=== PATIENT | female | born 1985 | race Caucasian/White ===

== ENCOUNTER 2019-08-23 12:52 | Emergency (ER) | payer SELFPAY ==
[2019-08-23 12:55] VITALS: BP 129/87; PULSE 109; RESP 16; TEMP 37.1; O2SAT 98; BMI 28.3
--- NOTE | 2019-08-23 13:48 | W.ED.WOUNDLC ---
HPI - Wound/Laceration General: Chief Complaint: Wound/Laceration Stated Complaint: SWOLLEN LIP Time Seen by Provider: 08/23/19 13:48 Source: patient Mode of arrival: ambulatory Limitations: no limitations History of Present Illness: HPI narrative: Patient comes in today with complaints of swelling to the lower lip. Patient had a pimple just beneath her lower lip on her face and had popped it yesterday. Patient awakened this morning with increased swelling and pain to the lip area. Patient appears well. Patient appears in mild to moderate pain. Review of Systems General: Reports: 10 or more systems reviewed and unremarkable except in HPI and below Skin/Breast: Reports: skin tenderness and changes in skin color PFSH ED PFSH: Social History Smoking and tobacco status: current every day smoker Physical Exam Const: COMMON NORMALS: no apparent distress and oriented x3 GENERAL APPEARANCE: cooperative HENMT: COMMON NORMALS: normocephalic, external ears normal, EAC's normal, TM's normal bilaterally and external nose normal HEAD & SCALP: normal to inspection and normocephalic FACE & SINUS: other (Swelling to the lower lip with a pustule beneath the lip and the lower frenulum.) NOSE: external nose normal GENERAL EAR: hearing not grossly impaired EXTERNAL EAR: Yes external ears normal EXTERNAL AUDITORY CANAL: EAC's normal TYMPANIC MEMBRANE: TM's normal bilaterally MOUTH: oral and palatal mucosa normal THROAT: posterior oropharynx normal Eye: COMMON NORMALS: PERRL and EOMs intact bilaterally PUPIL: Yes PERRL Neck/C-Spine: COMMON NORMALS: full ROM and no lymphadenopathy Lymph: LYMPHATIC: no lymphedema noted Chest: COMMONS NORMALS: inspection of chest normal and palpation of chest normal Resp: COMMON NORMALS: normal respiratory effort and clear to auscultation bilaterally AUSCULTATION: clear to auscultation bilaterally Cardio: COMMON NORMALS: regular rate and regular rhythm RATE: regular rate RHYTHM: regular rhythm GI: COMMON NORMALS: normal to inspection, nondistended, normoactive bowel sounds and non-tender : COMMON NORMALS: Yes no CVA tenderness BLADDER/KIDNEY EXAM: Yes no CVA tenderness Back/Pelvis: COMMON NORMALS: no CVA tenderness and thoracic and lumbar spine normal to inspection Extremity: COMMON NORMALS: normal to inspection GENERAL: No edema Neuro: COMMON NORMALS: oriented x3, moves all extremities and no focal motor deficits Psych: COMMON NORMALS: mental status grossly normal and cooperative Skin: LESIONS: lesion noted (pustule lower face) Procedures Abscess I/D Site: lip Local Anesthetic: lidocaine 2% and with epi Amount of anesthesia used (mL): 3 Technique: incised with #11 blade Amount of fluid expressed (mL): 1 Irrigation: Yes Packing used?: plain (1 06/29 wick) Course Vital Signs: Vital signs: Vital Signs Temperature 98.7 F 08/23/19 12:55 Pulse Rate 109 H 08/23/19 12:55 Respiratory Rate 16 08/23/19 12:55 Blood Pressure 129/87 08/23/19 12:55 Pulse Oximetry 98 08/23/19 12:55 MDM - Wound/Laceration MDM Narrative: Medical decision making narrative: Patient presents with abscess to the lower central lip area. On exam we know a pustule with surrounding area of tissue tenderness and lip swelling. Differential diagnosis cellulitis, abscess, sebaceous cyst. Patient was anesthetized with 2% lidocaine and epinephrine. Half a centimeter incision was made, patient tolerated well, large amount of sebum and purulent drainage was expressed from the wound. Patient tolerated well. Reviewed postprocedure care and need for follow-up. Patient reports understanding of care plan and need for follow-up. Discharge Plan Discharge Patient Disposition: Home, Self-Care Clinical Impression: Abscess Condition: Stable Prescriptions: New Bactrim DS 800-160 mg tablet 1 tab PO BID 10 Days Qty: 20 RF: 0 ibuprofen 800 mg tablet 800 mg PO Q8H PRN (Reason: pain) Qty: 30 RF: 0 Discharge Orders: Discharge Order (Routine); Ordered 08/23/19 Ordered By: Elbert Mcneal Referrals: Iris Cassidy NP [Primary Care Provider] - Discharge Diet: Usual diet Discharge Activity: Increase activity as tolerated Patient Instructions: Abscess Incision and Drainage (ED) Activity Restrictions/Additional Instructions: Drink plenty of fluids Medications as directed Warm compresses Return to ER for worsening pain and swelling Remove wick in 48 hours, leave out if comes out before time Follow-up with primary care in 3 days as needed Coding Level of Care Code ED [employer] [facility] Life Consultant for Tamela Fwd Exam Comprehensive
[2019-08-23] MEDS: sulfamethoxazole-trimeth DS 160-800 mg Tablet 1 TAB PO (14:18)
[2019-08-23 15:39] VITALS: BP 121/74; PULSE 72; RESP 18; O2SAT 96
== END 2019-08-23 15:41 | disposition home or self-care (01) ==
PROVIDERS: Emergency Provider Nurse Practitioner Family; Family Provider Nurse Practitioner Family; PCP Nurse Practitioner Family
DX: K13.0 Diseases of lips (principal); F17.200 Nicotine dependence, unspecified, uncomplicated
CPT/HCPCS: 10060; 99281; 99283; J2001

== ENCOUNTER 2019-09-11 03:50 | Emergency (ER) | payer SELFPAY ==
[2019-09-11 03:54] VITALS: BP 137/80; PULSE 100; RESP 18; TEMP 36.6; O2SAT 98; BMI 28.3
--- NOTE | 2019-09-11 03:55 | ED_ITS ---
Entered by Ellen Martin, acting as scribe for Sep 11, 2019 03:50 HPI - Abdominal Pain General: Chief Complaint: Abdominal Pain Stated Complaint: lower abd pain Time Seen by Provider: 09/11/19 03:55 Source: patient Mode of arrival: ambulatory Limitations: no limitations History of Present Illness: HPI narrative: 34 yo f came to the er pov for lower abd pain. Onset was last night. Pt states that she is having some lower abd pain and it feels like gas, pt said that she has had some nausea and vomiting. Pt did not have any blood in the vomit. Pt said that she has not been able to urinate for awhile, pt also said that she was having trouble with bowel movements. MD elicited complaint: abdominal pain Onset (ago): day(s) (last night) Pain Consistency: constant Location: RLQ and LLQ Severity: moderate Quality: stabbing and sharp Radiation: none Migration to: no migration Exacerbating factors: nothing Relieving factors: nothing Associated Symptoms: Reports constipation, nausea and vomiting; Denies fever(s) and hematemesis Review of Systems General: Reports: other (negative unless marked) Const: Denies: fever ENMT: Denies: throat pain Card: Denies: chest pain Resp: Denies: shortness of breath or productive cough GI: Reports: abdominal pain, nausea, vomiting and constipation; Denies: vomiting blood : Reports: difficulty urinating and decreased urine ouput Musc: Denies: neck pain or back pain Skin/Breast: Denies: rash Neuro: Denies: headache PFSH ED PFSH: Social History Smoking and tobacco status: current every day smoker Physical Exam Const: COMMON NORMALS: no apparent distress GENERAL APPEARANCE: cooperative and comfortable ORIENTATION/CONSCIOUSNESS: Yes awake, Yes oriented to person, Yes oriented to place and Yes oriented to time HENMT: COMMON NORMALS: normocephalic, head/scalp atraumatic, hearing grossly normal bilaterally, external ears normal, EAC's normal, TM's normal bilaterally, nasal mucous membranes and turbinates normal, moist oral mucous membranes and oropharynx normal HEAD & SCALP: normocephalic and atraumatic NOSE: nasal mucous membranes and turbinates normal EXTERNAL EAR: Yes external ears normal EXTERNAL AUDITORY CANAL: EAC's normal TYMPANIC MEMBRANE: TM's normal bilaterally Eye: COMMON NORMALS: PERRL, EOMs intact bilaterally, conjunctivae normal and no scleral icterus CONJUNCTIVA: Yes conjunctivae normal PUPIL: Yes PERRL Neck/C-Spine: COMMON NORMALS: full ROM, no lymphadenopathy, supple and no JVD Lymph: LYMPHATIC: no lymphadenopathy noted and no lymphedema noted Resp: COMMON NORMALS: normal respiratory effort, no retractions, no use of accessory muscles and clear to auscultation bilaterally AUSCULTATION: clear to auscultation bilaterally Cardio: COMMON NORMALS: no JVD, regular rate, regular rhythm and no murmurs RATE: regular rate RHYTHM: regular rhythm GI: COMMON NORMALS: soft to palpation and no hepatosplenomegaly AUSCULTATION: Yes normoactive bowel sounds PALPATION: Yes soft, No tender, No guarding and Yes no hepatosplenomegaly Extremity: COMMON NORMALS: normal to inspection, normal capillary refill, no clubbing, cyanosis or edema, no calf tenderness and no pedal edema Neuro: SENSORIUM/ORIENTATION: Yes oriented to person, Yes oriented to place and Yes oriented to time Skin: COMMON NORMALS: no rashes or lesions noted GENERAL SKIN EXAM: no rashes or lesions noted Course ED course: Patient has had some passage of stool. There is a comment in the distal sigmoid colon about possible obstruction. She does seem to be severely constipated offered enema recommended mag citrate will discharge her home. I do recommend that she start taking MiraLAX regularly along with Colace twice daily to prevent future constipation. If not improving recheck. Recommend follow-up with primary care if this persists she may need colonoscopy. At this time at the time of discharge her abdomen is soft and nontender she has no guarding or rebound and has adequate bowel sounds. Patient prefers home treatment for relief of constipation. Vital Signs: Vital signs: Vital Signs Temperature 97.9 F 09/11/19 03:54 Pulse Rate 97 09/11/19 06:36 Respiratory Rate 18 09/11/19 06:36 Blood Pressure 135/91 09/11/19 06:36 Pulse Oximetry 94 09/11/19 06:36 MDM - Abdominal Pain Lab Data: Attestation: I reviewed the patient's lab results. Labs: Lab Results 09/11/19 09/11/19 09/11/19 Range/Units 04:08 04:08 05:18 WBC 12.9 H (4.0-10.0) 10^3/ uL RBC 4.65 (4.1-5.3) 10^6/u L Hgb 12.5 (11.5-15.3) g/dL Hct 39.7 (37.0-47.0) % MCV 85.4 (81-99) fL MCH 26.9 L (28.0-34.0) pg MCHC 31.5 (30.0-36.0) g/dL RDW 15.3 H (12.1-15.1) % Plt Count 446 H (130-400) 10^3/c mm MPV 9.7 (7.4-10.4) fL Neut % (Auto) 71.1 % Lymph % (Auto) 21.5 % Dickens % (Auto) 6.1 % Eos % (Auto) 0.6 % Baso % (Auto) 0.3 % Neut # (Auto) 9.1 H (1.8-7.7) 10^3/u L Lymph # (Auto) 2.8 (0.8-4.8) 10^3/u L Dickens # (Auto) 0.8 (0.2-0.9) 10^3/u L Eos # (Auto) 0.1 (0.0-0.8) 10^3/u L Baso # (Auto) 0.0 (0.0-0.1) 10^3/u L Nucleated RBC % (a uto) 0 % Nucleated RBCs # 0.0 /100WBC Sodium 136 (136-145) mmol/L Potassium 4.4 (3.5-5.1) mmol/L Chloride 98 (98-107) mmol/L Carbon Dioxide 27 (22-29) mmol/L Anion Gap 15.4 (5-19) BUN 8 (6-20) mg/dL Creatinine 0.6 (0.5-0.9) mg/dL GFR Calculation 115.1 (90-130) mL/min Glucose 111 (65-115) mg/dL Calculated Osmolal ity 279 L (285-295) mOsm/k g Calcium 9.8 (8.5-10.5) mg/dL Total Bilirubin 0.4 (0.15-1.2) mg/dL AST 78 H (0-32) U/L ALT 71 H (0-33) U/L Alkaline Phosphata se 94 (35-105) IU/L Total Protein 8.5 (6.6-8.7) g/dL Albumin 3.7 (3.5-5.2) g/dL Globulin 4.8 H (1.3-4.6) g/dL Lipase 19 (13-60) U/L HCG, Qual Negative (Negative) Urine Color (Yellow) Urine Appearance (CLEAR) Urine pH (5-7) Ur Specific Gravit y (1.005-1.030) Urine Protein (Negative) Urine Glucose (UA) (Normal) Urine Ketones (Negative) Urine Blood (Negative) Urine Nitrate (Negative) Urine Bilirubin (NEGATIVE) Urine Urobilinogen (Negative) mg/dL Ur Leukocyte Enedina ase (Negative) Urine RBC (0-2) /hpf Urine WBC (0-5) /hpf Ur Squamous Epith Cells (0-5) Urine Bacteria (NONE) Urine Yeast 09/10/ Range/Units 05:18 WBC (4.0-10.0) 10^3/ uL RBC (4.1-5.3) 10^6/u L Hgb (11.5-15.3) g/dL Hct (37.0-47.0) % MCV (81-99) fL MCH (28.0-34.0) pg MCHC (30.0-36.0) g/dL RDW (12.1-15.1) % Plt Count (130-400) 10^3/c mm MPV (7.4-10.4) fL Neut % (Auto) % Lymph % (Auto) % Dickens % (Auto) % Eos % (Auto) % Baso % (Auto) % Neut # (Auto) (1.8-7.7) 10^3/u L Lymph # (Auto) (0.8-4.8) 10^3/u L Dickens # (Auto) (0.2-0.9) 10^3/u L Eos # (Auto) (0.0-0.8) 10^3/u L Baso # (Auto) (0.0-0.1) 10^3/u L Nucleated RBC % (a uto) % Nucleated RBCs # /100WBC Sodium (136-145) mmol/L Potassium (3.5-5.1) mmol/L Chloride (98-107) mmol/L Carbon Dioxide (22-29) mmol/L Anion Gap (5-19) BUN (6-20) mg/dL Creatinine (0.5-0.9) mg/dL GFR Calculation (90-130) mL/min Glucose (65-115) mg/dL Calculated Osmolal ity (285-295) mOsm/k g Calcium (8.5-10.5) mg/dL Total Bilirubin (0.15-1.2) mg/dL AST (0-32) U/L ALT (0-33) U/L Alkaline Phosphata se (35-105) IU/L Total Protein (6.6-8.7) g/dL Albumin (3.5-5.2) g/dL Globulin (1.3-4.6) g/dL Lipase (13-60) U/L HCG, Qual (Negative) Urine Color Brown (Yellow) Urine Appearance Cloudy (CLEAR) Urine pH 5 (5-7) Ur Specific Gravit y 1.015 (1.005-1.030) Urine Protein Trace (Negative) Urine Glucose (UA) Norm (Normal) Urine Ketones Negative (Negative) Urine Blood Neg (Negative) Urine Nitrate Negative (Negative) Urine Bilirubin 1+ H (NEGATIVE) Urine Urobilinogen 1 H (Negative) mg/dL Ur Leukocyte Enedina ase Negative (Negative) Urine RBC 0-4 H (0-2) /hpf Urine WBC None (0-5) /hpf Ur Squamous Epith Cells 0-4 H (0-5) Urine Bacteria Trace (NONE) Urine Yeast Trace Imaging Data ^: CT Abd/Pel: Radiologist's impression: ROCEDURE INFORMATION: Exam: CT Abdomen And Pelvis With Contrast Exam date and time: 09/11/2019 4:29 AM Age: 34 years old Clinical indication: Abdominal pain; Generalized; Additional info: Abd pain TECHNIQUE: Imaging protocol: Computed tomography of the abdomen and pelvis with intravenous contrast. Total DLP: 714.56 mGy-cm Radiation optimization: All CT scans at this facility use at least one of these dose optimization techniques: automated exposure control; mA and/or kV adjustment per patient size (includes targeted exams where dose is matched to clinical indication); or iterative reconstruction. Contrast material: OMNI 300; Contrast volume: 95 ml; Contrast route: 20G; COMPARISON: US No relevant prior studies available. FINDINGS: Lungs: The lung bases are clear. Mediastinum: There may be some mucosal/wall thickening involving the lower esophagus. This is nonspecific, but could represent evidence for esophagitis. Please correlate clinically. Liver: Unremarkable. Gallbladder and bile ducts: No definite gallbladder abnormality by CT. No biliary tree dilation. Pancreas: Unremarkable. Spleen: Unremarkable. Adrenals: Bilateral apparent adrenal nodules, measuring 21 mm on the right, 15 mm on the left. These may represent benign adenomas in this relatively young age group. However, they measure greater than water attenuation on this postcontrast scan. Therefore, a follow-up noncontrast CT, or MRI of the adrenal glands will be useful in the future for further followup, or evaluation/characterization. Eventual comparison with any available prior exams may also be helpful. Kidneys and ureters: Unremarkable. Stomach and bowel: Almost the entire colon is abnormally dilated, and contains a large amount of stool. The sigmoid colon is dilated up to 5 cm. The transverse and ascending colon measure up to 6.5 cm. There appears to be a transition point in the distal sigmoid colon 3-5 cm proximal to the rectum. The appearance is suspicious for a partial mechanical obstruction of the distal sigmoid colon. No definitive etiology, although there may be some mucosal/wall thickening in this region. Neoplasm would be a relatively uncommon for an etiology in this young age group, but is still a possibility. No obvious adjacent inflammatory changes to suggest active diverticulitis. No evidence for volvulus. Appropriate workup/follow-up recommended. The distal ileum is fluid filled and mildly dilated, probably related to the colonic obstruction. Most of the small bowel is not dilated. Appendix: The appendix is visualized and appears normal. Intraperitoneal space: No free intraperitoneal air, or ascites. Vasculature: No evidence for abdominal aortic aneurysm. Lymph nodes: No retroperitoneal adenopathy. Bladder: Suspect mild to moderate diffuse urinary bladder wall thickening. While nonspecific, this could indicate evidence for cystitis. Please correlate clinically. Reproductive: The left ovary contains a 10-11 mm dominant follicle versus very small cyst. Significance unlikely due to small size. No significant cul-de-sac fluid. Bones/joints: No significant acute finding. Soft tissues: No significant acute finding. CT/CT abdomen pelvis w con* [id number] IMPRESSION: 1. Appearance suspicious for partial obstruction of the distal sigmoid colon. Please see above details/discussion. 2. No free intraperitoneal air. 3. Normal appendix. 4. Bilateral adrenal nodules, see above. 5. Suspected urinary bladder wall thickening, see above. 6. Possibly some thickening of the lower esophagus, see above discussion. 7. Other findings discussed above. Radiation Dose CTDIVOL = (mGy): DLP = 714.56 (mGy-cm) Dictated By:Huey Brock MD Discharge Plan Discharge Patient Disposition: Home, Self-Care Clinical Impression: Constipation Condition: Stable Prescriptions: New Citrate of Magnesia Solution 150 ml PO BID PRN (Reason: constipation) Qty: 296 RF: 0 No Action ibuprofen 800 mg tablet 800 mg PO Q8H PRN (Reason: pain) Qty: 30 RF: 0 Discharge Orders: Discharge Order (Routine); Ordered 09/11/19 Ordered By: Riki Escobar Referrals: Iris Cassidy, TOOL TECHNICIAN [Primary Care Provider] - Discharge Diet: Full LIquid Patient Instructions: Constipation (ED) Discharge Date/Time: 09/11/19 06:42 Coding Level of Care Code ED Edge Blacker for Chg Fwd Exam Comprehensive The documentation recorded by the Mario zavaleta Stephanie Lyn, accurately reflects the service I personally performed and the decisions made by Luz hoffman Curtis L, Sep 11, 2019 03:50
[2019-09-11 04:14] VITALS: RESP 18; O2SAT 99
[2019-09-11] MEDS: morphine 4 mg/mL SDV 1 mL IVP (04:14)
[2019-09-11] MEDS: ondansetron 2 mg/ML SDV 2 mL 4 MG IVP (04:14)
[2019-09-11] MEDS: sodium chloride 0.9% 1,000 ML 999 ML IV (04:16)
--- NOTE | 2019-09-11 04:24 | CTR_ITS ---
PROCEDURE INFORMATION: Exam: CT Abdomen And Pelvis With Contrast Exam date and time: 09/11/2019 4:29 AM Age: 34 years old Clinical indication: Abdominal pain; Generalized; Additional info: Abd pain TECHNIQUE: Imaging protocol: Computed tomography of the abdomen and pelvis with intravenous contrast. Total DLP: 714.56 mGy-cm Radiation optimization: All CT scans at this facility use at least one of these dose optimization techniques: automated exposure control; mA and/or kV adjustment per patient size (includes targeted exams where dose is matched to clinical indication); or iterative reconstruction. Contrast material: OMNI 300; Contrast volume: 95 ml; Contrast route: 20G; COMPARISON: US No relevant prior studies available. FINDINGS: Lungs: The lung bases are clear. Mediastinum: There may be some mucosal/wall thickening involving the lower esophagus. This is nonspecific, but could represent evidence for esophagitis. Please correlate clinically. Liver: Unremarkable. Gallbladder and bile ducts: No definite gallbladder abnormality by CT. No biliary tree dilation. Pancreas: Unremarkable. Spleen: Unremarkable. Adrenals: Bilateral apparent adrenal nodules, measuring 21 mm on the right, 15 mm on the left. These may represent benign adenomas in this relatively young age group. However, they measure greater than water attenuation on this postcontrast scan. Therefore, a follow-up noncontrast CT, or MRI of the adrenal glands will be useful in the future for further followup, or evaluation/characterization. Eventual comparison with any available prior exams may also be helpful. Kidneys and ureters: Unremarkable. Stomach and bowel: Almost the entire colon is abnormally dilated, and contains a large amount of stool. The sigmoid colon is dilated up to 5 cm. The transverse and ascending colon measure up to 6.5 cm. There appears to be a transition point in the distal sigmoid colon 3-5 cm proximal to the rectum. The appearance is suspicious for a partial mechanical obstruction of the distal sigmoid colon. No definitive etiology, although there may be some mucosal/wall thickening in this region. Neoplasm would be a relatively uncommon for an etiology in this young age group, but is still a possibility. No obvious adjacent inflammatory changes to suggest active diverticulitis. No evidence for volvulus. Appropriate workup/follow-up recommended. The distal ileum is fluid filled and mildly dilated, probably related to the colonic obstruction. Most of the small bowel is not dilated. Appendix: The appendix is visualized and appears normal. Intraperitoneal space: No free intraperitoneal air, or ascites. Vasculature: No evidence for abdominal aortic aneurysm. Lymph nodes: No retroperitoneal adenopathy. Bladder: Suspect mild to moderate diffuse urinary bladder wall thickening. While nonspecific, this could indicate evidence for cystitis. Please correlate clinically. Reproductive: The left ovary contains a 10-11 mm dominant follicle versus very small cyst. Significance unlikely due to small size. No significant cul-de-sac fluid. Bones/joints: No significant acute finding. Soft tissues: No significant acute finding. CT/CT abdomen pelvis w con* [id number] IMPRESSION: 1. Appearance suspicious for partial obstruction of the distal sigmoid colon. Please see above details/discussion. 2. No free intraperitoneal air. 3. Normal appendix. 4. Bilateral adrenal nodules, see above. 5. Suspected urinary bladder wall thickening, see above. 6. Possibly some thickening of the lower esophagus, see above discussion. 7. Other findings discussed above. Radiation Dose CTDIVOL = (mGy): DLP = 714.56 (mGy-cm)
[2019-09-11 04:46] LABS: Basophils % 0.3 %; Eosinophils # 0.1 10^3/uL (0.0-0.8); Eosinophils % 0.6 %; Hematocrit 39.7 % (37.0-47.0); Hemoglobin 12.5 g/dL (11.5-15.3); Lymphocytes # 2.8 10^3/uL (0.8-4.8); Lymphocytes % 21.5 %; Mean Corpuscular HGB Conc 31.5 g/dL (30.0-36.0); Mean Corpuscular Hemoglobin 26.9 pg (28.0-34.0); Mean Corpuscular Volume 85.4 fL (81-99); Mean Platelet Volume 9.7 fL (7.4-10.4); Monocytes # 0.8 10^3/uL (0.2-0.9); Monocytes % 6.1 %; Neutrophils # 9.1 10^3/uL (1.8-7.7); Neutrophils % 71.1 %; Nucleated Red Blood Cells % 0 %; Platelet Count 446 10^3/cmm (130-400); Red Blood Count 4.65 10^6/uL (4.1-5.3); Red Cell Distribution Width 15.3 % (12.1-15.1); White Blood Count 12.9 10^3/uL (4.0-10.0)
[2019-09-11 05:00] LABS: Alanine Aminotransferase 71 U/L (0-33); Albumin Level 3.7 g/dL (3.5-5.2); Alkaline Phosphatase 94 IU/L (35-105); Anion Gap 15.4 (5-19); Aspartate Amino Transferase 78 U/L (0-32); Blood Urea Nitrogen 8 mg/dL (6-20); Calcium 9.8 mg/dL (8.5-10.5); Carbon Dioxide 27 mmol/L (22-29); Chloride 98 mmol/L (98-107); Globulin 4.8 g/dL (1.3-4.6); Glomerular Filtration Rate 115.1 mL/min (90-130); Glucose 111 mg/dL (65-115); Lipase 19 U/L (13-60); Osmolality Calculated 279 mOsm/kg (285-295); Potassium 4.4 mmol/L (3.5-5.1); Sodium 136 mmol/L (136-145); Total Bilirubin 0.4 mg/dL (0.15-1.2); Total Protein 8.5 g/dL (6.6-8.7)
[2019-09-11] MEDS: iohexol 300 mg/mL 100 mL Btl IV (05:03)
[2019-09-11 05:28] VITALS: BP 140/78; PULSE 97; RESP 16; O2SAT 98
[2019-09-11 05:29] LABS: HCG Qualitative Urine. Negative (Negative)
[2019-09-11 06:26] LABS: Glucose Urine UA Norm (Normal); Ketones Urine Negative (Negative); Protein Urine Trace (Negative); Specific Gravity, Urine 1.015 (1.005-1.030); Urine Appearance Cloudy (CLEAR); Urine Color Brown (Yellow); pH Urine 5 (5-7)
[2019-09-11 06:27] LABS: Add Urine Microscopic? YES; Bilirubin Urine 1+ (NEGATIVE); Blood Urine Neg (Negative); Leukocyte Esterase Urine Negative (Negative); Nitrate Urine Negative (Negative); Urobilinogen Urine 1 mg/dL (Negative)
[2019-09-11 06:32] LABS: Add Urine Culture? Yes; Bacteria Urine TRACE; RBC Urine 0-4 /hpf (0-2); Squamous Epithelial Cell Urine 0-4 (0-5)
[2019-09-11 06:36] VITALS: BP 135/91; PULSE 97; RESP 18; O2SAT 94
== END 2019-09-11 06:42 | disposition home or self-care (01) ==
PROVIDERS: Emergency Provider Family Medicine; Family Provider Nurse Practitioner Family; PCP Nurse Practitioner Family
DX: K59.00 Constipation, unspecified (principal); F17.200 Nicotine dependence, unspecified, uncomplicated
CPT/HCPCS: 12345; 74177; 80053; 81001; 81025; 83690; 85025; 87086; 96365; 96366; 96375; 99282; 99284; A9270; J2270; J2405; J7030; Q9967

== ENCOUNTER 2020-09-19 01:22 | Inpatient (IN) | payer SELFPAY ==
[2020-09-19] VITALS (14 sets, daily range): BP systolic 93–159; BP diastolic 58–95; PULSE 86–106; RESP 16–26; TEMP 36.7–39.2; O2SAT 90–99; BMI 35.6
--- NOTE | 2020-09-19 01:49 | ED_ITS ---
Documented by User: MICHAEL Pickett 09/20/20 07:03 HPI - Abdominal Pain General: Chief Complaint: Abdominal Pain Stated Complaint: abd pain Time Seen by Provider: 09/19/20 01:38 Source: patient Mode of arrival: ambulatory Limitations: no limitations History of Present Illness: HPI narrative: Patient is a 35-year-old female who presents to ED today with a complaint of severe abdominal pain. Patient tells me she has a longstanding history of constipation. She states she has not had a normal bowel movement in several days. She is having excruciating pain with very small defecations. She tells me over the past week or so she has had intermittent severe pains to the left side of her abdomen and lower abdomen. She states pain today has been constant and unrelenting and unbearable. She is having severe nausea with dry heaves. She has not noticed any blood in her stools. She has not been running fevers. She states abdominal pain seems to radiate into her back. She does not complain of flank pain. She has no dysuria but states she has severe abdominal pain even when pushing to urinate. She is not having any vaginal discharge or vaginal odor. Reports no chance of . MD elicited complaint: abdominal pain Onset (ago): hour(s) Pain Consistency: constant Location: LUQ and LLQ Severity: severe Pain scale (0-10): 10 Quality: stabbing and sharp Radiation: back Exacerbating factors: nothing Relieving factors: nothing Associated Symptoms: Reports change in stool character, constipation, nausea and vomiting; Denies chills, coffee ground emesis, dysuria, fever(s), heartburn, hematemesis and melena Related Data: Date of Last Menstrual Period: 09/09/19 Patient : No Review of Systems Const: Denies: fever(s), chills, body aches, fatigue or malaise Card: Denies: chest pain Resp: Denies: dyspnea GI: Reports: abdominal pain, nausea, vomiting, constipation, pain on defecation, rectal pain and change in stool character; Denies: hematemesis, coffee ground emesis, heartburn or melena : Reports: other (reports abdominal pain when pushing to urinate); Denies: flank pain, difficulty voiding, dysuria, urinary frequency, urinary urgency or urinary hesitancy Musc: Reports: back pain (reports abdominal pain radiates into back); Denies: neck pain, extremity pain, extremity swelling, joint pain or joint swelling Skin/Breast: Denies: rash Neuro: Denies: headache(s), numbness in extremities, weakness in extremities, sensory changes or dizziness PFSH ED PFSH: Medical History (Updated 09/19/20 @ 08:23 by Alexei Hernandez MD) Opiate abuse, episodic Surgical History (Updated 09/19/20 @ 06:16 by Kathryn Prater MD) No significant past surgical history Social History (Updated 09/19/20 @ 06:16 by Kathryn Prater MD) Smoking and tobacco status: current every day smoker Alcohol intake: never Substance/Drug Use: former Female Reproductive History: Date of last menstrual period: 09/09/19 Physical Exam Const: COMMON NORMALS: patient oriented x3, no limitations, alert and well nourished GENERAL APPEARANCE: in distress (in pain) ORIEN TATION/CONSCIOUSNESS: Yes awake, Yes oriented to person, Yes oriented to place and Yes oriented to time HENMT: COMMON NORMALS: normocephalic and atraumatic HEAD & SCALP: normocephalic and atraumatic Resp: COMMON NORMALS: clear to auscultation bilaterally EFFORT & INSPECTION: Yes tachypneic (secondary to pain/distress) AUSCULTATION: clear to auscultation bilaterally Cardio: COMMON NORMALS: regular rate and regular rhythm RATE: regular rate RHYTHM: regular rhythm GI: COMMON NORMALS: Normal to inspection, nondistended, normoactive bowel sounds present INSPECTION: Yes normal to inspection AUSCULTATION: Yes normoactive bowel sounds PALPATION: Yes Tenderness to palpation present (GI) (throughout L and lower abdomen; guarding; pt not cooperative with exam) and Yes Guarding due to palpation present (GI) : COMMON NORMALS: Yes no CVA tenderness BLADDER/KIDNEY EXAM: Yes no CVA tenderness Back/Pelvis: COMMON NORMALS: no CVA tenderness Neuro: COMMON NORMALS: patient oriented x3 SENSORIUM/ORIENTATION: Yes alert, Yes oriented to person, Yes oriented to place and Yes oriented to time Skin: COMMON NORMALS: no rashes or lesions noted GENERAL SKIN EXAM: no rashes or lesions noted Course Vital Signs: Vital signs: Vital Signs Temperature 100.0 F H 03/28/21 05:30 Pulse Rate 110 H 09/20/20 05:30 Respiratory Rate 22 H 09/20/20 05:30 Blood Pressure 112/71 09/20/20 05:30 Pulse Oximetry 94 09/20/20 05:30 MDM - Abdominal Pain Lab Data: Labs: Lab Results 09/19/20 09/19/20 09/19/20 Range/Units 02:16 02:25 02:25 WBC 14.7 H (4.0-10.0) 10^3/ uL RBC 4.48 (4.1-5.3) 10^6/u L Hgb 11.0 L (11.5-15.3) g/dL Hct 34.3 L (37.0-47.0) % MCV 76.6 L (81-99) fL MCH 24.6 L (28.0-34.0) pg MCHC 32.1 (30.0-36.0) g/dL RDW 17.0 H (12.1-15.1) % Plt Count 316 (130-400) 10^3/c mm MPV 9.1 (7.4-10.4) fL Neut % (Auto) 76.9 % Lymph % (Auto) 15.1 % [place] % (Auto) 6.9 % Eos % (Auto) 0.6 % Baso % (Auto) 0.2 % Neut # (Auto) 11.30 H (1.8-7.7) 10^3/u L Lymph # (Auto) 2.2 (0.8-4.8) 10^3/u L [place] # (Auto) 1.0 H (0.2-0.9) 10^3/u L Eos # (Auto) 0.1 (0.0-0.8) 10^3/u L Baso # (Auto) 0.0 (0.0-0.1) 10^3/u L Nucleated RBC % (a uto) 0 % Nucleated RBCs # 0.0 /100WBC Sodium 132 L (136-145) mmol/L Potassium 3.6 (3.5-5.1) mmol/L Chloride 98 (98-107) mmol/L Carbon Dioxide 23 (22-29) mmol/L Anion Gap 14.6 (5-19) BUN 9 (6-20) mg/dL Creatinine 0.5 (0.5-0.9) mg/dL GFR Calculation 141.2 H (90-130) mL/min Glucose 105 (65-115) mg/dL Calculated Osmolal ity 273 L (285-295) mOsm/k g Calcium 8.1 L (8.5-10.5) mg/dL Total Bilirubin 0.5 (0.15-1.2) mg/dL AST 23 (0-32) U/L ALT 26 (0-33) U/L Alkaline Phosphata se 94 (35-105) IU/L Total Protein 7.6 (6.6-8.7) g/dL Albumin 3.3 L (3.5-5.2) g/dL Globulin 4.3 (1.3-4.6) g/dL Lipase 15 (13-60) U/L HCG, Qual (Negative) Urine Color Yellow (Yellow) Urine Appearance Clear (CLEAR) Urine pH 7 (5-7) Ur Specific Gravit y 1.005 (1.005-1.030) Urine Protein Neg (Negative) Urine Glucose (UA) Norm (Normal) Urine Ketones Negative (Negative) Urine Blood Neg (Negative) Urine Nitrate Negative (Negative) Urine Bilirubin Neg (Negative) Urine Urobilinogen Norm (Negative) mg/dL Ur Leukocyte Enedina ase Negative (Negative) 09/19/20 Range/Units 02:25 WBC (4.0-10.0) 10^3/ uL RBC (4.1-5.3) 10^6/u L Hgb (11.5-15.3) g/dL Hct (37.0-47.0) % MCV (81-99) fL MCH (28.0-34.0) pg MCHC (30.0-36.0) g/dL RDW (12.1-15.1) % Plt Count (130-400) 10^3/c mm MPV (7.4-10.4) fL Neut % (Auto) % Lymph % (Auto) % [place] % (Auto) % Eos % (Auto) % Baso % (Auto) % Neut # (Auto) (1.8-7.7) 10^3/u L Lymph # (Auto) (0.8-4.8) 10^3/u L [place] # (Auto) (0.2-0.9) 10^3/u L Eos # (Auto) (0.0-0.8) 10^3/u L Baso # (Auto) (0.0-0.1) 10^3/u L Nucleated RBC % (a uto) % Nucleated RBCs # /100WBC Sodium (136-145) mmol/L Potassium (3.5-5.1) mmol/L Chloride (98-107) mmol/L Carbon Dioxide (22-29) mmol/L Anion Gap (5-19) BUN (6-20) mg/dL Creatinine (0.5-0.9) mg/dL GFR Calculation (90-130) mL/min Glucose (65-115) mg/dL Calculated Osmolal ity (285-295) mOsm/k g Calcium (8.5-10.5) mg/dL Total Bilirubin (0.15-1.2) mg/dL AST (0-32) U/L ALT (0-33) U/L Alkaline Phosphata se (35-105) IU/L Total Protein (6.6-8.7) g/dL Albumin (3.5-5.2) g/dL Globulin (1.3-4.6) g/dL Lipase (13-60) U/L HCG, Qual Negative (Negative) Urine Color (Yellow) Urine Appearance (CLEAR) Urine pH (5-7) Ur Specific Gravit y (1.005-1.030) Urine Protein (Negative) Urine Glucose (UA) (Normal) Urine Ketones (Negative) Urine Blood (Negative) Urine Nitrate (Negative) Urine Bilirubin (Negative) Urine Urobilinogen (Negative) mg/dL Ur Leukocyte Enedina ase (Negative) Imaging Data ^: CT Abd/Pel: Radiologist's impression: [address] [address] [address] Scan Report Signed with Addenda Patient: Victoria Ramirez Unit #: [id number] : [id number] Age/Sex: 35 / F ADM Date: 09/19/20 Loc: ER Room/Bed: Attending Dr: Ordering Provider/Ordering MD: Arti De Anda Date of Service: 09/19/20 Procedure(s): CT abdomen pelvis w con* [id number] Accession Number(s): [id number] Report Number: [id number]/CT abdomen pelvis w con* [id number] THIS REPORT CONTAINS FINDINGS THAT MAY BE CRITICAL TO PATIENT CARE. The findings were verbally communicated by me to Dr. Duff via telephone conference at 4:42 AM CDT on 09/19/2020. The findings were acknowledged and understood. Radiation Dose CTDIVOL = (mGy): DLP = 1361 (mGy-cm) Addendum Dictated By: David Pink Addendum Signed By: David Pink Signed Date/Time: 09/19/20 044 4 Addendum Cosigned By: PROCEDURE INFORMATION: Exam: CT Abdomen And Pelvis With Contrast Exam date and time: 09/19/2020 1:51 AM Age: 35 years old Clinical indication: Abdominal pain; Patient HX: Severe llq pain with constipation; Additional info: Severe L and lower abdominal pain TECHNIQUE: Imaging protocol: Computed tomography of the abdomen and pelvis with contrast. Radiation optimization: All CT scans at this facility use at least one of these dose optimization techniques: automated exposure control; mA and/or kV adjustment per patient size (includes targeted exams where dose is matched to clinical indication); or iterative reconstruction. Contrast material: 1361.00; Contrast volume: 95 ml; Contrast route: INTRAVENOUS (IV); COMPARISON: CT abdomen pelvis w con* [id number] 09/11/2019 4:44 AM RADIATION DOSE METRICS: Total DLP (mGy-cm): 1361 FINDINGS: Lungs: The lung bases are clear. No effusion Liver: Normal. No mass. Gallbladder and bile ducts: No wall thickening, pericholecystic fluid or stones. Pancreas: Normal. No ductal dilation. Spleen: Normal. No splenomegaly. Adrenal glands: Stable 2.2 cm indeterminate right adrenal nodule. 2.2 cm indeterminate left adrenal nodule previously measured 1.7 cm. Kidneys and ureters: Normal. No hydronephrosis. Stomach and bowel: There is acute sigmoid diverticulitis. There is a bilobed fluid collection adjacent to the sigmoid colon, the largest lobe is 3.6 x 5.5 cm. Appendix: No evidence of appendicitis. Intraperitoneal space: Small amount of free fluid present in the pelvis. Vasculature: Unremarkable. No abdominal aortic aneurysm. Lymph nodes: Unremarkable. No enlarged lymph nodes. Urinary bladder: Unremarkable as visualized. Reproductive: 2.8 cm right adnexal cyst. Bones/joints: Unremarkable. No acute fracture. Soft tissues: Unremarkable. CT/CT abdomen pelvis w con* [id number] IMPRESSION: 1. Acute sigmoid diverticulitis with 3.6 by 5.5 cm perisigmoid abscess. No free air. 2. Bilateral adrenal nodules which are indeterminate in density. Left-sided adrenal nodule has increased slightly in size. If patient has no cancer history, consider follow-up adrenal CT or resection. If patient has a history of cancer, consider biopsy or PET/CT for patients with cancer history. ([employer] W, ACR White Paper, 2017) 3. 2.8 cm right adnexal cyst. Radiation Dose CTDIVOL = (mGy): DLP = 1361 (mGy-cm) Dictated By: David Pink Signed By: David Pink Signed Date/Time: 09/19/20438 DD/ 6 Discharge Plan Discharge Patient Disposition: Admitted As Inpatient Admit Provider: Kathryn Prater Clinical Impression: Diverticulitis, Abscess of sigmoid colon Condition: Fair Coding Level of Care Code ED Optical Mechanic Apprentice for Chg Fwd Exam Detailed Documented by User: Kosta Duff DO 09/19/20 05:00 HPI - Abdominal Pain General: Chief Complaint: Abdominal Pain Stated Complaint: abd pain Time Seen by Provider: 09/19/20 01:38 [facility] ED PFSH: Medical History (Updated 09/19/20 @ 08:23 by Alexei Hernandez MD) Opiate abuse, episodic Surgical History (Updated 09/19/20 @ 06:16 by Kathryn Prater MD) No significant past surgical history Social History (Updated 09/19/20 @ 06:16 by Kathryn Prater MD) Smoking and tobacco status: current every day smoker Alcohol intake: never Substance/Drug Use: former Course Vital Signs: Vital signs: Vital Signs Temperature 100.0 F H 09/20/20 05:30 Pulse Rate 110 H 09/20/20 05:30 Respiratory Rate 22 H 09/20/20 05:30 Blood Pressure 112/71 09/20/20 05:30 Pulse Oximetry 94 09/20/20 05:30 MDM - Abdominal Pain 2 MDM Narrative: Medical decision making narrative: 35-year-old female originally seen by Mrs. De Anda?ADEEL Leyva. I agree with her history, evaluation, and treatment. This lady has diffuse belly pain. Her white blood cell count is 14.7. Hemoglobin is 11. Sodium is 132. Other labs are essentially normal. By CT, she has acute sigmoid diverticulitis with a 3.6 x 5.5 cm perisigmoid abscess present with no free air present. She is getting Zosyn and some fluid. Hospitalist is aware and will see her in the ER. We will await surgical consultation until needed. Lab Data: Labs: Lab Results 09/19/20 09/19/20 09/19/20 Range/Units 02:16 02:25 02:25 WBC 14.7 H (4.0-10.0) 10^3/ uL RBC 4.48 (4.1-5.3) 10^6/u L Hgb 11.0 L (11.5-15.3) g/dL Hct 34.3 L (37.0-47.0) % MCV 76.6 L (81-99) fL MCH 24.6 L (28.0-34.0) pg MCHC 32.1 (30.0-36.0) g/dL RDW 17.0 H (12.1-15.1) % Plt Count 316 (130-400) 10^3/c mm MPV 9.1 (7.4-10.4) fL Neut % (Auto) 76.9 % Lymph % (Auto) 15.1 % [place] % (Auto) 6.9 % Eos % (Auto) 0.6 % Baso % (Auto) 0.2 % Neut # (Auto) 11.30 H (1.8-7.7) 10^3/u L Lymph # (Auto) 2.2 (0.8-4.8) 10^3/u L [place] # (Auto) 1.0 H (0.2-0.9) 10^3/u L Eos # (Auto) 0.1 (0.0-0.8) 10^3/u L Baso # (Auto) 0.0 (0.0-0.1) 10^3/u L Nucleated RBC % (a uto) 0 % Nucleated RBCs # 0.0 /100WBC Sodium 132 L (136-145) mmol/L Potassium 3.6 (3.5-5.1) mmol/L Chloride 98 (98-107) mmol/L Carbon Dioxide 23 (22-29) mmol/L Anion Gap 14.6 (5-19) BUN 9 (6-20) mg/dL Creatinine 0.5 (0.5-0.9) mg/dL GFR Calculation 141.2 H (90-130) mL/min Glucose 105 (65-115) mg/dL Calculated Osmolal ity 273 L (285-295) mOsm/k g Calcium 8.1 L (8.5-10.5) mg/dL Total Bilirubin 0.5 (0.15-1.2) mg/dL AST 23 (0-32) U/L ALT 26 (0-33) U/L Alkaline Phosphata se 94 (35-105) IU/L Total Protein 7.6 (6.6-8.7) g/dL Albumin 3.3 L (3.5-5.2) g/dL Globulin 4.3 (1.3-4.6) g/dL Lipase 15 (13-60) U/L HCG, Qual (Negative) Urine Color Yellow (Yellow) Urine Appearance Clear (CLEAR) Urine pH 7 (5-7) Ur Specific Gravit y 1.005 (1.005-1.030) Urine Protein Neg (Negative) Urine Glucose (UA) Norm (Normal) Urine Ketones Negative (Negative) Urine Blood Neg (Negative) Urine Nitrate Negative (Negative) Urine Bilirubin Neg (Negative) Urine Urobilinogen Norm (Negative) mg/dL Ur Leukocyte Enedina ase Negative (Negative) 09/19/20 Range/Units 02:25 WBC (4.0-10.0) 10^3/ uL RBC (4.1-5.3) 10^6/u L Hgb (11.5-15.3) g/dL Hct (37.0-47.0) % MCV (81-99) fL MCH (28.0-34.0) pg MCHC (30.0-36.0) g/dL RDW (12.1-15.1) % Plt Count (130-400) 10^3/c mm MPV (7.4-10.4) fL Neut % (Auto) % Lymph % (Auto) % [place] % (Auto) % Eos % (Auto) % Baso % (Auto) % Neut # (Auto) (1.8-7.7) 10^3/u L Lymph # (Auto) (0.8-4.8) 10^3/u L [place] # (Auto) (0.2-0.9) 10^3/u L Eos # (Auto) (0.0-0.8) 10^3/u L Baso # (Auto) (0.0-0.1) 10^3/u L Nucleated RBC % (a uto) % Nucleated RBCs # /100WBC Sodium (136-145) mmol/L Potassium (3.5-5.1) mmol/L Chloride (98-107) mmol/L Carbon Dioxide (22-29) mmol/L Anion Gap (5-19) BUN (6-20) mg/dL Creatinine (0.5-0.9) mg/dL GFR Calculation (90-130) mL/min Glucose (65-115) mg/dL Calculated Osmolal ity (285-295) mOsm/k g Calcium (8.5-10.5) mg/dL Total Bilirubin (0.15-1.2) mg/dL AST (0-32) U/L ALT (0-33) U/L Alkaline Phosphata se (35-105) IU/L Total Protein (6.6-8.7) g/dL Albumin (3.5-5.2) g/dL Globulin (1.3-4.6) g/dL Lipase (13-60) U/L HCG, Qual Negative (Negative) Urine Color (Yellow) Urine Appearance (CLEAR) Urine pH (5-7) Ur Specific Gravit y (1.005-1.030) Urine Protein (Negative) Urine Glucose (UA) (Normal) Urine Ketones (Negative) Urine Blood (Negative) Urine Nitrate (Negative) Urine Bilirubin (Negative) Urine Urobilinogen (Negative) mg/dL Ur Leukocyte Enedina ase (Negative) Discharge Plan Discharge Patient Disposition: Admitted As Inpatient Admit Provider: Kathryn Prater Clinical Impression: Diverticulitis, Abscess of sigmoid colon Condition: Fair Coding Level of Care Code ED Optical Mechanic Apprentice for Chg Fwd Exam Detailed
[2020-09-19] MEDS: ondansetron 2 mg/ML SDV 2 mL 4 MG IVP ×3 (02:03→19:36)
[2020-09-19] MEDS: morphine 4 mg/mL SDV 1 mL IVP ×4 (02:18→19:25)
[2020-09-19 02:25] LABS: Add Urine Microscopic? NO
[2020-09-19 02:27] LABS: Bilirubin Urine Neg (Negative); Blood Urine Neg (Negative); Glucose Urine UA Norm (Normal); Ketones Urine Negative (Negative); Leukocyte Esterase Urine Negative (Negative); Nitrate Urine Negative (Negative); Protein Urine Neg (Negative); Specific Gravity, Urine 1.005 (1.005-1.030); Urine Appearance Clear (CLEAR); Urine Color Yellow (Yellow); Urobilinogen Urine Norm (Negative); pH Urine 7 (5-7)
[2020-09-19 02:37] LABS: Basophils % 0.2 %; Eosinophils # 0.1 10^3/uL (0.0-0.8); Eosinophils % 0.6 %; Hematocrit 34.3 % (37.0-47.0); Lymphocytes # 2.2 10^3/uL (0.8-4.8); Lymphocytes % 15.1 %; Mean Corpuscular HGB Conc 32.1 g/dL (30.0-36.0); Mean Corpuscular Hemoglobin 24.6 pg (28.0-34.0); Mean Corpuscular Volume 76.6 fL (81-99); Mean Platelet Volume 9.1 fL (7.4-10.4); Monocytes % 6.9 %; Neutrophils % 76.9 %; Nucleated Red Blood Cells % 0 %; Platelet Count 316 10^3/cmm (130-400); Red Blood Count 4.48 10^6/uL (4.1-5.3); White Blood Count 14.7 10^3/uL (4.0-10.0)
[2020-09-19 02:51] LABS: HCG, Serum Qual Negative (Negative)
[2020-09-19 03:00] LABS: Alanine Aminotransferase 26 U/L (0-33); Albumin Level 3.3 g/dL (3.5-5.2); Alkaline Phosphatase 94 IU/L (35-105); Anion Gap 14.6 (5-19); Aspartate Amino Transferase 23 U/L (0-32); Blood Urea Nitrogen 9 mg/dL (6-20); Calcium 8.1 mg/dL (8.5-10.5); Carbon Dioxide 23 mmol/L (22-29); Chloride 98 mmol/L (98-107); Globulin 4.3 g/dL (1.3-4.6); Glomerular Filtration Rate 141.2 mL/min (90-130); Glucose 105 mg/dL (65-115); Lipase 15 U/L (13-60); Osmolality Calculated 273 mOsm/kg (285-295); Potassium 3.6 mmol/L (3.5-5.1); Sodium 132 mmol/L (136-145); Total Bilirubin 0.5 mg/dL (0.15-1.2); Total Protein 7.6 g/dL (6.6-8.7)
[2020-09-19] MEDS: iohexol 300 mg/mL 100 mL Btl IV (03:44)
[2020-09-19] MEDS: piperacillin-tazobactam 3.375 GM in sodium chloride 0.9% (plus) 50 ML IV ×3 (04:51→21:53)
[2020-09-19] MEDS: HYDROmorphone 1 mg/mL INJ 1 mL IVP (04:52)
--- NOTE | 2020-09-19 06:13 | P.HP_ITS ---
Providers/Chief Complaint Admitting Physician: Kathryn Prater Chief Complaint: abd pain History of Present Illness 35-year-old female a past medical history significant for opiate abuse on Suboxone with presented to the hospital with left lower quadrant abdominal pain. Patient was previously seen for this on 09/11/2019. During this time she was found to have constipation and sent home with bowel regimen. She stated despite having multiple bowel movements she continued to have pain. Denies any fever chills. Denied nausea or vomiting. No chest pain or shortness of breath. Upon arrival to emergency room laboratory workup showed a WBC of 14.7, hemoglobin 11.0, hematocrit of 34.3 and platelet count of 316. Sodium 132, potassium 3.6, chloride 98, bicarb 23, BUN 9 and creatinine of 0.5. Lipase of 15. Urinalysis negative. CT abdomen pelvis was performed which showed acute sigmoid diverticulitis with a 3.6 x 5.5 cm. Sigmoid abscess. No evidence of free air. Incidentally was also noted to have bilateral adrenal nodules of which the left nodule had increased slightly in size. While in emergency room patient was complaining of significant amount of pain. She was initially given morphine and subsequently Dilaudid. Did not appear to be any distress at the time my evaluation. Of note patient did mention that she has not had a bowel movement of the past week. She was initially started on IV Zosyn 3.375 Q 8 hours. Review of Systems General: Reports: 10 or more systems reviewed and unremarkable except in HPI and below Medications/Allergies Home Medications Medication Instructions Recorded Confirmed Last Taken Type ibuprofen 800 mg PO Q8H PRN #30 tab 08/23/19 Unknown Rx magnesium citrate [Citrate of 150 ml PO BID PRN #296 ml 09/11/19 Unknown Rx Magnesia] Allergies Allergy/AdvReac Type Severity Reaction Status Date / Time No Known Allergies Allergy Verified 09/19/20 01:32 PFSH Acute PFSH: Medical History (Updated 09/19/20 @ 06:15 by Kathryn Prater MD) Opiate abuse, episodic Tobacco abuse Surgical History (Updated 09/19/20 @ 06:16 by Kathryn Prater MD) No significant past surgical history Social History (Updated 09/19/20 @ 06:16 by Kathryn Prater MD) Smoking and tobacco status: current every day smoker Alcohol intake: never Substance/Drug Use: former Female Reproductive History: Date of last menstrual period: 09/09/19 Vitals/I&O/Wt Last Vital Signs Temp 98.0 F 09/19/20 05:52 Pulse 99 09/19/20 05:52 Resp 24 H 09/19/20 05:52 BP 118/71 09/19/20 05:52 Pulse Ox 97 09/19/20 05:52 Weight last 48 hrs Weight 88.451 kg Physical Exam Narrative: EXAM NARRATIVE: General-Alert awake and oriented x3 HEENT -extraocular movements intact CVS -regular rate rhythm Chest -clear to auscultation bilaterally Abdomen- tenderness to palpation on left lower quadrant Extremities-no [id number] Data : 09/19/20 02:25 09/19/20 02:25 A&P Assessment and plan (1) Diverticulitis: Status: Acute (2) Abscess of sigmoid colon: Status: Acute Acute sigmoid diverticulitis with perisigmoid abscess - Noted on CT abd/pelvis - 3.6 x 5.6 cm in size - Started on Zosyn 3.375g IV q8hr - Blood culture x 1 drawn - Pain control - will try to limit use given hx of abuse - Will keep NPO - Can consider IR consult in am vs surgery Hx of Opiod abuse - Currently on Suboxone - Limit IV narcotic use - Currently in Rehab DVT prophylaxis - SCDs only Attestations Medical Necessity Statement*: Will require over 2 midnight stay in hospital for evaluation and treatment of acute sigmoid diverticulitis with abscess requiring IV antibiotics and possible surgical intervention Time Spent in Patient Care: Greater than 35 minutes (>than 50% of time spent in counselling and/or direct pt care on unit) . Coding Level of Care Code Acute Player Services Representative for Tamela Marsh Diagnoses Diverticulitis K57.92 Abscess of sigmoid colon K63.0
[2020-09-19] MEDS: sodium chloride 0.9% 1,000 ML 100 ML IV ×2 (06:19→15:11)
--- NOTE | 2020-09-19 08:21 | PM.CONSULT ---
Providers/Reason For Consult Consulting Physican/Specialty*: Dharmesh Muro Reason for Consult*: Perforated sigmoid diverticulitis Attending Physician: Dharmesh Muro History of Present Illness History of Present Illness Victoria Ramirez is a 35 year old female who was previously seen in the ER on 09/10/2020 and was diagnosed with constipation after she presented with abdominal pain. Patient received enemas and was discharged home. She presented again this morning with complaints of abdominal pain. She denies any nausea or vomiting. She states that she has a longstanding history of constipation where she has couple bowel movements a week. Denies any bleeding per rectum. No similar episodes in the past. Denies any fevers or chills. CT scan in the ER showed perforated sigmoid diverticulitis and she was admitted for IV antibiotics Review of Systems General: Reports: 10 or more systems reviewed and unremarkable except in HPI and below Meds/Allergies Home Medications and Allergies Home Medications Medication Instructions Recorded Confirmed Last Taken Type ibuprofen 800 mg PO Q8H PRN #30 tab 08/23/19 Unknown Rx magnesium citrate [Citrate of 150 ml PO BID PRN #296 ml 09/11/19 Unknown Rx Magnesia] Allergies Allergy/AdvReac Type Severity Reaction Status Date / Time No Known Allergies Allergy Verified 09/19/20 01:32 Current Medications Current Medications Generic Name Dose Route Start Last Admin Trade Name Freq PRN Reason Stop Dose Admin Sodium Chloride 1,000 mls @ 100 mls/hr 09/19/20 05:52 09/19/20 06:19 Sodium Chloride 0.9% IV 100 mls/hr .Q10H ROMELIA Administration PFSH Acute PFSH: Medical History (Updated 09/19/20 @ 08:23 by Alexei Hernandez MD) Opiate abuse, episodic Surgical History (Updated 09/19/20 @ 06:16 by Kathryn Prater MD) No significant past surgical history Social History (Updated 09/19/20 @ 06:16 by Kathryn Prater MD) Smoking and tobacco status: current every day smoker Alcohol intake: never Substance/Drug Use: former Female Reproductive History: Date of last menstrual period: 09/09/19 Vitals/I&O/Wt Last Vital Signs Temp 98.0 F 09/19/20 05:52 Pulse 99 09/19/20 05:52 Resp 24 H 09/19/20 05:52 BP 118/71 09/19/20 05:52 Pulse Ox 97 09/19/20 05:52 Weight last 48 hrs Weight 195 lb Physical Exam Narrative: EXAM NARRATIVE: HEENT: Normocephalic Eye: Sclera /conjunctiva normal Abdomen: Soft to palpation, tender left lower quadrant, no guarding or rigidity Neurological: Oriented to place person and time Skin: Intact, no lesions appreciated on gross exam A&P Assessment and plan (1) Abscess of sigmoid colon: 35-year-old female with history of opioid abuse currently on Suboxone therapy who has longstanding history of constipation who presents with perforated sigmoid diverticulitis. Her white count is 14.[address] scan shows large amount of stools within the colon with a 5 x 3.6 cm abscess. The abscess is medial to the colon therefore would not be amenable to percutaneous drainage. Since patient is hemodynamically stable we will continue to treat her with IV antibiotics. Over the next day or 2 she will need multiple enemas and bowel preps to completely evacuate her colon given the extent of constipation noted on imaging studies. Bowel rest/ice chips Daily labs Patient will need greater than 2 nights of inpatient stay to ensure resolution of infection Status: Acute Coding Level of Care Code Acute Plate And Weld Inspector for Tamela Marsh Diagnoses Abscess of sigmoid colon K63.0
[2020-09-19] MEDS: acetaminophen 325 mg Tablet 650 MG PO ×2 (09:14→19:56)
--- NOTE | 2020-09-19 16:47 | P.PN_ITS ---
Subjective Subjective: Interval history: Reports left lower quadrant abdominal pain. No nausea or vomiting. No chills. No chest pain, shortness of breath, cough, palpitations Medications: Reviewed: Yes Medication Review Details: Generic Name Dose Route Start Last Admin Trade Name Tahirq PRN Reason Stop Dose Admin Acetaminophen 650 mg 09/19/20 06:02 09/19/20 09:14 Acetaminophen 32 5 Mg Tablet PO 650 mg Q6H PRN Administration Mild/Mod Pain Or Temp >/= 101 Sodium Chloride 1,000 mls @ 100 m ls/hr 09/19/20 05:52 09/19/20 15:11 Sodium Chloride 0.9% IV 100 mls/hr .Q10H ROMELIA Administration Piperacillin Sod/T azobactam 50 mls @ 12.5 mls /hr 09/19/20 13:00 09/19/20 13:10 Sod 3.375 gm/ So dium Chloride IV 12.5 mls/hr Q8H ROMELIA Administration Protocol Morphine Sulfate 4 mg 09/19/20 05:52 09/19/20 15:04 Morphine 4 Mg/Ml Sdv 1 Ml IVP 4 mg Q4H PRN Administration SEVERE PAIN Vitals/I&O/Wt Last Vital Signs Temp 99.7 F H 09/19/20 15:26 Pulse 90 09/19/20 15:26 Resp 18 09/19/20 15:26 BP 103/67 09/19/20 15:26 Pulse Ox 94 09/19/20 15:26 09/19/20 09/19/20 09/19/20 06:59 14:59 22:59 Intake Total 50 / 50 886.667 / 916.667 Balance 50 / 50 886.667 / 916.667 Weight last 48 hrs Weight 88.451 kg Physical Exam Narrative: EXAM NARRATIVE: Awake alert oriented. No acute distress. Mood and affect are appropriate. Skin warm and dry. Moist mucous nares. Neck supple. No JVD Lungs clear. Heart S1, S2, regular Abdomen soft, tender, bowel sounds are present Extremities no edema cyanosis or calf tenderness bilaterally Eyes PERRL, extraocular muscles are intact. Data : 09/19/20 02:25 09/19/20 02:25 A&P Assessment and plan (1) Diverticulitis: Status: Acute (2) Abscess of sigmoid colon: Status: Acute Acute sigmoid diverticulitis with perisigmoid abscess - Noted on CT abd/pelvis - 3.6 x 5.6 cm in size - Started on Zosyn 3.375g IV q8hr - Blood culture x 1 drawn - Pain control - will try to limit use given hx of abuse - Will keep NPO - Can consider IR consult in am vs surgery Hx of Opiod abuse - Currently on Suboxone - Limit IV narcotic use - Currently in Rehab DVT prophylaxis - SCDs only [place] Acute sigmoid diverticulitis with associated abscess. Continue Zosyn, IV fluids and pain medications. Surgical consult. Appreciate Dr. Hernandez's help. DVT prophylaxis. Teds and SCDs Attestations Medical Necessity Statement*: Requires IV pain medications, antibiotics and surgical evaluation Coding Level of Care Code Acute Central Office Technician for Tamela Marsh Diagnoses Diverticulitis K57.92 Abscess of sigmoid colon K63.0
--- NOTE | 2020-09-19 18:56 | PC.NURSE ---
Report to Rosemarie HAND at this time.
[2020-09-20] VITALS (13 sets, daily range): BP systolic 99–114; BP diastolic 66–76; PULSE 80–122; RESP 16–24; TEMP 36.4–38; O2SAT 92–95
[2020-09-20] MEDS: morphine 4 mg/mL SDV 1 mL IVP ×5 (02:16→21:27)
[2020-09-20] MEDS: piperacillin-tazobactam 3.375 GM in sodium chloride 0.9% (plus) 50 ML IV ×3 (06:04→21:28)
[2020-09-20 06:48] LABS: Basophils % 0.2 %; Eosinophils % 0.1 %; Hematocrit 34.4 % (37.0-47.0); Hemoglobin 10.6 g/dL (11.5-15.3); Lymphocytes # 1.4 10^3/uL (0.8-4.8); Mean Corpuscular HGB Conc 30.8 g/dL (30.0-36.0); Mean Corpuscular Hemoglobin 24.1 pg (28.0-34.0); Mean Corpuscular Volume 78.4 fL (81-99); Mean Platelet Volume 10.3 fL (7.4-10.4); Monocytes # 0.8 10^3/uL (0.2-0.9); Monocytes % 4.4 %; Neutrophils # 15.17 10^3/uL (1.8-7.7); Neutrophils % 86.6 %; Nucleated Red Blood Cells % 0 %; Platelet Count 295 10^3/cmm (130-400); Red Blood Count 4.39 10^6/uL (4.1-5.3); Red Cell Distribution Width 17.8 % (12.1-15.1); White Blood Count 17.5 10^3/uL (4.0-10.0)
[2020-09-20 07:18] LABS: Procalcitonin 1.45 ng/mL (0-0.5)
--- NOTE | 2020-09-20 07:18 | PC.NURSE ---
Shift Summary Pt present with c/o severe pain this AM. [place] pt screaming from room, this nurse presented to bedside. Pt states pain is severe and nothing is helping. Attempted to provide alternatives to pain medication, as it was too soon for patient to have, pt reports no relief to pain with position change. Pt up and down out of bed, screaming in severe pain. pt attempts to get out of bed, pulling IV, states i don't want this IV in anymore this nurse unhooked fluids from patient to avoid dislodging IV. Physician contacted and at bedside. Additional order of morphine ordered for patient.pt refused 0500 dose of zosyn stating i don't want the IV hooked up right now after some time this nurse was able to calm pt and encourage her to accept antibiotic dose. pt agrees and antibiotic was administered.
[2020-09-20 07:22] LABS: Lactate (Lactic Acid level) 2.2 mmol/L (0.5-2.2)
[2020-09-20 07:29] LABS: Alanine Aminotransferase 19 U/L (0-33); Albumin Level 3.1 g/dL (3.5-5.2); Alkaline Phosphatase 107 IU/L (35-105); Anion Gap 16.7 (5-19); Aspartate Amino Transferase 17 U/L (0-32); Blood Urea Nitrogen 11 mg/dL (6-20); Calcium 8.1 mg/dL (8.5-10.5); Carbon Dioxide 21 mmol/L (22-29); Chloride 100 mmol/L (98-107); Globulin 4.5 g/dL (1.3-4.6); Glomerular Filtration Rate 141.2 mL/min (90-130); Glucose 91 mg/dL (65-115); Magnesium 1.7 mg/dL (1.7-2.3); Osmolality Calculated 277 mOsm/kg (285-295); Phosphorus 2.2 mg/dL (2.5-4.5); Potassium 3.7 mmol/L (3.5-5.1); Sodium 134 mmol/L (136-145); Total Bilirubin 0.9 mg/dL (0.15-1.2); Total Protein 7.6 g/dL (6.6-8.7)
--- NOTE | 2020-09-20 07:30 | PC.NURSE ---
Late Entry from 09/19/20 at 1330. Patient did pass gas at this time.
[2020-09-20] MEDS: sodium chloride 0.9% 1,000 ML 100 ML IV ×2 (10:26→22:41)
--- NOTE | 2020-09-20 11:07 | PM.PN ---
Subjective Subjective: Interval history: Patient reports unchanged pain. Denies nausea vomiting. No chills. No chest pain or shortness of breath. No cough. Vitals/I&O/Wt Last Vital Signs Temp 98.9 F 09/20/20 07:42 Pulse 101 H 09/20/20 07:42 Resp 18 09/20/20 10:26 BP 113/69 09/20/20 07:42 Pulse Ox 95 09/20/20 10:26 09/19/20 09/20/20 09/20/20 22:59 06:59 14:59 Intake Total 1606.667 / 1636.667 50 / 50 Output Total 0 / 0 0 / 0 Balance 1606.667 / 1636.667 50 / 50 Weight last 48 hrs Weight 88.451 kg Physical Exam Narrative: EXAM NARRATIVE: Awake alert oriented. No acute distress. Mood and affect are appropriate. Skin warm and dry. Moist mucous nares. Neck supple. No JVD Lungs clear. Heart S1, S2, regular Abdomen soft, tender, bowel sounds are present Extremities no edema cyanosis or calf tenderness bilaterally Eyes PERRL, extraocular muscles are intact. Data : 09/20/20 05:50 09/20/20 05:50 A&P Assessment and plan (1) Diverticulitis: Status: Acute (2) Abscess of sigmoid colon: Status: Acute Acute sigmoid diverticulitis with perisigmoid abscess - Noted on CT abd/pelvis - 3.6 x 5.6 cm in size - Started on Zosyn 3.375g IV q8hr - Blood culture x 1 drawn - Pain control - will try to limit use given hx of abuse - Will keep NPO - Can consider IR consult in am vs surgery Hx of Opiod abuse - Currently on Suboxone - Limit IV narcotic use - Currently in Rehab DVT prophylaxis - SCDs only [place] Acute sigmoid diverticulitis with associated abscess. Leukocytosis has worsened. Will discuss with Dr. Hernandez. Continue Zosyn, increase IV fluids. Appreciate Dr. Hernandez's help. Anemia. Stable. Monitor. DVT prophylaxis. Teds and SCDs. No chemical prophylaxis in case if she requires surgery or procedure. The plan of care was discussed with the patient. She verbalized understanding and agreement. Attestations Medical Necessity Statement*: Requires close monitoring. Might need a procedure. Continuing IV fluids and IV antibiotics. Coding Level of Care Code Acute Rubber Boots And Shoes Repairer for g Fwd Diagnoses Diverticulitis K57.92 Abscess of sigmoid colon K63.0
[2020-09-20] MEDS: magnesium citrate Btl 296 mL PO (12:38)
[2020-09-20] MEDS: acetaminophen 325 mg Tablet 650 MG PO (12:44)
[2020-09-20] MEDS: ondansetron 2 mg/ML SDV 2 mL 4 MG IVP (13:48)
--- NOTE | 2020-09-20 13:56 | P.PN_ITS ---
Subjective Subjective: Interval history: Patient apparently had severe cramping pain last night but denies any nausea or vomiting. She has not had any bowel movements. Vitals/I&O/Wt Last Vital Signs Temp 100.4 F H 09/20/20 11:26 Pulse 122 H 09/20/20 11:26 Resp 18 09/20/20 11:26 BP 109/76 09/20/20 11:26 Pulse Ox 92 09/20/20 11:26 09/19/20 09/20/20 09/20/20 22:59 06:59 14:59 Intake Total 1606. 380 50 / 50 Output Total 0 / 0 0 / 0 Balance 1606. 50 / 50 Weight last 48 hrs Weight 195 lb Physical Exam Narrative: EXAM NARRATIVE: Abdomen: Soft, nondistended, tender left lower quadrant, mild voluntary guarding, no rigidity Data : 09/20/20 05:50 09/20/20 05:50 A&P Assessment and plan (1) Perforation of sigmoid colon due to diverticulitis: Status: Acute 35-year-old female who presents with perforated sigmoid diverticular abscess. Patient is hemodynamically stable, afebrile, no evidence of peritonitis. Her WBC has been trending up and is up to 17.5 today. Continue IV Zosyn Recheck labs tomorrow morning if it continues to trend up we will need to repeat the CT scan to check for progression of abscess Lovenox for DVT prophylaxis Pepcid for GI prophylaxis Daily labs Constipation: 1 bottle mag citrate and soapsuds enema today Start lactulose 15 cc p.o. twice daily Discussed with the patient that she continues to have abdominal pain we would recommend bowel rest and therefore she will continue to be n.p.o. with ice chips. Attestations Medical Necessity Statement*: Perforated sigmoid diverticulitis with leukocytosis requiring continued inpatient stay to ensure resolution Coding Level of Care Code Acute Residential Mortgage Manager for Tamela Marsh Diagnoses Perforation of sigmoid colon due to diverticulitis K57.20
--- NOTE | 2020-09-20 14:03 | PC.CHAP ---
Pastoral Care Encounter/Spiritual Assessment Type of Contact [] Declined non destructive testing scientist visit [] Patient/Family/Request visit [] Outpatient visit [XX] Follow-up visit [] Physician referral [] Code/Alert [] Routine visit [] Staff referral [] Actively dying [XX] Patient sleeping [] Family support [] [] Out of room [] Palliative care [] [] Receiving care in room [] Pre-surgical visit [] Trauma [] Long length of stay [] ICU visit [] Other: Relational/Emotional Strength [] Patient feels connected with others/family/visitors/staff [] Distress [] Loneliness/isolation [] Abandonment Spirituality of Patient [] Person of Masha [] Attends Presybeterian of their Masha [] Believes in Prayer [] Reads Bible or Buddhist materials [] There are Spiritual issues to be addressed Crude Tester Interventions [] Prayer [] Active listening [] Non-anxious presence [] Spiritual/emotional support [] Crisis/trauma care [] Spiritual counseling [] Bereavement support [] Provided bereavement packet [] Provided Bible/devotional materials [] Provided toy/stuffed animal, coloring book to patient or family member [] Provided Communion [] Anointing/[place] [] Salvation [] Completed spiritual assessment [] Other: Impact on Illness or Injury [] Angry [] Fearful [] Anxious [] Often cries [] Exhaustion [] Unable to work [] Unable to attend scientologist [] Unable to walk/stand [] Unable to read [] Unable to drive [] Unable to eat/drink [] Unable to sleep [] Unable to be with family [] Patient intubated [] Other: Summary Time spent with patient
[2020-09-20] MEDS: famotidine 20 mg/2 mL INJ IVP (15:34)
--- NOTE | 2020-09-20 15:40 | PC.NURSE ---
Patient refused soap suds enema at this time. Patient states, I feel like I am about to have a bowel movement. It is gurgling and stuff I just want to wait and maybe this evening closer to bed I will let you.
[2020-09-20] MEDS: enoxaparin 40 mg/0.4 mL Syringe SUBCUT (15:43)
[2020-09-20] MEDS: lactulose oral liq 20 gm/30 mL UDC 10 GM PO (15:43)
--- NOTE | 2020-09-20 18:39 | PC.NURSE ---
End of shift report Patient has requested to drink most of the day. Dr. Hernandez informed the patient that she has to stay on ice chips because she is still having a lot of pain. Patient is constipated and Dr. Hernandez needs patient to get the bowel cleaned out so he can see if he needs to do surgery or not. Dr. Hernandez explained this to the patient again this afternoon. Patient has drank the laxatives today without results at this time but has refused the soap suds enema at this time. Patient stated to this nurse today that she is afraid a bowel movement will hurt so she does not try to push it out. Patient states, It is just going to have to fall out for it to come out. Patient's girlfriend at bedside stated to this nurse that patient is really self-conscious about passing gas so she holds it in. Girlfriend states, You may just have to wait until I am here tomorrow and we can do it when I am here that is what we had to do last time she was admitted for constipation.
[2020-09-21] VITALS (10 sets, daily range): BP systolic 104–147; BP diastolic 65–78; PULSE 78–92; RESP 16–24; TEMP 36.6–38.4; O2SAT 90–98
[2020-09-21] MEDS: famotidine 20 mg/2 mL INJ IVP ×2 (03:30→16:11)
[2020-09-21] MEDS: morphine 4 mg/mL SDV 1 mL IVP ×5 (03:30→22:11)
[2020-09-21] MEDS: piperacillin-tazobactam 3.375 GM in sodium chloride 0.9% (plus) 50 ML IV ×3 (06:03→21:09)
[2020-09-21] MEDS: sodium chloride 0.9% 1,000 ML 100 ML IV (06:04)
[2020-09-21 06:06] LABS: Basophils % 0.2 %; Eosinophils % 0.1 %; Hematocrit 35.6 % (37.0-47.0); Hemoglobin 11.1 g/dL (11.5-15.3); Lymphocytes # 1.3 10^3/uL (0.8-4.8); Lymphocytes % 6.7 %; Mean Corpuscular HGB Conc 31.2 g/dL (30.0-36.0); Mean Corpuscular Hemoglobin 24.4 pg (28.0-34.0); Mean Corpuscular Volume 78.4 fL (81-99); Mean Platelet Volume 10.6 fL (7.4-10.4); Monocytes # 0.9 10^3/uL (0.2-0.9); Monocytes % 4.5 %; Neutrophils # 16.42 10^3/uL (1.8-7.7); Neutrophils % 87.5 %; Nucleated Red Blood Cells % 0 %; Platelet Count 312 10^3/cmm (130-400); Red Blood Count 4.54 10^6/uL (4.1-5.3); Red Cell Distribution Width 18.1 % (12.1-15.1); White Blood Count 18.8 10^3/uL (4.0-10.0)
[2020-09-21 06:32] LABS: Albumin Level 3.2 g/dL (3.5-5.2); Anion Gap 14.9 (5-19); Blood Urea Nitrogen 14 mg/dL (6-20); Calcium 8.3 mg/dL (8.5-10.5); Carbon Dioxide 23 mmol/L (22-29); Chloride 98 mmol/L (98-107); Glomerular Filtration Rate 182.7 mL/min (90-130); Glucose 81 mg/dL (65-115); Magnesium 2.4 mg/dL (1.7-2.3); Phosphorus 1.8 mg/dL (2.5-4.5); Potassium 3.9 mmol/L (3.5-5.1); Sodium 132 mmol/L (136-145)
[2020-09-21 06:51] LABS: Slide Review Slide Review Perform
--- NOTE | 2020-09-21 06:59 | CT_ITS ---
WS: [id number] CT ABDOMEN AND PELVIS WITH CONTRAST HISTORY: diverticular abscess with leukocytosis. TECHNIQUE: Imaging performed of the abdomen and pelvis with IV contrast. Single phase imaging of the abdomen. Coronal and sagittal reformats are submitted. All CT scans at [facility] use at least one of these dose optimization techniques: automated exposure control; mA and/or kV adjustment per patient size (includes targeted exams where dose is matched to clinical indication); or iterativ e reconstruction. IV CONTRAST: Omnipaque 300; 95 mL IV. Oral contrast: Yes. DLP: 1979.09 mGy.cm COMPARISON: 09/19/2020 Lower thorax: Dependent changes and atelectasis at the lung bases. Heart is normal size. No hiatal he rnia. Liver/biliary system: Normal size liver. No bile duct dilatation or mass. Gallbladder: Normal. No gallstones or wall thickening. No pericholecystic fluid. Pancreas: Normal. Spleen: Normal. Adrenal glands: Bilateral adrenal gland nodules. RIGHT nodule measures 2.2 cm in the LEFT nodule will ures 2.3 cm. These nodules were present on the prior CT from 2018 with only slight increase in size. Right kidney: Normal. Left kidney: Normal. Aorta: Mild atherosclerosis aorta. New free air is noted within the abdomen. There are numerous small foci of air bilaterally. Lymphadenopathy: Small reactive mesenteric and retroperitoneal lymph nodes in the LEFT abdomen. Free fluid: There is a small amount of free fluid in the pelvis and surrounding the descending colon with advancing. Colonic inflammation. GI tract: Previously described inflammatory process involving the sigmoid colon has progressed. Incre asing inflammatory changes. The developing abscess in adjacent to the sigmoid has progressed. The wal l is still not well formed at the abscess extends over length of 6.1 cm in length by 5.0 x 3.5 cm. Abdominal wall: Unremarkable abdominal wall. No hernia. Pelvis: Small amount of free fluid and inflammatory changes in the pelvis. Maximum diameter centimete rs. Bones: Unremarkable. CT/CT abdomen pelvis w con* [id number] IMPRESSION: 1. Interval development of pneumoperitoneum since 09/19/2020 consistent with pe rforated viscus. 2. Sigmoid diverticular abscess slightly increased in size now measuring 6.1 x 5.0 x 3.5 cm. The wall is still not well formed. 3. Progression of perisigmoid inflammatory changes and reactive lymph nodes in the LEFT pelvis. 4. Small amount of free fluid in the pelvis. 5. Bilateral adrenal nodules. Similar to the prior study from 2018. Notified Alexei Hernandez MD at 09/21/2020 9:48 AM.
[2020-09-21] MEDS: iohexol 300 mg/mL 50 mL Btl PO (07:19)
--- NOTE | 2020-09-21 08:49 | PC.NURSE ---
Patient to CT at this time.
[2020-09-21] MEDS: iohexol 300 mg/mL 100 mL Btl IV (08:59)
--- NOTE | 2020-09-21 10:01 | PC.CHAP ---
Pastoral Care Encounter/Spiritual Assessment Type of Contact [] Declined child day care provider visit [] Patient/Family/Request visit [] Outpatient visit [] Follow-up visit [] Physician referral [] Code/Alert [x] Routine visit [] Staff referral [] Actively dying [] Patient sleeping [] Family support [] [] Out of room [] Palliative care [] [x] Receiving care in room [] Pre-surgical visit [] Trauma [] Long length of stay [] ICU visit [] Other: Relational/Emotional Strength [] Patient feels connected with others/family/visitors/staff [] Distress [] Loneliness/isolation [] Abandonment Spirituality of Patient [] Person of Masha [] Attends Orthodoxy of their Masha [] Believes in Prayer [] Reads Bible or Anabaptist materials [] There are Spiritual issues to be addressed Room Manager Interventions [] Prayer [] Active listening [] Non-anxious presence [] Spiritual/emotional support [] Crisis/trauma care [] Spiritual counseling [] Bereavement support [] Provided bereavement packet [] Provided Bible/devotional materials [] Provided toy/stuffed animal, coloring book to patient or family member [] Provided Communion [] Anointing/[place] [] Salvation [] Completed spiritual assessment [] Other: Impact on Illness or Injury [] Angry [] Fearful [] Anxious [] Often cries [] Exhaustion [] Unable to work [] Unable to attend roman catholic [] Unable to walk/stand [] Unable to read [] Unable to drive [] Unable to eat/drink [] Unable to sleep [] Unable to be with family [] Patient intubated [] Other: Summary Time spent with patient
--- NOTE | 2020-09-21 12:08 | P.PN_ITS ---
Subjective Subjective: Interval history: The patient reports abdominal pain. No nausea or vomiting. No chest pain, shortness of breath, cough, palpitations. Medications: Reviewed: Yes Medication Review Details: Generic Name Dose Route Start Last Admin Trade Name Tahirq PRN Reason Stop Dose Admin Acetaminophen 650 mg 09/19/20 06:02 09/20/20 12:44 Acetaminophen 32 5 Mg Tablet PO 650 mg Q6H PRN Administration Mild/Mod Pain Or Temp >/= 101 Enoxaparin Sodium 40 mg 09/20/20 14:45 09/20/20 15:43 Enoxaparin 40 Mg /0.4 Ml Syringe SUBCUT 40 mg Q24H ROMELIA Administration Famotidine 20 mg 09/20/20 16:00 09/21/20 03:30 Famotidine 20 Mg /2 Ml Inj IVP 20 mg Q12H ROMELIA Administration Sodium Chloride 1,000 mls @ 125 m ls/hr 09/19/20 05:52 09/21/20 06:40 Sodium Chloride 0.9% IV 125 mls/hr .Q8H ROMELIA Infusion Piperacillin Sod/T azobactam 50 mls @ 12.5 mls /hr 09/19/20 13:00 09/21/20 10:03 Sod 3.375 gm/ So dium Chloride IV Infused Q8H ROMELIA Infusion Protocol Lactulose 10 gm 09/20/20 16:00 09/21/20 03:46 Lactulose Oral L iq 20 Gm/30 Ml Udc PO Not Given Q12H ROMELIA Morphine Sulfate 4 mg 09/19/20 05:52 09/21/20 09:21 Morphine 4 Mg/Ml Sdv 1 Ml IVP 4 mg Q4H PRN Administration SEVERE PAIN Ondansetron HCl 4 mg 09/19/20 05:52 09/20/20 13:48 Ondansetron 2 Mg /Ml Sdv 2 Ml IVP 4 mg Q6H PRN Administration NAUSEA AND VOMITI NG Vitals/I&O/Wt Last Vital Signs Temp 98.7 F 09/21/20 11:34 Pulse 89 09/21/20 11:34 Resp 17 09/21/20 11:34 BP 135/78 09/21/20 11:34 Pulse Ox 98 09/21/20 11:34 09/20/20 09/21/20 09/21/20 22:59 06:59 14:59 Intake Total 1050 / 1100 848.333 / 1948.333 50 / 50 Output Total 250 / 250 Balance 800 / 850 848.333 / 1698.333 50 / 50 Physical Exam Narrative: EXAM NARRATIVE: Awake alert oriented. No acute distress. Mood and affect are appropriate. Skin warm and dry. Moist mucous nares. Neck supple. No JVD Lungs clear. Heart S1, S2, regular Abdomen soft, tender, bowel sounds are weak Extremities no edema cyanosis or calf tenderness bilaterally Eyes PERRL, extraocular muscles are intact. Data : 09/21/20 05:35 09/21/20 05:35 A&P Assessment and plan (1) Diverticulitis: Status: Resolved (2) Abscess of sigmoid colon: Status: Acute Acute sigmoid diverticulitis with perisigmoid abscess - Noted on CT abd/pelvis - 3.6 x 5.6 cm in size - Started on Zosyn 3.375g IV q8hr - Blood culture x 1 drawn - Pain control - will try to limit use given hx of abuse - Will keep NPO - Can consider IR consult in am vs surgery Hx of Opiod abuse - Currently on Suboxone - Limit IV narcotic use - Currently in Rehab DVT prophylaxis - SCDs only [place] Acute sigmoid diverticulitis with associated abscess and viscus perforation. Leukocytosis worsening. Will be evaluated by Dr. Hernandez regarding surgical options. Continue n.p.o., antibiotics, pain management and IV fluids for now. Anemia. Stable. Monitor. DVT prophylaxis. Teds and SCDs. Lovenox. GI prophylaxis. Famotidine. The plan of care was discussed with the patient. She verbalized understanding and agreement. Bilateral adrenal nodules. Will need outpatient follow-up for long-term monitoring with the primary care team. Discussed with multidisciplinary team. Attestations Medical Necessity Statement*: As above, requires n.p.o., IV pain medication, antibiotics and fluids. Coding Level of Care Code Acute Safety And Security Manager for Tamela Marsh Diagnoses Diverticulitis K57.92 Abscess of sigmoid colon K63.0
--- NOTE | 2020-09-21 16:08 | P.PN_ITS ---
Subjective Subjective: Interval history: Patient continues to complain about abdominal pain, nausea vomiting, had a small BM Vitals/I&O/Wt Last Vital Signs Temp 98.8 F 09/21/20 15:55 Pulse 78 09/21/20 15:55 Resp 21 H 09/21/20 15:55 BP 110/78 09/21/20 15:55 Pulse Ox 97 09/21/20 15:55 09/21/20 09/21/20 09/21/20 06:59 14:59 22:59 Intake Total 848.333 / 1948.333 50 / 50 Balance 848.333 / 1698.333 Physical Exam Narrative: EXAM NARRATIVE: Abdomen: Soft, nondistended, minimally tender in the left lower quadrant, voluntary guarding, no rigidity Data : 09/21/20 05:35 09/21/20 05:35 A&P Assessment and plan (1) Perforation of sigmoid colon due to diverticulitis: Status: Acute 35-year-old female who presents with perforated sigmoid diverticular abscess. Patient is hemodynamically stable, afebrile, no evidence of peritonitis. Her WBC has been trending up and is up to 18.8 today. I repeated the CT abdomen pelvis with p.o. and IV contrast which show that the abscess is slightly increased in size and now measures 6 x 5 x 3.5 cm, discussed with Dr. Townsend not amenable to percutaneous drainage Continue IV Zosyn Lovenox for DVT prophylaxis Pepcid for GI prophylaxis Daily labs Constipation: Start lactulose 15 cc p.o. twice daily Discussed the CT scan findings with the patient, recheck labs tomorrow, if there is no improvement then we will plan for laparoscopic possible open drainage of intra-abdominal abscess, partial sigmoidectomy, possible colostomy. Attestations Medical Necessity Statement*: Diverticular abscess with persistent leukocytosis Coding Level of Care Code Acute Ship Self Defense System Mk1 Operator for [facility] Fwd Diagnoses Perforation of sigmoid colon due to diverticulitis K57.20
[2020-09-21] MEDS: enoxaparin 40 mg/0.4 mL Syringe SUBCUT (16:11)
--- NOTE | 2020-09-21 19:12 | PC.NURSE ---
Report to Diandra HAND at this time.
[2020-09-21] MEDS: sodium chloride 0.9% 1,000 ML 125 ML IV (20:27)
[2020-09-21] MEDS: acetaminophen 325 mg Tablet 650 MG PO (20:56)
[2020-09-22] VITALS (8 sets, daily range): BP systolic 112–132; BP diastolic 67–81; PULSE 80–97; RESP 17–20; TEMP 37.4–38.3; O2SAT 90–96
[2020-09-22] MEDS: sodium chloride 0.9% 1,000 ML 125 ML IV (04:29)
[2020-09-22] MEDS: morphine 4 mg/mL SDV 1 mL IVP ×2 (04:30→12:03)
[2020-09-22] MEDS: famotidine 20 mg/2 mL INJ IVP ×2 (04:30→15:48)
[2020-09-22] MEDS: piperacillin-tazobactam 3.375 GM in sodium chloride 0.9% (plus) 50 ML IV ×3 (05:20→21:13)
[2020-09-22 06:22] LABS: Basophils # 0.1 10^3/uL (0.0-0.1); Basophils % 0.4 %; Eosinophils # 0.2 10^3/uL (0.0-0.8); Eosinophils % 1.1 %; Hematocrit 30.6 % (37.0-47.0); Hemoglobin 9.3 g/dL (11.5-15.3); Lymphocytes # 1.3 10^3/uL (0.8-4.8); Lymphocytes % 8.2 %; Mean Corpuscular HGB Conc 30.4 g/dL (30.0-36.0); Mean Corpuscular Hemoglobin 24.4 pg (28.0-34.0); Mean Corpuscular Volume 80.3 fL (81-99); Mean Platelet Volume 10.7 fL (7.4-10.4); Monocytes # 0.9 10^3/uL (0.2-0.9); Monocytes % 5.4 %; Neutrophils # 13.41 10^3/uL (1.8-7.7); Nucleated Red Blood Cells % 0 %; Platelet Count 317 10^3/cmm (130-400); Red Blood Count 3.81 10^6/uL (4.1-5.3); Red Cell Distribution Width 18.6 % (12.1-15.1)
[2020-09-22 06:46] LABS: Albumin Level 2.8 g/dL (3.5-5.2); Blood Urea Nitrogen 13 mg/dL (6-20); Calcium 7.7 mg/dL (8.5-10.5); Carbon Dioxide 20 mmol/L (22-29); Chloride 103 mmol/L (98-107); Glomerular Filtration Rate 182.7 mL/min (90-130); Glucose 57 mg/dL (65-115); Phosphorus 1.7 mg/dL (2.5-4.5); Sodium 136 mmol/L (136-145)
--- NOTE | 2020-09-22 09:53 | PM.PN ---
Subjective Subjective: Interval history: Patient states abdominal pain is better, no nausea or vomiting, passing flatus, small BM Vitals/I&O/Wt Last Vital Signs Temp 101.0 F H 09/22/20 08:00 Pulse 93 09/22/20 08:00 Resp 18 09/22/20 08:00 BP 132/79 09/22/20 08:00 Pulse Ox 90 09/22/20 08:00 09/21/20 09/22/20 09/22/20 22:59 06:59 14:59 Intake Total 155 / 2195 1050 / 2195 0 / 0 Balance 155 / 2195 1050 / 2195 0 / 0 Physical Exam Narrative: EXAM NARRATIVE: Abdomen: Soft, mildly tender left lower quadrant, no guarding or rigidity Data : 09/22/20 05:27 09/22/20 05:27 A&P Assessment and plan (1) Perforation of sigmoid colon due to diverticulitis: Status: Acute 35-year-old female who presents with perforated sigmoid diverticular abscess. Patient is hemodynamically stable, afebrile, no evidence of peritonitis. Her WBC is finally trending down and is [address] abdomen pelvis with p.o. and IV contrast which show that the abscess is slightly increased in size and now measures 6 x 5 x 3.5 cm, discussed with Dr. Townsend not amenable to percutaneous drainage Continue IV Zosyn Lovenox for DVT prophylaxis Pepcid for GI prophylaxis Daily labs Constipation: Start lactulose 15 cc p.o. twice daily Since patient is feeling better and her white count is finally trending down, will start her on a clear liquid diet and hold off on any surgical drainage today. She has been febrile overnight and if this persists she could still need surgery eventually. We will keep her n.p.o. after midnight for possible surgery tomorrow after repeating labs tomorrow morning Attestations Medical Necessity Statement*: Perforated sigmoid diverticulitis with diverticular abscess requiring continued inpatient stay for IV antibiotics Coding Level of Care Code Acute Block Cableman for Tamela Marsh Diagnoses Perforation of sigmoid colon due to diverticulitis K57.20
[2020-09-22] MEDS: dextrose 5%-ns 0.45% + KCl 10 1,000 ML 125 MEQ IV ×2 (10:46→15:49)
--- NOTE | 2020-09-22 13:43 | P.PN_ITS ---
Subjective Subjective: Interval history: No significant changes. Reports abdominal pain, unchanged. Currently well controlled. Denies nausea or vomiting. No chest pain, shortness of breath, cough, palpitations. Febrile. No chills Medications: Reviewed: Yes Medication Review Details: 3Generic Name Dose Route Start Last Admin Trade Name Freq PRN Reason Stop Dose Admin Acetaminophen 650 mg 09/19/20 06:02 09/21/20 20:56 Acetaminophen 32 5 Mg Tablet PO 650 mg Q6H PRN Administration Mild/Mod Pain Or Temp >/= 101 Enoxaparin Sodium 40 mg 09/20/20 14:45 09/21/20 16:11 Enoxaparin 40 Mg /0.4 Ml Syringe SUBCUT 40 mg Q24H ROMELIA Administration Famotidine 20 mg 09/20/20 16:00 09/22/20 04:30 Famotidine 20 Mg /2 Ml Inj IVP 20 mg Q12H ROMELIA Administration Piperacillin Sod/T azobactam 50 mls @ 12.5 mls /hr 09/19/20 13:00 09/22/20 10:00 Sod 3.375 gm/ So dium Chloride IV Infused Q8H ROMELIA Infusion Protocol Potassium Chloride /Dextrose/Sod Cl 1,000 mls @ 125 m ls/hr 09/22/20 09:00 09/22/20 10:46 Dextrose 5%-Ns 0 .45% + Kcl 10 IV 125 mls/hr .Q8H ROMELIA Administration Lactulose 10 gm 09/20/20 16:00 09/22/20 04:43 Lactulose Oral L iq 20 Gm/30 Ml Udc PO Not Given Q12H [facility] Morphine Sulfate 4 mg 09/19/20 05:52 09/22/20 12:03 Morphine 4 Mg/Ml Sdv 1 Ml IVP 4 mg Q4H PRN Administration SEVERE PAIN Ondansetron HCl 4 mg 09/19/20 05:52 09/20/20 13:48 Ondansetron 2 Mg /Ml Sdv 2 Ml IVP 4 mg Q6H PRN Administration NAUSEA AND VOMITI NG Vitals/I&O/Wt Last Vital Signs Temp 100.6 F H 09/22/20 12:00 Pulse 95 09/22/20 12:00 Resp 18 09/22/20 12:03 BP 113/67 09/22/20 12:00 Pulse Ox 96 09/22/20 12:03 09/21/20 09/22/20 09/22/20 22:59 06:59 14:59 Intake Total 155 / 1145 1050 / 2195 741.667 / 741.667 Balance 155 / 1145 1050 / 2195 741.667 / 741.667 Physical Exam Narrative: EXAM NARRATIVE: Awake alert oriented. No acute distress. Mood and affect are appropriate. Skin warm and dry. Moist mucous nares. Neck supple. No JVD Lungs clear. Heart S1, S2, regular Abdomen soft, tender, bowel sounds are weak Extremities no edema cyanosis or calf tenderness bilaterally Eyes PERRL, extraocular muscles are intact. Data : 09/22/20 05:27 09/22/20 05:27 A&P Assessment and plan (1) Diverticulitis: Status: Resolved (2) Abscess of sigmoid colon: Status: Acute Acute sigmoid diverticulitis with perisigmoid abscess - Noted on CT abd/pelvis - 3.6 x 5.6 cm in size - Started on Zosyn 3.375g IV q8hr - Blood culture x 1 drawn - Pain control - will try to limit use given hx of abuse - Will keep NPO - Can consider IR consult in am vs surgery Hx of Opiod abuse - Currently on Suboxone - Limit IV narcotic use - Currently in Rehab DVT prophylaxis - SCDs only [place] Acute sigmoid diverticulitis with associated abscess and viscus perforation. Leukocytosis is improved today. Appreciate Dr. Hernandez's input. Close monitoring for now. Continue n.p.o., antibiotics, pain management and IV fluids for now. Anemia. Stable. Monitor. DVT prophylaxis. Teds and SCDs. Lovenox. GI prophylaxis. Famotidine. Hypophosphatemia. Replace and monitor. Hyponatremia. Resolved. Continue IV fluids. Continue monitoring. Bilateral adrenal nodules. Will need outpatient follow-up for long-term monitoring with the primary care team. Discussed with multidisciplinary team. The plan of care was discussed with the patient. She verbalized understanding and agreement. Attestations Medical Necessity Statement*: Requires close monitoring, IV fluids and antibiotics. Coding Level of Care Code Acute Manager Customer for [facility] Diagnoses Diverticulitis K57.92 Abscess of sigmoid colon K63.0
[2020-09-22] MEDS: enoxaparin 40 mg/0.4 mL Syringe SUBCUT (14:09)
[2020-09-22] MEDS: lactulose oral liq 20 gm/30 mL UDC 10 GM PO (15:48)
[2020-09-22 19:34] LABS: Albumin Level 2.6 g/dL (3.5-5.2); Anion Gap 14.6 (5-19); Blood Urea Nitrogen 8 mg/dL (6-20); Calcium 8.1 mg/dL (8.5-10.5); Carbon Dioxide 23 mmol/L (22-29); Chloride 101 mmol/L (98-107); Glomerular Filtration Rate 182.7 mL/min (90-130); Glucose 107 mg/dL (65-115); Phosphorus 2.7 mg/dL (2.5-4.5); Potassium 3.6 mmol/L (3.5-5.1); Sodium 135 mmol/L (136-145)
[2020-09-22] MEDS: acetaminophen 325 mg Tablet 650 MG PO (21:50)
[2020-09-23] VITALS (7 sets, daily range): BP systolic 107–129; BP diastolic 70–81; PULSE 78–95; RESP 18–20; TEMP 37.1–38.2; O2SAT 91–96
[2020-09-23] MEDS: dextrose 5%-ns 0.45% + KCl 10 1,000 ML 125 MEQ IV ×3 (00:11→18:01)
--- NOTE | 2020-09-23 03:09 | PC.NURSE ---
Patient had a very large bowel movement beginning of shift
[2020-09-23] MEDS: famotidine 20 mg/2 mL INJ IVP ×2 (04:13→15:41)
[2020-09-23] MEDS: piperacillin-tazobactam 3.375 GM in sodium chloride 0.9% (plus) 50 ML IV ×3 (05:00→22:52)
--- NOTE | 2020-09-23 05:01 | PC.NURSE ---
Patient refused to take the lactulose. This nurse woke up the patient to take medicine and patient said, can I take it in an hour? I am in so much pain and that medicine is just going to make it worse. This nurse will go back in an hour and offer medicine again.
--- NOTE | 2020-09-23 05:13 | PC.NURSE ---
After patient had BM at beginning of shift she was wanting something for pain. This nurse told patient she would be back shortly with something. After about 20 mins this nurse went back into room and patient was sleeping. This nurse called out patient's name and she did not wake up. This nurse left the room and did not give patient pain medicine. Another nurse went into patient's room to do an IV push and patient was sleeping. After other nurse, Saba RN woke up patient to do the push, the patient was asking Saba for morphine. This nurse went back into room shortly after and patient was sleeping again.
[2020-09-23 06:00] LABS: Basophils # 0.1 10^3/uL (0.0-0.1); Basophils % 0.4 %; Eosinophils # 0.1 10^3/uL (0.0-0.8); Eosinophils % 0.5 %; Hematocrit 29.6 % (37.0-47.0); Hemoglobin 9.1 g/dL (11.5-15.3); Lymphocytes # 1.7 10^3/uL (0.8-4.8); Lymphocytes % 10.3 %; Mean Corpuscular HGB Conc 30.7 g/dL (30.0-36.0); Mean Corpuscular Hemoglobin 24.3 pg (28.0-34.0); Mean Corpuscular Volume 78.9 fL (81-99); Monocytes # 1.2 10^3/uL (0.2-0.9); Neutrophils # 13.33 10^3/uL (1.8-7.7); Neutrophils % 80.9 %; Nucleated Red Blood Cells % 0 %; Platelet Count 311 10^3/cmm (130-400); Red Blood Count 3.75 10^6/uL (4.1-5.3); Red Cell Distribution Width 18.6 % (12.1-15.1); White Blood Count 16.5 10^3/uL (4.0-10.0)
[2020-09-23] MEDS: lactulose oral liq 20 gm/30 mL UDC 10 GM PO (06:18)
[2020-09-23 06:19] LABS: Albumin Level 2.4 g/dL (3.5-5.2); Blood Urea Nitrogen 5 mg/dL (6-20); Calcium 7.9 mg/dL (8.5-10.5); Carbon Dioxide 24 mmol/L (22-29); Chloride 104 mmol/L (98-107); Glomerular Filtration Rate 182.7 mL/min (90-130); Glucose 99 mg/dL (65-115); Sodium 136 mmol/L (136-145)
[2020-09-23 07:43] LABS: Magnesium 1.9 mg/dL (1.7-2.3)
--- NOTE | 2020-09-23 15:07 | PM.PN ---
Subjective Subjective: Interval history: No significant changes. Reports abdominal pain, unchanged. Currently well controlled. Denies nausea or vomiting. No chest pain, shortness of breath, cough, palpitations. Febrile. No chills Medications: Reviewed: Yes Vitals/I&O/Wt Last Vital Signs Temp 99.5 F 09/23/20 11:16 Pulse 88 09/23/20 11:16 Resp 20 H 09/23/20 11:16 BP 115/76 09/23/20 11:16 Pulse Ox 91 09/23/20 11:16 09/23/20 09/23/20 09/23/20 06:59 14:59 22:59 Intake Total 960 / 2492.917 1050 / 1050 Balance 960 / 2492.917 1050 / 1050 Physical Exam Narrative: EXAM NARRATIVE: Awake alert oriented. No acute distress. Mood and affect are appropriate. Skin warm and dry. Moist mucous nares. Neck supple. No JVD Lungs clear. Heart S1, S2, regular Abdomen soft, tender, bowel sounds are weak Extremities no edema cyanosis or calf tenderness bilaterally Eyes PERRL, extraocular muscles are intact. Data : 09/23/20 05:43 09/23/20 05:43 A&P Assessment and plan (1) Diverticulitis: Status: Resolved (2) Abscess of sigmoid colon: Status: Acute Acute sigmoid diverticulitis with perisigmoid abscess - Noted on CT abd/pelvis - 3.6 x 5.6 cm in size - Started on Zosyn 3.375g IV q8hr - Blood culture x 1 drawn - Pain control - will try to limit use given hx of abuse - Will keep NPO - Can consider IR consult in am vs surgery Hx of Opiod abuse - Currently on Suboxone - Limit IV narcotic use - Currently in Rehab DVT prophylaxis - SCDs only [place] Acute sigmoid diverticulitis with associated abscess and viscus perforation. No significant change. Appreciate Dr. Hernandez's input. Close monitoring for now. Continue n.p.o., antibiotics and IV fluids for now. Pain management is switched from morphine to Toradol. Continue monitoring renal function. Anemia. Stable. Monitor. DVT prophylaxis. Teds and SCDs. Lovenox. GI prophylaxis. Famotidine. Hypophosphatemia. Replace and monitor. Hyponatremia. Resolved. Continue IV fluids. Continue monitoring. Bilateral adrenal nodules. Will need outpatient follow-up for long-term monitoring with the primary care team. Discussed with multidisciplinary team. The plan of care was discussed with the patient. She verbalized understanding and agreement. Attestations Medical Necessity Statement*: Still requires IV pain medications antibiotics and fluids. Might need a surgery. Coding Level of Care Code Acute Back Tender Insulation Board for [facility] Diagnoses Diverticulitis K57.92 Abscess of sigmoid colon K63.0
[2020-09-23] MEDS: ketorolac 30 mg/mL INJ 15 MG IVP (15:41)
--- NOTE | 2020-09-23 17:34 | PC.RESP ---
Smoking Cessation information sent to patient.
--- NOTE | 2020-09-23 17:41 | PM.PN ---
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 She has been less febrile over the last 24 hours though her white count has remained at 16 Vitals/I&O/Wt Last Vital Signs Temp 99.1 F 09/23/20 15:11 Pulse 78 09/23/20 15:11 Resp 20 H 09/23/20 15:11 BP 116/78 09/23/20 15:11 Pulse Ox 93 09/23/20 15:11 09/23/20 09/23/20 09/23/20 06:59 14:59 22:59 Intake Total 960 / 2492.917 1049 Balance 960 / 2492.917 1049 Physical Exam Narrative: EXAM NARRATIVE: Abdomen: Soft, nondistended, minimally tender in the left lower quadrant voluntary guarding present, no rigidity Data : 09/23/20 05:43 09/23/20 05:43 A&P Assessment and plan (1) Perforation of sigmoid colon due to diverticulitis: Status: Acute 35-year-old female who presents with perforated sigmoid diverticular abscess. Patient is hemodynamically stable, afebrile, no evidence of peritonitis. Her WBC is 16 K though she is less febrile today CT abdomen pelvis with p.o. and IV contrast which show that the abscess is slightly increased in size and now measures 6 x 5 x 3.5 cm, discussed with Dr. Townsend not amenable to percutaneous drainage Continue IV Zosyn Lovenox for DVT prophylaxis Pepcid for GI prophylaxis Daily labs Constipation: Start lactulose 15 cc p.o. twice daily Since patient is feeling better and she is less febrile, will start her on a clear liquid diet. I discussed with the patient that while she has not deteriorated clinically she has not alternate in my progress and therefore we might still have the consider laparoscopic drainage. We will keep her n.p.o. after midnight for possible surgery tomorrow after repeating labs tomorrow morning. Attestations Medical Necessity Statement*: Diverticular abscess Coding Level of Care Code Acute Candy Cutter Machine for [facility] Diagnoses Perforation of sigmoid colon due to diverticulitis K57.20
[2020-09-24] VITALS (26 sets, daily range): BP systolic 96–142; BP diastolic 55–97; PULSE 47–90; RESP 3–30; TEMP 37.1–38.2; O2SAT 90–100
[2020-09-24] MEDS: dextrose 5%-ns 0.45% + KCl 10 1,000 ML 125 MEQ IV (01:14)
[2020-09-24] MEDS: acetaminophen 325 mg Tablet 650 MG PO (03:50)
[2020-09-24] MEDS: famotidine 20 mg/2 mL INJ IVP ×2 (04:27→19:06)
[2020-09-24 06:10] LABS: Basophils # 0.1 10^3/uL (0.0-0.1); Basophils % 0.4 %; Eosinophils # 0.1 10^3/uL (0.0-0.8); Eosinophils % 0.7 %; Hematocrit 27.6 % (37.0-47.0); Hemoglobin 8.8 g/dL (11.5-15.3); Lymphocytes # 2.5 10^3/uL (0.8-4.8); Lymphocytes % 14.5 %; Mean Corpuscular HGB Conc 31.9 g/dL (30.0-36.0); Mean Corpuscular Hemoglobin 24.8 pg (28.0-34.0); Mean Corpuscular Volume 77.7 fL (81-99); Mean Platelet Volume 10.2 fL (7.4-10.4); Monocytes # 1.2 10^3/uL (0.2-0.9); Neutrophils # 13.08 10^3/uL (1.8-7.7); Neutrophils % 75.5 %; Nucleated Red Blood Cells % 0 %; Platelet Count 389 10^3/cmm (130-400); Red Blood Count 3.55 10^6/uL (4.1-5.3); Red Cell Distribution Width 18.6 % (12.1-15.1); White Blood Count 17.3 10^3/uL (4.0-10.0)
[2020-09-24] MEDS: piperacillin-tazobactam 3.375 GM in sodium chloride 0.9% (plus) 50 ML IV ×3 (06:10→22:05)
[2020-09-24 07:14] LABS: Albumin Level 2.3 g/dL (3.5-5.2); Anion Gap 11.3 (5-19); Blood Urea Nitrogen 3 mg/dL (6-20); Calcium 7.9 mg/dL (8.5-10.5); Carbon Dioxide 24 mmol/L (22-29); Chloride 104 mmol/L (98-107); Glomerular Filtration Rate 182.7 mL/min (90-130); Glucose 93 mg/dL (65-115); Phosphorus 2.3 mg/dL (2.5-4.5); Potassium 3.3 mmol/L (3.5-5.1); Sodium 136 mmol/L (136-145)
[2020-09-24 07:25] LABS: Slide Review Slide Review Perform
--- NOTE | 2020-09-24 08:56 | P.PN_ITS ---
Subjective Subjective: Interval history: Patient continues to be tender in the left lower quadrant, T-max was 100.1 last night. No nausea or vomiting Vitals/I&O/Wt Last Vital Signs Temp 98.8 F 09/24/20 07:23 Pulse 77 09/24/20 07:23 Resp 17 09/24/20 07:23 BP 108/68 09/24/20 07:23 Pulse Ox 95 09/24/20 07:23 09/23/20 09/24/20 09/24/20 22:59 06:59 14:59 Intake Total 1170 / 3786.666 1566.666 / 3786.666 Output Total 200 / 200 Balance 1170 / 3586.666 1366.666 / 3586.666 Physical Exam Narrative: EXAM NARRATIVE: Abdomen: Soft, nondistended, tender left lower quadrant with voluntary guarding, no rigidity Data : 09/24/20 05:44 09/24/20 06:52 A&P Assessment and plan (1) Perforation of sigmoid colon due to diverticulitis: Status: Acute 35-year-old female who presents with perforated sigmoid diverticular abscess. Patient is hemodynamically stable, afebrile, no evidence of peritonitis. Her WBC is 16 K though she is less febrile today CT abdomen pelvis with p.o. and IV contrast which show that the abscess is slightly increased in size and now measures 6 x 5 x 3.5 cm, discussed with Dr. Townsend not amenable to percutaneous drainage Continue IV Zosyn Lovenox for DVT prophylaxis Pepcid for GI prophylaxis Daily labs Constipation: Start lactulose 15 cc p.o. twice daily Patient has been on IV antibiotics since 09/20/2020 for perforated diverticular abscesses and she continues to be febrile and her white count is up to 17.3 today. Since IV antibiotic therapy has not improved her status and the abscess is not amenable to percutaneous drainage, I discussed treatment options with the patient and will plan for laparoscopic possible open drainage of intra-abdominal abscess, possible colon resection, possible ostomy later today Procedure, risks, benefits and alternatives have been discussed with the patient who wishes to proceed with surgery. 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
--- NOTE | 2020-09-24 08:59 | XR_ITS ---
WS: [id number] Abdomen series, Flat and upright 09/24/2020 Clinical Data: perforated diverticulitis Comparison: CT abdomen and pelvis, 09/21/2020. Findings: No free air is seen beneath the diaphragms. There is atelectatic foreign exchange trader the surface of the left diaphragm. There is residual contrast material from the CT abdomen and pelvis in the ascend ing colon. No small bowel dilatation or evidence of small bowel obstruction is seen. There are scatte red air-fluid levels. There is air throughout the colon. XR/XR abdomen min 2V [id number] Impression: 1. Minimal atelectatic changes over the surface of the left diaphragm. 2. Negative for free air. 3. Generalized ileus.
[2020-09-24] MEDS: potassium chloride premix 100 ML 50 MEQ IV (09:24)
[2020-09-24] MEDS: dextrose 5%-ns 0.45% + KCl 10 1,000 ML 100 MEQ IV (09:35)
--- NOTE | 2020-09-24 11:52 | PC.CHAP ---
Pastoral Care Encounter/Spiritual Assessment Type of Contact [x] Declined well flow operator visit [] Patient/Family/Request visit [] Outpatient visit [] Follow-up visit [] Physician referral [] Code/Alert [] Routine visit [] Staff referral [] Actively dying [] Patient sleeping [] Family support [] [] Out of room [] Palliative care [] [] Receiving care in room [] Pre-surgical visit [] Trauma [] Long length of stay [] ICU visit [] Other: Relational/Emotional Strength [] Patient feels connected with others/family/visitors/staff [] Distress [] Loneliness/isolation [] Abandonment Spirituality of Patient [] Person of Masha [] Attends Denominational of their Masha [] Believes in Prayer [] Reads Bible or Jain materials [] There are Spiritual issues to be addressed Health Care Social Worker Interventions [] Prayer [] Active listening [] Non-anxious presence [] Spiritual/emotional support [] Crisis/trauma care [] Spiritual counseling [] Bereavement support [] Provided bereavement packet [] Provided Bible/devotional materials [] Provided toy/stuffed animal, coloring book to patient or family member [] Provided Communion [] Anointing/[place] [] Salvation [] Completed spiritual assessment [] Other: Impact on Illness or Injury [] Angry [] Fearful [] Anxious [] Often cries [] Exhaustion [] Unable to work [] Unable to attend jain [] Unable to walk/stand [] Unable to read [] Unable to drive [] Unable to eat/drink [] Unable to sleep [] Unable to be with family [] Patient intubated [] Other: Summary Declined well flow operator visit Time spent with patient 5 mins
[2020-09-24] MEDS: sodium chloride 0.9% 1,000 ML 30 ML IV (12:31)
--- NOTE | 2020-09-24 13:21 | P.ANESASSM_ITS ---
Pre-Anesthetic Assessment Pre-Anesthetic Assessment: Height/Weight: Height 1.57 m Weight 88.451 kg Temp Pulse Resp BP Pulse Ox 98.8 F 78 18 127/79 95 09/24/20 11:44 09/24/20 12:25 09/24/20 12:25 09/24/20 12:25 09/24/20 12:25 Preop Diagnosis: Perforated sigmoid diverticular abscess Proposed Procedure: Operation Date: 09/24/20 13:40 Proposed Procedures p Laparoscopic Colon Resection, possible open drainage of intra-abdominal abscess(Not Applicable) - Alexei Hernandez MD Familial anesthetic complications: none Was Beta Saad taken within 24 hours: N/A Was Clonidine taken within 24 hours: N/A Last intake: Intake Last Liquid Date 09/23/20 Last Liquid Time 22:00 Last Solid Date 09/17/20 Last Solid Time 21:00 Last Intake: 23:00 Social: Social History: Tobacco Packs per day: 1/2 ppd Pack years: 10+ Exam: Pre-Anes Outpt Exam: alert, oriented x 3, clear to auscultation bilaterally and regular rate & rhythm Airway: Submandibular: WNL Cervical ROM: WNL MP: 1 Dentition: False Pulmonary: Pulmonary: None reported CV/HEM: CV/HEM: Anemia : : None reported Hepatic: Hepatic: Hepatitis (C) GI: GI: None reported Metabolic: Metabolic: None reported Musc/skel: Musc/skel: None reported Neuropsych: Neuropsych: Anxiety, Depression and LORA Anesthetic Plan: ASA status: 2 Anesthesia: General Risk of > 500 ml blood loss (7ml/kg in children): Yes, adequate IV access and fluids planned Meds/Allergies Current Medications: Current Medications Generic Name Dose Route Start Last Admin Trade Name Freq PRN Reason Stop Dose Admin Acetaminophen 650 mg 09/19/20 06:02 09/24/20 03:50 Acetaminophen 32 5 Mg Tablet PO 650 mg Q6H PRN Administration Mild/Mod Pain Or Temp >/= 101 Enoxaparin Sodium 40 mg 09/20/20 14:45 09/23/20 14:34 Enoxaparin 40 Mg /0.4 Ml Syringe SUBCUT Not Given Q24H ROMELIA Famotidine 20 mg 09/20/20 16:00 09/24/20 04:27 Famotidine 20 Mg /2 Ml Inj IVP 20 mg Q12H ROMELIA Administration Piperacillin Sod/T azobactam 50 mls @ 12.5 mls /hr 09/19/20 13:00 09/24/20 10:27 Sod 3.375 gm/ So dium Chloride IV Infused Q8H ROMELIA Infusion Protocol Potassium Chloride /Dextrose/Sod Cl 1,000 mls @ 125 m ls/hr 09/22/20 09:00 09/24/20 09:35 Dextrose 5%-Ns 0 .45% + Kcl 10 IV 100 mls/hr .Q8H ROMELIA Administration Sodium Chloride 1,000 mls @ 30 ml s/hr 09/24/20 12:15 09/24/20 12:31 Sodium Chloride 0.9% IV 30 mls/hr .Q24H ROMELIA Administration Ketorolac Trometha mine 15 mg 09/23/20 15:05 09/23/20 15:41 Ketorolac 30 Mg/ Ml Inj IVP 09/28/20 15:04 15 mg Q6H PRN Administration MODERATE PAIN Lactulose 10 gm 09/20/20 16:00 09/24/20 04:02 Lactulose Oral L iq 20 Gm/30 Ml Udc PO Not Given Q12H ROMELIA Ondansetron HCl 4 mg 09/19/20 05:52 09/20/20 13:48 Ondansetron 2 Mg /Ml Sdv 2 Ml IVP 4 mg Q6H PRN Administration NAUSEA AND VOMITI NG PFSH Anesthesia PFSH: Medical History (Updated 09/20/20 @ 13:59 by Alexei Hernandez MD) Opiate abuse, episodic Perforation of sigmoid colon due to diverticulitis Surgical History (Updated 09/19/20 @ 06:16 by Kathryn Prater MD) No significant past surgical history Social History (Updated 09/19/20 @ 06:16 by Kathryn Prater MD) Smoking and tobacco status: current every day smoker Alcohol intake: never Substance/Drug Use: former Female Reproductive History: Date of last menstrual period: 09/09/19 Data Anesthesia CBC & Chem 7: 09/24/20 05:44 09/24/20 06:52 Other Labs: Laboratory Results - last 48 hr 09/22/20 09/23/20 09/23/20 18:15 05:43 05:43 WBC 16.5 H RBC 3.75 L Hgb 9.1 L Hct 29.6 L MCV 78.9 L MCH 24.3 L MCHC 30.7 RDW 18.6 H Plt Count 311 MPV 10.0 Neut % (Auto) 80.9 Lymph % (Auto) 10.3 [place] % (Auto) 7.0 Eos % (Auto) 0.5 Baso % (Auto) 0.4 Neut # (Auto) 13.33 H Lymph # (Auto) 1.7 [place] # (Auto) 1.2 H Eos # (Auto) 0.1 Baso # (Auto) 0.1 Nucleated RBC % (auto) 0 Nucleated RBCs # 0.0 Sodium 135 L Potassium 3.6 Chloride 101 Carbon Dioxide 23 Anion Gap 14.6 BUN 8 Creatinine 0.4 L GFR Calculation 182.7 H Glucose 107 Calcium 8.1 L Phosphorus 2.7 D Magnesium 1.9 Albumin 2.6 L 09/23/20 09/24/20 09/24/20 05:43 05:44 05:44 WBC 17.3 H RBC 3.55 L Hgb 8.8 L Hct 27.6 L MCV 77.7 L MCH 24.8 L MCHC 31.9 RDW 18.6 H Plt Count 389 MPV 10.2 Neut % (Auto) 75.5 Lymph % (Auto) 14.5 [place] % (Auto) 7.0 Eos % (Auto) 0.7 Baso % (Auto) 0.4 Neut # (Auto) 13.08 H Lymph # (Auto) 2.5 [place] # (Auto) 1.2 H Eos # (Auto) 0.1 Baso # (Auto) 0.1 Nucleated RBC % (auto) 0 Nucleated RBCs # 0.0 Sodium 136 Potassium 4.0 Chloride 104 Carbon Dioxide 24 Anion Gap 12.0 BUN 5 L Creatinine 0.4 L GFR Calculation 182.7 H Glucose 99 Calcium 7.9 L Phosphorus 2.0 L Magnesium Cancelled Albumin 2.4 L 09/24/20 09/24/20 05:44 06:52 WBC RBC Hgb Hct MCV MCH MCHC RDW Plt Count MPV Neut % (Auto) Lymph % (Auto) [place] % (Auto) Eos % (Auto) Baso % (Auto) Neut # (Auto) Lymph # (Auto) [place] # (Auto) Eos # (Auto) Baso # (Auto) Nucleated RBC % (auto) Nucleated RBCs # Sodium Cancelled 136 Potassium Cancelled 3.3 L Chloride Cancelled 104 Carbon Dioxide Cancelled 24 Anion Gap Cancelled 11.3 BUN Cancelled 3 L Creatinine Cancelled 0.4 L GFR Calculation Cancelled 182.7 H Glucose Cancelled 93 Calcium Cancelled 7.9 L Phosphorus Cancelled 2.3 L Magnesium 2.0 Albumin Cancelled 2.3 L Cardiac Studies: No Data to Display
--- NOTE | 2020-09-24 15:04 | P.PN_ITS ---
Subjective Subjective: Interval history: No significant improvement since yesterday. Still has left lower quadrant pain and fever. No nausea or vomiting. No chest pain, shortness of breath, cough, palpitations. Medications: Reviewed: Yes Medication Review Details: Generic Name Dose Route Start Last Admin Trade Name Freq PRN Reason Stop Dose Admin Acetaminophen 650 mg 09/19/20 06:02 09/24/20 03:50 Acetaminophen 32 5 Mg Tablet PO 650 mg Q6H PRN Administration Mild/Mod Pain Or Temp >/= 101 Enoxaparin Sodium 40 mg 09/20/20 14:45 09/23/20 14:34 Enoxaparin 40 Mg /0.4 Ml Syringe SUBCUT Not Given Q24H ROMELIA Famotidine 20 mg 09/20/20 16:00 09/24/20 04:27 Famotidine 20 Mg /2 Ml Inj IVP 20 mg Q12H ROMELIA Administration Piperacillin Sod/T azobactam 50 mls @ 12.5 mls /hr 09/19/20 13:00 09/24/20 10:27 Sod 3.375 gm/ So dium Chloride IV Infused Q8H [facility] In[facility] Protocol Potassium Chloride /Dextrose/Sod Cl 1,000 mls @ 125 m ls/hr 09/22/20 09:00 09/24/20 09:35 Dextrose 5%-Ns 0 .45% + Kcl 10 IV 100 mls/hr .Q8H ROMELIA Administration Sodium Chloride 1,000 mls @ 30 ml s/hr 09/24/20 12:15 09/24/20 12:31 Sodium Chloride 0.9% IV 30 mls/hr .Q24H ROMELIA Administration Ketorolac Trometha mine 15 mg 09/23/20 15:05 09/23/20 15:41 Ketorolac 30 Mg/ Ml Inj IVP 09/28/20 15:04 15 mg Q6H PRN Administration MODERATE PAIN Lactulose 10 gm 09/20/20 16:00 09/24/20 04:02 Lactulose Oral L iq 20 Gm/30 Ml Udc PO Not Given Q12H [facility] Ondansetron HCl 4 mg 09/19/20 05:52 09/20/20 13:48 Ondansetron 2 Mg /Ml Sdv 2 Ml IVP 4 mg Q6H PRN Administration NAUSEA AND VOMITI NG Vitals/I&O/Wt Last Vital Signs Temp 98.8 F 09/24/20 11:44 Pulse 78 09/24/20 12:25 Resp 18 09/24/20 12:25 BP 127/79 09/24/20 12:25 Pulse Ox 95 09/24/20 12:25 09/24/20 09/24/20 09/24/20 06:59 14:59 22:59 Intake Total 1566.666 / 3786.666 493.333 / 493.333 Output Total 200 / 200 Balance 1366.666 / 3586.666 493.333 / 493.333 Physical Exam Narrative: EXAM NARRATIVE: Awake alert oriented. No acute distress. Mood and affect are appropriate. Skin warm and dry. Moist mucous nares. Neck supple. No JVD Lungs clear. Heart S1, S2, regular Abdomen soft, tender, bowel sounds are weak Extremities no edema cyanosis or calf tenderness bilaterally Eyes PERRL, extraocular muscles are intact. Data : 09/24/20 05:44 09/24/20 06:52 A&P Assessment and plan (1) Diverticulitis: Status: Resolved (2) Abscess of sigmoid colon: Status: Acute Acute sigmoid diverticulitis with perisigmoid abscess - Noted on CT abd/pelvis - 3.6 x 5.6 cm in size - Started on Zosyn 3.375g IV q8hr - Blood culture x 1 drawn - Pain control - will try to limit use given hx of abuse - Will keep NPO - Can consider IR consult in am vs surgery Hx of Opiod abuse - Currently on Suboxone - Limit IV narcotic use - Currently in Rehab DVT prophylaxis - SCDs only [place] Acute sigmoid diverticulitis with associated abscess and viscus perforation. No significant change. Probably will go to the OR today. Appreciate Dr. Hernandez's input. Continue n.p.o., antibiotics and IV fluids for now. Anemia. Stable. Monitor. DVT prophylaxis. Teds and SCDs. Lovenox. GI prophylaxis. Famotidine. Hypokalemia. Replace and monitor. Hyponatremia. Resolved. Continue IV fluids. Continue monitoring. Bilateral adrenal nodules. Will need outpatient follow-up for long-term mo nitoring with the primary care team. The plan of care was discussed with the patient. She verbalized understanding and agreement. Discussed with Dr. Hernandez. Attestations Medical Necessity Statement*: Going to the OR today. Will require postoperative care. 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
[2020-09-24] MEDS: fentaNYL 50 mcg/mL INJ 2mL IVP (15:37)
--- NOTE | 2020-09-24 17:22 | P.OP_ITS ---
Operative Report Date of procedure: September 24, 2020 Pre-op Diagnosis: Perforated sigmoid diverticular abscess Post-op diagnosis: same Procedure Done: Laparoscopic drainage of perisigmoid intra-abdominal abscesses Pathology: none sent Surgeon: Alexei Hernandez Anesthesia: General Estimated blood loss (mL): 25 IV fluids (mL): 500 Urine output (mL): 300 Condition: stable Disposition: PACU Brief History: This is a 35-year-old female who presented to the ER with abdominal pain and was noted to have sigmoid diverticular abscess. Patient was treated conservatively with IV Zosyn for the last 4 days and she is continued to be febrile with persistent leukocytosis. The abscess is not amenable to percutaneous drainage and therefore decision was made to proceed with surgery since she was not making significant progress with conservative measures. Procedure: The patient was taken to the operating room and was placed in modified lithotomy position under general anesthesia. Patient is on therapeutic IV antibiotics. A Montgomery catheter was placed. The abdomen was prepped and draped in a sterile manner. Using a 15 blade infraumbilical longitudinal incision was made and using open Nicholson technique the peritoneal cavity was entered, 10 mm port was placed and 15 mm of pneumoperitoneum was created. A 10 mm 30 degree laparoscope was introduced revealing omentum adherent to the abdominal wall in the left upper quadrant. 2 separate 5 mm ports were placed in the right lower quadrant as well as at the level of the umbilicus under laparoscopic visualization. Using suction polarity tester the omentum was peeled from the abdominal wall with drainage of michelle pus which was irrigated and suctioned out. The omentum was adherent to the uterus, sigmoid colon and the left pelvic wall and this was slowly peeled away revealing the abscess cavity. There was a moderate amount of pus. The abscess was irrigated with saline after the pus was suctioned out. There was no significant contamination noted in the rest of the peritoneal cavity. A 10 flat FACUNDO drain was introduced through stab incision in the left lower quadrant and placed within the abscess cavity along the sigmoid colon with the tip in the pelvis posterior to the uterus. The drain was sutured using 3-0 Prolene suture. The peritoneal cavity was irrigated with saline and all 3 ports were removed under direct visualization. There was no bleeding from noted at the port sites. The fascia at the umbilical port was closed with a [id number] 0 Vicryl suture, subcutaneous tissue approximated using 3-0 Vicryl suture and skin at all 3 port sites were closed using jluis and covered with sterile dressings. The patient was extubated and transferred to recovery room in stable condition.
--- NOTE | 2020-09-24 18:11 | ANE.PACU2 ---
Inpatient post-anesthesia follow up: Airway intact: Yes Vital signs: Temperature 99.9 F Pulse Rate [Monito r] 96 Pulse Rate 59 Respiratory Rate 23 Blood Pressure [Le ft Arm] 159/95 Blood Pressure 96/59 Pulse Oximetry 94 Oxygen Delivery Me thod Nasal Cannula Oxygen Flow Rate 4 Fraction of Inspir ed Oxygen Hydration adequate: Yes Nausea and vomiting: No Pain level: 3 Mental status: Baseline
--- NOTE | 2020-09-24 18:47 | SUR.PHASEI ---
1716 PT TO OPS 10 SLEEPING WITH PRECEDEX GTT AT 0.7MCG/KG/HOUR PER PUMP TO #18 TO RT WRIST , NS TO RT WRIST #20 JELCO, IVS PATENT PT SEDATED AWAKES TO TOUCH, THEN RESTLESS TAKING OFF MASK, VSS ABD SOFT WITH 4 SITES, ONE WITH FACUNDO DRAIN COMPRESSED WITH LT RED DRAINAGE., BILAT SCDS ON , CHOE TO DD WITH LT YELLOW URINE NOTED TO TUBING AND BAG. 1725 PT AWAKE WILD, PRECEDEX GTT UP TO 1MCG/KG,HOUR, PT QUICKLY BACK TO SLEEP PT PLACED ON 3LNC FOR COMFORT. 1803 PT PT SLEEPING , REPORT TO ICU, PT TRANSPORTED TO ICU WITH RN AND SHEET FOLDER.
[2020-09-24] MEDS: HYDROmorphone 1 mg/mL INJ 1 mL IVP ×4 (19:06→23:02)
[2020-09-24] MEDS: ketorolac 30 mg/mL INJ 15 MG IVP (19:06)
[2020-09-24] MEDS: D5-NS 0.45% + KCL 20 mEq 20 MEQ/1,000 ML BAG 100 MEQ IV (19:06)
[2020-09-24] MEDS: diphenhydrAMINE 50 mg/mL SDV 1mL 12.5 MG IVP (20:26)
[2020-09-25] VITALS (37 sets, daily range): BP systolic 85–133; BP diastolic 57–91; PULSE 42–70; RESP 14–27; TEMP 36.1–36.6; O2SAT 90–99
[2020-09-25] MEDS: ketorolac 30 mg/mL INJ 15 MG IVP ×4 (00:21→19:31)
[2020-09-25] MEDS: HYDROmorphone 1 mg/mL INJ 1 mL IVP ×4 (00:22→05:47)
[2020-09-25] MEDS: oxyCODONE-APAP 5-325 mg Tablet 1 TAB PO ×3 (00:51→14:48)
[2020-09-25] MEDS: diphenhydrAMINE 50 mg/mL SDV 1mL 12.5 MG IVP (02:01)
[2020-09-25 04:03] LABS: Basophils # 0.1 10^3/uL (0.0-0.1); Basophils % 0.6 %; Eosinophils % 0.2 %; Hematocrit 31.8 % (37.0-47.0); Hemoglobin 9.6 g/dL (11.5-15.3); Lymphocytes # 1.2 10^3/uL (0.8-4.8); Lymphocytes % 6.7 %; Mean Corpuscular HGB Conc 30.2 g/dL (30.0-36.0); Mean Corpuscular Hemoglobin 24.4 pg (28.0-34.0); Mean Corpuscular Volume 80.7 fL (81-99); Mean Platelet Volume 10.2 fL (7.4-10.4); Monocytes # 0.5 10^3/uL (0.2-0.9); Monocytes % 2.8 %; Neutrophils # 15.77 10^3/uL (1.8-7.7); Neutrophils % 88.4 %; Nucleated Red Blood Cells % 0 %; Platelet Count 388 10^3/cmm (130-400); Red Blood Count 3.94 10^6/uL (4.1-5.3); Red Cell Distribution Width 18.9 % (12.1-15.1); White Blood Count 17.9 10^3/uL (4.0-10.0)
[2020-09-25 04:21] LABS: Anion Gap 14.4 (5-19); Blood Urea Nitrogen 7 mg/dL (6-20); Calcium 8.1 mg/dL (8.5-10.5); Carbon Dioxide 22 mmol/L (22-29); Chloride 104 mmol/L (98-107); Glomerular Filtration Rate 182.7 mL/min (90-130); Glucose 142 mg/dL (65-115); Osmolality Calculated 282 mOsm/kg (285-295); Potassium 4.4 mmol/L (3.5-5.1); Sodium 136 mmol/L (136-145)
[2020-09-25 04:23] LABS: Slide Review Slide Review Perform
[2020-09-25] MEDS: D5-NS 0.45% + KCL 20 mEq 20 MEQ/1,000 ML BAG 100 MEQ IV ×2 (04:53→16:05)
[2020-09-25] MEDS: enoxaparin 40 mg/0.4 mL Syringe SUBCUT (05:08)
[2020-09-25] MEDS: famotidine 20 mg/2 mL INJ IVP ×2 (06:06→19:30)
[2020-09-25] MEDS: piperacillin-tazobactam 3.375 GM in sodium chloride 0.9% (plus) 50 ML IV ×3 (06:07→23:14)
[2020-09-25] MEDS: sennosides-docusate Tablet 1 TAB PO ×2 (08:51→19:34)
--- NOTE | 2020-09-25 09:22 | ECG_ITS ---
[facility] Test Date: 2020-09-25 Pat Name: Victoria Ramirez Department: Room: ICU03 Gender: Female Plate Inspector: : 1985 Requested By: Dharmesh Cote Order Number: [id number] Gissel MD: Omid Guillen M.D. Measurements Intervals [place] Rate: 59 P: 34 ID: [id number] QRS: 14 QRSD: 106 T: 5 QT: 490 QTc: 486 Interpretive Statements SINUS BRADYCARDIA PROLONGED QT INTERVAL Compared to ECG 02/08/2018 13:41:39 Prolonged QT interval now present Sinus tachycardia no longer present T-wave abnormality no longer present Electronically Signed On 09-25-2020 18:37:59 CDT by Omid Guillen M.D. [id number]
--- NOTE | 2020-09-25 11:06 | PC.NURSE ---
EKG Pt discontinued off Precedex 09/24/2020 at approximately 2100 per environmental services worker nurse, see MAR. Upon IDC rounding with Dr. Muro this am reviewed and discussed v/s, physical therapy, urinary output, opiate use contributing to constipation in addition to the abdomen surgery- patient verbalized understanding. EKG ordered per Dr. Muro due to bradycardia overnight, See documented vital signs. EKG INTERPRETIVE STATEMENT: SINUS BRADYCARDIA, PROLONGED QT INTERVAL Prolonged QT interval now present Sinus tachycardia no longer present T-wave abnormality no longer present Pt asymptomatic with no complaints of chest pain. Vital signs at this time stable, see below: VITAL SIGNS HR: 56 BP: 93/68 O2: 92% on 2L NC RR: 20
--- NOTE | 2020-09-25 11:43 | PM.PN ---
Subjective Subjective: Interval history: The patient underwent laparoscopic drainage of perisigmoid intra-abdominal abscess by Dr. Hernandez. Currently in ICU. Doing okay. The pain is well controlled. Denies any other complaints. No chills. No nausea or vomiting. Medications: Reviewed: Yes Medication Review Details: Generic Name Dose Route Start Last Admin Trade Name Freq PRN Reason Stop Dose Admin Diphenhydramine HC l 12.5 mg 09/24/20 18:16 09/25/20 02:01 Diphenhydramine 50 Mg/Ml Sdv 1ml IVP 12.5 mg Q6H PRN Administration ITCHING Enoxaparin Sodium 40 mg 09/25/20 06:00 09/25/20 05:08 Enoxaparin 40 Mg /0.4 Ml Syringe SUBCUT 40 mg Q24H ROMELIA Administration Famotidine 20 mg 09/24/20 19:00 09/25/20 06:06 Famotidine 20 Mg /2 Ml Inj IVP 20 mg Q12H ROMELIA Administration Hydromorphone HCl 1 mg 09/24/20 18:16 09/25/20 05:47 Hydromorphone 1 Mg/Ml Inj 1 Ml IVP 1 mg Q1H PRN Administration SEVERE PAIN Potassium Chloride /Dextrose/Sod Cl 20 meq in 1,000 m ls @ 100 mls/hr 09/24/20 18:16 09/25/20 04:53 D5-Ns 0.45% + Reynold l 20 Meq IV 100 mls/hr .Q10H ROMELIA Administration Piperacillin Sod/T azobactam 50 mls @ 12.5 mls /hr 09/24/20 23:00 09/25/20 10:07 Sod 3.375 gm/ So dium Chloride IV Infused Q8H ROMELIA Infusion Protocol Ketorolac Trometha mine 15 mg 09/24/20 19:00 09/25/20 06:06 Ketorolac 30 Mg/ Ml Inj IVP 09/27/20 18:59 15 mg Q6H ROMELIA Administration Lactulose 10 gm 09/24/20 18:16 09/25/20 05:08 Lactulose Oral L iq 20 Gm/30 Ml Udc PO Not Given Q12H ROMELIA Oxycodone/Acetamin ophen 1 tab 09/24/20 18:16 09/25/20 08:52 Oxycodone-Apap 5 -325 Mg Tablet PO 1 tab Q6H PRN Administration MODERATE PAIN Senna/Docusate Sod ium 1 tab 09/24/20 18:16 09/25/20 08:51 Sennosides-Docus ate Tablet PO 1 tab BID ROMELIA Administration Vitals/I&O/Wt Last Vital Signs Temp 97.4 F L 09/25/20 08:00 Pulse 59 L 09/25/20 10:33 Resp 18 09/25/20 10:00 BP 107/72 09/25/20 10:00 Pulse Ox 92 09/25/20 10:00 09/24/20 09/25/20 09/25/20 22:59 06:59 14:59 Intake Total 1208.333 / 8898.997 1023.333 / 2909.999 290 / 290 Output Total 710 / 710 430 / 1140 Balance 498.333 / 991.666 778.333 / 1769.999 290 / 290 Physical Exam Narrative: EXAM NARRATIVE: Awake alert oriented. No acute distress. Mood and affect are appropriate. Skin warm and dry. Moist mucous nares. Neck supple. No JVD Lungs clear. Heart S1, S2, regular Abdomen soft, tender, bowel sounds are weak Extremities no edema cyanosis or calf tenderness bilaterally Eyes PERRL, extraocular muscles are intact. Data : 09/25/20 03:16 09/25/20 03:16 A&P Assessment and plan (1) Diverticulitis: Status: Resolved (2) Abscess of sigmoid colon: Status: Acute Acute sigmoid diverticulitis with perisigmoid abscess - Noted on CT abd/pelvis - 3.6 x 5.6 cm in size - Started on Zosyn 3.375g IV q8hr - Blood culture x 1 drawn - Pain control - will try to limit use given hx of abuse - Will keep NPO - Can consider IR consult in am vs surgery Hx of Opiod abuse - Currently on Suboxone - Limit IV narcotic use - Currently in Rehab DVT prophylaxis - SCDs only [place] Acute sigmoid diverticulitis with associated abscess and viscus perforation. Status post laparoscopic drainage of perisigmoid intra-abdominal abscess. Appreciate Dr. Hernandez's input. Continue n.p.o., antibiotics and IV fluids for now. Anemia. Stable. Monitor. DVT prophylaxis. Teds and SCDs. Lovenox. GI prophylaxis. Famotidine. Hypokalemia. Replace and monitor. Hyponatremia. Resolved. Continue IV fluids. Continue monitoring. Bilateral adrenal nodules. Will need outpatient follow-up for long-term monitoring with the primary care team. Bradycardia. EKG reveals mild QT prolongation. This could be due to buprenorphine. Will need to decrease the dose or discontinue at discharge. Continue monitoring and replacing electrolytes as needed. Attestations Medical Necessity Statement*: Undergoing postoperative management after her surgery. Requires pain medications and the IV fluids and antibiotics. Coding Level of Care Code Acute Enterprise Cloud Architect for [facility] Fwd Diagnoses Diverticulitis K57.92 Abscess of sigmoid colon K63.0
--- NOTE | 2020-09-25 15:23 | PC.NURSE ---
Dressing change and DC Edwards catheter Dressings removed off the surgical incision areas located on abdomen-x4. Incisions cleaned with normal saline and padded dry with 4x4 gauze. Incision left open to air per Dr. Hernandez's orders. Pt tolerated well, continue care. Edwards catheter removed per Dr. Hernandez's orders. 10ml of sterile water deflated from balloon. Pt instructed by this nurse to take a deep breath, edwards catheter removed on exhale. Pt tolerated very well, instructed to notify this nurse of next void. Continue Care.
--- NOTE | 2020-09-25 15:46 | PC.NURSE ---
Transfer Report called to JORGE Berg on Med Surg. Pt transferred to Med Surg by wheelchair by this nurse. Pt belongings sent with patient and placed at bedside. Pt A&O x4 at time of transfer.
--- NOTE | 2020-09-25 16:42 | P.PN_ITS ---
Subjective Subjective: Interval history: Patient states pain is better controlled, denies any nausea vomiting, tolerating clears, no flatus or BM Vitals/I&O/Wt Last Vital Signs Temp 97.0 F L 09/25/20 16:00 Pulse 64 09/25/20 16:00 Resp 16 09/25/20 16:00 BP 105/68 09/25/20 16:00 Pulse Ox 94 09/25/20 16:00 09/25/20 09/25/20 09/25/20 06:59 14:59 22:59 Intake Total 1208.333 / 2909.999 1290 / 1290 Output Total 430 / 1210 Balance 778.333 / 9635.375 5477 / 1290 Physical Exam Narrative: EXAM NARRATIVE: Abdomen: Soft, nondistended, minimally tender, incision clean dry and intact, FACUNDO drain output is serosanguineous Data : 09/25/20 03:16 09/25/20 03:16 A&P Assessment and plan (1) S/P laparoscopic procedure: 35-year-old female status post laparoscopic drainage of intra-abdominal abscess secondary to perforated sigmoid diverticulitis. Continue IV Zosyn Clear liquid diet DC Montgomery Wean O2 to room air, incentive spirometry Docusate senna and lactulose for bowel regimen Toradol and [place] for pain control Ambulate with physical therapy Lovenox for DVT prophylaxis Pepcid for GI prophylaxis Patient will need greater than 2 nights of inpatient stay to ensure resolution of leukocytosis and return of bowel function Status: Acute Attestations 2 Medical Necessity Statement*: Status post laparoscopic drainage of intra- abdominal abscesses requiring continued inpatient stay Coding Level of Care Code Acute Photographic Lithographer for [facility] Fwd Diagnoses S/P laparoscopic procedure Z98.890
[2020-09-26] VITALS: BP 127/87; PULSE 64; RESP 22; TEMP 37.1; O2SAT 96
[2020-09-26] MEDS: ketorolac 30 mg/mL INJ 15 MG IVP ×4 (02:09→18:44)
[2020-09-26] MEDS: D5-NS 0.45% + KCL 20 mEq 20 MEQ/1,000 ML BAG 100 MEQ IV (02:52)
[2020-09-26 04:00] VITALS: BP 104/69; PULSE 58; RESP 18; TEMP 36.6; O2SAT 94
[2020-09-26] MEDS: piperacillin-tazobactam 3.375 GM in sodium chloride 0.9% (plus) 50 ML IV ×3 (06:18→23:07)
[2020-09-26] MEDS: famotidine 20 mg/2 mL INJ IVP ×2 (06:39→18:44)
[2020-09-26 06:45] LABS: Basophils # 0.1 10^3/uL (0.0-0.1); Basophils % 0.4 %; Hematocrit 26.2 % (37.0-47.0); Hemoglobin 8.1 g/dL (11.5-15.3); Lymphocytes # 2.1 10^3/uL (0.8-4.8); Lymphocytes % 10.7 %; Mean Corpuscular HGB Conc 30.9 g/dL (30.0-36.0); Mean Corpuscular Hemoglobin 23.9 pg (28.0-34.0); Mean Corpuscular Volume 77.3 fL (81-99); Mean Platelet Volume 10.1 fL (7.4-10.4); Monocytes # 0.9 10^3/uL (0.2-0.9); Monocytes % 4.8 %; Neutrophils # 16.05 10^3/uL (1.8-7.7); Neutrophils % 82.8 %; Nucleated Red Blood Cells % 0.1 %; Platelet Count 412 10^3/cmm (130-400); Red Blood Count 3.39 10^6/uL (4.1-5.3); White Blood Count 19.4 10^3/uL (4.0-10.0)
[2020-09-26 06:57] VITALS: BP 110/73; PULSE 50; RESP 16; TEMP 36.1; O2SAT 94
[2020-09-26 07:05] LABS: Albumin Level 2.4 g/dL (3.5-5.2); Anion Gap 11.5 (5-19); Blood Urea Nitrogen 11 mg/dL (6-20); Calcium 7.6 mg/dL (8.5-10.5); Carbon Dioxide 24 mmol/L (22-29); Chloride 106 mmol/L (98-107); Glomerular Filtration Rate 182.7 mL/min (90-130); Glucose 131 mg/dL (65-115); Magnesium 2.4 mg/dL (1.7-2.3); Osmolality Calculated 285 mOsm/kg (285-295); Phosphorus 2.9 mg/dL (2.5-4.5); Potassium 4.5 mmol/L (3.5-5.1); Sodium 137 mmol/L (136-145)
[2020-09-26] MEDS: sennosides-docusate Tablet 1 TAB PO ×2 (10:07→18:25)
--- NOTE | 2020-09-26 10:29 | PM.PN ---
Subjective Subjective: Interval history: Patient has been managing her pain with Toradol not require any opioids, passing flatus, no nausea or vomiting, tolerating clear liquid diet. Vitals/I&O/Wt Last Vital Signs Temp 97.0 F L 09/26/20 06:57 Pulse 50 L 09/26/20 06:57 Resp 16 09/26/20 06:57 BP 110/73 09/26/20 06:57 Pulse Ox 94 09/26/20 06:57 09/25/20 09/26/20 09/26/20 22:59 06:59 14:59 Intake Total 170 / 3010 1550 / 3010 360 / 360 Output Total 275 / 1125 850 / 1125 Balance -105 / 1885 700 / 1885 360 / 360 Physical Exam Narrative: EXAM NARRATIVE: Abdomen: Soft, minimally distended, tender in the left lower quadrant, no guarding or rigidity, FACUNDO drain output is serosanguineous Data : 09/26/20 06:19 09/26/20 06:19 A&P Assessment and plan (1) S/P laparoscopic procedure: 35-year-old female status post laparoscopic drainage of intra-abdominal abscess secondary to perforated sigmoid diverticulitis. Patient has been finally afebrile since surgery, overall feels better but her white count is still 19.4 and therefore she will require continued inpatient antibiotics. Continue IV Zosyn Advance to full liquid diet Good urine output, DC IV fluids incentive spirometry Docusate senna and lactulose for bowel regimen Toradol and [place] for pain control Ambulate with physical therapy Lovenox for DVT prophylaxis Pepcid for GI prophylaxis Patient will need greater than 2 nights of inpatient stay to ensure resolution of leukocytosis and return of bowel function Status: Acute Attestations Medical Necessity Statement*: Leukocytosis status post drainage of intra-abdominal abscesses requiring continued IV antibiotics and inpatient stay Coding Level of Care Code Acute Director [employer]eron[employer] for g Fwd Diagnoses S/P laparoscopic procedure Z98.890
[2020-09-26 11:50] VITALS: BP 120/66; PULSE 58; RESP 16; TEMP 36.2; O2SAT 96
--- NOTE | 2020-09-26 13:06 | PM.PN ---
Subjective Subjective: Interval history: The patient is doing okay. Denies any uncontrolled pain. No chills. No nausea or vomiting. No chest pain, shortness of breath, cough, palpitations. No weakness. Medications: Reviewed: Yes Medication Review Details: Generic Name Dose Route Start Last Admin Trade Name Freq PRN Reason Stop Dose Admin Diphenhydramine HC l 12.5 mg 09/24/20 18:16 09/25/20 02:01 Diphenhydramine 50 Mg/Ml Sdv 1ml IVP 12.5 mg Q6H PRN Administration ITCHING Enoxaparin Sodium 40 mg 09/25/20 06:00 09/26/20 06:23 Enoxaparin 40 Mg /0.4 Ml Syringe SUBCUT Not Given Q24H ROMELIA Famotidine 20 mg 09/24/20 19:00 09/26/20 06:39 Famotidine 20 Mg /2 Ml Inj IVP 20 mg Q12H ROMELIA Administration Hydromorphone HCl 1 mg 09/24/20 18:16 09/25/20 05:47 Hydromorphone 1 Mg/Ml Inj 1 Ml IVP 1 mg Q1H PRN Administration SEVERE PAIN Piperacillin Sod/T azobactam 50 mls @ 12.5 mls /hr 09/24/20 23:00 09/26/20 11:19 Sod 3.375 gm/ So dium Chloride IV Infused Q8H [facility] Infusion Protocol Ketorolac Trometha mine 15 mg 09/24/20 19:00 09/26/20 06:39 Ketorolac 30 Mg/ Ml Inj IVP 09/27/20 18:59 15 mg Q6H ROMELIA Administration Lactulose 10 gm 09/24/20 18:16 09/26/20 06:19 Lactulose Oral L iq 20 Gm/30 Ml Udc PO Not Given Q12H ROMELIA Oxycodone/Acetamin ophen 1 tab 09/24/20 18:16 09/25/20 14:48 Oxycodone-Apap 5 -325 Mg Tablet PO 1 tab Q6H PRN Administration MODERATE PAIN Senna/Docusate Sod ium 1 tab 09/24/20 18:16 09/26/20 10:07 Sennosides-Docus ate Tablet PO 1 tab BID ROMELIA Administration Vitals/I&O/Wt Last Vital Signs Temp 97.1 F L 09/26/20 11:50 Pulse 58 L 09/26/20 11:50 Resp 16 09/26/20 11:50 BP 120/66 09/26/20 11:50 Pulse Ox 96 09/26/20 11:50 09/25/20 09/26/20 09/26/20 22:59 06:59 14:59 Intake Total 170 / 1460 1550 / 3010 1376.667 / 1376.667 Output Total 275 / 275 850 / 1125 35 / 35 Balance -105 / 1185 700 / 1885 1341.667 / 1341.667 Physical Exam Narrative: EXAM NARRATIVE: Awake alert oriented. No acute distress. Mood and affect are appropriate. Skin warm and dry. Moist mucous nares. Neck supple. No JVD Lungs clear. Heart S1, S2, regular Abdomen soft, tender, bowel sounds are weak Extremities no edema cyanosis or calf tenderness bilaterally Eyes PERRL, extraocular muscles are intact. Data : 09/26/20 06:19 09/26/20 06:19 A&P Assessment and plan (1) Diverticulitis: Status: Resolved (2) Abscess of sigmoid colon: Status: Acute Acute sigmoid diverticulitis with perisigmoid abscess - Noted on CT abd/pelvis - 3.6 x 5.6 cm in size - Started on Zosyn 3.375g IV q8hr - Blood culture x 1 drawn - Pain control - will try to limit use given hx of abuse - Will keep NPO - Can consider IR consult in am vs surgery Hx of Opiod abuse - Currently on Suboxone - Limit IV narcotic use - Currently in Rehab DVT prophylaxis - SCDs only [place] Acute sigmoid diverticulitis with associated abscess and viscus perforation. Status post laparoscopic drainage of perisigmoid intra-abdominal abscess. Appreciate Dr. Hernandez's input. Continue antibiotics and IV fluids for now. Discussed with Dr. Hernandez Anemia. Stable. Monitor. DVT prophylaxis. Teds and SCDs. Lovenox. GI prophylaxis. Famotidine. Hypokalemia. Replace and monitor. Hyponatremia. Resolved. Continue IV fluids. Continue monitoring. Bilateral adrenal nodules. Will need outpatient follow-up for long-term monitoring with the primary care team. Bradycardia. EKG reveals mild QT prolongation. This could be due to buprenorphine. Will need to decrease the dose or discontinue at discharge. Continue monitoring and replacing electrolytes as needed. Attestations Medical Necessity Statement*: Continue current management. Waiting for white blood cell count to start going down. Coding Level of Care Code Acute Aircraft Armament Mechanic for Tamela Marsh Diagnoses Diverticulitis K57.92 Abscess of sigmoid colon K63.0
[2020-09-26 15:14] VITALS: BP 99/64; PULSE 62; RESP 17; TEMP 36.4; O2SAT 98
--- NOTE | 2020-09-26 17:39 | PC.NURSE ---
pt stated that she is tired of broth. She would like some real food
--- NOTE | 2020-09-26 18:03 | PC.PT ---
PT note;Patient refused a.m. attempted treatment, stating waiting for girlfriend to get here at help her; nursing reports patient ambulated for lapse with girlfriend; and is therapist did review her ambulating independently at this time without difficulty; patient to continue independent with ambulation with nursing staff or girlfriend, discharge physical therapy, patient is safely independent transfers and ambulation at this time. [ End ]
[2020-09-26 19:24] VITALS: BP 122/75; PULSE 60; RESP 18; TEMP 36.6; O2SAT 97
[2020-09-27] VITALS: BP 105/67; PULSE 55; RESP 17; TEMP 36.9; O2SAT 96
[2020-09-27] MEDS: ketorolac 30 mg/mL INJ 15 MG IVP ×2 (02:22→13:42)
[2020-09-27 04:00] VITALS: BP 107/68; PULSE 53; RESP 17; TEMP 36.4; O2SAT 97
[2020-09-27] MEDS: piperacillin-tazobactam 3.375 GM in sodium chloride 0.9% (plus) 50 ML IV (06:02)
[2020-09-27] MEDS: famotidine 20 mg/2 mL INJ IVP (06:26)
[2020-09-27 06:51] LABS: Basophils # 0.1 10^3/uL (0.0-0.1); Basophils % 0.6 %; Eosinophils # 0.1 10^3/uL (0.0-0.8); Eosinophils % 0.9 %; Hematocrit 30.5 % (37.0-47.0); Hemoglobin 8.3 g/dL (11.5-15.3); Lymphocytes # 2.9 10^3/uL (0.8-4.8); Mean Corpuscular HGB Conc 27.2 g/dL (30.0-36.0); Mean Corpuscular Hemoglobin 24.5 pg (28.0-34.0); Mean Platelet Volume 9.8 fL (7.4-10.4); Monocytes # 0.7 10^3/uL (0.2-0.9); Monocytes % 6.9 %; Neutrophils # 6.29 10^3/uL (1.8-7.7); Neutrophils % 61.6 %; Nucleated Red Blood Cells % 0.2 %; Platelet Count 410 10^3/cmm (130-400); Red Blood Count 3.39 10^6/uL (4.1-5.3); Red Cell Distribution Width 19.8 % (12.1-15.1); White Blood Count 10.2 10^3/uL (4.0-10.0)
[2020-09-27 06:59] VITALS: BP 110/70; PULSE 67; RESP 16; TEMP 36.6; O2SAT 95
--- NOTE | 2020-09-27 07:05 | PC.NURSE ---
pt stated to me that she Does not want nutrition service people in her room at all today unless they are bringing her real food. She is sick of the liquid diet.
[2020-09-27 07:24] LABS: Slide Review Slide Review Perform
[2020-09-27 07:28] LABS: Procalcitonin 0.19 ng/mL (0-0.5)
[2020-09-27 07:39] LABS: Albumin Level 2.6 g/dL (3.5-5.2); Anion Gap 8.8 (5-19); Blood Urea Nitrogen 12 mg/dL (6-20); Calcium 8.2 mg/dL (8.5-10.5); Carbon Dioxide 24 mmol/L (22-29); Chloride 107 mmol/L (98-107); Glomerular Filtration Rate 141.2 mL/min (90-130); Glucose 75 mg/dL (65-115); Magnesium 2.2 mg/dL (1.7-2.3); Osmolality Calculated 280 mOsm/kg (285-295); Phosphorus 3.5 mg/dL (2.5-4.5); Potassium 3.8 mmol/L (3.5-5.1); Sodium 136 mmol/L (136-145)
[2020-09-27 10:46] VITALS: BP 118/74; PULSE 64; RESP 17; TEMP 37.5; O2SAT 97
[2020-09-27 11:48] VITALS: RESP 16
[2020-09-27] MEDS: oxyCODONE-APAP 5-325 mg Tablet 1 TAB PO (11:48)
--- NOTE | 2020-09-27 12:14 | P.PN_ITS ---
Subjective Subjective: Interval history: Patient has mild left lower quadrant pain, had bowel movements, no nausea or vomiting, tolerating full liquid diettient has been Vitals/I&O/Wt Last Vital Signs Temp 99.5 F 09/27/20 10:46 Pulse 64 09/27/20 10:46 Resp 16 09/27/20 11:48 BP 118/74 09/27/20 10:46 Pulse Ox 97 09/27/20 10:46 09/26/20 09/27/20 09/27/20 22:59 06:59 14:59 Intake Total 50 / 1776.667 350 / 1776.667 50 / 50 Output Total 20 / 55 Balance 50 / 1721.667 330 / 1721.667 50 / 50 Physical Exam Narrative: EXAM NARRATIVE: Abdomen: Soft, mildly tender left lower quadrant, FACUNDO drain output is serosanguineous, 50 cc output last night, incision clean dry intact Data : 09/27/20 06:39 09/27/20 06:39 A&P Assessment and plan (1) S/P laparoscopic procedure: 35-year-old female status post laparoscopic drainage of intra-abdominal a bscess secondary to perforated sigmoid diverticulitis. Patient has been finally afebrile since surgery, and white count is down to 10.2 today DC home with FACUNDO drain, Levaquin and Flagyl for 5 days, Toradol for pain control and lactulose for bowel regimen Status: Acute Attestations Medical Necessity Statement*: Status post laparoscopic drainage of abdominal abscess doing well DC home today Coding Level of Care Code Acute Inspector Rough [employer]ings for [facility] Fwd Diagnoses S/P laparoscopic procedure Z98.890
--- NOTE | 2020-09-27 13:32 | P.DS_ITS ---
Discharge Providers Date of Admission: 09/19/20 04:52 Date of Discharge: September 27, 2020 Attending Provider at Admission: Kathryn Prater Attending Provider at Discharge: Dharmesh Muro Diagnoses at Discharge Discharge Diagnosis (1) S/P laparoscopic procedure: Status: Acute Permanent problem details: Drainage of perisigmoid abscess Reason for Visit Reason for Visit: abd pain Hospital Course Hospital Course Acute sigmoid diverticulitis with associated abscess and viscus perforation. Status post laparoscopic drainage of perisigmoid intra-abdominal abscess. Appreciate Dr. Hernandez's input. Improving. Cleared for discharge by Dr. Hernandez. Will be discharged on p.o. antibiotics and close follow-up with Dr. Hernandez. Instructed to come back to emergency room if she develops any increasing abdominal pain, fever or chills, nausea or vomiting, diarrhea or constipation or any other new complaints. Anemia. Stable. Monitor. DVT prophylaxis. Received Lovenox. Hypokalemia. Replaced Hyponatremia. Resolved. Bilateral adrenal nodules. Will need outpatient follow-up for long-term monitoring with the primary care team. Discussed with the patient. Bradycardia. EKG reveals mild QT prolongation. This could be due to Suboxone. Discussed with the patient. I asked her to speak with her primary care provider and pain specialist and try to decrease the dose of the medication and continue close monitoring of the heart. She verbalized understanding. Physical Exam Narrative: EXAM NARRATIVE: Awake alert oriented. No acute distress. Mood and affect are appropriate. Skin warm and dry. Moist mucous nares. Neck supple. No JVD Lungs clear. Heart S1, S2, regular Abdomen soft, tender, bowel sounds are weak Extremities no edema cyanosis or calf tenderness bilaterally Eyes PERRL, extraocular muscles are intact. Discharge Data Data Completed and Pending: Completed Studies During Hospitalization Category Date Time Status CT abdomen pelvis w con* [id number] Rout ine Cat Scan 09/21/20 06:[address] abdomen pelvis w con* [id number] Urge nt Cat Scan 09/19/20 01:49 Completed XR abdomen min 2V [id number] Routine Exams 09/24/20 08:59 Completed Pending at discharge Category Date Time Status ES surgery / GI i mages Routine Exams 09/24/20 14:07 Taken Labs from last 24 hours 09/27/20 09/27/20 06:39 06:39 WBC 10.2 H RBC 3.39 L Hgb 8.3 L Hct 30.5 L MCV 90.0 MCH 24.5 L MCHC 27.2 L RDW 19.8 H Plt Count 410 H MPV 9.8 Neut % (Auto) 61.6 Lymph % (Auto) 28.0 Harrison % (Auto) 6.9 Eos % (Auto) 0.9 Baso % (Auto) 0.6 Neut # (Auto) 6.29 Lymph # (Auto) 2.9 Harrison # (Auto) 0.7 Eos # (Auto) 0.1 Baso # (Auto) 0.1 Nucleated RBC % (a uto) 0.2 Nucleated RBCs # 0.0 Sodium 136 Potassium 3.8 Chloride 107 Carbon Dioxide 24 Anion Gap 8.8 BUN 12 Creatinine 0.5 GFR Calculation 141.2 H Glucose 75 Calculated Osmolal ity 280 L Calcium 8.2 L Phosphorus 3.5 Magnesium 2.2 Albumin 2.6 L Procalcitonin 0.19 Vitals: Last Vital Signs Temp 99.5 F 09/27/20 10:46 Pulse 64 09/27/20 10:46 Resp 16 09/27/20 11:48 BP 118/74 09/27/20 10:46 Pulse Ox 97 09/27/20 10:46 Discharge Plan Discharge Patient Disposition: Home Condition: Stable Prescriptions: New Zofran 4 mg tablet 4 mg PO Q6H PRN (Reason: nausea and vomiting) Qty: 20 RF: 0 Flagyl 500 mg tablet 500 mg PO Q8H 5 Days Qty: 15 RF: 0 levofloxacin 750 mg tablet 750 mg PO DAILY 5 Days RF: 0 lactulose 10 gram/15 mL solution 15 ml PO BID Qty: 237 RF: 2 ketorolac 10 mg tablet 10 mg PO Q8H PRN (Reason: pain) Qty: 30 RF: 0 Continued prazosin 1 mg capsule 1 mg PO BEDTIME PRN (Reason: unknown) RF: 0 Tylenol Extra Strength 500 mg Tablet 1,000 mg PO PRN RF: 0 trazodone 150 mg tablet 150 mg PO BEDTIME RF: 0 ibuprofen 200 mg Tablet 800 mg PO PRN RF: 0 Colace 100 mg Capsule 300 mg PO QAM RF: 0 Miralax 17 gram/dose Powder 17 g PO TID RF: 0 buprenorphine-naloxone 8-2 mg tablet, sublingual See Rx Instructions .ROUTE .COMPLEX RF: 0 Metamucil 1 packet PO PRN RF: 0 Discharge Orders: Discharge Order (Routine); Ordered 09/27/20 Ordered By: Alexei Hernandez Referrals: Alexei Hernandez MD [Physician] - 10/02/20 (Please call the office at [phone] to get your appointment time for MondaySeptember 01 ) Discharge Diet: GI Soft Patient Instructions: Metronidazole (By mouth), Ketorolac (By mouth), Lactulose (By mouth), Ondansetron (By mouth), Levofloxacin (By mouth), Abscess (GEN) Activity Restrictions/Additional Instructions: 1. Up and walking as tolerated. 2. Ok to shower in 48 hours after surgery. 3. Keep incision clean dry and intact, monitor and document 24 FACUNDO drain output, maintain FACUNDO drain to bulb suction at all times 4. Do not lift more than 10 pounds. 5. Do not operate heavy machinery or drive while using pain medications. 6. Advised to return to ER or contact my office if there are any signs of infection like, increasing pain, fevers, chills, redness or drainage of pus. Discharge Attestations Time Spent in Discharge Care*: less than 30 min Quality Metrics Clinical Quality Measures During this hospital stay, did patient experience: None Coding Level of Care Code Acute g [facility] note Diagnoses S/P laparoscopic procedure Z98.890
[2020-09-27 14:27] VITALS: BP 118/74; PULSE 17; RESP 14; TEMP 37.5; O2SAT 97
--- NOTE | 2020-09-27 14:30 | PC.NURSE ---
Discharge instructions for post laproscopic care provided and discussed. Follow-up appt with Dr Hernandez to be made by pt as today is Easter and offices closed. Prescriptions discussed, Levaquin paepr script provided. Pt declined going over care notes. Pt discharged. t front entrance via W/C.
== END 2020-09-27 14:27 | disposition home or self-care (01) | DRG 357 ==
LOC: ER 04:59 → MEDSURG 05:09 → ICU 09-24 18:05 → MEDSURG 09-25 17:57
PROVIDERS: Physician Assistant; Surgery; Admitting Provider Hospitalist; Emergency Provider Emergency Medicine; Visit Provider Internal Medicine
PROC: 0DTE4ZZ Resection of Large Intestine, Percutaneous Endoscopic Approach (ICD-10-PCS; principal; 2020-09-24 13:40)
DX: K57.20 Diverticulitis of large intestine with perforation and abscess without bleeding (principal); E87.1 Hypo-osmolality and hyponatremia; E87.6 Hypokalemia; K59.00 Constipation, unspecified; E27.8 Other specified disorders of adrenal gland; D64.9 Anemia, unspecified; E83.39 Other disorders of phosphorus metabolism; R00.1 Bradycardia, unspecified; Z79.1 Long term (current) use of non-steroidal anti-inflammatories (NSAID); F17.200 Nicotine dependence, unspecified, uncomplicated; F11.11 Opioid abuse, in remission
CPT/HCPCS: 36415; 74019; 74177; 80048; 80053; 80069; 81003; 83605; 83690; 83735; 84145; 84703; 85025; 93005; 96365; 96372; 96375; 96376; 97161; 97530; 99285; J1100; J1170; J1200; J1650; J1885; J2250; J2270; J2405; J2543; J2704; J2710; J3010; J3480; J3490; J7030; Q9967

== ENCOUNTER 2020-10-17 22:02 | Emergency (ER) | payer SELFPAY ==
[2020-10-17 22:06] VITALS: BP 140/103; PULSE 88; RESP 16; TEMP 36.6; O2SAT 98; BMI 34.5
--- NOTE | 2020-10-17 22:15 | ED_ITS ---
HPI - Abdominal Pain General: Chief Complaint: Abdominal Pain Stated Complaint: ab pain Time Seen by Provider: 10/17/20 22:15 Source: patient Mode of arrival: ambulatory Limitations: no limitations History of Present Illness: HPI narrative: Patient comes in today with complaints of mid abdominal pain. Patient has a history of a colon abscess with drainage on 27 September. Patient reports history of chills. Review of history patient has been on Suboxone for opiate abuse, constipation. Patient reports worsening pain since . MD elicited complaint: abdominal pain Location: Suprapubic Severity: severe Quality: stabbing Radiation: none Migration to: no migration Exacerbating factors: nothing Associated Symptoms: Reports no associated symptoms Related Data: Date of Last Menstrual Period: 10/03/20 Review of Systems General: Reports: 10 or more systems reviewed and unremarkable except in HPI and below GI: Reports: abdominal pain PFSH ED PFSH: Medical History Opiate abuse, episodic Perforation of sigmoid colon due to diverticulitis Surgical History S/P laparoscopic procedure (09/24/20) Drainage of perisigmoid abscess Social History Smoking and tobacco status: current every day smoker Alcohol intake: never Female Reproductive History: Date of last menstrual period: 10/03/20 Physical Exam Const: COMMON NORMALS: no acute distress and patient oriented x3 GENERAL APPEARANCE: cooperative HENMT: COMMON NORMALS: normocephalic and Normal external nose present HEAD & SCALP: normal to inspection and normocephalic NOSE: Normal external nose present MOUTH: Normal oral and palatal mucosa present THROAT: posterior oropharynx normal Eye: GENERAL EYE: appearance normal, both eyes and all related structures Neck/C-Spine: COMMON NORMALS: full ROM Lymph: LYMPHATIC: no lymphadenopathy noted Chest: COMMONS NORMALS: normal inspection of the chest Resp: COMMON NORMALS: normal respiratory effort EFFORT & INSPECTION: Yes able to speak in complete sentences Cardio: COMMON NORMALS: regular rate and regular rhythm RATE: regular rate RHYTHM: regular rhythm GI: COMMON NORMALS: Soft to palpation PALPATION: Yes Soft to palpation and Yes Tenderness to palpation present (GI) (suprapubic) : COMMON NORMALS: Yes no CVA tenderness BLADDER/KIDNEY EXAM: Yes no CVA tenderness Back/Pelvis: COMMON NORMALS: no CVA tenderness and thoracic and lumbar spine normal to inspection Extremity: COMMON NORMALS: normal to inspection Neuro: COMMON NORMALS: patient oriented x3 and moves all extremities Psych: COMMON NORMALS: mental status grossly normal and cooperative Skin: NARRATIVE SKIN EXAM: Picking lesions to the face and arms. Course Vital Signs: Vital signs: Vital Signs Temperature 97.8 F 10/17/20 22:06 Pulse Rate 80 10/18/20 00:07 Respiratory Rate 20 H 10/18/20 00:07 Blood Pressure 134/72 10/18/20 00:07 Pulse Oximetry 95 10/18/20 00:07 MDM - Abdominal Pain MDM Narrative: Medical decision making narrative: Patient comes in today for complaints of lower abdominal pain. Patient has a history of a recent abscess of colon that had to have surgical intervention for drainage. Patient reports pain started about 3 days ago with worsening symptoms. Patient reports chills. Exam notes soft abdomen with suprapubic tenderness. Bowel sounds were present. Skin was warm and dry. Vital signs are normal. Differential diagnosis includes but not limited to colonic abscess, constipation, substance abuse, malingering. Laboratory values noted no significant changes from prior exams. Urinalysis was clear of infection. CT scan noted significant improvement of the colonic abscess from prior exam without any other signs of abnormality. Patient was treated with IV fluids and medications for pain. Reviewed exam with patient with recommendations for further treatment and evaluation. Patient stated understanding. Lab Data: Labs: Lab Results 10/17/20 10/17/20 10/17/20 Range/Units 22:35 22:35 22:35 WBC 5.7 (4.0-10.0) 10^3/ uL RBC 3.97 L (4.1-5.3) 10^6/u L Hgb 9.7 L (11.5-15.3) g/dL Hct 31.8 L (37.0-47.0) % MCV 80.1 L (81-99) fL MCH 24.4 L (28.0-34.0) pg MCHC 30.5 (30.0-36.0) g/dL RDW 18.0 H (12.1-15.1) % Plt Count 307 (130-400) 10^3/c mm MPV 10.1 (7.4-10.4) fL Neut % (Auto) 56.4 % Lymph % (Auto) 32.6 % Moca % (Auto) 6.5 % Eos % (Auto) 4.0 % Baso % (Auto) 0.3 % Neut # (Auto) 3.23 (1.8-7.7) 10^3/u L Lymph # (Auto) 1.9 (0.8-4.8) 10^3/u L Moca # (Auto) 0.4 (0.2-0.9) 10^3/u L Eos # (Auto) 0.2 (0.0-0.8) 10^3/u L Baso # (Auto) 0.0 (0.0-0.1) 10^3/u L Nucleated RBC % (a uto) 0 % Nucleated RBCs # 0.0 /100WBC Sodium 139 (136-145) mmol/L Potassium 3.9 (3.5-5.1) mmol/L Chloride 103 (98-107) mmol/L Carbon Dioxide 27 (22-29) mmol/L Anion Gap 12.9 (5-19) BUN 5 L (6-20) mg/dL Creatinine 0.4 L (0.5-0.9) mg/dL GFR Calculation 182.7 H (90-130) mL/min Glucose 98 (65-115) mg/dL Calculated Osmolal ity 285 (285-295) mOsm/k g Calcium 8.3 L (8.5-10.5) mg/dL Total Bilirubin 0.5 (0.15-1.2) mg/dL AST 29 (0-32) U/L ALT 16 (0-33) U/L Alkaline Phosphata se 93 (35-105) IU/L Total Protein 7.0 (6.6-8.7) g/dL Albumin 3.2 L (3.5-5.2) g/dL Globulin 3.8 (1.3-4.6) g/dL HCG, Qual Negative (Negative) Urine Color (Yellow) Urine Appearance (CLEAR) Urine pH (5-7) Ur Specific Gravit y (1.005-1.030) Urine Protein (Negative) Urine Glucose (UA) (Normal) Urine Ketones (Negative) Urine Blood (Negative) Urine Nitrate (Negative) Urine Bilirubin (Negative) Prot Sulfosalicyli c Acd (Negative) Urine Urobilinogen (Negative) mg/dL Ur Leukocyte Enedina ase (Negative) 10/17/20 Range/Units 22:57 WBC (4.0-10.0) 10^3/ uL RBC (4.1-5.3) 10^6/u L Hgb (11.5-15.3) g/dL Hct (37.0-47.0) % MCV (81-99) fL MCH (28.0-34.0) pg MCHC (30.0-36.0) g/dL RDW (12.1-15.1) % Plt Count (130-400) 10^3/c mm MPV (7.4-10.4) fL Neut % (Auto) % Lymph % (Auto) % Moca % (Auto) % Eos % (Auto) % Baso % (Auto) % Neut # (Auto) (1.8-7.7) 10^3/u L Lymph # (Auto) (0.8-4.8) 10^3/u L Moca # (Auto) (0.2-0.9) 10^3/u L Eos # (Auto) (0.0-0.8) 10^3/u L Baso # (Auto) (0.0-0.1) 10^3/u L Nucleated RBC % (a uto) % Nucleated RBCs # /100WBC Sodium (136-145) mmol/L Potassium (3.5-5.1) mmol/L Chloride (98-107) mmol/L Carbon Dioxide (22-29) mmol/L Anion Gap (5-19) BUN (6-20) mg/dL Creatinine (0.5-0.9) mg/dL GFR Calculation (90-130) mL/min Glucose (65-115) mg/dL Calculated Osmolal ity (285-295) mOsm/k g Calcium (8.5-10.5) mg/dL Total Bilirubin (0.15-1.2) mg/dL AST (0-32) U/L ALT (0-33) U/L Alkaline Phosphata se (35-105) IU/L Total Protein (6.6-8.7) g/dL Albumin (3.5-5.2) g/dL Globulin (1.3-4.6) g/dL HCG, Qual (Negative) Urine Color Yellow (Yellow) Urine Appearance Clear (CLEAR) Urine pH 9 H (5-7) Ur Specific Gravit y 1.010 (1.005-1.030) Urine Protein Neg (Negative) Urine Glucose (UA) Norm (Normal) Urine Ketones 1+ H (Negative) Urine Blood Neg (Negative) Urine Nitrate Negative (Negative) Urine Bilirubin Neg (Negative) Prot Sulfosalicyli c Acd Negative (Negative) Urine Urobilinogen Norm (Negative) mg/dL Ur Leukocyte Enedina ase Negative (Negative) Discharge Plan Discharge Patient Disposition: Home Clinical Impression: Abdominal pain Qualifiers: Abdominal location: lower abdomen, unspecified Qualified Code(s): R10.30 - Lower abdominal pain, unspecified Constipation Qualifiers: Constipation type: unspecified constipation type Qualified Code(s): K59.00 - Constipation, unspecified Condition: Stable Prescriptions: No Action prazosin 1 mg capsule 1 mg PO BEDTIME PRN (Reason: unknown) RF: 0 Tylenol Extra Strength 500 mg Tablet 1,000 mg PO PRN RF: 0 trazodone 150 mg tablet 150 mg PO BEDTIME RF: 0 ibuprofen 200 mg Tablet 800 mg PO PRN RF: 0 Colace 100 mg Capsule 300 mg PO QAM RF: 0 Miralax 17 gram/dose Powder 17 g PO TID RF: 0 buprenorphine-naloxone 8-2 mg tablet, sublingual See Rx Instructions .ROUTE .COMPLEX RF: 0 Metamucil 1 packet PO PRN RF: 0 Zofran 4 mg tablet 4 mg PO Q6H PRN (Reason: nausea and vomiting) Qty: 20 RF: 0 lactulose 10 gram/15 mL solution 15 ml PO BID Qty: 237 RF: 2 ketorolac 10 mg tablet 10 mg PO Q8H PRN (Reason: pain) Qty: 30 RF: 0 Discharge Orders: Discharge ED (Routine); Ordered 10/17/20 Ordered By: Elbert Mcneal Discharge Diet: Usual diet Discharge Activity: Increase activity as tolerated Patient Instructions: Abdominal Pain (ED), Opioid Safety Activity Restrictions/Additional Instructions: Drink plenty of water with MiraLAX. Take MiraLAX 3 times a day to help with constipation. Activity as tolerated. Use Tylenol as needed for pain. Follow- up with primary care for further instruction and treatment. Return to the emergency room for high fever, uncontrolled pain, or new concerns. Stand Alone Forms: Work/School Release Coding Level of Care Code ED Process Improvement Manager for Tamela Fwkarla Exam Comprehensive
--- NOTE | 2020-10-17 22:20 | CTR_ITS ---
PROCEDURE INFORMATION: Exam: CT Abdomen And Pelvis With Contrast Exam date and time: 10/17/2020 11:07 PM Age: 35 years old Clinical indication: Abdominal pain; Localized; Prior surgery; Surgery date: <1 month; Surgery type: Sigmoid abcess drainage; Patient HX: C/O lower abd pain; Additional info: Non-localized abd pain TECHNIQUE: Imaging protocol: Computed tomography of the abdomen and pelvis with contrast. Radiation optimization: All CT scans at this facility use at least one of these dose optimization techniques: automated exposure control; mA and/or kV adjustment per patient size (includes targeted exams where dose is matched to clinical indication); or iterative reconstruction. Contrast material: OMNI 300; Contrast volume: 95 ml; Contrast route: INTRAVENOUS (IV); COMPARISON: CT abdomen pelvis w con* [id number] 09/21/2020 9:06 AM RADIATION DOSE METRICS: Total DLP (mGy-cm): 1791.01 FINDINGS: Liver: Normal. No mass. Gallbladder and bile ducts: Normal. No calcified stones. No ductal dilation. Pancreas: Normal. No ductal dilation. Spleen: Normal. No splenomegaly. Adrenal glands: Small circumscribed bilateral adrenal gland masses are stable comparison imaging. Kidneys and ureters: Normal. No hydronephrosis. Stomach and bowel: Inflammatory soft tissue changes around the proximal sigmoid colon area have improved significantly since prior. Overall large fecal volume persists. Negative for small bowel obstruction. Appendix: No evidence of appendicitis. Intraperitoneal space: Resolution of the loculated intraperitoneal fluid collection since prior imaging. No free air. Vasculature: Mesenteric vasculature is patent. Abdominal aorta is nonaneurysmal. Lymph nodes: Unremarkable. No enlarged lymph nodes. Urinary bladder: Unremarkable as visualized. Reproductive: Unremarkable uterus. Unremarkable right adnexa. Prominent follicle in the left ovary 17 mm diameter. Bones/joints: Unremarkable. No acute fracture. Soft tissues: Soft tissues of the abdominal wall are unremarkable. CT/CT abdomen pelvis w con* [id number] IMPRESSION: 1. Pericolonic soft tissue inflammatory changes and pericolonic abscess show substantial improvement since imaging. 2. Fluid collections resolved mild residual stranding is noted but significant improvement Radiation Dose CTDIVOL = (mGy): DLP = 1791.01 (mGy-cm)
[2020-10-17] MEDS: sodium chloride 0.9% 1,000 ML 999 ML IV (22:37)
[2020-10-17 22:40] VITALS: RESP 18; O2SAT 97
[2020-10-17] MEDS: fentaNYL 50 mcg/mL INJ 2mL 88.5 MCG IVP (22:40)
[2020-10-17 23:02] LABS: Basophils % 0.3 %; Eosinophils # 0.2 10^3/uL (0.0-0.8); Hematocrit 31.8 % (37.0-47.0); Hemoglobin 9.7 g/dL (11.5-15.3); Lymphocytes # 1.9 10^3/uL (0.8-4.8); Lymphocytes % 32.6 %; Mean Corpuscular HGB Conc 30.5 g/dL (30.0-36.0); Mean Corpuscular Hemoglobin 24.4 pg (28.0-34.0); Mean Corpuscular Volume 80.1 fL (81-99); Mean Platelet Volume 10.1 fL (7.4-10.4); Monocytes # 0.4 10^3/uL (0.2-0.9); Monocytes % 6.5 %; Neutrophils # 3.23 10^3/uL (1.8-7.7); Neutrophils % 56.4 %; Nucleated Red Blood Cells % 0 %; Platelet Count 307 10^3/cmm (130-400); Red Blood Count 3.97 10^6/uL (4.1-5.3); White Blood Count 5.7 10^3/uL (4.0-10.0)
[2020-10-17 23:13] LABS: Add Urine Microscopic? NO; Charge for UA Resulting for Rev
[2020-10-17] MEDS: iohexol 300 mg/mL 100 mL Btl IV (23:21)
[2020-10-17 23:22] LABS: Alanine Aminotransferase 16 U/L (0-33); Albumin Level 3.2 g/dL (3.5-5.2); Alkaline Phosphatase 93 IU/L (35-105); Blood Urea Nitrogen 5 mg/dL (6-20); Calcium 8.3 mg/dL (8.5-10.5); Carbon Dioxide 27 mmol/L (22-29); Chloride 103 mmol/L (98-107); Globulin 3.8 g/dL (1.3-4.6); Glomerular Filtration Rate 182.7 mL/min (90-130); Glucose 98 mg/dL (65-115); Osmolality Calculated 285 mOsm/kg (285-295); Sodium 139 mmol/L (136-145); Total Bilirubin 0.5 mg/dL (0.15-1.2)
[2020-10-17 23:29] LABS: Bilirubin Urine Neg (Negative); Blood Urine Neg (Negative); Glucose Urine UA Norm (Normal); Ketones Urine 1+ (Negative); Leukocyte Esterase Urine Negative (Negative); Nitrate Urine Negative (Negative); Protein Urine Neg (Negative); Sulfosalicylic Acid Urine Negative (Negative); Urine Appearance Clear (CLEAR); Urine Color Yellow (Yellow); Urobilinogen Urine Norm (Negative); pH Urine 9 (5-7)
[2020-10-17 23:33] LABS: Anion Gap 12.9 (5-19); Aspartate Amino Transferase 29 U/L (0-32); HCG, Serum Qual Negative (Negative); Potassium 3.9 mmol/L (3.5-5.1)
[2020-10-18 00:07] VITALS: BP 134/72; PULSE 80; RESP 20; O2SAT 95
== END 2020-10-18 00:06 | disposition home or self-care (01) ==
PROVIDERS: Emergency Provider Nurse Practitioner Family
DX: K59.00 Constipation, unspecified (principal); F17.210 Nicotine dependence, cigarettes, uncomplicated
CPT/HCPCS: 74177; 80053; 81003; 84703; 85025; 96361; 96374; 96375; 99283; J3010; J7030; Q9967

== ENCOUNTER 2020-11-14 09:17 | Emergency (ER) | payer SELFPAY ==
[2020-11-14 09:21] VITALS: BP 148/89; PULSE 82; RESP 18; TEMP 36.8; O2SAT 97; BMI 34.3
--- NOTE | 2020-11-14 09:28 | W.ED.ABDPA2 ---
HPI - Abdominal Pain General: Chief Complaint: Abdominal Pain Stated Complaint: abd pain Time Seen by Provider: 11/14/20 09:28 Source: patient Mode of arrival: ambulatory Limitations: no limitations History of Present Illness: HPI narrative: Patient comes in with abdominal pain for the last 2 days. Patient reports normal bowel movements. Patient reports pain becomes unbearable. Patient has a history of chronic recurrent abdominal pain. Patient has had a history of a abscess in the colon that was surgically treated at the end of August. Patient denies any fever. Patient appears well. Patient appears in moderate to severe pain. Patient is crying and clutching her abdomen. MD elicited complaint: abdominal pain Pertinent past history: constipation and other Onset (ago): day(s) Pain Consistency: constant Location: Diffuse Severity: moderate Quality: cramping Radiation: none Migration to: no migration Exacerbating factors: nothing Relieving factors: nothing Associated Symptoms: Reports no associated symptoms Related Data: Date of Last Menstrual Period: 11/11/20 Review of Systems General: Reports: 10 or more systems reviewed and unremarkable except in HPI and below GI: Reports: abdominal pain [facility] PFSH: Medical History Opiate abuse, episodic Perforation of sigmoid colon due to diverticulitis Surgical History S/P laparoscopic procedure (09/24/20) Drainage of perisigmoid abscess Social History Smoking and tobacco status: current every day smoker Alcohol intake: never Female Reproductive History: Date of last menstrual period: 11/11/20 Physical Exam Const: COMMON NORMALS: no acute distress and patient oriented x3 GENERAL APPEARANCE: cooperative HENMT: COMMON NORMALS: normocephalic and Normal external nose present HEAD & SCALP: normal to inspection and normocephalic NOSE: Normal external nose present MOUTH: Normal oral and palatal mucosa present Eye: GENERAL EYE: appearance normal, both eyes and all related structures Neck/C-Spine: COMMON NORMALS: full ROM Lymph: LYMPHATIC: no lymphadenopathy noted Chest: COMMONS NORMALS: normal inspection of the chest Resp: COMMON NORMALS: normal respiratory effort EFFORT & INSPECTION: Yes able to speak in complete sentences Cardio: COMMON NORMALS: regular rate and regular rhythm RATE: regular rate RHYTHM: regular rhythm GI: COMMON NORMALS: Soft to palpation INSPECTION: Yes normal to inspection AUSCULTATION: Yes normoactive bowel sounds PALPATION: Yes Soft to palpation, Yes Tenderness to palpation present (GI) (Generalized) and Yes Guarding due to palpation present (GI) RECTAL EXAM: deferred : COMMON NORMALS: Yes no CVA tenderness BLADDER/KIDNEY EXAM: Yes no CVA tenderness Back/Pelvis: COMMON NORMALS: no CVA tenderness and thoracic and lumbar spine normal to inspection Extremity: COMMON NORMALS: normal to inspection Neuro: COMMON NORMALS: patient oriented x3 and moves all extremities Psych: COMMON NORMALS: mental status grossly normal and cooperative Skin: COMMON NORMALS: no rashes or lesions noted GENERAL SKIN EXAM: no rashes or lesions noted Course Vital Signs: Vital signs: Vital Signs Temperature 98.2 F 11/14/20 09:21 Pulse Rate 67 11/14/20 11:12 Respiratory Rate 18 11/14/20 11:12 Blood Pressure 138/93 11/14/20 11:12 Pulse Oximetry 99 11/14/20 11:12 MDM - Abdominal Pain MDM Narrative: Medical decision making narrative: 35-year-old female comes in today with complaints of generalized abdominal pain. Patient was writhing in pain with discomfort. Patient appears well. Patient appears in moderate to severe pain. Exam notes soft abdomen, generalized tenderness. Bowel sounds are present. Skin is warm and dry. Vital signs are normal. Differential diagnosis includes but not limited to irritable bowel syndrome constipation variety, constipation, bowel obstruction, ruptured bowel. Patient does have a history of a colonic abscess that was repaired at the end of August. Laboratory values were unremarkable and very similar to previous exams. Urinalysis was clear. Acute abdominal series of x-rays noted no free air and no signs of bowel obstruction. Patient was medicated with fentanyl with minimal relief of pain, patient was also given Benadryl and Haldol for further abdominal pain relief with minimal relief of discomfort. Patient seemed more relaxed after medication administration but continued to complain of pain. I suspect the patient probably has a irritable bowel syndrome of the constipation variety. Recommended that patient see gastroenterology for further evaluation and treatment. Patient is very limited for follow-up due to lack of insurance. Case management referral be made anyway with may be hope for her to have further treatment and evaluation. Lab Data: Labs: Lab Results 11/14/20 11/14/20 11/14/20 Range/Units 10:00 10:00 10:00 WBC 10.7 H (4.0-10.0) 10^3/ uL RBC 4.40 (4.1-5.3) 10^6/u L Hgb 10.5 L (11.5-15.3) g/dL Hct 34.6 L (37.0-47.0) % MCV 78.6 L (81-99) fL MCH 23.9 L (28.0-34.0) pg MCHC 30.3 (30.0-36.0) g/dL RDW 17.3 H (12.1-15.1) % Plt Count 323 (130-400) 10^3/c mm MPV 10.6 H (7.4-10.4) fL Neut % (Auto) 79.2 % Lymph % (Auto) 14.1 % [place] % (Auto) 5.9 % Eos % (Auto) 0.2 % Baso % (Auto) 0.2 % Neut # (Auto) 8.46 H (1.8-7.7) 10^3/u L Lymph # (Auto) 1.5 (0.8-4.8) 10^3/u L [place] # (Auto) 0.6 (0.2-0.9) 10^3/u L Eos # (Auto) 0.0 (0.0-0.8) 10^3/u L Baso # (Auto) 0.0 (0.0-0.1) 10^3/u L Nucleated RBC % (a uto) 0 % Nucleated RBCs # 0.0 /100WBC Sodium Cancelled Potassium Cancelled Chloride Cancelled Carbon Dioxide Cancelled Anion Gap Cancelled BUN Cancelled Creatinine Cancelled GFR Calculation Cancelled Glucose Cancelled Calculated Osmolal ity Cancelled Calcium Cancelled Total Bilirubin Cancelled AST Cancelled ALT Cancelled Alkaline Phosphata se Cancelled Total Protein Cancelled Albumin Cancelled Globulin Cancelled HCG, Qual Negative (Negative) Urine Color (Yellow) Urine Appearance (CLEAR) Urine pH (5-7) Ur Specific Gravit y (1.005-1.030) Urine Protein (Negative) Urine Glucose (UA) (Normal) Urine Ketones (Negative) Urine Blood (Negative) Urine Nitrate (Negative) Urine Bilirubin (Negative) Urine Urobilinogen (Negative) mg/dL Ur Leukocyte Enedina ase (Negative) 11/14/20 11/14/20 Range/Units 10:37 10:40 WBC (4.0-10.0) 10^3/ uL RBC (4.1-5.3) 10^6/u L Hgb (11.5-15.3) g/dL Hct (37.0-47.0) % MCV (81-99) fL MCH (28.0-34.0) pg MCHC (30.0-36.0) g/dL RDW (12.1-15.1) % Plt Count (130-400) 10^3/c mm MPV (7.4-10.4) fL Neut % (Auto) % Lymph % (Auto) % [place] % (Auto) % Eos % (Auto) % Baso % (Auto) % Neut # (Auto) (1.8-7.7) 10^3/u L Lymph # (Auto) (0.8-4.8) 10^3/u L [place] # (Auto) (0.2-0.9) 10^3/u L Eos # (Auto) (0.0-0.8) 10^3/u L Baso # (Auto) (0.0-0.1) 10^3/u L Nucleated RBC % (a uto) % Nucleated RBCs # /100WBC Sodium 139 Potassium 3.5 Chloride 105 Carbon Dioxide 23 Anion Gap 14.5 BUN 5 L Creatinine 0.4 L GFR Calculation 182.7 H Glucose 87 Calculated Osmolal ity 285 Calcium 8.1 L Total Bilirubin 0.5 AST 18 ALT 14 Alkaline Phosphata se 74 Total Protein 7.2 Albumin 3.1 L Globulin 4.1 HCG, Qual (Negative) Urine Color Yellow (Yellow) Urine Appearance Clear (CLEAR) Urine pH 7 (5-7) Ur Specific Gravit y 1.005 (1.005-1.030) Urine Protein Neg (Negative) Urine Glucose (UA) Norm (Normal) Urine Ketones 1+ H (Negative) Urine Blood Neg (Negative) Urine Nitrate Negative (Negative) Urine Bilirubin Neg (Negative) Urine Urobilinogen Norm (Negative) mg/dL Ur Leukocyte Enedina ase Negative (Negative) Discharge Plan Discharge Patient Disposition: Home Clinical Impression: Abdominal pain Qualifiers: Abdominal location: generalized Qualified Code(s): R10.84 - Generalized abdominal pain Constipation Qualifiers: Constipation type: unspecified constipation type Qualified Code(s): K59.00 - Constipation, unspecified Condition: Stable Prescriptions: New dicyclomine 20 mg tablet 20 mg PO TID Qty: 15 RF: 0 No Action prazosin 1 mg capsule 1 mg PO BEDTIME PRN (Reason: unknown) RF: 0 acetaminophen [Tylenol Extra Strength] 500 mg Tablet 1,000 mg PO PRN RF: 0 trazodone 150 mg tablet 150 mg PO BEDTIME RF: 0 ibuprofen 200 mg Tablet 800 mg PO PRN RF: 0 docusate sodium [Colace] 100 mg Capsule 300 mg PO DAILY RF: 0 polyethylene glycol 3350 [Miralax] 17 gram/dose Powder 17 g PO TID RF: 0 Metamucil 1 packet PO PRN RF: 0 ondansetron HCl [Zofran] 4 mg tablet 4 mg PO Q6H PRN (Reason: nausea and vomiting) Qty: 20 RF: 0 lactulose 10 gram/15 mL solution 15 ml PO BID Qty: 237 RF: 2 Discharge Orders: Discharge ED (Routine); Ordered 11/14/20 Ordered By: Elbert Mcneal Discharge Diet: Usual diet Discharge Activity: Increase activity as tolerated Patient Instructions: Abdominal Pain (ED), Opioid Safety Activity Restrictions/Additional Instructions: Use dicyclomine 1 capsule 3 times a day as needed for abdominal pain. Continue with routine medications as prescribed. Drink plenty of water with medications. You need to make sure you are consuming at least 3 L of fluid today with your medications. Follow-up with primary care. Return to the emergency department for high fever, blood in vomit or stool. 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
--- NOTE | 2020-11-14 09:35 | XRR_ITS ---
PROCEDURE INFORMATION: Exam: XR Abdomen Exam date and time: 11/14/2020 9:36 AM Age: 35 years old Clinical indication: Abdominal pain; Acute; Prior surgery; Surgery type: Diverticulum abcess; Additional info: Abd pain, constipation TECHNIQUE: Imaging protocol: XR of the abdomen. Views: 2 Views. Upright and supine views. COMPARISON: CT abdomen pelvis w con* [id number] 10/17/2020 11:35 PM FINDINGS: Gastrointestinal tract: There is prominence of the amount of stool in the colon and rectum consistent with history of constipation. The bowel gas pattern is normal with no evidence of obstruction or dilatation. Intraperitoneal space: Normal. No free air. Bones/joints: Unremarkable for age. XR/XR acute abdomen series [id number] IMPRESSION: 1. Prominent amount of stool consistent with constipation. 2. No acute abnormality.
[2020-11-14] MEDS: sodium chloride 0.9% 1,000 ML 999 ML IV (10:05)
[2020-11-14 10:07] VITALS: RESP 22; O2SAT 98
[2020-11-14] MEDS: fentaNYL 50 mcg/mL INJ 2mL IVP (10:07)
[2020-11-14 10:33] VITALS: BP 115/86; RESP 18
[2020-11-14 10:33] LABS: HCG, Serum Qual Negative (Negative)
[2020-11-14 10:38] LABS: Basophils % 0.2 %; Eosinophils % 0.2 %; Hematocrit 34.6 % (37.0-47.0); Hemoglobin 10.5 g/dL (11.5-15.3); Lymphocytes # 1.5 10^3/uL (0.8-4.8); Lymphocytes % 14.1 %; Mean Corpuscular HGB Conc 30.3 g/dL (30.0-36.0); Mean Corpuscular Hemoglobin 23.9 pg (28.0-34.0); Mean Corpuscular Volume 78.6 fL (81-99); Mean Platelet Volume 10.6 fL (7.4-10.4); Monocytes # 0.6 10^3/uL (0.2-0.9); Monocytes % 5.9 %; Neutrophils # 8.46 10^3/uL (1.8-7.7); Neutrophils % 79.2 %; Nucleated Red Blood Cells % 0 %; Platelet Count 323 10^3/cmm (130-400); Red Cell Distribution Width 17.3 % (12.1-15.1); White Blood Count 10.7 10^3/uL (4.0-10.0)
[2020-11-14 10:50] LABS: Add Urine Microscopic? NO; Charge for UA Resulting for Rev
[2020-11-14 11:01] LABS: Alanine Aminotransferase 14 U/L (0-33); Albumin Level 3.1 g/dL (3.5-5.2); Alkaline Phosphatase 74 IU/L (35-105); Anion Gap 14.5 (5-19); Aspartate Amino Transferase 18 U/L (0-32); Blood Urea Nitrogen 5 mg/dL (6-20); Calcium 8.1 mg/dL (8.5-10.5); Carbon Dioxide 23 mmol/L (22-29); Chloride 105 mmol/L (98-107); Globulin 4.1 g/dL (1.3-4.6); Glomerular Filtration Rate 182.7 mL/min (90-130); Glucose 87 mg/dL (65-115); Osmolality Calculated 285 mOsm/kg (285-295); Potassium 3.5 mmol/L (3.5-5.1); Sodium 139 mmol/L (136-145); Total Bilirubin 0.5 mg/dL (0.15-1.2); Total Protein 7.2 g/dL (6.6-8.7)
[2020-11-14] MEDS: diphenhydrAMINE 50 mg/mL SDV 1mL 12.5 MG IVP (11:08)
[2020-11-14] MEDS: ketorolac 30 mg/mL INJ 15 MG IVP (11:08)
[2020-11-14] MEDS: haloperidol inj 5 mg/mL INJ 1 mL 2.5 MG IVP (11:09)
[2020-11-14 11:12] VITALS: BP 138/93; PULSE 67; RESP 18; O2SAT 99
[2020-11-14 11:12] LABS: Bilirubin Urine Neg (Negative); Blood Urine Neg (Negative); Glucose Urine UA Norm (Normal); Ketones Urine 1+ (Negative); Leukocyte Esterase Urine Negative (Negative); Nitrate Urine Negative (Negative); Protein Urine Neg (Negative); Specific Gravity, Urine 1.005 (1.005-1.030); Urine Appearance Clear (CLEAR); Urine Color Yellow (Yellow); Urobilinogen Urine Norm (Negative); pH Urine 7 (5-7)
--- NOTE | 2020-11-14 11:13 | PC.NURSE ---
Upon rounding in the room, pt was thrashing about in the bed, crying please help me! I hurt so bad! . Pt was given IVP medications and was calm and quiet during medication administration. Pt placed back on monitor and resting without complaints at this time. Call light in reach, visitor at bedside.
--- NOTE | 2020-11-17 12:36 | DCPLANNER ---
senior payroll manager had message to speak with patient about getting established with a primary care physician. senior payroll manager unable to speak with patient at this time.
== END 2020-11-14 12:17 | disposition home or self-care (01) ==
PROVIDERS: Emergency Provider Nurse Practitioner Family
DX: R10.84 Generalized abdominal pain (principal); K59.00 Constipation, unspecified; F17.210 Nicotine dependence, cigarettes, uncomplicated
CPT/HCPCS: 36415; 74022; 80053; 81003; 84703; 85025; 96361; 96374; 96375; 99284; J1200; J1630; J1885; J3010; J7030

== ENCOUNTER 2020-11-16 23:35 | Inpatient (IN) | payer SELFPAY ==
[2020-11-17] VITALS (99 sets, daily range): BP systolic 87–146; BP diastolic 55–78; PULSE 96–149; RESP 18–46; TEMP 36.3–36.7; O2SAT 90–100; BMI 33.6
--- NOTE | 2020-11-17 01:16 | W.ED.ABDPA2 ---
Documented by User: MICHAEL Scales 11/17/20 17:19 HPI - Abdominal Pain General: Chief Complaint: Abdominal Pain Stated Complaint: ABD pain Time Seen by Provider: 11/17/20 00:23 History of Present Illness: HPI narrative: Patient is a 35-year-old female comes to the ED with abdominal pain. Patient was seen here in the ED for same complaint on Monday, November 14 and diagnosed with irritable bowel syndrome with constipation. Patient has a history of diverticulitis with an abscess. Patient says her abdominal pain is located in the periumbilical region. She rates it a 10 out of 10. She says the pain radiates to both the right lower quadrant and left lower quadrant of abdomen. She endorses diarrhea for the past couple days and said she had an episode of blood in her stool on Monday but no blood in stool since. Endorses a decreased appetite over the last couple days due to pain. Denies any nausea or vomiting. Endorses decreased urine output and some visible blood in the urine yesterday. Patient says her menstrual period ended on November 11. Associated Symptoms: Reports diarrhea; Denies chills, constipation, dysuria, fever(s), hematochezia, hematuria, nausea and vomiting Related Data: Date of Last Menstrual Period: 11/11/20 Review of Systems Const: Reports: change in appetite (Decreased appetite) and diaphoresis; Denies: fever(s), chills or fatigue Eyes: Denies: change in vision or eye discomfort ENMT: Denies: throat pain, odynophagia, nasal discharge or nasal congestion Card: Denies: chest pain, palpitations, edema, swelling of feet/ankles, dyspnea on exertion or orthopnea Resp: Denies: dyspnea, productive cough or non-productive cough GI: Reports: abdominal pain and diarrhea; Denies: nausea, vomiting, constipation or hematochezia : Denies: flank pain, dysuria or hematuria Musc: Denies: neck pain, back pain or extremity swelling Skin/Breast: Denies: rash or new lesions Neuro: Denies: headache(s), numbness in extremities or weakness in extremities PFS ED PFSH: Medical History Opiate abuse, episodic Perforation of sigmoid colon due to diverticulitis Surgical History S/P laparoscopic procedure (09/24/20) Drainage of perisigmoid abscess Family History (Updated 11/17/20 @ 06:40 by Jeff Brown MD) Father Cancer Father was diagnosed with colon cancer at age 49 Social History (Updated 11/17/20 @ 06:40 by Jeff Brown MD) Smoking and tobacco status: current every day smoker Alcohol intake: never Housing: House Female Reproductive History: Date of last menstrual period: 11/11/20 Physical Exam Const: COMMON NORMALS: patient oriented x3 and alert GENERAL APPEARANCE: cooperative, in distress (Patient appears in pain and is a diaphoretic) and diaphoretic HENMT: COMMON NORMALS: normocephalic HEAD & SCALP: normocephalic MOUTH: Normal oral and palatal mucosa present THROAT: posterior oropharynx normal and uvula midline Neck/C-Spine: COMMON NORMALS: supple GENERAL: Yes normal visual inspection Resp: COMMON NORMALS: normal respiratory effort, No retractions, No use of accessory muscles and clear to auscultation bilaterally AUSCULTATION: clear to auscultation bilaterally Cardio: COMMON NORMALS: regular rate, regular rhythm, S1 normal heart sound present, S2 normal heart sound present, No gallops present (Cardio), No clicks present (Cardio), No murmurs present (Cardio) and Peripheral pulses 2+ throughout RATE: regular rate RHYTHM: regular rhythm HEART SOUNDS: S1 normal heart sound present and S2 normal heart sound present PERIPHERAL PULSES: Peripheral pulses 2+ throughout GI: COMMON NORMALS: Normal to inspection, nondistended, normoactive bowel sounds present, Soft to palpation and no masses PALPATION: Yes Soft to palpation and Yes Tenderness to palpation present (GI) (Patient appears to have an acute abdomen with peritoneal signs.) Details: LLQ, RLQ and other ( Severe periumbilical tenderness) : COMMON NORMALS: Yes no CVA tenderness BLADDER/KIDNEY EXAM: Yes no CVA tenderness Back/Pelvis: COMMON NORMALS: no CVA tenderness Extremity: COMMON NORMALS: normal to inspection Neuro: COMMON NORMALS: patient oriented x3 SENSORIUM/ORIENTATION: Yes alert GAIT: Yes Normal gait present Skin: NARRATIVE SKIN EXAM: Patient is clammy and diaphoretic. Course Vital Signs: Vital signs: Vital Signs Temperature 98.0 F 11/17/20 14:00 Pulse Rate 110 H 11/17/20 16:00 Respiratory Rate 36 H 11/17/20 16:00 Blood Pressure 101/74 11/17/20 16:00 Pulse Oximetry 96 11/17/20 16:00 MDM - Abdominal Pain Lab Data: Attestation: I reviewed the patient's lab results. Labs: Lab Results 11/17/20 11/17/20 11/17/20 Range/Units 02:00 02:00 02:00 WBC 13.0 H (4.0-10.0) 10^3/ uL RBC 6.16 H (4.1-5.3) 10^6/u L Hgb 14.5 (11.5-15.3) g/dL Hct 49.8 H (37.0-47.0) % MCV 80.8 L (81-99) fL MCH 23.5 L (28.0-34.0) pg MCHC 29.1 L (30.0-36.0) g/dL RDW 18.2 H (12.1-15.1) % Plt Count 397 (130-400) 10^3/c mm MPV 10.3 (7.4-10.4) fL Neut % (Auto) 89.3 % Lymph % (Auto) 6.2 % [place] % (Auto) 3.6 % Eos % (Auto) 0.0 % Baso % (Auto) 0.4 % Neut # (Auto) 11.58 H (1.8-7.7) 10^3/u L Lymph # (Auto) 0.8 (0.8-4.8) 10^3/u L [place] # (Auto) 0.5 (0.2-0.9) 10^3/u L Eos # (Auto) 0.0 (0.0-0.8) 10^3/u L Baso # (Auto) 0.1 (0.0-0.1) 10^3/u L Nucleated RBC % (a uto) 0 % Nucleated RBCs # 0.0 /100WBC Specimen Type Sample Site ABG pH (7.35-7.45) ABG pCO2 (35-45) mmHg ABG pO2 (80.0-100.0) mmH g ABG HCO3 (22-26) mmol/L ABG O2 Saturation ABG Base Excess (-2.0-2.0) mmol/ L Jagdish Test A-a O2 Gradient (5-10) mmHg Hematocrit (37-47) % Hgb O2 Saturation (95-100) % Carboxyhemoglobin (0.4-20.1) %THgb Methemoglobin (0.4-1.5) % Total Hemoglobin (12-16) g/dL Ionized Calcium (1.1-1.4) mmol/L O2 Delivery Device Garage Door Opener Installer ID Sodium 136 (136-145) mmol/L Potassium 3.1 L (3.5-5.1) mmol/L Chloride 99 (98-107) mmol/L Carbon Dioxide 13 L (22-29) mmol/L Anion Gap 27.1 H (5-19) BUN 25 H (6-20) mg/dL Creatinine 1.0 H (0.5-0.9) mg/dL GFR Calculation 63.5 L (90-130) mL/min Glucose 74 (65-115) mg/dL Calculated Osmolal ity 285 (285-295) mOsm/k g Calcium 9.3 (8.5-10.5) mg/dL Total Bilirubin 0.9 (0.15-1.2) mg/dL AST 15 (0-32) U/L ALT 9 (0-33) U/L Alkaline Phosphata se 112 H (35-105) IU/L Total Protein 7.6 (6.6-8.7) g/dL Albumin 2.9 L (3.5-5.2) g/dL Globulin 4.7 H (1.3-4.6) g/dL Lipase 7 L (13-60) U/L HCG, Qual Negative (Negative) Urine Color (Yellow) Urine Appearance (CLEAR) Urine pH (5-7) Ur Specific Gravit y (1.005-1.030) Urine Protein (Negative) Urine Glucose (UA) (Normal) Urine Ketones (Negative) Urine Blood (Negative) Urine Nitrate (Negative) Urine Bilirubin (Negative) Urine Urobilinogen (Negative) mg/dL Ur Leukocyte Enedina ase (Negative) Urine RBC (0-2) /hpf Urine WBC (0-5) /hpf Ur Squamous Epith Cells (0-5) /hpf Amorphous Sediment Urine Bacteria (NONE) /hpf 11/17/20 11/17/20 Range/Units 03:28 04:25 WBC (4.0-10.0) 10^3/ uL RBC (4.1-5.3) 10^6/u L Hgb (11.5-15.3) g/dL Hct (37.0-47.0) % MCV (81-99) fL MCH (28.0-34.0) pg MCHC (30.0-36.0) g/dL RDW (12.1-15.1) % Plt Count (130-400) 10^3/c mm MPV (7.4-10.4) fL Neut % (Auto) % Lymph % (Auto) % [place] % (Auto) % Eos % (Auto) % Baso % (Auto) % Neut # (Auto) (1.8-7.7) 10^3/u L Lymph # (Auto) (0.8-4.8) 10^3/u L [place] # (Auto) (0.2-0.9) 10^3/u L Eos # (Auto) (0.0-0.8) 10^3/u L Baso # (Auto) (0.0-0.1) 10^3/u L Nucleated RBC % (a uto) % Nucleated RBCs # /100WBC Specimen Type Arterial Sample Site Radial, left ABG pH 7.43 (7.35-7.45) ABG pCO2 28.9 L (35-45) mmHg ABG pO2 80.9 (80.0-100.0) mmH g ABG HCO3 19.3 L (22-26) mmol/L ABG O2 Saturation 96.5 ABG Base Excess -3.9 L (-2.0-2.0) mmol/ L Jagdish Test Pos A-a O2 Gradient 4.2 L (5-10) mmHg Hematocrit 36.8 L (37-47) % Hgb O2 Saturation 94.5 L (95-100) % Carboxyhemoglobin 1.2 (0.4-20.1) %THgb Methemoglobin 0.9 (0.4-1.5) % Total Hemoglobin 12.0 (12-16) g/dL Ionized Calcium 1.2 (1.1-1.4) mmol/L O2 Delivery Device Room air Garage Door Opener Installer ID jason Sodium 131.0 (136-145) mmol/L Potassium 3.1 L (3.5-5.1) mmol/L Chloride (98-107) mmol/L Carbon Dioxide (22-29) mmol/L Anion Gap (5-19) BUN (6-20) mg/dL Creatinine (0.5-0.9) mg/dL GFR Calculation (90-130) mL/min Glucose 88.0 (65-115) mg/dL Calculated Osmolal ity (285-295) mOsm/k g Calcium (8.5-10.5) mg/dL Total Bilirubin (0.15-1.2) mg/dL AST (0-32) U/L ALT (0-33) U/L Alkaline Phosphata se (35-105) IU/L Total Protein (6.6-8.7) g/dL Albumin (3.5-5.2) g/dL Globulin (1.3-4.6) g/dL Lipase (13-60) U/L HCG, Qual (Negative) Urine Color Dark yellow (Yellow) Urine Appearance Clear (CLEAR) Urine pH 5 (5-7) Ur Specific Gravit y 1.005 (1.005-1.030) Urine Protein 1+ H (Negative) Urine Glucose (UA) Norm (Normal) Urine Ketones Negative (Negative) Urine Blood 3+ H (Negative) Urine Nitrate Negative (Negative) Urine Bilirubin 1+ H (Negative) Urine Urobilinogen 1 H (Negative) mg/dL Ur Leukocyte Enedina ase Negative (Negative) Urine RBC 10-15 H (0-2) /hpf Urine WBC 0-4 H (0-5) /hpf Ur Squamous Epith Cells 10-15 H (0-5) /hpf Amorphous Sediment Not Reportable Urine Bacteria Trace (NONE) /hpf Imaging Data ^: CT Abd/Pel: Attestation: I personally reviewed and interpreted this imaging study as follows: Radiologist's impression: [address] [address] [address] Scan Report Signed Patient: Victoria Ramirez Unit #: [id number] : 1985 Age/Sex: 35 / F ADM Date: 11/16/20 Loc: ER Room/Bed: Attending Dr: Ordering Provider/Ordering MD: Jimmy Mo Date of Service: 11/17/20 Procedure(s): CT abdomen pelvis w con* [id number] Accession Number(s): [id number] Report Number: [id number] PROCEDURE INFORMATION: Exam: CT Abdomen And Pelvis With Contrast Exam date and time: 11/17/2020 2:33 AM Age: 35 years old Clinical indication: Abdominal pain; Generalized; Additional info: Abdominal pain and diarrhea TECHNIQUE: Imaging protocol: Computed tomography of the abdomen and pelvis with contrast. Radiation optimization: All CT scans at this facility use at least one of these dose optimization techniques: automated exposure control; mA and/or kV adjustment per patient size (includes targeted exams where dose is matched to clinical indication); or iterative reconstruction. Contrast material: OMNI 300; Contrast volume: 95 ml; Contrast route: INTRAVENOUS (IV); COMPARISON: CT abdomen pelvis w con* [id number] 10/17/2020 11:35 PM RADIATION DOSE METRICS: Total DLP (mGy-cm): 1786.9 FINDINGS: Liver: No mass. Gallbladder and bile ducts: No calcified stones. No ductal dilation. Pancreas: No ductal dilation. Spleen: No splenomegaly. Adrenal glands: Indeterminate bilateral hyperdense adrenal lesions measuring 1.9 x 2.7 cm on the right and 2 cm on the left. Kidneys and ureters: No hydronephrosis. Stomach and bowel: Dilated thickened loops of small bowel containing fluid are noted throughout the abdomen and pelvis. No definite abrupt transition point. There are relatively collapsed bowel loops in the right lower quadrant. There is diffuse colonic wall thickening with abnormal wall thickening adjacent to the sigmoid colon in the pelvis and irregular air containing fluid collection. Appendix: The appendix is not identified. Intraperitoneal space: There is free intraperitoneal air. Contained fluid collection noted in the right lower quadrant. Irregular air containing fluid collection adjacent to the sigmoid colon in the pelvis measuring 4.2 x 3.7 cm. Vasculature: No abdominal aortic aneurysm. Lymph nodes: No enlarged lymph nodes. Urinary bladder: Unremarkable as visualized. Reproductive: 4.9 x 6 1 cm right adnexal probably representing an ovarian cyst. Bones/joints: Unremarkable. No acute fracture. Soft tissues: Unremarkable. CT/CT abdomen pelvis w con* [id number] IMPRESSION: 1. Pneumoperitoneum consistent with a perforated viscus possibly due to perforated sigmoid diverticulitis with a small irregular air containing fluid collection in the left pelvis measuring up to 4.2 x 3.7 cm probably representing an abscess. 2. Diffuse small and large bowel wall thickening which may be seen with enterocolitis . 3. 4.9 x 6.1 cm right adnexal cystic lesion probably representing an ovarian cyst. Findings can be further evaluated with pelvic ultrasound. 4.Bilateral adrenal nodules which are indeterminate in density. Left-sided adrenal nodule has increased slightly in size. If patient has no cancer history, consider follow-up adrenal CT or resection. If patient has a history of cancer, consider biopsy or PET/CT for patients with cancer history. ([facility], ACR White Paper, 2017) Radiation Dose CTDIVOL = (mGy): DLP = 1786.9 (mGy-cm) Dictated By: Manjit Kee MD Signed By: Manjit Kee MD Signed Date/Time: 11/17/20355 DD/ 3 Discharge Plan Discharge Patient Disposition: Admitted As Inpatient Admit Provider: Artemio Metcalf Clinical Impression: Intra-abdominal abscess, Gastric distention Diverticulitis of colon with perforation Qualifiers: Diverticulitis bleeding: unspecified bleeding status Qualified Code(s): K57.20 - Diverticulitis of large intestine with perforation and abscess without bleeding Condition: Stable Coding Level of Care Code ED Concept Artist for Chg Fwd Exam Comprehensive Documented by User: Gonsalo Gallegos MD 11/17/20 05:52 HPI - Abdominal Pain General: Chief Complaint: Abdominal Pain Stated Complaint: ABD pain Time Seen by Provider: 11/17/20 00:23 PFSH ED PFSH: Medical History Opiate abuse, episodic Perforation of sigmoid colon due to diverticulitis Surgical History S/P laparoscopic procedure (09/24/20) Drainage of perisigmoid abscess Family History (Updated 11/17/20 @ 06:40 by Jeff Brown MD) Father Cancer Father was diagnosed with colon cancer at age 49 Social History (Updated 11/17/20 @ 06:40 by Jeff Brown MD) Smoking and tobacco status: current every day smoker Alcohol intake: never Housing: House Course Vital Signs: Vital signs: Vital Signs Temperature 98.0 F 11/17/20 14:00 Pulse Rate 110 H 11/17/20 16:00 Respiratory Rate 36 H 11/17/20 16:00 Blood Pressure 101/74 11/17/20 16:00 Pulse Oximetry 96 11/17/20 16:00 MDM - Abdominal Pain MDM Narrative: Medical decision making narrative: Patient remained mildly tachycardic throughout ED course. CT the abdomen pelvis shows abscess adjacent to the sigmoid colon as well as free air up by the liver. NG tube was placed for gaseous distention of the GI tract. She was started on broad-spectrum antibiotics and will be admitted to the intensive care unit to the hospitalist service with surgical consultation. I spoke with general surgery multiple times to coordinate care and they graciously came to emergency department to evaluate the patient for consideration for operative management. Lab Data: Labs: Lab Results 11/17/20 11/17/20 11/17/20 Range/Units 02:00 02:00 02:00 WBC 13.0 H (4.0-10.0) 10^3/ uL RBC 6.16 H (4.1-5.3) 10^6/u L Hgb 14.5 (11.5-15.3) g/dL Hct 49.8 H (37.0-47.0) % MCV 80.8 L (81-99) fL MCH 23.5 L (28.0-34.0) pg MCHC 29.1 L (30.0-36.0) g/dL RDW 18.2 H (12.1-15.1) % Plt Count 397 (130-400) 10^3/c mm MPV 10.3 (7.4-10.4) fL Neut % (Auto) 89.3 % Lymph % (Auto) 6.2 % [place] % (Auto) 3.6 % Eos % (Auto) 0.0 % Baso % (Auto) 0.4 % Neut # (Auto) 11.58 H (1.8-7.7) 10^3/u L Lymph # (Auto) 0.8 (0.8-4.8) 10^3/u L [place] # (Auto) 0.5 (0.2-0.9) 10^3/u L Eos # (Auto) 0.0 (0.0-0.8) 10^3/u L Baso # (Auto) 0.1 (0.0-0.1) 10^3/u L Nucleated RBC % (a uto) 0 % Nucleated RBCs # 0.0 /100WBC Specimen Type Sample Site ABG pH (7.35-7.45) ABG pCO2 (35-45) mmHg ABG pO2 (80.0-100.0) mmH g ABG HCO3 (22-26) mmol/L ABG O2 Saturation ABG Base Excess (-2.0-2.0) mmol/ L Jagdish Test A-a O2 Gradient (5-10) mmHg Hematocrit (37-47) % Hgb O2 Saturation (95-100) % Carboxyhemoglobin (0.4-20.1) %THgb Methemoglobin (0.4-1.5) % Total Hemoglobin (12-16) g/dL Ionized Calcium (1.1-1.4) mmol/L O2 Delivery Device Garage Door Opener Installer ID Sodium 136 (136-145) mmol/L Potassium 3.1 L (3.5-5.1) mmol/L Chloride 99 (98-107) mmol/L Carbon Dioxide 13 L (22-29) mmol/L Anion Gap 27.1 H (5-19) BUN 25 H (6-20) mg/dL Creatinine 1.0 H (0.5-0.9) mg/dL GFR Calculation 63.5 L (90-130) mL/min Glucose 74 (65-115) mg/dL Calculated Osmolal ity 285 (285-295) mOsm/k g Calcium 9.3 (8.5-10.5) mg/dL Total Bilirubin 0.9 (0.15-1.2) mg/dL AST 15 (0-32) U/L ALT 9 (0-33) U/L Alkaline Phosphata se 112 H (35-105) IU/L Total Protein 7.6 (6.6-8.7) g/dL Albumin 2.9 L (3.5-5.2) g/dL Globulin 4.7 H (1.3-4.6) g/dL Lipase 7 L (13-60) U/L HCG, Qual Negative (Negative) Urine Color (Yellow) Urine Appearance (CLEAR) Urine pH (5-7) Ur Specific Gravit y (1.005-1.030) Urine Protein (Negative) Urine Glucose (UA) (Normal) Urine Ketones (Negative) Urine Blood (Negative) Urine Nitrate (Negative) Urine Bilirubin (Negative) Urine Urobilinogen (Negative) mg/dL Ur Leukocyte Enedina ase (Negative) Urine RBC (0-2) /hpf Urine WBC (0-5) /hpf Ur Squamous Epith Cells (0-5) /hpf Amorphous Sediment Urine Bacteria (NONE) /hpf 11/17/20 11/17/20 Range/Units 03:28 04:25 WBC (4.0-10.0) 10^3/ uL RBC (4.1-5.3) 10^6/u L Hgb (11.5-15.3) g/dL Hct (37.0-47.0) % MCV (81-99) fL MCH (28.0-34.0) pg MCHC (30.0-36.0) g/dL RDW (12.1-15.1) % Plt Count (130-400) 10^3/c mm MPV (7.4-10.4) fL Neut % (Auto) % Lymph % (Auto) % [place] % (Auto) % Eos % (Auto) % Baso % (Auto) % Neut # (Auto) (1.8-7.7) 10^3/u L Lymph # (Auto) (0.8-4.8) 10^3/u L [place] # (Auto) (0.2-0.9) 10^3/u L Eos # (Auto) (0.0-0.8) 10^3/u L Baso # (Auto) (0.0-0.1) 10^3/u L Nucleated RBC % (a uto) % Nucleated RBCs # /100WBC Specimen Type Arterial Sample Site Radial, left ABG pH 7.43 (7.35-7.45) ABG pCO2 28.9 L (35-45) mmHg ABG pO2 80.9 (80.0-100.0) mmH g ABG HCO3 19.3 L (22-26) mmol/L ABG O2 Saturation 96.5 ABG Base Excess -3.9 L (-2.0-2.0) mmol/ L Jagdish Test Pos A-a O2 Gradient 4.2 L (5-10) mmHg Hematocrit 36.8 L (37-47) % Hgb O2 Saturation 94.5 L (95-100) % Carboxyhemoglobin 1.2 (0.4-20.1) %THgb Methemoglobin 0.9 (0.4-1.5) % Total Hemoglobin 12.0 (12-16) g/dL Ionized Calcium 1.2 (1.1-1.4) mmol/L O2 Delivery Device Room air Garage Door Opener Installer ID ellpe Sodium 131.0 (136-145) mmol/L Potassium 3.1 L (3.5-5.1) mmol/L Chloride (98-107) mmol/L Carbon Dioxide (22-29) mmol/L Anion Gap (5-19) BUN (6-20) mg/dL Creatinine (0.5-0.9) mg/dL GFR Calculation (90-130) mL/min Glucose 88.0 (65-115) mg/dL Calculated Osmolal ity (285-295) mOsm/k g Calcium (8.5-10.5) mg/dL Total Bilirubin (0.15-1.2) mg/dL AST (0-32) U/L ALT (0-33) U/L Alkaline Phosphata se (35-105) IU/L Total Protein (6.6-8.7) g/dL Albumin (3.5-5.2) g/dL Globulin (1.3-4.6) g/dL Lipase (13-60) U/L HCG, Qual (Negative) Urine Color Dark yellow (Yellow) Urine Appearance Clear (CLEAR) Urine pH 5 (5-7) Ur Specific Gravit y 1.005 (1.005-1.030) Urine Protein 1+ H (Negative) Urine Glucose (UA) Norm (Normal) Urine Ketones Negative (Negative) Urine Blood 3+ H (Negative) Urine Nitrate Negative (Negative) Urine Bilirubin 1+ H (Negative) Urine Urobilinogen 1 H (Negative) mg/dL Ur Leukocyte Enedina ase Negative (Negative) Urine RBC 10-15 H (0-2) /hpf Urine WBC 0-4 H (0-5) /hpf Ur Squamous Epith Cells 10-15 H (0-5) /hpf Amorphous Sediment Not Reportable Urine Bacteria Trace (NONE) /hpf Discharge Plan Discharge Patient Disposition: Admitted As Inpatient Admit Provider: Artemio Metcalf Clinical Impression: Intra-abdominal abscess, Gastric distention Diverticulitis of colon with perforation Qualifiers: Diverticulitis bleeding: unspecified bleeding status Qualified Code(s): K57.20 - Diverticulitis of large intestine with perforation and abscess without bleeding Condition: Stable Coding Level of Care Code ED Concept Artist for Chg Fwd Exam Comprehensive
--- NOTE | 2020-11-17 01:39 | CTR_ITS ---
PROCEDURE INFORMATION: Exam: CT Abdomen And Pelvis With Contrast Exam date and time: 11/17/2020 2:33 AM Age: 35 years old Clinical indication: Abdominal pain; Generalized; Additional info: Abdominal pain and diarrhea TECHNIQUE: Imaging protocol: Computed tomography of the abdomen and pelvis with contrast. Radiation optimization: All CT scans at this facility use at least one of these dose optimization techniques: automated exposure control; mA and/or kV adjustment per patient size (includes targeted exams where dose is matched to clinical indication); or iterative reconstruction. Contrast material: OMNI 300; Contrast volume: 95 ml; Contrast route: INTRAVENOUS (IV); COMPARISON: CT abdomen pelvis w con* [id number] 10/17/2020 11:35 PM RADIATION DOSE METRICS: Total DLP (mGy-cm): 1786.9 FINDINGS: Liver: No mass. Gallbladder and bile ducts: No calcified stones. No ductal dilation. Pancreas: No ductal dilation. Spleen: No splenomegaly. Adrenal glands: Indeterminate bilateral hyperdense adrenal lesions measuring 1.9 x 2.7 cm on the right and 2 cm on the left. Kidneys and ureters: No hydronephrosis. Stomach and bowel: Dilated thickened loops of small bowel containing fluid are noted throughout the abdomen and pelvis. No definite abrupt transition point. There are relatively collapsed bowel loops in the right lower quadrant. There is diffuse colonic wall thickening with abnormal wall thickening adjacent to the sigmoid colon in the pelvis and irregular air containing fluid collection. Appendix: The appendix is not identified. Intraperitoneal space: There is free intraperitoneal air. Contained fluid collection noted in the right lower quadrant. Irregular air containing fluid collection adjacent to the sigmoid colon in the pelvis measuring 4.2 x 3.7 cm. Vasculature: No abdominal aortic aneurysm. Lymph nodes: No enlarged lymph nodes. Urinary bladder: Unremarkable as visualized. Reproductive: 4.9 x 6 1 cm right adnexal probably representing an ovarian cyst. Bones/joints: Unremarkable. No acute fracture. Soft tissues: Unremarkable. CT/CT abdomen pelvis w con* [id number] IMPRESSION: 1. Pneumoperitoneum consistent with a perforated viscus possibly due to perforated sigmoid diverticulitis with a small irregular air containing fluid collection in the left pelvis measuring up to 4.2 x 3.7 cm probably representing an abscess. 2. Diffuse small and large bowel wall thickening which may be seen with enterocolitis . 3. 4.9 x 6.1 cm right adnexal cystic lesion probably representing an ovarian cyst. Findings can be further evaluated with pelvic ultrasound. 4.Bilateral adrenal nodules which are indeterminate in density. Left-sided adrenal nodule has increased slightly in size. If patient has no cancer history, consider follow-up adrenal CT or resection. If patient has a history of cancer, consider biopsy or PET/CT for patients with cancer history. ([facility], ACR White Paper, 2017) Radiation Dose CTDIVOL = (mGy): DLP = 1786.9 (mGy-cm)
[2020-11-17 02:13] LABS: Basophils # 0.1 10^3/uL (0.0-0.1); Basophils % 0.4 %; Hematocrit 49.8 % (37.0-47.0); Hemoglobin 14.5 g/dL (11.5-15.3); Lymphocytes # 0.8 10^3/uL (0.8-4.8); Lymphocytes % 6.2 %; Mean Corpuscular HGB Conc 29.1 g/dL (30.0-36.0); Mean Corpuscular Hemoglobin 23.5 pg (28.0-34.0); Mean Corpuscular Volume 80.8 fL (81-99); Mean Platelet Volume 10.3 fL (7.4-10.4); Monocytes # 0.5 10^3/uL (0.2-0.9); Monocytes % 3.6 %; Neutrophils # 11.58 10^3/uL (1.8-7.7); Neutrophils % 89.3 %; Nucleated Red Blood Cells % 0 %; Platelet Count 397 10^3/cmm (130-400); Red Blood Count 6.16 10^6/uL (4.1-5.3); Red Cell Distribution Width 18.2 % (12.1-15.1)
[2020-11-17] MEDS: ondansetron 2 mg/ML SDV 2 mL 4 MG IVP (02:13)
[2020-11-17] MEDS: morphine 4 mg/mL SDV 1 mL IVP ×2 (02:13→06:03)
[2020-11-17] MEDS: sodium chloride 0.9% 1,000 ML 999 ML IV (02:14)
[2020-11-17 02:20] LABS: HCG, Serum Qual Negative (Negative)
[2020-11-17 02:35] LABS: Alanine Aminotransferase 9 U/L (0-33); Albumin Level 2.9 g/dL (3.5-5.2); Alkaline Phosphatase 112 IU/L (35-105); Aspartate Amino Transferase 15 U/L (0-32); Blood Urea Nitrogen 25 mg/dL (6-20); Calcium 9.3 mg/dL (8.5-10.5); Chloride 99 mmol/L (98-107); Globulin 4.7 g/dL (1.3-4.6); Glomerular Filtration Rate 63.5 mL/min (90-130); Glucose 74 mg/dL (65-115); Lipase 7 U/L (13-60); Osmolality Calculated 285 mOsm/kg (285-295); Sodium 136 mmol/L (136-145); Total Bilirubin 0.9 mg/dL (0.15-1.2); Total Protein 7.6 g/dL (6.6-8.7)
[2020-11-17 02:42] LABS: Anion Gap 27.1 (5-19); Potassium 3.1 mmol/L (3.5-5.1)
[2020-11-17 02:44] LABS: Carbon Dioxide 13 mmol/L (22-29)
[2020-11-17] MEDS: iohexol 300 mg/mL 100 mL Btl IV (02:48)
[2020-11-17 02:50] LABS: Slide Review Slide Review Perform
[2020-11-17] MEDS: HYDROmorphone 1 mg/mL INJ 1 mL IVP (03:04)
[2020-11-17 03:36] LABS: ABG PCO2 28.9 mmHg (35-45); ABG PH Result 7.43 (7.35-7.45); Alveolar-Arterial Oxygen Gradi 4.2 mmHg (5-10); Arterial Blood Gas Hematocrit 36.8 % (37-47); Base Excess ABG -3.9 mmol/L (-2.0-2.0); Blood Gas Allen Test Pos; Blood Gas Sample Site Radial, left; Blood Gas Sample Type Arterial; Carboxyhemoglobin 1.2 %THgb (0.4-20.1); HCO3 ABG 19.3 mmol/L (22-26); HGB O2 Sat 94.5 % (95-100); Ionized Calcium Level - ABG 1.2 mmol/L (1.1-1.4); Methemoglobin 0.9 % (0.4-1.5); Oxygen Device ROOM AIR; Oxygen Saturation ABG 96.5; PO2 ABG 80.9 mmHg (80.0-100.0); Potassium Level - ABG 3.1 mmol/L (3.5-5.0)
[2020-11-17 04:50] LABS: Bilirubin Urine 1+ (Negative); Blood Urine 3+ (Negative); Glucose Urine UA Norm (Normal); Ketones Urine Negative (Negative); Nitrate Urine Negative (Negative); Protein Urine 1+ (Negative); Specific Gravity, Urine 1.005 (1.005-1.030); Urine Appearance Clear (CLEAR); Urine Color Dark Yellow (Yellow); pH Urine 5 (5-7)
[2020-11-17 04:51] LABS: Add Urine Culture? No; Bacteria Urine TRACE /hpf; Leukocyte Esterase Urine Negative (Negative); Urobilinogen Urine 1 mg/dL (Negative); WBC Urine 0-4 /hpf (0-5)
[2020-11-17] MEDS: piperacillin-tazobactam 3.375 GM in sodium chloride 0.9% (plus) 50 ML IV ×3 (04:56→18:47)
--- NOTE | 2020-11-17 05:38 | P.CONIM_ITS ---
Providers/Reason For Consult Consulting Physican/Specialty*: Artemio Metcalf MD Reason for Consult*: Pneumoperitoneum with pelvic abscess Requesting Physcian: Dr. Gallegos Attending Physician: Dr. Brown History of Present Illness History of Present Illness Chief Complaint: Tummy hurts History of present illness:Ms Victoria Ramirez is a 35 year old female presents to the emergency department with worsening abdominal pain mostly located on the left side of the abdomen and right side. Dull aching and has been radiating all over her abdomen. Associated with nausea but no vomiting. Low-grade fever but no chills. Further blood work showed WBC count of 13,000, presents with vital signs of heart rate of 135, respiratory 24 and low-grade temperature 97.4 and satting 98% at room air Apparently the patient had previous visits to the emergency department with multiple CT scans that were done in the past for complicated diverticulitis and an abscess formation at some point where she was taken to the OR by my partner Dr. Hernandez back on September 24, 2020 where she undergone a laparoscopic drainage of intra-abdominal abscess and a drain was left behind and subsequently the patient did well yet she the presented today to the emergency department with worsening abdominal pain and a CT scan of the abdomen and pelvis was done that showed; 1. Pneumoperitoneum consistent with a perforated viscus possibly due to perforated sigmoid diverticulitis with a small irregular air containing fluid collection in the left pelvis measuring up to 4.2 x 3.7 cm probably representing an abscess. 2. Diffuse small and large bowel wall thickening which may be seen with enterocolitis . 3. 4.9 x 6.1 cm right adnexal cystic lesion probably representing an ovarian cyst. Findings can be further evaluated with pelvic ultrasound. 4.Bilateral adrenal nodules which are indeterminate in density. Left-sided adrenal nodule has increased slightly in size. If patient has no cancer history, consider follow-up adrenal CT or resection. If patient has a history of cancer, consider biopsy or PET/CT for patients with cancer history. (Dejah Vail, ACR White Paper, 2017) General surgery was consulted for further evaluation and potential intervention Patient reports to me that she has history of her dad having colon cancer but she never had a colonoscopy. Review of Systems General: Reports: 10 or more systems reviewed and unremarkable except in HPI and below Meds/Allergies Home Medications and Allergies Home Medications Medication Instructions Recorded Confirmed Last Taken Type Metamucil 1 packet PO PRN 09/19/20 11/14/20 11/13/20 History acetaminophen [Tylenol Extra 1,000 mg PO PRN 09/19/20 11/14/20 Unknown History Strength] docusate sodium [Colace] 300 mg PO DAILY 09/19/20 11/14/20 11/13/20 History ibuprofen 800 mg PO PRN 09/19/20 11/14/20 11/13/20 History polyethylene glycol 3350 [Miralax] 17 g PO TID 09/19/20 11/14/20 11/13/20 History prazosin 1 mg PO BEDTIME PRN 09/19/20 11/14/20 11/13/20 History trazodone 150 mg PO BEDTIME 09/19/20 11/14/20 09/17/20 History lactulose 15 ml PO BID #237 ml 09/27/20 11/14/20 11/13/20 Rx ondansetron HCl [Zofran] 4 mg PO Q6H PRN #20 tab 09/27/20 11/14/20 Unknown Rx dicyclomine 20 mg PO TID #15 tab 11/14/20 Unknown Rx Allergies Allergy/AdvReac Type Severity Reaction Status Date / Time No Known Allergies Allergy Verified 11/17/20 05:52 Current Medications Current Medications Generic Name Dose Route Start Last Admin Trade Name Freq PRN Reason Stop Dose Admin Lidocaine HCl 5 ml/ Potassium 105 mls @ 50 mls/hr 11/17/20 04:08 11/17/20 05:10 Chloride IV 11/17/20 06:13 Not Given ONCE ONE PFSH Acute PFSH: Medical History Opiate abuse, episodic Perforation of sigmoid colon due to diverticulitis Surgical History S/P laparoscopic procedure (09/24/20) Drainage of perisigmoid abscess Family History (Updated 11/17/20 @ 06:40 by Jeff Brown MD) Father Cancer Father was diagnosed with colon cancer at age 49 Social History (Updated 11/17/20 @ 06:40 by Jeff Brown MD) Smoking and tobacco status: current every day smoker Alcohol intake: never Housing: House Female Reproductive History: Date of last menstrual period: 11/11/20 Vitals/I&O/Wt Last Vital Signs Temp 97.4 F L 11/17/20 00:25 Pulse 135 H 11/17/20 03:47 Resp 24 H 11/17/20 03:04 BP 118/76 11/17/20 03:47 Pulse Ox 98 11/17/20 03:47 Weight last 48 hrs Weight 190 lb Physical Exam Narrative: EXAM NARRATIVE: Patient is conscious alert oriented X3 yet anxious BMI 34 Head and neck examination PERRLA no masses no cervical lymphadenopathy no jaundice Cardiac examination audible S1-S2 no murmurs no gallops no arrhythmias Chest is clear bilateral,abscence of Rhonchi or wheezes,no surgical emphysema Abdomen maximal tenderness located at the lower part of the abdomen and towards the right side as well. With associated guarding particularly towards the left side of the abdomen. Showing signs of pelvic peritonitis Extremities no cyanosis no clubbing no edema A&P Assessment and plan (1) Diverticulitis of colon with perforation: After thorough history physical examination and reviewing the chart and images with my personal interpretation, I did licensed mental health counselor the patient for diagnostic laparoscopy possible laparotomy with possible bowel resection possible colostomy. I did discuss with the patient in details about placement of a drainage for temporizing approach and down the road consideration for elective colonoscopy followed by sigmoid colectomy with colorectal anastomosis, patient agreed on the plan of care and she would like to proceed accordingly understanding that there is a potential chance today for sigmoid resection to take place in a colostomy formation. Informed consent per chart IV fluid resuscitation Zosyn and Flagyl IV I appreciate hospitalist input with admission to ICU for IV fluid resuscitation and continuous monitoring Status: Acute Qualifiers: Diverticulitis bleeding: unspecified bleeding status Qualified Code(s): K57.20 - Diverticulitis of large intestine with perforation and abscess without bleeding Consult Attestations Medical Necessity Statement: Inpatient admission passing 2 midnights for perioperative care Time Spent in Patient Care: (>than 50% of time spent in counselling and/or direct pt care on unit) . Coding Level of Care Code Acute Medical Secretary Teacher for [facility] Diagnoses Diverticulitis of colon with perforation K57.20 Diverticulitis bleeding: unspecified bleeding status
--- NOTE | 2020-11-17 06:00 | P.HP_ITS ---
Providers/Chief Complaint Chief Complaint: ABD pain History of Present Illness Victoria Ramirez is a 35 year old female who has history of opioid dependence, currently on Suboxone, has history of complicated diverticulitis underwent laparoscopic drainage of perisigmoid intra-abdominal abscesses on 09/[address] Hernandez, presenting today with worsening of abdominal pain. Patient is stating t hat after surgery she kept taking her Metamucil & antibiotics, on 11/12 she started experiencing left lower quadrant pain, she came to the hospital for further evaluation however acute abdominal series did not reveal any free air no signs of bowel obstruction, she was given fentanyl &Benadryl and was discharged home with dicyclomine. She is presented today with chief complaint of worsening abdominal pain. Initially it was located in left lower quadrant however it has involved lower part of her abdomen, she has not noticed any fever or vomiting however endorsing rigors/chills, diaphoresis, shortness of breath on taking deep breaths, any kind of movement would aggravate her abdominal pain including voiding urine. Diagnostics in the ER revealed sepsis, leukocytosis IMPRESSION: 1. Pneumoperitoneum consistent with a perforated viscus possibly due to perforated sigmoid diverticulitis with a small irregular air containing fluid collection in the left pelvis measuring up to 4.2 x 3.7 cm probably representing an abscess. 2. Diffuse small and large bowel wall thickening which may be seen with enterocolitis . 3. 4.9 x 6.1 cm right adnexal cystic lesion probably representing an ovarian cyst. Findings can be further evaluated with pelvic ultrasound. 4.Bilateral adrenal nodules which are indeterminate in density. Left-sided adrenal nodule has increased slightly in size. If patient has no cancer history, consider follow-up adrenal CT or resection. If patient has a history of cancer, consider biopsy or PET/CT for patients with cancer history Review of Systems Const: Reports: chills and fatigue; Denies: fever(s) Eyes: Denies: change in vision ENMT: Denies: throat pain Card: Denies: chest pain Resp: Denies: dyspnea GI: Reports: abdominal pain and nausea; Denies: vomiting : Reports: difficulty voiding Musc: Denies: neck pain Skin/Breast: Denies: rash Neuro: Denies: headache(s) Psych: Denies: anxiety Endo: Denies: polyuria Jono/Lymph: Denies: easy bruising All/Imm: Denies: urticaria Medications/Allergies Home Medications Medication Instructions Recorded Confirmed Last Taken Type Metamucil 1 packet PO PRN 09/19/20 11/14/20 11/13/20 History acetaminophen [Tylenol Extra 1,000 mg PO PRN 09/19/20 11/14/20 Unknown History Strength] docusate sodium [Colace] 300 mg PO DAILY 09/19/20 11/14/20 11/13/20 History ibuprofen 800 mg PO PRN 09/19/20 11/14/20 11/13/20 History polyethylene glycol 3350 [Miralax] 17 g PO TID 09/19/20 11/14/20 11/13/20 History prazosin 1 mg PO BEDTIME PRN 09/19/20 11/14/20 11/13/20 History trazodone 150 mg PO BEDTIME 09/19/20 11/14/20 09/17/20 History lactulose 15 ml PO BID #237 ml 09/27/20 11/14/20 11/13/20 Rx ondansetron HCl [Zofran] 4 mg PO Q6H PRN #20 tab 09/27/20 11/14/20 Unknown Rx dicyclomine 20 mg PO TID #15 tab 11/14/20 Unknown Rx Allergies Allergy/AdvReac Type Severity Reaction Status Date / Time No Known Allergies Allergy Verified 11/17/20 05:52 PFSH Acute PFSH: Medical History Opiate abuse, episodic Perforation of sigmoid colon due to diverticulitis Surgical History S/P laparoscopic procedure (09/24/20) Drainage of perisigmoid abscess Family History (Updated 11/17/20 @ 06:40 by Jeff Brown MD) Father Cancer Father was diagnosed with colon cancer at age 49 Social History (Updated 11/17/20 @ 06:40 by Jeff Brown MD) Smoking and tobacco status: current every day smoker Alcohol intake: never Housing: House Female Reproductive History: Date of last menstrual period: 11/11/20 Vitals/I&O/Wt Last Vital Signs Temp 97.4 F L 11/17/20 00:25 Pulse 135 H 11/17/20 03:47 Resp 24 H 11/17/20 03:04 BP 118/76 11/17/20 03:47 Pulse Ox 98 11/17/20 03:47 Weight last 48 hrs Weight 86.183 kg Physical Exam Narrative: EXAM NARRATIVE: Young female She is drenched in sweat No active rigors/chills Signs of guarding, peritonitis, excruciating pain on slightest bit of movement or superficial palpation of abdomen Multiple skin tattoos Awake alert oriented x3 GCS 15 S1, S2 sinus tachycardia No acute respiratory distress no audible stridor or wheezing Distressed because abdominal pain No joint swelling EOMI, PERRLA no neurological deficit Data : 11/17/20 02:00 11/17/20 02:00 A&P Assessment and plan (1) Perforated viscus: Status: Acute (2) Diverticulitis of colon with perforation: Status: Acute Qualifiers: Diverticulitis bleeding: unspecified bleeding status Qualified Code(s): K57.20 - Diverticulitis of large intestine with perforation and abscess without bleeding (3) Intra-abdominal abscess: Status: Acute (4) Gastric distention: Status: Acute (5) Sepsis: Status: Acute Additional A&P Information Sepsis with perforated viscus and diverticular abscess N.p.o. General surgery stat consult Patient received Flagyl and Zosyn in the ER Criteria met with tachycardia and leukocytosis for sepsis, lactic acid is pending Blood cultures requested continue Zosyn which has good anaerobic & gram-negative microorganism coverage Continue normal saline at 100 cc/h Considering low normal blood sugar I would give her 1 amp of D50 before her surgical intervention She will go to ICU after surgery NG tube to be placed Patient does endorse family history of colon cancer, her father was diagnosed with colon cancer at age 49, she will need a diagnostic colonoscopy, CT abdomen pelvis is showing some concerning changes as well Dilaudid for analgesia, kindly readdress her Suboxone dose after surgery N.p.o. Full code DVT prophylaxis SCDs Attestations Medical Necessity Statement*: Anticipating stay in the hospital because more than 2 midnights for perforated viscus and abscess Time Spent in Patient Care: (>than 50% of time spent in counselling and/or direct pt care on unit) . 30mins Coding Level of Care Code Acute [employer] Diagnoses Perforated viscus R19.8 Diverticulitis of colon with perforation K57.20 Diverticulitis bleeding: unspecified bleeding status Intra-abdominal abscess K65.1 Gastric distention K31.89 Sepsis A41.9
--- NOTE | 2020-11-17 06:14 | PC.NURSE ---
atttempted to pass NG tube; Dr. Metcalf came in and gave verbal order to stop and that they will place in surgery
--- NOTE | 2020-11-17 07:04 | P.ANESASSM_ITS ---
Pre-Anesthetic Assessment Pre-Anesthetic Assessment: Height/Weight: Height 1.6 m Weight 86.183 kg Temp Pulse Resp BP Pulse Ox 97.4 F L 130 H 18 104/69 97 11/17/20 00:25 11/17/20 06:30 11/17/20 06:13 11/17/20 06:30 11/17/20 06:30 Preop Diagnosis: Perforated sigmoid diverticular abscess Proposed Procedure: Laparasopc colectomy Familial anesthetic complications: none Was Beta Saad taken within 24 hours: N/A Was Clonidine taken within 24 hours: N/A Last intake: > 8 hrs, water > 2 hrs Social: Social History: Tobacco and No alcohol Exam: Pre-Anes Outpt Exam: alert, oriented x 3, clear to auscultation bilaterally and regular rate & rhythm Airway: Cervical ROM: WNL MP: 3 Dentition: Full Neuropsych: Comments: opioid dependence Anesthetic Plan: ASA status: 2E Anesthesia: General Risk of > 500 ml blood loss (7ml/kg in children): No PFSH Anesthesia PFSH: Medical History Opiate abuse, episodic Perforation of sigmoid colon due to diverticulitis Surgical History S/P laparoscopic procedure (09/24/20) Drainage of perisigmoid abscess Family History (Updated 11/17/20 @ 06:40 by Jeff Brown MD) Father Cancer Father was diagnosed with colon cancer at age 49 Social History (Updated 11/17/20 @ 06:40 by Jeff Brown MD) Smoking and tobacco status: current every day smoker Alcohol intake: never Housing: House Female Reproductive History: Date of last menstrual period: 11/11/20 Data Anesthesia CBC & Chem 7: 11/17/20 02:00 11/17/20 02:00 Other Labs: Laboratory Results - last 48 hr 11/17/20 11/17/20 11/17/20 02:00 02:00 02:00 WBC 13.0 H RBC 6.16 H Hgb 14.5 Hct 49.8 H MCV 80.8 L MCH 23.5 L MCHC 29.1 L RDW 18.2 H Plt Count 397 MPV 10.3 Neut % (Auto) 89.3 Lymph % (Auto) 6.2 [place] % (Auto) 3.6 Eos % (Auto) 0.0 Baso % (Auto) 0.4 Neut # (Auto) 11.58 H Lymph # (Auto) 0.8 [place] # (Auto) 0.5 Eos # (Auto) 0.0 Baso # (Auto) 0.1 Nucleated RBC % (auto) 0 Nucleated RBCs # 0.0 Specimen Type Sample Site ABG pH ABG pCO2 ABG pO2 ABG HCO3 ABG O2 Saturation ABG Base Excess Jagdish Test A-a O2 Gradient Hematocrit Hgb O2 Saturation Carboxyhemoglobin Methemoglobin Total Hemoglobin Ionized Calcium O2 Delivery Device Nursing Program Director ID Sodium 136 Potassium 3.1 L Chloride 99 Carbon Dioxide 13 L Anion Gap 27.1 H BUN 25 H Creatinine 1.0 H GFR Calculation 63.5 L Glucose 74 Calculated Osmolality 285 Calcium 9.3 Total Bilirubin 0.9 AST 15 ALT 9 Alkaline Phosphatase 112 H Total Protein 7.6 Albumin 2.9 L Globulin 4.7 H Lipase 7 L HCG, Qual Negative Urine Color Urine Appearance Urine pH Ur Specific Gary Urine Protein Urine Glucose (UA) Urine Ketones Urine Blood Urine Nitrate Urine Bilirubin Urine Urobilinogen Ur Leukocyte Esterase Urine RBC Urine WBC Ur Squamous Epith Cells Amorphous Sediment Urine Bacteria 11/17/20 11/17/20 03:28 04:25 WBC RBC Hgb Hct MCV MCH MCHC RDW Plt Count MPV Neut % (Auto) Lymph % (Auto) [place] % (Auto) Eos % (Auto) Baso % (Auto) Neut # (Auto) Lymph # (Auto) [place] # (Auto) Eos # (Auto) Baso # (Auto) Nucleated RBC % (auto) Nucleated RBCs # Specimen Type Arterial Sample Site Radial, left ABG pH 7.43 ABG pCO2 28.9 L ABG pO2 80.9 ABG HCO3 19.3 L ABG O2 Saturation 96.5 ABG Base Excess -3.9 L Jagdish Test Pos A-a O2 Gradient 4.2 L Hematocrit 36.8 L Hgb O2 Saturation 94.5 L Carboxyhemoglobin 1.2 Methemoglobin 0.9 Total Hemoglobin 12.0 Ionized Calcium 1.2 O2 Delivery Device Room air Nursing Program Director ID [email or web address] Sodium 131.0 Potassium 3.1 L Chloride Carbon Dioxide Anion Gap BUN Creatinine GFR Calculation Glucose 88.0 Calculated Osmolality Calcium Total Bilirubin AST ALT Alkaline Phosphatase Total Protein Albumin Globulin Lipase HCG, Qual Urine Color Dark yellow Urine Appearance Clear Urine pH 5 Ur Specific Gary 1.005 Urine Protein 1+ H Urine Glucose (UA) Norm Urine Ketones Negative Urine Blood 3+ H Urine Nitrate Negative Urine Bilirubin 1+ H Urine Urobilinogen 1 H Ur Leukocyte Esterase Negative Urine RBC 10-15 H Urine WBC 0-4 H Ur Squamous Epith Cells 10-15 H Amorphous Sediment Not Reportable Urine Bacteria Trace Cardiac Studies: No Data to Display
[2020-11-17] MEDS: metroNIDAZOLE IV 500 MG/100 ML PREMIX 100 MG IV (08:00)
[2020-11-17] MEDS: lidocaine 1% 5 ML in potassium chloride premix 100 ML 50 ML IV (08:00)
--- NOTE | 2020-11-17 08:15 | ANES.PROC ---
Anesthesia Procedures Procedure/Date: 11/17/20 Central Venous Insert: Time Out Performed: Yes Consent: requested by attending/covering physician and emergency procedure Central Line: New Anesthesia monitors: pulse oximetry, EKG, BP cuff and oxygen Vein cannulated: right internal jugular Ultrasound used: to identify patency to vessel and to visualize needle entry to vein Additional Comments: Skin prepped with chloroprep, full body drape applied , US used to visual R IJ and entry of needle. Wire threaded using seldinger technique. Wire visually confirmed in R IJ using US. Placed Central line to 15 cm and sutured to skin.
--- NOTE | 2020-11-17 09:35 | PM.OP ---
Operative Report Date of procedure: November 17, 2020 Pre-op Diagnosis: Perforated sigmoid diverticular abscess Post-op Diagnosis: Purulent peritonitis Amulgmated pelvis Pelvic abscess to the left of mid sigmoid colon Right paracolic gutter pus Procedure Done: 1-Diagnostic laparoscopy with peritoneal lavage 2-Laparoscopic drainage of intra-abdominal abscess with drain placement right upper quadrant drain left lower quadrant drain Implants: 19 Kitt[place] round Lamberto drains Specimens removed/disposition: Swabs for cultures and sensitivities Surgeon: Artemio Metcalf Field Map Editor: Surgical alexandro Ordaz and Rakel Circulating nurse Ivis Brownlee Anesthesia: General (Diogenes Horton and Dr. Lim) Estimated blood loss (mL): 15 IV fluids (mL): 1,700 IV fluids: 250 mL 5% albumin Urine output: 100 ml Condition: stable Disposition: ICU Brief History: Pneumoperitoneum, peritonitis. Full H&P and informed consent per chart Procedure: After identifying the patient in the holding area, was taken to the operating room, placed in supine position, intubated by anesthesia, prophylactic IV antibiotics were given per protocol. Both arms were tucked, shoulder supports and footboard were applied and patient was secured appropriately to the bed and all pressure points were padded. In the interim patient did have a poor IV access so anesthesia placed right internal jugular vein central line triple-lumen,please see separate dictation for that. Montgomery catheter was inserted by the circulating nurse revealing concentrated urine,time-out was done verifying the patient's name/date of /planned procedure and destination after the procedure, all were in agreement. Anesthesia was asked to introduce a nasogastric tube for stomach decompression Prep and drape of the abdomen was done under the usual sterile technique, a Nicholson trocar technique was used through an supra umbilical skin incision, two stay sutures were applied to the fascia, gush of pus was revealed that was suctioned about a liter out and a Swabs for cultures and sensitivities were taken, following that a safe entrance to the abdominal cavity was achieved, low flow followed by high flow of CO2 gas, started by 0 scope 10 mm, no injuries were detected, followed by that a 30? millimeter scope was inserted. A 5 mm trocar was inserted under direct vision in the right upper quadrant, followed by a right lower quadrant, and another two 5 mm trocars were inserted as a mirror image from the first 2 but on the left side, there were lots of flakes of fibrinous exudates onto the surface of the anterior peritoneum and right paracolic gutter and onto the surfaces of the dome of the liver, also fibrinous exudates onto the dome of the uterus were noticed. Right paracolic gutter copious purulent fluid. Position of the patient was done in T Johnson and reversed T Johnson so I was able to inspect the whole abdominal cavity safely, also the omentum was encasing towards the lateral pelvic wall and retrouterine region and abscess cavity that was drained, the pelvis was noticed to be frozen and bowels were Amulgmated particularly the sigmoid colon towards the lateral pelvic wall. Which made it very unsafe to mobilize the colon for potential injury of the ureter. At this point I elected to perform copious and thorough peritoneal lavage using around 15 L of warm saline to all compartments of the abdominal cavity under direct visualization. There was no obvious source of perforation likely perforated sigmoid colon.That was sealed and walled off by the surrounding omentum and bowels. There were no other pathological findings. I elected at this point to place a Left lower drain 19 [place] round Lamberto drain placed towards the pelvis and the right upper quadrant towards the right dome of the liver and underneath the diaphragm. Both drains were secured to the skin by 2-0 nylon.Final look laparoscopy showed no injuries or bleeding and the Nicholson trocar site was closed by [id number] #1 PDS under direct visualization and at this point all trochars were taken out under direct visualization as gas was allowed to escape. The nasogastric tube and a Montgomery catheter were kept. Patient tolerated the procedure well and got extubated, was taken to the ICU in stable condition to continue resuscitation Count of instruments, needles and sponges were completed at the end of the procedure I was present for the whole entire procedure
--- NOTE | 2020-11-17 09:49 | PC.NURSE ---
Pt here from OR. 3 small puncture wounds noted to the abdomen with 2 incisions noted for marilyn drains on the right and left. pt is responsive to verbal stimuli and on room air. pt oriented to room. report received from anesthesia.
[2020-11-17] MEDS: famotidine 20 mg/2 mL INJ IVP ×2 (11:35→21:29)
[2020-11-17] MEDS: HYDROmorphone 1 mg/mL INJ 1 mL 0.5 MG IVP ×3 (11:36→23:00)
[2020-11-17 12:03] LABS: Glucose Point of Care 93 mg/dL (70-110)
--- NOTE | 2020-11-17 12:20 | XR_ITS ---
WS: [id number] Exam: XR chest 1V portable [id number] Date/Time of Exam: 11/17/2020 12:21 PM Reason For Exam: NG tube and central line placement Comparison 02/28/2018. An enteric tube has been placed and appears to end in the body the stomach. Also a right-sided IJ cat heter has been placed and ends at the cavoatrial junction. The lungs are fully expanded. Atelectatic change noted in the lower lung zones. No pneumothorax. XR/XR chest 1V portable [id number] IMPRESSION: 1. No acute process noted. 2. NG tube ending in the body the stomach. 2. Right-sided IJ catheter ending at the expected region of the cavoatrial junc tion.
[2020-11-17] MEDS: lanolin oint 7 gm 1 APPLIC TOPICAL (12:22)
[2020-11-17] MEDS: sodium chloride 0.9% 1,000 ML 100 ML IV (12:23)
[2020-11-17 13:01] LABS: Lactic Sepsis W/Reflex 3.8 mmol/L (0.5-2.2)
[2020-11-17 14:16] LABS: Reflex Lactate Order REFLEX LACTIC ORDERD
[2020-11-17 15:30] LABS: Lactic Acid level (Lactate) 2.6 mmol/L (0.5-2.2)
[2020-11-17] MEDS: cetacaine Spray 5 gm Can 1 SPRAY TOPICAL (15:55)
--- NOTE | 2020-11-17 16:50 | P.PN_ITS ---
Subjective Subjective: Interval history: Postoperatively awake, alert, having dry mouth. Pain at the incisions. Vitals/I&O/Wt Last Vital Signs Temp 98.0 F 11/17/20 14:00 Pulse 110 H 11/17/20 16:00 Resp 36 H 11/17/20 16:00 BP 101/74 11/17/20 16:00 Pulse Ox 96 11/17/20 16:00 11/17/20 11/17/20 11/17/20 06:59 14:59 22:59 Intake Total 2155 / 2155 Output Total 195 / 195 Balance 1959 / 1959 Weight last 48 hrs Weight 86.183 kg Physical Exam Const: COMMON NORMALS: no acute distress and patient oriented x3 HENMT: COMMON NORMALS: oropharynx normal Neck/C-Spine: COMMON NORMALS: no JVD Resp: COMMON NORMALS: normal respiratory effort and clear to auscultation bilaterally AUSCULTATION: clear to auscultation bilaterally Cardio: COMMON NORMALS: no JVD, regular rhythm, S1 normal heart sound present, S2 normal heart sound present and No murmurs present (Cardio) RHYTHM: regular rhythm HEART SOUNDS: S1 normal heart sound present and S2 normal heart sound present GI: INSPECTION: Yes abdominal distension OTHER: Trocar wounds. FACUNDO drains bilaterally. Extremity: COMMON NORMALS: no joint enlargement and no pedal edema Neuro: COMMON NORMALS: patient oriented x3 and moves all extremities Skin: COMMON NORMALS: no rashes or lesions noted GENERAL SKIN EXAM: no rashes or lesions noted Urinary Catheter Management^: Montgomery: Cath Placed During This Visit: yes Urinary Catheter Date of Insertion: 11/17/20 Urinary Catheter Time of Insertion: 07:30 Data : 11/17/20 02:00 11/17/20 02:00 Micro: Microbiology 11/17/20 08:27 Gram Stain - Final Peritoneal Fluid 11/17/20 12:13 Blood Culture - Preliminary Blood SPECIMEN COLLECTED 11/17/20 12:00 Blood Culture - Preliminary Blood SPECIMEN COLLECTED A&P Assessment and plan (1) Perforated viscus: Perforated sigmoid diverticular abscess. Purulent peritonitis. With intra-abdominal abscess. Status post laparoscopic abscess drainage, pericardial lavage, drain placement. Continue Zosyn. Follow-up cultures. Continue postop surgical care. N.p.o. For now continue IVF. Resume Suboxone. Status: Acute (2) Diverticulitis of colon with perforation: Status: Acute Qualifiers: Diverticulitis bleeding: unspecified bleeding status Qualified Code(s): K57.20 - Diverticulitis of large intestine with perforation and abscess without bleeding (3) Intra-abdominal abscess: Status: Acute (4) Gastric distention: Status: Acute (5) Sepsis: Status: Acute Attestations 2 Medical Necessity Statement*: Continue admission for cyst management following drainage of intra-abdominal abscess following perforated sigmoid diverticular ab scess. Sepsis. Coding Level of Care Code Acute Cloth Covered Helmet Puller for [facility] Fwd Diagnoses Perforated viscus R19.8 Diverticulitis of colon with perforation K57.20 Diverticulitis bleeding: unspecified bleeding status Intra-abdominal abscess K65.1 Gastric distention K31.89 Sepsis A41.9
--- NOTE | 2020-11-17 17:11 | ANE.PACU2 ---
Inpatient post-anesthesia follow up: Airway intact: Yes Vital signs: Temperature 98.0 F Pulse Rate [Monito r] 149 Pulse Rate 110 Respiratory Rate 36 Blood Pressure [Le ft Arm] 105/67 Blood Pressure 101/74 Pulse Oximetry 96 Oxygen Delivery Me thod Nasal Cannula Oxygen Flow Rate 2 Fraction of Inspir ed Oxygen Hydration adequate: Yes Nausea and vomiting: No Pain level: 2 Mental status: Baseline
[2020-11-17 17:27] LABS: Glucose Point of Care 91 mg/dL (70-110)
[2020-11-18] VITALS (100 sets, daily range): BP systolic 98–139; BP diastolic 68–96; PULSE 77–109; RESP 16–40; TEMP 35.8–36.9; O2SAT 90–98
--- NOTE | 2020-11-18 00:15 | PC.NURSE ---
SHIFT UPDATE Patient has NPO diet orders in chart. Patient asked this nurse if she could have a cough drop to sooth her sore throat due to irritation from the NG tube. This nurse notified shift supervisor doctor of patients request for a cough drop and the physician gave permission to give the patient ice chips instead of the cough drop.
[2020-11-18] MEDS: sodium chloride 0.9% 1,000 ML 100 ML IV ×3 (00:37→20:48)
[2020-11-18] MEDS: piperacillin-tazobactam 3.375 GM in sodium chloride 0.9% (plus) 50 ML IV ×3 (02:58→18:24)
[2020-11-18] MEDS: HYDROmorphone 1 mg/mL INJ 1 mL 0.5 MG IVP ×5 (03:00→20:35)
--- NOTE | 2020-11-18 05:35 | PM.PN ---
Subjective Subjective: Interval history: Patient seems to be feeling overall better. Still complains of pain. No acute events overnight Medications: Reviewed: Yes Vitals/I&O/Wt Last Vital Signs Temp 97.5 F L 11/18/20 00:00 Pulse 98 11/18/20 02:40 Resp 31 H 11/18/20 03:00 BP 108/74 11/18/20 02:40 Pulse Ox 96 11/18/20 02:40 11/17/20 11/17/20 11/18/20 14:59 22:59 06:59 Intake Total 2155 / 2155 1100 / 3255 Output Total 195 / 195 440 / 635 Balance 1960 / 1960 660 / 2620 Weight last 48 hrs Weight 190 lb Physical Exam Narrative: EXAM NARRATIVE: Patient is conscious alert oriented X3 BMI 34 Head and neck examination PERRLA no masses no cervical lymphadenopathy no jaundice NG in place with minimal output Cardiac examination audible S1-S2 no murmurs no gallops no arrhythmias Chest is clear bilateral,abscence of Rhonchi or wheezes,no surgical emphysema Abdomen nontender except mildly at the incision sites nondistended soft no organomegaly guarding or rigidity/no signs of peritonitis Drains in place with serosanguineous output Montgomery catheter in place with concentrated urine Extremities no cyanosis no clubbing no edema Urinary Catheter Management^: Montgomery: Cath Placed During This Visit: yes Reason for Continuing Indwelling Catheter: Acute Urinary Retention or Obstruction Urinary Catheter Date of Insertion: 11/17/20 Urinary Catheter Time of Insertion: 07:30 Data : 11/18/20 04:49 11/18/20 04:49 Micro: Microbiology 11/17/20 08:27 Gram Stain - Final Peritoneal Fluid 11/17/20 12:13 Blood Culture - Preliminary Blood SPECIMEN COLLECTED 11/17/20 12:00 Blood Culture - Preliminary Blood SPECIMEN COLLECTED A&P Assessment and plan (1) Diverticulitis of colon with perforation: Patient undergone diagnostic laparoscopy with peritoneal lavage and drainage of intra-abdominal abscesses with drain placements 11/17/2020 From surgical standpoint of view NG to low intermittent wall suction and can flush NG with 50 mL of saline every 8 hours as needed 1 L bolus of normal saline Once patient has better urine output can DC Montgomery catheter Encourage ambulation Incentive spirometer every hour Can have popsicles Assurance and education All questions have been answered and all concerns have been addressed to patient's satisfaction. Status: Resolved Qualifiers: Diverticulitis bleeding: unspecified bleeding status Qualified Code(s): K57.20 - Diverticulitis of large intestine with perforation and abscess without bleeding Attestations Medical Necessity Statement*: Continue inpatient hospitalization passing 2 midnights for perioperative care status post drainage of intra-abdominal abscesses Time Spent in Patient Care: (>than 50% of time spent in counselling and/or direct pt care on unit). Coding Level of Care Code Acute Assistant Designer for [facility] Fwd Diagnoses Diverticulitis of colon with perforation K57.20 Diverticulitis bleeding: unspecified bleeding status
[2020-11-18 05:40] LABS: Hematocrit 30.1 % (37.0-47.0); Hemoglobin 9.5 g/dL (11.5-15.3); Mean Corpuscular HGB Conc 31.6 g/dL (30.0-36.0); Mean Corpuscular Hemoglobin 23.9 pg (28.0-34.0); Mean Corpuscular Volume 75.8 fL (81-99); Platelet Count 323 10^3/cmm (130-400); Red Blood Count 3.97 10^6/uL (4.1-5.3); Red Cell Distribution Width 16.8 % (12.1-15.1)
[2020-11-18 05:51] LABS: Alanine Aminotransferase 9 U/L (0-33); Albumin Level 2.3 g/dL (3.5-5.2); Alkaline Phosphatase 60 IU/L (35-105); Anion Gap 11.5 (5-19); Aspartate Amino Transferase 15 U/L (0-32); Blood Urea Nitrogen 33 mg/dL (6-20); Calcium 7.6 mg/dL (8.5-10.5); Carbon Dioxide 23 mmol/L (22-29); Chloride 103 mmol/L (98-107); Glomerular Filtration Rate 95.8 mL/min (90-130); Glucose 129 mg/dL (65-115); Osmolality Calculated 287 mOsm/kg (285-295); Potassium 3.5 mmol/L (3.5-5.1); Sodium 134 mmol/L (136-145); Total Bilirubin 0.8 mg/dL (0.15-1.2); Total Protein 6.3 g/dL (6.6-8.7)
[2020-11-18 06:24] LABS: Absolute Segmented Neutrophil 7.2 10/cmm (1.6-7.1); Band Neutrophils Absolute 6.3 10^3/cmm (0.0-1.2); Hypochromasia 1+; Lymphocytes 8 %; Microcytosis 1+; Monocytes Absolute 0.3 10^3/cmm (0.1-0.6); Segmented Neutrophils 48 %; Total Cells Counted 100 (0-100)
[2020-11-18 06:25] LABS: Absolute Neutrophil 13.5 10^3/cmm (1.4-6.5); Eosinophils 0 %; Lymphocytes Absolute 1.2 10^3/cmm (1.2-3.4); Platelet Estimate Normal (Normal)
--- NOTE | 2020-11-18 07:40 | PC.NURSE ---
SHIFT SUMMARY Dr. Metcalf came by to see the patient this morning at 0600. He gave orders to flush the NG tube every 8 hours with [address] Metcalf also gave verbal orders to get the patient up ad-aundrea. This nurse notified Dr. Metcalf about patients pain level being a 7-9 on a scale of 1-[address] throughout [address] Dr. Metcalf also mentioned possibly taking the edwards catheter out today. Patient has NS infusing at 100 mLs an hour in the right neck central line. Right forearm peripheral IV is saline locked and no medications are currently infusing. Patient reports pain at right forearm IV site with saline flush. Patient reports chronic constant pain in the stomach. This nurse gave PRN pain medication every 4 hours as ordered in the MAR and repositioned to make comfortable as needed.
[2020-11-18 07:49] LABS: Glucose Point of Care 121 mg/dL (70-110)
--- NOTE | 2020-11-18 09:43 | PC.CHAP ---
Pastoral Care Encounter/Spiritual Assessment Type of Contact [] Declined chef's assistant visit [] Patient/Family/Request visit [] Outpatient visit [] Follow-up visit [] Physician referral [] Code/Alert [x] Routine visit [] Staff referral [] Actively dying [x] Patient sleeping [] Family support [] [] Out of room [] Palliative care [] [] Receiving care in room [] Pre-surgical visit [] Trauma [] Long length of stay [x] ICU visit [] Other: Relational/Emotional Strength [] Patient feels connected with others/family/visitors/staff [] Distress [] Loneliness/isolation [] Abandonment Spirituality of Patient [] Person of Masha [] Attends Hindu of their Masha [] Believes in Prayer [] Reads Bible or Methodist materials [] There are Spiritual issues to be addressed Stock Or Delivery Clerk Interventions [x] Prayer [] Active listening [] Non-anxious presence [] Spiritual/emotional support [] Crisis/trauma care [] Spiritual counseling [] Bereavement support [] Provided bereavement packet [] Provided Bible/devotional materials [] Provided toy/stuffed animal, coloring book to patient or family member [] Provided Communion [] Anointing/[place] [] Salvation [x] Completed spiritual assessment [] Other: Impact on Illness or Injury [] Angry [] Fearful [] Anxious [] Often cries [] Exhaustion [] Unable to work [] Unable to attend yazidism [] Unable to walk/stand [] Unable to read [] Unable to drive [] Unable to eat/drink [] Unable to sleep [] Unable to be with family [] Patient intubated [] Other: Summary Time spent with patient
[2020-11-18] MEDS: famotidine 20 mg/2 mL INJ IVP ×2 (10:22→21:29)
[2020-11-18 12:03] LABS: Glucose Point of Care 88 mg/dL (70-110)
[2020-11-18 17:55] LABS: Glucose Point of Care 86 mg/dL (70-110)
--- NOTE | 2020-11-18 18:43 | PC.NURSE ---
Shift summary: pt rested in bed all shift. She stated her stomach and back were too sore for her to move much today. Coughing and clearing of throat noted. Pt encouraged to cough hard to help her lungs, weak attempts made. She has refused Suboxone, not wanting to take it in The hospital if it is not available at home after discharge. She hasn't taken it for a month at home, unable to get to her rehab Dr in [place] to renew per pt. She has had Dilaudid every 4 hours for pain, pain is still rated high. NG in place and patent. Pt has been eating ice to sooth her throat. Bowel sounds hypo active in 4 quadrants. Pt denies flatulence. She has a peripheral IV in her right arm and a central line in her left neck. Montgomery patent and draining, urine dark evette, 400ml output this shift.
--- NOTE | 2020-11-18 18:58 | PM.PN ---
Subjective Subjective: Interval history: Abdominal pain. No flatus. No vomiting. Vitals/I&O/Wt Last Vital Signs Temp 96.5 F L 11/18/20 08:00 Pulse 81 11/18/20 18:00 Resp 20 H 11/18/20 18:00 BP 118/86 11/18/20 18:00 Pulse Ox 95 11/18/20 18:00 11/18/20 11/18/20 11/18/20 06:59 14:59 22:59 Intake Total 1260 / 1260 60 / 1320 Output Total 435 / 1070 825 / 825 Balance -435 / 2185 1260 / 1260 -765 / 495 Weight last 48 hrs Weight 86.183 kg Physical Exam Const: COMMON NORMALS: no acute distress and patient oriented x3 HENMT: COMMON NORMALS: oropharynx normal Neck/C-Spine: COMMON NORMALS: no JVD Resp: COMMON NORMALS: normal respiratory effort and clear to auscultation bilaterally AUSCULTATION: clear to auscultation bilaterally Cardio: COMMON NORMALS: no JVD, regular rhythm, S1 normal heart sound present, S2 normal heart sound present and No murmurs present (Cardio) RHYTHM: regular rhythm HEART SOUNDS: S1 normal heart sound present and S2 normal heart sound present GI: INSPECTION: Yes abdominal distension AUSCULTATION: Yes Hypoactive bowel sounds present OTHER: Trocar wounds. FACUNDO drains bilaterally, light serous fluid on the right, serosanguineous in the left. Minimal. Extremity: COMMON NORMALS: no joint enlargement and no pedal edema Neuro: COMMON NORMALS: patient oriented x3 and moves all extremities Skin: COMMON NORMALS: no rashes or lesions noted GENERAL SKIN EXAM: no rashes or lesions noted Urinary Catheter Management^: Montgomery: Cath Placed During This Visit: yes Reason for Continuing Indwelling Catheter: Accurate Measurement of Urinary Output in Critically Ill Patients Urinary Catheter Date of Insertion: 11/17/20 Urinary Catheter Time of Insertion: 07:30 Data : 11/18/20 04:49 11/18/20 04:49 Micro: Microbiology 11/17/20 08:27 Anaerobic Culture - Preliminary Peritoneal Cavity 11/17/20 12:13 Blood Culture - Preliminary Blood NEGATIVE TO DATE 11/17/20 12:00 Blood Culture - Preliminary Blood NEGATIVE TO DATE 11/17/20 08:27 Gram Stain - Final Peritoneal Fluid Body Fluid Culture - Preliminary Gram Negative Rods A&P Assessment and plan (1) Perforated viscus: Persistent leukocytosis, tachycardia somewhat persistent but now appears to be improving. Sepsis appears to be improving. Gram-negative rods growing from peritoneal fluid. Follow-up ID and sensitivity. Continue Zosyn. Continue postop surgical care. N.p.o. For now continue IVF. Perforated sigmoid diverticular abscess. Purulent peritonitis. With intra-abdominal abscess. Status post laparoscopic abscess drainage, pericardial lavage, drain placement. Suboxone discontinued as she states she is not been taking it, also is not going to be able to continue after discharge. States she will be able to follow-up with her prior rehabilitation counselor. Perhaps may consider following with pain clinic in [facility]. Status: Acute (2) Diverticulitis of colon with perforation: With plans for staged colectomy by surgery. Status: Resolved Qualifiers: Diverticulitis bleeding: unspecified bleeding status Qualified Code(s): K57.20 - Diverticulitis of large intestine with perforation and abscess without bleeding (3) Intra-abdominal abscess: Status: Acute (4) Gastric distention: Status: Acute (5) Sepsis: Status: Acute Attestations Medical Necessity Statement*: Continue admission for assessment management of sepsis, intra-abdominal abscess in a lady with chronic pain, previously on chronic opioids. Coding Level of Care Code Acute Mine Expert for [facility] Fwd Diagnoses Perforated viscus R19.8 Diverticulitis of colon with perforation K57.20 Diverticulitis bleeding: unspecified bleeding status Intra-abdominal abscess K65.1 Gastric distention K31.89 Sepsis A41.9
--- NOTE | 2020-11-18 19:30 | PC.NURSE ---
Report given to YAZAN Cifuentes.
--- NOTE | 2020-11-18 20:30 | PC.NURSE ---
Personal Hygiene This nurse asked patient if she would like to have a bath this evening and patient replied yes, however she would prefer that her girlfriend help give the bath instead of nurse. Patient went on to explain that she is very modest. Nurse provided a linen change while the patient stood up with the help of her girlfriend. Nurse then helped patient to a chair for bath and assisted in preparing patient for the bath. After the bath was completed nurse assisted patient getting back into bed.
[2020-11-19] VITALS (27 sets, daily range): BP systolic 113–142; BP diastolic 77–98; PULSE 79–106; RESP 16–32; TEMP 35.9–37.3; O2SAT 87–97
[2020-11-19] MEDS: HYDROmorphone 1 mg/mL INJ 1 mL 0.5 MG IVP ×5 (00:45→17:32)
--- NOTE | 2020-11-19 03:00 | PC.NURSE ---
Chest Pain Patient reporting chest pain on the left side under her left breast and pain in her back on the left side . Auscultated lung and heart sounds and heard coarseness in the lungs posteriorly. Patient respiratory rate was in the low 40's at this time. Patient stated that, I cannot even feel the pain in my stomach because the pain in my back and chest is so overpowering . Notified Dr. Brown about patients complaints of pain in the chest and back, complaints of anxiety, as well as respiratory rate. Asked Dr. Brown if a chest x-ray should be performed and he suggested an EKG instead. Also asked Dr. Brown if an anti anxiety medication should be given to help with the patients high respiratory rate and anxiousness and he prescribed IV Ativan 0.5 mg IVP once.
--- NOTE | 2020-11-19 03:13 | ECG_ITS ---
[facility] Test Date: 2020-11-19 Pat Name: Victoria Ramirez Department: Room: [facility] Gender: Female Campus Recruiter: : 1985 Requested By: Jeff Brown Order Number: [id number] Gissel MD: Mis Flanagan M.D. Measurements Intervals Moira Rate: 89 P: 48 OR: 179 QRS: 17 QRSD: 94 T: 38 QT: 352 QTc: 430 Interpretive Statements SINUS RHYTHM NONSPECIFIC T-WAVE ABNORMALITY Compared to ECG 09/25/2020 10:33:21 T-wave abnormality now present Sinus bradycardia no longer present Prolonged QT interval no longer present Electronically Signed On 11-19-2020 15:41:28 CDT by Mis Flanagan M.D. [email or web address] bil[facility]iSoma Networkssycam[facility] center.Isai/store/NU/[id number] f
[2020-11-19] MEDS: LORazepam 2 mg/mL INJ 1 mL 0.5 MG IVP (03:30)
[2020-11-19] MEDS: piperacillin-tazobactam 3.375 GM in sodium chloride 0.9% (plus) 50 ML IV ×3 (03:44→18:38)
[2020-11-19 05:38] LABS: Basophils % 0.1 %; Eosinophils % 0.1 %; Hematocrit 28.7 % (37.0-47.0); Lymphocytes # 0.9 10^3/uL (0.8-4.8); Lymphocytes % 8.5 %; Mean Corpuscular HGB Conc 31.4 g/dL (30.0-36.0); Mean Corpuscular Hemoglobin 23.7 pg (28.0-34.0); Mean Corpuscular Volume 75.7 fL (81-99); Mean Platelet Volume 10.6 fL (7.4-10.4); Monocytes # 0.6 10^3/uL (0.2-0.9); Monocytes % 5.4 %; Neutrophils # 9.36 10^3/uL (1.8-7.7); Neutrophils % 84.7 %; Nucleated Red Blood Cells % 0 %; Platelet Count 306 10^3/cmm (130-400); Red Blood Count 3.79 10^6/uL (4.1-5.3); Red Cell Distribution Width 17.2 % (12.1-15.1); White Blood Count 11.1 10^3/uL (4.0-10.0)
[2020-11-19 05:53] LABS: Anion Gap 9.5 (5-19); Blood Urea Nitrogen 26 mg/dL (6-20); Carbon Dioxide 26 mmol/L (22-29); Chloride 103 mmol/L (98-107); Glomerular Filtration Rate 141.2 mL/min (90-130); Glucose 73 mg/dL (65-115); Osmolality Calculated 283 mOsm/kg (285-295); Potassium 3.5 mmol/L (3.5-5.1); Sodium 135 mmol/L (136-145)
[2020-11-19 06:23] LABS: Slide Review Slide Review Perform
--- NOTE | 2020-11-19 07:39 | PC.NURSE ---
Shift Summary Patient had 450 mLs of clear light evette urine out all night. Left FACUNDO drain had 25 mLs out all night of serosanguineous drainage. Right FACUNOD drain had 10 mLs out all night serous drainge. Patient has NS infusing in the central line at 100 mLs an hour. Nasogastric tube is hooked to low intermittent wall suction and had 1250 mLs of brown/ yellow drainage all night. Patient is reporting pain the the back and chest along with abdomen pain. Dr. Metcalf saw the patient this morning and said if the hospitalist approves he believes the patient can be transferred to med-surg today.
[2020-11-19 07:46] LABS: Glucose Point of Care 88 mg/dL (70-110)
[2020-11-19] MEDS: sodium chloride 0.9% 1,000 ML 100 ML IV ×2 (09:04→20:09)
[2020-11-19] MEDS: famotidine 20 mg/2 mL INJ IVP ×2 (09:11→21:20)
--- NOTE | 2020-11-19 09:20 | PC.CHAP ---
Pastoral Care Encounter/Spiritual Assessment Type of Contact [] Declined service restorer emergency visit [] Patient/Family/Request visit [] Outpatient visit [] Follow-up visit [] Physician referral [] Code/Alert [x] Routine visit [] Staff referral [] Actively dying [] Patient sleeping [] Family support [] [] Out of room [] Palliative care [] [] Receiving care in room [] Pre-surgical visit [] Trauma [] Long length of stay [x] ICU visit [] Other: Relational/Emotional Strength [] Patient feels connected with others/family/visitors/staff [] Distress [] Loneliness/isolation [] Abandonment Spirituality of Patient [] Person of Masha [] Attends Denominational of their Masha [] Believes in Prayer [] Reads Bible or Baptist materials [] There are Spiritual issues to be addressed Dye Beck Reel Operator Interventions [x] Prayer [] Active listening [] Non-anxious presence [] Spiritual/emotional support [] Crisis/trauma care [] Spiritual counseling [] Bereavement support [] Provided bereavement packet [] Provided Bible/devotional materials [] Provided toy/stuffed animal, coloring book to patient or family member [] Provided Communion [] Anointing/[place] [] Salvation [x] Completed spiritual assessment [] Other: Impact on Illness or Injury [] Angry [] Fearful [] Anxious [] Often cries [] Exhaustion [] Unable to work [] Unable to attend yazidi [] Unable to walk/stand [] Unable to read [] Unable to drive [] Unable to eat/drink [] Unable to sleep [] Unable to be with family [] Patient intubated [] Other: Summary Time spent with patient
--- NOTE | 2020-11-19 11:30 | PC.NURSE ---
Ng clamped as ordered per Dr Montalvo.
--- NOTE | 2020-11-19 11:46 | P.PN_ITS ---
Subjective Subjective: Interval history: Patient overall feels better and tolerating popsicles and ice chips. Minimal output per drains and in the form of serosanguinous on the left side and serous on the right side. Adequate urine output. Medications: Reviewed: Yes Vitals/I&O/Wt Last Vital Signs Temp 98.5 F 11/19/20 04:00 Pulse 89 11/19/20 07:00 Resp 21 H 11/19/20 09:06 BP 130/87 11/19/20 07:00 Pulse Ox 92 11/19/20 09:06 11/18/20 11/19/20 11/19/20 22:59 06:59 14:59 Intake Total 1106.667 / 2366.667 1400 / 3766.667 Output Total 825 / 825 1735 / 2560 Balance 281.667 / 1541.667 -335 / 1206.667 Physical Exam Narrative: EXAM NARRATIVE: Patient is conscious alert oriented X3 BMI 34 Head and neck examination PERRLA no masses no cervical lymphadenopathy no jaundice NG in place Abdomen nontender except mildly at the incision sites nondistended soft no org anomegaly guarding or rigidity/no signs of peritonitis Drains in place with serosanguineous output on the left side and serous on the right side. Incisions are clean dry and intact and skin jluis in place and the dressing was removed by me bedside Montgomery catheter in place Extremities no cyanosis no clubbing no edema Urinary Catheter Management^: Montgomery: Cath Placed During This Visit: yes Reason for Continuing Indwelling Catheter: Accurate Measurement of Urinary Output in Critically Ill Patients Urinary Catheter Date of Insertion: 11/17/20 Urinary Catheter Time of Insertion: 07:30 Data : 11/20/20 01:50 11/20/20 01:50 Micro: Microbiology 11/17/20 08:27 Anaerobic Culture - Preliminary Peritoneal Cavity 11/17/20 12:13 Blood Culture - Preliminary Blood NEGATIVE TO DATE 11/17/20 12:00 Blood Culture - Preliminary Blood NEGATIVE TO DATE 11/17/20 08:27 Gram Stain - Final Peritoneal Fluid Body Fluid Culture - Preliminary Gram Negative Rods A&P Assessment and plan (1) Diverticulitis of colon with perforation: Patient undergone diagnostic laparoscopy with peritoneal lavage and drainage of intra-abdominal abscesses with drain placements 11/17/2020 Plan to clamp NG for 2 hours if residuals are less than 200 mL afterWARDS NG can be discontinued And can start the patient slowly on clear liquid diet Recommend to DC Montgomery catheter Patient can go to the floor from surgical standpoint of view Continue drain care eNCourage ambulation Incentive spirometer every hour Assurance and education All questions have been answered and all concerns have been addressed to patient's satisfaction. Status: Resolved Qualifiers: Diverticulitis bleeding: unspecified bleeding status Qualified Code(s): K57.20 - Diverticulitis of large intestine with perforation and abscess without bleeding Attestations Medical Necessity Statement*: Continue inpatient hospitalization passing 2 midnights for perioperative care status post drainage of intra-abdominal abscesses Time Spent in Patient Care: (>than 50% of time spent in counselling and/or direct pt care on unit) . Coding Level of Care Code Acute Carpet Cleaning Technician for [facility] Fwd Diagnoses Diverticulitis of colon with perforation K57.20 Diverticulitis bleeding: unspecified bleeding status
[2020-11-19] MEDS: lanolin oint 7 gm 1 APPLIC TOPICAL (13:26)
--- NOTE | 2020-11-19 13:30 | PC.NURSE ---
NG residual checked as ordered. Less than 10ml NG removed. Pt tolerated well. Pt encouraged to use IS more often, along with deep breathing and coughing. Pt stated she was trying her best. IS up to 600.
[2020-11-19 14:24] LABS: Glucose Point of Care 84 mg/dL (70-110)
[2020-11-19 17:51] LABS: Glucose Point of Care 96 mg/dL (70-110)
--- NOTE | 2020-11-19 18:18 | P.PN_ITS ---
Subjective Subjective: Interval history: Still having abdominal pain, no vomiting. Has tolerated ice chips, popsicles, sips. Plan to mobilize today. Vitals/I&O/Wt Last Vital Signs Temp 98.5 F 11/19/20 13:00 Pulse 106 H 11/19/20 16:00 Resp 24 H 11/19/20 17:32 BP 125/89 11/19/20 16:00 Pulse Ox 91 11/19/20 17:32 11/19/20 11/19/20 11/19/20 06:59 14:59 22:59 Intake Total 1400 / 3766.667 190 / 190 50 / 240 Output Total 1735 / 2560 160 / 160 Balance -335 / 1206.667 30 / 30 50 / 80 Physical Exam Const: COMMON NORMALS: no acute distress, patient oriented x3 and alert GENERAL APPEARANCE: cooperative ORIENTATION/CONSCIOUSNESS: Yes awake HENMT: COMMON NORMALS: oropharynx normal Neck/C-Spine: COMMON NORMALS: no JVD Resp: COMMON NORMALS: normal respiratory effort and clear to auscultation bilaterally AUSCULTATION: clear to auscultation bilaterally Cardio: COMMON NORMALS: no JVD, regular rhythm, S1 normal heart sound present, S2 normal heart sound present and No murmurs present (Cardio) RHYTHM: regular rhythm HEART SOUNDS: S1 normal heart sound present and S2 normal heart sound present GI: INSPECTION: Yes abdominal distension AUSCULTATION: Yes Hypoactive bowel sounds present OTHER: Trocar wounds. FACUNDO drains bilaterally, light serous fluid on the right, serosanguineous in the left. Minimal. Extremity: COMMON NORMALS: no joint enlargement and no pedal edema Neuro: COMMON NORMALS: patient oriented x3 and moves all extremities SENSORIUM/ORIENTATION: Yes alert Skin: COMMON NORMALS: no rashes or lesions noted GENERAL SKIN EXAM: no rashes or lesions noted Urinary Catheter Management^: Montgomery: Cath Placed During This Visit: yes Reason for Continuing Indwelling Catheter: Accurate Measurement of Urinary Output in Critically Ill Patients Urinary Catheter Date of Insertion: 11/17/20 Urinary Catheter Time of Insertion: 07:30 Data : 11/19/20 04:39 11/19/20 04:39 Micro: Microbiology 11/17/20 08:27 Anaerobic Culture - Preliminary Peritoneal Cavity 11/17/20 08:27 Gram Stain - Final Peritoneal Fluid Body Fluid Culture - Preliminary Escherichia coli Escherichia coli#2 A&P Assessment and plan (1) Perforated viscus: Advancing to trial of liquid diet by surgery today. As per his he tolerated ice chips, sips. Mobilize. Remove Montgomery catheter. Continue care on medical surgical floor. Peritoneal fluid with 2 different pansensitive E. coli. Continue Zosyn. Continue postop surgical care. Perforated sigmoid diverticular abscess. Purulent peritonitis. With intra- abdominal abscess. Status post laparoscopic abscess drainage, pericardial lavage, drain placement. Suboxone discontinued as she states she is not been taking it, also is not going to be able to continue after discharge. States she will be able to follow-up with her prior rehabilitation assistant. Perhaps may consider following with pain clinic in [facility]. Status: Acute (2) Diverticulitis of colon with perforation: With plans for staged colectomy by surgery. Status: Resolved Qualifiers: Diverticulitis bleeding: unspecified bleeding status Qualified Code(s): K57.20 - Diverticulitis of large intestine with perforation and abscess without bleeding (3) Intra-abdominal abscess: Status: Acute (4) Gastric distention: Status: Acute (5) Sepsis: Improving. Leukocytosis decreasing. Still persistence of mild sinus tachycardia. Afebrile. Status: Acute Attestations Medical Necessity Statement*: Continue management of improving sepsis status post drainage of intra-abdominal abscess lady with chronic pain. Coding Level of Care Code Acute Percolator Operator for [facility] Fwd Diagnoses Perforated viscus R19.8 Diverticulitis of colon with perforation K57.20 Diverticulitis bleeding: unspecified bleeding status Intra-abdominal abscess K65.1 Gastric distention K31.89 Sepsis A41.9
--- NOTE | 2020-11-19 19:23 | PC.NURSE ---
Addendum entered by Nu Lawler RN 11/19/20 19:29: Minimal output noted on FACUNDO drains. the left is cloudy serosanguiness drainage. Original Note: Shift summary: Pt rested in bed throughout shift. Pt refused to get out of bed today, she stated she was just too sore. Basilar Lung sounds crackles noted. Pt encouraged multiple times throughout shift to use IS and big deep coughs, Pt stated she was trying and started crying. Highest on IS was 750 and it was met rarely. NG removed, as residual was low. Pt started on clear liquids. She was reminded to go slowly. Bowel sounds were active this am, at end of shift hypoactive. Montgomery removed, urine output of 400 noted this shift. She has required the pain medication every time it was available. She has been rating her pain at an 8 when yesterday it was a 10 (0-10 scale).
--- NOTE | 2020-11-19 19:31 | PC.NURSE ---
Report given to YAZAN Feldman.
--- NOTE | 2020-11-19 20:47 | PC.NURSE ---
Assisted patient to BSC, voided w/o difficulty, assisted back to bed. Reports pain to lower back and abdomen. Encouraged patient to take slow deep breaths, splint with abdominal pillow, cough and use IS. Attempted to call partner Sofía with patients room number that she is being moved to with no answer.
[2020-11-19 20:49] LABS: Glucose Point of Care 81 mg/dL (70-110)
--- NOTE | 2020-11-19 21:25 | PC.NURSE ---
Report given to JORGE Alatorre. Notified Dr. Brown of uncontrolled pain, order given to increase dilaudid to 1mg every 4 hours. Transferred via wheelchair to room 262.
[2020-11-19] MEDS: ondansetron 4 MG Tablet PO (21:56)
[2020-11-19] MEDS: HYDROmorphone 1 mg/mL INJ 1 mL IVP (21:56)
[2020-11-20] VITALS (18 sets, daily range): BP systolic 126–152; BP diastolic 77–90; PULSE 93–105; RESP 17–24; TEMP 36.2–37.5; O2SAT 90–99
[2020-11-20 02:16] LABS: Glucose Point of Care 78 mg/dL (70-110)
[2020-11-20] MEDS: HYDROmorphone 1 mg/mL INJ 1 mL IVP ×6 (02:18→20:10)
[2020-11-20] MEDS: piperacillin-tazobactam 3.375 GM in sodium chloride 0.9% (plus) 50 ML IV ×3 (02:38→18:31)
[2020-11-20 02:40] LABS: Basophils % 0.1 %; Eosinophils % 0.1 %; Hematocrit 30.6 % (37.0-47.0); Hemoglobin 9.5 g/dL (11.5-15.3); Lymphocytes # 1.3 10^3/uL (0.8-4.8); Lymphocytes % 7.9 %; Mean Corpuscular Hemoglobin 23.3 pg (28.0-34.0); Mean Corpuscular Volume 75.2 fL (81-99); Mean Platelet Volume 10.6 fL (7.4-10.4); Monocytes % 5.9 %; Neutrophils # 13.78 10^3/uL (1.8-7.7); Neutrophils % 84.8 %; Nucleated Red Blood Cells % 0 %; Platelet Count 348 10^3/cmm (130-400); Red Blood Count 4.07 10^6/uL (4.1-5.3); Red Cell Distribution Width 17.3 % (12.1-15.1); White Blood Count 16.2 10^3/uL (4.0-10.0)
[2020-11-20 03:03] LABS: Anion Gap 15.3 (5-19); Blood Urea Nitrogen 19 mg/dL (6-20); Calcium 7.8 mg/dL (8.5-10.5); Carbon Dioxide 23 mmol/L (22-29); Chloride 102 mmol/L (98-107); Glomerular Filtration Rate 182.7 mL/min (90-130); Glucose 79 mg/dL (65-115); Osmolality Calculated 285 mOsm/kg (285-295); Potassium 3.3 mmol/L (3.5-5.1); Sodium 137 mmol/L (136-145)
[2020-11-20 03:05] LABS: Slide Review Slide Review Perform
[2020-11-20] MEDS: sodium chloride 0.9% 1,000 ML 100 ML IV ×2 (05:37→15:33)
[2020-11-20 06:12] LABS: Glucose Point of Care 90 mg/dL (70-110)
--- NOTE | 2020-11-20 09:00 | PM.PN ---
Subjective Subjective: Interval history: Patient states that she is very but overall feels well, patient was reported that she vomited once yesterday per nursing staff because she was hurting Medications: Reviewed: Yes Vitals/I&O/Wt Last Vital Signs Temp 99.1 F 11/20/20 08:00 Pulse 102 H 11/20/20 08:00 Resp 22 H 11/20/20 08:36 BP 148/90 11/20/20 08:00 Pulse Ox 90 11/20/20 08:00 11/19/20 11/20/20 11/20/20 22:59 06:59 14:59 Intake Total 2180 / 2370 946.667 / 3316.667 50 / 50 Output Total 725 / 885 50 / 935 Balance 1455 / 1485 896.667 / 2381.667 50 / 50 Physical Exam Narrative: EXAM NARRATIVE: Patient is conscious alert oriented X3 in mild distress BMI 34 Head and neck examination PERRLA no masses no cervical lymphadenopathy no jaundice. Abdomen nontender except mildly at the incision sites nondistended soft no organomegaly guarding or rigidity/no signs of peritonitis. Drains in place with serous output Incisions are clean dry and intact and skin jluis in place and the dressing was removed by ma bedside Extremities no cyanosis no clubbing no edema Urinary Catheter Management^: Montgomery: Cath Placed During This Visit: yes, but has since been removed by the nurse Reason for Continuing Indwelling Catheter: Accurate Measurement of Urinary Output in Critically Ill Patients Urinary Catheter Date of Insertion: 11/17/20 Urinary Catheter Time of Insertion: 07:30 Date Urinary Catheter Removed: 11/19/20 Time Urinary Catheter Discontinued: 17:15 Data : 11/20/20 01:50 11/20/20 01:50 Micro: Microbiology 11/17/20 08:27 Anaerobic Culture - Preliminary Peritoneal Cavity 11/17/20 08:27 Gram Stain - Final Peritoneal Fluid Body Fluid Culture - Preliminary Escherichia coli Escherichia coli#2 A&P Assessment and plan (1) Diverticulitis of colon with perforation: Patient undergone diagnostic laparoscopy with peritoneal lavage and drainage of intra-abdominal abscesses with drain placements 11/17/2020 Clear Liquid diet slowly, still awaiting bowel functions to advance diet Encourage ambulation IS every hour Pharmacologic DVT prophylaxis Assurance and education All questions have been answered and all concerns have been addressed to patient's satisfaction. Status: Resolved Qualifiers: Diverticulitis bleeding: unspecified bleeding status Qualified Code(s): K57.20 - Diverticulitis of large intestine with perforation and abscess without bleeding Attestations Medical Necessity Statement*: Continue inpatient hospitalization passing 2 midnights for perioperative care status post drainage of intra-abdominal abscesses Time Spent in Patient Care: (>than 50% of time spent in counselling and/or direct pt care on unit). Coding Level of Care Code Acute Treasury Representative for [facility] Fwd Diagnoses Diverticulitis of colon with perforation K57.20 Diverticulitis bleeding: unspecified bleeding status
[2020-11-20] MEDS: famotidine 20 mg/2 mL INJ IVP ×2 (09:30→22:43)
[2020-11-20 10:31] LABS: Glucose Point of Care 74 mg/dL (70-110)
[2020-11-20] MEDS: ondansetron 4 MG Tablet PO (12:33)
[2020-11-20 14:47] LABS: Glucose Point of Care 97 mg/dL (70-110)
[2020-11-20] MEDS: lidocaine 1% 5 ML in potassium chloride premix 100 ML 25 ML IV (18:30)
--- NOTE | 2020-11-20 22:00 | P.PN_ITS ---
Subjective Subjective: Interval history: Abdominal pain persists, especially lower abdomen. Episode of vomiting today. So far no flatus, no BM. Vitals/I&O/Wt Last Vital Signs Temp 98.7 F 11/20/20 20:00 Pulse 93 11/20/20 20:00 Resp 18 11/20/20 20:10 BP 138/86 11/20/20 20:00 Pulse Ox 91 11/20/20 20:00 11/20/20 11/20/20 11/20/20 06:59 14:59 22:59 Intake Total 946.667 / 3316.667 170 / 170 1043.333 / 1213.333 Output Total 50 / 935 330 / 330 Balance 896.667 / 2381.667 170 / 170 713.333 / 883.333 Physical Exam Const: COMMON NORMALS: no acute distress, patient oriented x3 and alert GENERAL APPEARANCE: cooperative ORIENTATION/CONSCIOUSNESS: Yes awake HENMT: COMMON NORMALS: oropharynx normal Neck/C-Spine: COMMON NORMALS: no JVD Resp: COMMON NORMALS: normal respiratory effort and clear to auscultation bilaterally AUSCULTATION: clear to auscultation bilaterally Cardio: COMMON NORMALS: no JVD, regular rhythm, S1 normal heart sound present, S2 normal heart sound present and No murmurs present (Cardio) RHYTHM: regular rhythm HEART SOUNDS: S1 normal heart sound present and S2 normal heart sound present GI: INSPECTION: Yes abdominal distension AUSCULTATION: Yes Hypoactive bowel sounds present OTHER: Trocar wounds. FACUNDO drains bilaterally, light serous fluid on the right, serosanguineous in the left. Minimal. Extremity: COMMON NORMALS: no joint enlargement and no pedal edema Neuro: COMMON NORMALS: patient oriented x3 and moves all extremities SENSORIUM/ORIENTATION: Yes alert Skin: COMMON NORMALS: no rashes or lesions noted GENERAL SKIN EXAM: no rashes or lesions noted Urinary Catheter Management^: Montgomery: Cath Placed During This Visit: yes, but has since been removed by the nurse Reason for Continuing Indwelling Catheter: Accurate Measurement of Urinary Output in Critically Ill Patients Urinary Catheter Date of Insertion: 11/17/20 Urinary Catheter Time of Insertion: 07:30 Date Urinary Catheter Removed: 11/19/20 Time Urinary Catheter Discontinued: 17:15 Data : 11/20/20 01:50 11/20/20 01:50 Micro: Microbiology 11/17/20 08:27 Anaerobic Culture - Preliminary Peritoneal Cavity 11/17/20 08:27 Gram Stain - Final Peritoneal Fluid Body Fluid Culture - Final Escherichia coli A&P Assessment and plan (1) Perforated viscus: Continue care as per surgery. Appears ileus is persistent. Some vomiting noted today. Made n.p.o. again. Continue bowel rest. Supportive care at this time. Drains remain in place. Continue antibiotic. Mobilize. Incentive spirometer. Pain control. Peritoneal fluid with 2 different pansensitive E. coli. Continue Zosyn. Perforated sigmoid diverticular abscess. Purulent peritonitis. With intra- abdominal abscess. Status post laparoscopic abscess drainage, pericardial lavage, drain placement. Suboxone discontinued as she states she is not been taking it, also is not going to be able to continue after discharge. States she will be able to follow-up with her prior rehabilitation manager. Perhaps may consider following with pain clinic in [facility]. Status: Acute (2) Diverticulitis of colon with perforation: With plans for staged colectomy by surgery. Status: Resolved Qualifiers: Diverticulitis bleeding: unspecified bleeding status Qualified Code(s): K57.20 - Diverticulitis of large intestine with perforation and abscess without bleeding (3) Intra-abdominal abscess: Status: Acute (4) Gastric distention: Status: Acute (5) Sepsis: Leukocytosis persists. Sinus tachycardia somewhat worse this morning, appears to be improving by the evening. Afebrile. Status: Acute Attestations Medical Necessity Statement*: Continue admission for assessment management of sepsis following intra-abdominal abscess evacuation, persistent ileus, bowel rest, IV antibiotics, supportive care. Coding Level of Care Code Acute Climate Change Risk Assessor for [facility] Fwd Diagnoses Perforated viscus R19.8 Diverticulitis of colon with perforation K57.20 Diverticulitis bleeding: unspecified bleeding status Intra-abdominal abscess K65.1 Gastric distention K31.89 Sepsis A41.9
[2020-11-21] VITALS (13 sets, daily range): BP systolic 129–143; BP diastolic 85–87; PULSE 58–100; RESP 16–28; TEMP 36.5–37.8; O2SAT 90–95
[2020-11-21] MEDS: HYDROmorphone 1 mg/mL INJ 1 mL IVP ×4 (00:13→12:37)
[2020-11-21] MEDS: sodium chloride 0.9% 1,000 ML 100 ML IV ×3 (00:14→20:39)
[2020-11-21] MEDS: piperacillin-tazobactam 3.375 GM in sodium chloride 0.9% (plus) 50 ML IV ×3 (04:11→19:27)
--- NOTE | 2020-11-21 06:28 | P.PN_ITS ---
Subjective Subjective: Interval history: Patient continues to show a lot of anxiety, reports that she passed some GAS, yet she did have a bout of vomiting yesterday. Adequate urine output Medications: Reviewed: Yes Vitals/I&O/Wt Last Vital Signs Temp 97.7 F 11/21/20 04:00 Pulse 96 11/21/20 04:00 Resp 18 11/21/20 04:03 BP 143/85 11/21/20 04:00 Pulse Ox 90 11/21/20 04:00 11/20/20 11/20/20 11/21/20 14:59 22:59 06:59 Intake Total 170 / 170 1093.333 / 1263.333 868.333 / 2131.666 Output Total 330 / 330 Balance 170 / 170 763.333 / 933.333 868.333 / 1801.666 Physical Exam Narrative: EXAM NARRATIVE: Patient is conscious alert oriented X3, anxious BMI 34 Head and neck examination PERRLA no masses no cervical lymphadenopathy no jaundice. Abdomen nontender except mildly at the incision sites nondistended soft no organomegaly guarding or rigidity/no signs of peritonitis. Bowel sounds are positive Drains in place with minimal serous output Incisions are clean dry and intact and skin jluis in place and the dressing was removed by me bedside Extremities no cyanosis no clubbing no edema Urinary Catheter Management^: Montgomery: Cath Placed During This Visit: yes, but has since been removed by the nurse Reason for Continuing Indwelling Catheter: Accurate Measurement of Urinary Outp ut in Critically Ill Patients Urinary Catheter Date of Insertion: 11/17/20 Urinary Catheter Time of Insertion: 07:30 Date Urinary Catheter Removed: 11/19/20 Time Urinary Catheter Discontinued: 17:15 Data : 11/20/20 01:50 11/20/20 01:50 Micro: Microbiology 11/17/20 08:27 Anaerobic Culture - Preliminary Peritoneal Cavity 11/17/20 08:27 Gram Stain - Final Peritoneal Fluid Body Fluid Culture - Final Escherichia coli A&P Assessment and plan (1) Diverticulitis of colon with perforation: Patient undergone diagnostic laparoscopy with peritoneal lavage and drainage of intra-abdominal abscesses with drain placements 11/17/2020 Clear Liquid diet slowly, still awaiting bowel functions to advance diet, once patient passes once patient passes gas more will advance her diet slowly. We will consider KUB at some point if her bowel functions are not progressing Encourage ambulation IS every hour Pharmacologic DVT prophylaxis I will defer to Dr. Ibrahim to address patient's anxiety Will follow on a.m. labs Assurance and education All questions have been answered and all concerns have been addressed to brianda ent's satisfaction. Status: Resolved Qualifiers: Diverticulitis bleeding: unspecified bleeding status Qualified Code(s): K57.20 - Diverticulitis of large intestine with perforation and abscess without bleeding Attestations Medical Necessity Statement*: Continue inpatient hospitalization passing 2 midnights for perioperative care status post drainage of intra-abdominal abscesses Time Spent in Patient Care: (>than 50% of time spent in counselling and/or direct pt care on unit) . Coding Level of Care Code Acute Binder Roller for g Fwd Diagnoses Diverticulitis of colon with perforation K57.20 Diverticulitis bleeding: unspecified bleeding status
[2020-11-21 07:04] LABS: Basophils # 0.1 10^3/uL (0.0-0.1); Basophils % 0.7 %; Eosinophils % 0.1 %; Hematocrit 27.4 % (37.0-47.0); Hemoglobin 8.5 g/dL (11.5-15.3); Lymphocytes # 1.5 10^3/uL (0.8-4.8); Mean Corpuscular Hemoglobin 23.1 pg (28.0-34.0); Mean Corpuscular Volume 74.5 fL (81-99); Mean Platelet Volume 10.2 fL (7.4-10.4); Monocytes # 1.1 10^3/uL (0.2-0.9); Monocytes % 7.3 %; Neutrophils # 11.83 10^3/uL (1.8-7.7); Neutrophils % 79.2 %; Nucleated Red Blood Cells % 0 %; Platelet Count 330 10^3/cmm (130-400); Red Blood Count 3.68 10^6/uL (4.1-5.3); Red Cell Distribution Width 17.3 % (12.1-15.1)
[2020-11-21 08:15] LABS: Alanine Aminotransferase 6 U/L (0-33); Albumin Level 2.3 g/dL (3.5-5.2); Alkaline Phosphatase 69 IU/L (35-105); Aspartate Amino Transferase 14 U/L (0-32); Blood Urea Nitrogen 15 mg/dL (6-20); Calcium 7.6 mg/dL (8.5-10.5); Carbon Dioxide 21 mmol/L (22-29); Chloride 103 mmol/L (98-107); Globulin 3.7 g/dL (1.3-4.6); Glomerular Filtration Rate 182.7 mL/min (90-130); Glucose 71 mg/dL (65-115); Osmolality Calculated 283 mOsm/kg (285-295); Sodium 137 mmol/L (136-145); Total Bilirubin 0.6 mg/dL (0.15-1.2)
[2020-11-21 08:21] LABS: Anion Gap 16.5 (5-19); Potassium 3.5 mmol/L (3.5-5.1)
[2020-11-21] MEDS: famotidine 20 mg/2 mL INJ IVP ×2 (10:24→20:46)
--- NOTE | 2020-11-21 12:14 | XRR_ITS ---
PROCEDURE INFORMATION: Exam: XR Chest Exam date and time: 11/21/2020 12:23 PM Age: 35 years old Clinical indication: Shortness of breath; Additional info: Rule out pnx TECHNIQUE: Imaging protocol: XR of the chest. Views: 1 view. COMPARISON: CR XR chest 1V portable [id number] 11/17/2020 12:29 PM FINDINGS: Tubes, catheters and devices: A right central line extends into the right atrium Lungs: Low lung volumes. Otherwise Unremarkable. No consolidation. Pleural spaces: Unremarkable. No pleural effusion. No pneumothorax. Heart/Mediastinum: Unremarkable. No cardiomegaly. Bones/joints: Unremarkable. XR/XR chest 1V portable [id number] IMPRESSION: 1. No acute findings. 2. Right central line in the right atrium 3. Negative for pneumothorax
[2020-11-21] MEDS: guaiFENesin 600 mg Tablet PO ×2 (12:36→17:17)
--- NOTE | 2020-11-21 14:27 | PM.PN ---
Subjective Subjective: Interval history: No further vomiting so far. Has passed some flatus and reported to have bowel movement. She is feeling sore in her abdomen. However, on encouragement from nursing staff and surgery has gotten up walking to the restroom. Has been having some cough, cannot really bring up phlegm. Vitals/I&O/Wt Last Vital Signs Temp 100.1 F H 11/21/20 11:51 Pulse 78 11/21/20 11:51 Resp 20 H 11/21/20 12:37 BP 129/85 11/21/20 11:51 Pulse Ox 94 11/21/20 11:51 11/20/20 11/21/20 11/21/20 22:59 06:59 14:59 Intake Total 1093.333 / 1263.333 973.333 / 2236.666 1050 / 1050 Output Total 330 / 330 17 / 347 315 / 315 Balance 763.333 / 933.333 956.333 / 1889.666 735 / 735 Physical Exam Const: COMMON NORMALS: no acute distress, patient oriented x3 and alert GENERAL APPEARANCE: cooperative ORIENTATION/CONSCIOUSNESS: Yes awake OTHER: Sitting upright, propped up on her arms. 1 episode of cough during my visit. HENMT: COMMON NORMALS: oropharynx normal Neck/C-Spine: COMMON NORMALS: no JVD Resp: COMMON NORMALS: normal respiratory effort and clear to auscultation bilaterally AUSCULTATION: clear to auscultation bilaterally Cardio: COMMON NORMALS: no JVD, regular rhythm, S1 normal heart sound present, S2 normal heart sound present and No murmurs present (Cardio) RHYTHM: regular rhythm HEART SOUNDS: S1 normal heart sound present and S2 normal heart sound present GI: INSPECTION: Yes abdominal distension AUSCULTATION: Yes Hypoactive bowel sounds present OTHER: Trocar wounds. FACUNDO drains bilaterally, light serous fluid on the right, serosanguineous in the left. Minimal. Extremity: COMMON NORMALS: no joint enlargement and no pedal edema Neuro: COMMON NORMALS: patient oriented x3 and moves all extremities SENSORIUM/ORIENTATION: Yes alert Skin: COMMON NORMALS: no rashes or lesions noted GENERAL SKIN EXAM: no rashes or lesions noted Urinary Catheter Management^: Montgomery: Cath Placed During This Visit: yes, but has since been removed by the nurse Reason for Continuing Indwelling Catheter: Accurate Measurement of Urinary Output in Critically Ill Patients Urinary Catheter Date of Insertion: 11/17/20 Urinary Catheter Time of Insertion: 07:30 Date Urinary Catheter Removed: 11/19/20 Time Urinary Catheter Discontinued: 17:15 Data : 11/21/20 06:44 11/21/20 06:44 Micro: Microbiology 11/17/20 08:27 Anaerobic Culture - Preliminary Peritoneal Cavity 11/17/20 08:27 Gram Stain - Final Peritoneal Fluid Body Fluid Culture - Final Escherichia coli A&P Assessment and plan (1) Fever: Low-grade fever 100.1 this morning. Has had episode of vomiting yesterday and denied before. Requested chest x-ray for possibility of aspiration. Reported to have passed flatus, bowel movement today. Continue Zosyn. Discussed with surgery who stated intent to monitor closely with consideration whether additional imaging may become beneficial. Monitor drain output. Her leukocytosis did improve somewhat today to 15,000. Clinically overall he is doing slightly better. Status: Acute (2) Perforated viscus: Today he has reported to have passed some flatus, had a bowel movement as well. Surgery starting on trial of clear liquid. Has been extensively encouraged to mobilize. Continue incentive spirometer. Pain control. Peritoneal fluid with 2 different pansensitive E. coli. Continue Zosyn. Perforated sigmoid diverticular abscess. Purulent peritonitis. With intra-abdominal abscess. Status post laparoscopic abscess drainage, pericardial lavage, drain placement. Suboxone discontinued as she states she is not been taking it, also is not going to be able to continue after discharge. States she will be able to follow-up with her prior rehabilitation case coordinator. Perhaps may consider following with pain clinic in [facility]. Status: Acute (3) Diverticulitis of colon with perforation: With plans for staged colectomy by surgery. Status: Resolved Qualifiers: Diverticulitis bleeding: unspecified bleeding status Qualified Code(s): K57.20 - Diverticulitis of large intestine with perforation and abscess without bleeding (4) Intra-abdominal abscess: Status: Acute (5) Gastric distention: Status: Acute (6) Sepsis: Leukocytosis persists. Sinus tachycardia somewhat worse this morning, appears to be improving by the evening. Afebrile. Status: Acute Additional A&P Information Smoking addiction: Encourage cessation. Nicotine replacement in case of craving. Attestations Medical Necessity Statement*: Continue admission for assessment management of ileus following evacuation of intra-abdominal abscess, with low-grade fever after episodes of vomiting, possible aspiration. Coding Level of Care Code Acute Configuration Manager for g Fwd Diagnoses Fever R50.9 Perforated viscus R19.8 Diverticulitis of colon with perforation K57.20 Diverticulitis bleeding: unspecified bleeding status Intra-abdominal abscess K65.1 Gastric distention K31.89 Sepsis A41.9
--- NOTE | 2020-11-21 14:37 | PC.NURSE ---
Pt walked 254 feet in [place].
[2020-11-21] MEDS: HYDROcodone-acetaminophen 5-325 mg Tablet 1 TAB PO ×2 (17:17→23:41)
[2020-11-21] MEDS: trazodone 150 mg Tablet PO (20:37)
[2020-11-21] MEDS: ondansetron 2 mg/ML SDV 2 mL 4 MG IVP (20:50)
[2020-11-22] VITALS (9 sets, daily range): BP systolic 116–132; BP diastolic 74–86; PULSE 59–82; RESP 16–20; TEMP 36.8–37.5; O2SAT 94–97
[2020-11-22] MEDS: piperacillin-tazobactam 3.375 GM in sodium chloride 0.9% (plus) 50 ML IV ×3 (04:05→18:25)
[2020-11-22] MEDS: sodium chloride 0.9% 1,000 ML 100 ML IV ×2 (06:22→17:35)
[2020-11-22 06:39] LABS: Basophils # 0.1 10^3/uL (0.0-0.1); Basophils % 0.5 %; Eosinophils # 0.1 10^3/uL (0.0-0.8); Eosinophils % 0.6 %; Hematocrit 25.5 % (37.0-47.0); Hemoglobin 7.9 g/dL (11.5-15.3); Lymphocytes # 1.7 10^3/uL (0.8-4.8); Lymphocytes % 11.1 %; Mean Corpuscular Hemoglobin 23.4 pg (28.0-34.0); Mean Corpuscular Volume 75.7 fL (81-99); Mean Platelet Volume 10.2 fL (7.4-10.4); Monocytes # 1.1 10^3/uL (0.2-0.9); Neutrophils # 11.54 10^3/uL (1.8-7.7); Neutrophils % 76.1 %; Nucleated Red Blood Cells % 0 %; Platelet Count 312 10^3/cmm (130-400); Red Blood Count 3.37 10^6/uL (4.1-5.3); Red Cell Distribution Width 17.3 % (12.1-15.1); White Blood Count 15.2 10^3/uL (4.0-10.0)
--- NOTE | 2020-11-22 06:43 | P.PN_ITS ---
Subjective Subjective: Interval history: Patient overall feels better and continues to pass gas and tolerate p.o. intake Chest x-ray unremarkable WBC count 15.2 Medications: Reviewed: Yes Vitals/I&O/Wt Last Vital Signs Temp 99.2 F 11/22/20 04:00 Pulse 65 11/22/20 04:00 Resp 16 11/22/20 04:00 BP 116/74 11/22/20 04:00 Pulse Ox 96 11/22/20 04:00 11/21/20 11/21/20 11/22/20 14:59 22:59 06:59 Intake Total 1100 / 1100 1480 / 2580 1021.667 / 3601.667 Output Total 465 / 465 300 / 765 Balance 635 / 635 1480 / 2115 721.667 / 2836.667 Physical Exam Narrative: EXAM NARRATIVE: Patient is conscious alert oriented X3, anxious BMI 34 Head and neck examination PERRLA no masses no cervical lymphadenopathy no jaundice. Right IJ central line in place Abdomen nontender except mildly at the incision sites nondistended soft no organomegaly guarding or rigidity/no signs of peritonitis. Bowel sounds are positive Drains in place with minimal serous output Incisions are clean dry and intact and skin jluis in place and the dressing was removed by me bedside Extremities no cyanosis no clubbing no edema Urinary Catheter Management^: [place]: Cath Placed During This Visit: yes, but has since been removed by the nurse Reason for Continuing Indwelling Catheter: Accurate Measurement of Urinary Out put in Critically Ill Patients Urinary Catheter Date of Insertion: 11/17/20 Urinary Catheter Time of Insertion: 07:30 Date Urinary Catheter Removed: 11/19/20 Time Urinary Catheter Discontinued: 17:15 Data : 11/22/20 06:20 11/22/20 06:20 Micro: Microbiology 11/17/20 08:27 Anaerobic Culture - Preliminary Peritoneal Cavity Bacteroides distasonis A&P Assessment and plan (1) Diverticulitis of colon with perforation: Patient undergone diagnostic laparoscopy with peritoneal lavage and drainage of intra-abdominal abscesses with drain placements 11/17/2020 We will advance to full liquid diet Recommend to DC central line and send the tip for culture, concerning that could be a potential source of persistent leukocytosis. Encourage ambulation IS every hour Pharmacologic DVT prophylaxis Assurance and education All questions have been answered and all concerns have been addressed to patient's satisfaction. Status: Resolved Qualifiers: Diverticulitis bleeding: unspecified bleeding status Qualified Code(s): K57.20 - Diverticulitis of large intestine with perforation and abscess without bleeding Attestations Medical Necessity Statement*: Continue inpatient hospitalization passing 2 midnights for perioperative care status post drainage of intra-abdominal abscesses Time Spent in Patient Care: (>than 50% of time spent in counselling and/or direct pt care on unit) . Coding Level of Care Code Acute Pumper Gauger for [facility] Fwd Diagnoses Diverticulitis of colon with perforation K57.20 Diverticulitis bleeding: unspecified bleeding status
[2020-11-22] MEDS: HYDROcodone-acetaminophen 5-325 mg Tablet 1 TAB PO ×3 (06:51→21:16)
[2020-11-22 06:58] LABS: Alanine Aminotransferase < 5 U/L (0-33); Albumin Level 2.2 g/dL (3.5-5.2); Alkaline Phosphatase 61 IU/L (35-105); Anion Gap 9.2 (5-19); Aspartate Amino Transferase 15 U/L (0-32); Blood Urea Nitrogen 10 mg/dL (6-20); Calcium 7.5 mg/dL (8.5-10.5); Carbon Dioxide 26 mmol/L (22-29); Chloride 105 mmol/L (98-107); Globulin 3.6 g/dL (1.3-4.6); Glomerular Filtration Rate 182.7 mL/min (90-130); Glucose 84 mg/dL (65-115); Osmolality Calculated 282 mOsm/kg (285-295); Potassium 3.2 mmol/L (3.5-5.1); Sodium 137 mmol/L (136-145); Total Bilirubin 0.4 mg/dL (0.15-1.2); Total Protein 5.8 g/dL (6.6-8.7)
[2020-11-22] MEDS: famotidine 20 mg/2 mL INJ IVP ×2 (08:57→21:15)
[2020-11-22] MEDS: guaiFENesin 600 mg Tablet PO ×2 (09:04→18:25)
[2020-11-22] MEDS: lidocaine 1% 5 ML in potassium chloride premix 100 ML 50 ML IV (09:04)
[2020-11-22 10:24] LABS: Magnesium 1.6 mg/dL (1.7-2.3)
--- NOTE | 2020-11-22 16:46 | P.PN_ITS ---
Subjective Subjective: Interval history: Today she is feeling progressive improvement. Still sore in the abdomen. But having bowel movements. Tolerating diet, advancing to full liquid today. Vitals/I&O/Wt Last Vital Signs Temp 99.5 F 11/22/20 15:33 Pulse 66 11/22/20 15:33 Resp 17 11/22/20 15:33 BP 132/84 11/22/20 15:33 Pulse Ox 95 11/22/20 15:33 11/22/20 11/22/20 11/22/20 06:59 14:59 22:59 Intake Total 1021.667 / 3601.667 755 / 755 50 / 805 Output Total 300 / 765 Balance 721.667 / 2836.667 755 / 755 50 / 805 Physical Exam Const: COMMON NORMALS: no acute distress, patient oriented x3 and alert GENERAL APPEARANCE: cooperative ORIENTATION/CONSCIOUSNESS: Yes awake HENMT: COMMON NORMALS: oropharynx normal Neck/C-Spine: COMMON NORMALS: no JVD Resp: COMMON NORMALS: normal respiratory effort and clear to auscultation bilaterally AUSCULTATION: clear to auscultation bilaterally Cardio: COMMON NORMALS: no JVD, regular rhythm, S1 normal heart sound present, S2 normal heart sound present and No murmurs present (Cardio) RHYTHM: regular rhythm HEART SOUNDS: S1 normal heart sound present and S2 normal heart sound present GI: INSPECTION: Yes abdominal distension AUSCULTATION: Yes Hypoactive bowel sounds present OTHER: Trocar wounds. FACUNDO drains bilaterally with just emptied this morning. Extremity: COMMON NORMALS: no joint enlargement and no pedal edema Neuro: COMMON NORMALS: patient oriented x3 and moves all extremities SENSORIUM/ORIENTATION: Yes alert Skin: COMMON NORMALS: no rashes or lesions noted GENERAL SKIN EXAM: no rashes or lesions noted Urinary Catheter Management^: [place]: Cath Placed During This Visit: yes, but has since been removed by the nurse Reason for Continuing Indwelling Catheter: Accurate Measurement of Urinary Output in Critically Ill Patients Urinary Catheter Date of Insertion: 11/17/20 Urinary Catheter Time of Insertion: 07:30 Date Urinary Catheter Removed: 11/19/20 Time Urinary Catheter Discontinued: 17:15 Data : 11/22/20 06:20 11/22/20 06:20 Micro: Microbiology 11/17/20 12:13 Blood Culture - Final Blood NO GROWTH AFTER 5 DAYS 11/17/20 12:00 Blood Culture - Final Blood NO GROWTH AFTER 5 DAYS 11/17/20 08:27 Anaerobic Culture - Preliminary Peritoneal Cavity Bacteroides distasonis A&P Assessment and plan (1) Fever: So far no further fever, temp up to 99.5 highest. Symptomatically is doing well. Having bowel movements. Abdomen automatic beam warper tender but slightly better. Tolerating oral intake. Subjectively feels she is improving. Having some cough, bringing up some phlegm today. Perhaps there was some degree of aspiration, although chest x-ray was normal. Per discussion with surgery central line removed, tip sent for culture. Continue Zosyn. Continue to monitor drain output. Leukocytosis persistent, currently stayed at 15,000. Clinically overall he is doing slightly better. Status: Acute (2) Perforated viscus: Continue Zosyn. Continue to monitor drain output. Surgery starting on trial of full liquid. Encourage to mobilize. Continue incentive spirometer. Pain control. Peritoneal fluid with 2 different pansensitive E. coli. Perforated sigmoid diverticular abscess. Purulent peritonitis. With intra- abdominal abscess. Status post laparoscopic abscess drainage, pericardial lavage, drain placement. Suboxone discontinued as she states she is not been taking it, also is not going to be able to continue after discharge. States she will be able to follow-up with her prior clinical rehabilitation liaison. Perhaps may consider following with pain clinic in [facility]. Status: Acute (3) Diverticulitis of colon with perforation: With plans for staged colectomy by surgery. Status: Resolved Qualifiers: Diverticulitis bleeding: unspecified bleeding status Qualified Code(s): K57.20 - Diverticulitis of large intestine with perforation and abscess without bleeding (4) Intra-abdominal abscess: Status: Acute (5) Gastric distention: Status: Acute (6) Sepsis: Leukocytosis persists. Sinus tachycardia somewhat worse this morning, appears to be improving by the evening. Afebrile. Status: Acute Additional A&P Information Smoking addiction: Encourage cessation. Nicotine replacement in case of craving. Attestations Medical Necessity Statement*: Continue admission for assessment management of sepsis following evacuation of intra-abdominal abscess, persistent leukocytosis, episode of low-grade fever, emesis, possible aspiration. Coding Level of Care Code Acute Fork Repairer for [facility] Fwd Exam Comprehensive Diagnoses Fever R50.9 Perforated viscus R19.8 Diverticulitis of colon with perforation K57.20 Diverticulitis bleeding: unspecified bleeding status Intra-abdominal abscess K65.1 Gastric distention K31.89 Sepsis A41.9
[2020-11-22] MEDS: trazodone 150 mg Tablet PO (21:16)
[2020-11-23] VITALS (8 sets, daily range): BP systolic 123–164; BP diastolic 81–98; PULSE 66–88; RESP 16–20; TEMP 36.9–37.9; O2SAT 93–99
[2020-11-23] MEDS: HYDROcodone-acetaminophen 5-325 mg Tablet 1 TAB PO ×3 (04:19→18:50)
[2020-11-23] MEDS: piperacillin-tazobactam 3.375 GM in sodium chloride 0.9% (plus) 50 ML IV (04:19)
[2020-11-23] MEDS: sodium chloride 0.9% 1,000 ML 100 ML IV (04:19)
--- NOTE | 2020-11-23 06:49 | P.PN_ITS ---
Vitals/I&O/Wt Last Vital Signs Temp 98.5 F 11/23/20 03:24 Pulse 73 11/23/20 03:24 Resp 18 11/23/20 03:24 BP 136/85 11/23/20 03:24 Pulse Ox 94 11/23/20 03:24 11/22/20 11/22/20 11/23/20 14:59 22:59 06:59 Intake Total 755 / 755 1580 / 2335 1960 / 4295 Output Total 1200 / 1201 Balance 755 / 755 1579 / 2334 760 / 3094 Physical Exam Narrative: EXAM NARRATIVE: Patient is conscious alert oriented X3, anxious BMI 34 Head and neck examination PERRLA no masses no cervical lymphadenopathy no jaundice. Abdomen nontender except mildly at the incision sites,mildly distended soft no organomegaly guarding or rigidity/no signs of peritonitis. B Incisions are clean dry and intact and skin jluis in place and the dressing was removed by wy bedside Drains in place w/o compliations Extremities no cyanosis no clubbing no edema Urinary Catheter Management^: [place]: Cath Placed During This Visit: yes, but has since been removed by the nurse Reason for Continuing Indwelling Catheter: Accurate Measurement of Urinary Output in Critically Ill Patients Urinary Catheter Date of Insertion: 11/17/20 Urinary Catheter Time of Insertion: 07:30 Date Urinary Catheter Removed: 11/19/20 Time Urinary Catheter Discontinued: 17:15 Data : 11/23/20 07:08 11/22/20 06:20 Micro: Microbiology 11/17/20 08:27 Anaerobic Culture - Preliminary Peritoneal Cavity Bacteroides distasonis Bacteroides thetaiotaomicron 11/17/20 12:13 Blood Culture - Final Blood NO GROWTH AFTER 5 DAYS 11/17/20 12:00 Blood Culture - Final Blood NO GROWTH AFTER 5 DAYS A&P Assessment and plan (1) Diverticulitis of colon with perforation: Patient undergone diagnostic laparoscopy with peritoneal lavage and dr [place] of intra-abdominal abscesses with drain placements 11/17/2020 Advance diet as tolerated Education about the importance of ambulation and moving IS every hour Pharmacologic DVT prophylaxis Will follow on a.m. labs if continues to have persistent or worsening leukocytosis will require to obtain a CT scan of the abdomen pelvis with IV contrast, rule out potential underlying intra-abdominal fluid collection that may require IR for percutaneous drainage. Drain care and teaching Assurance and education All questions have been answered and all concerns have been addressed to brianda ent's satisfaction. Status: Resolved Qualifiers: Diverticulitis bleeding: unspecified bleeding status Qualified Code(s): K57.20 - Diverticulitis of large intestine with perforation and abscess without bleeding Attestations Medical Necessity Statement*: Continue inpatient hospitalization passing 2 midnights for perioperative care status post drainage of intra-abdominal abscesses Time Spent in Patient Care: (>than 50% of time spent in counselling and/or direct pt care on unit) . Coding Level of Care Code Acute Window Shade Cloth Sewer for [facility] Fwd Diagnoses Diverticulitis of colon with perforation K57.20 Diverticulitis bleeding: unspecified bleeding status
[2020-11-23 07:47] LABS: Basophils # 0.1 10^3/uL (0.0-0.1); Basophils % 0.6 %; Eosinophils # 0.1 10^3/uL (0.0-0.8); Eosinophils % 0.3 %; Hematocrit 25.8 % (37.0-47.0); Hemoglobin 8.1 g/dL (11.5-15.3); Lymphocytes # 1.7 10^3/uL (0.8-4.8); Lymphocytes % 9.2 %; Mean Corpuscular HGB Conc 31.4 g/dL (30.0-36.0); Mean Corpuscular Hemoglobin 24.3 pg (28.0-34.0); Mean Corpuscular Volume 77.5 fL (81-99); Mean Platelet Volume 10.5 fL (7.4-10.4); Monocytes # 0.8 10^3/uL (0.2-0.9); Monocytes % 4.4 %; Neutrophils # 14.73 10^3/uL (1.8-7.7); Neutrophils % 82.2 %; Nucleated Red Blood Cells % 0.1 %; Platelet Count 339 10^3/cmm (130-400); Red Blood Count 3.33 10^6/uL (4.1-5.3); Red Cell Distribution Width 17.6 % (12.1-15.1); White Blood Count 17.9 10^3/uL (4.0-10.0)
--- NOTE | 2020-11-23 07:50 | CTR_ITS ---
PROCEDURE INFORMATION: Exam: CT Abdomen And Pelvis With Contrast Exam date and time: 11/23/2020 7:52 AM Age: 35 years old Clinical indication: Other: Leukocytosis. ; Abdominal pain; Generalized; Prior surgery; Surgery date: 3-7 days post-operative; Surgery type: Abd peritoneal drain. ; Patient HX: Persistent leukocytosis and abd pain S/P laprascopic aspiration of intraabdominal abscess with drain placement on 11/17/2020. Patient very anxious and in severe pain. Could not keep still on table. Additional images acquired of dome of liver at end of contrast series. 22g iv to right thumb with poor flush. Severely reduced injection rate. ; Additional info: Persistent leukocytosis status post diagnostic laparoscopy TECHNIQUE: Imaging protocol: Computed tomography of the abdomen and pelvis with contrast. Radiation optimization: All CT scans at this facility use at least one of these dose optimization techniques: automated exposure control; mA and/or kV adjustment per patient size (includes targeted exams where dose is matched to clinical indication); or iterative reconstruction. Contrast material: OMNI 300; Contrast volume: 95 ml; Contrast route: INTRAVENOUS (IV); COMPARISON: CT abdomen pelvis w con* [id number] 11/17/2020 2:41 AM RADIATION DOSE METRICS: Total DLP (mGy-cm): 2287.44 FINDINGS: Tubes, catheters and devices: There is a surgical drain extending from the right lower paracolic gutter along the anterior pelvis and exiting the abdominal cavity in the left lower quadrant there is a 2nd surgical drain extending inferiorly from the right perihepatic region along the upper right paracolic gutter, and exiting the abdomen in the right lower quadrant. Pleural spaces: There is a small bilateral pleural effusions with adjacent atelectasis. Liver: Normal. No mass. Gallbladder and bile ducts: Normal. No calcified stones. No ductal dilation. Pancreas: Normal. No ductal dilation. Spleen: Normal. No splenomegaly. Adrenal glands: Unchanged bilateral adrenal masses measuring 2.4 cm on the left and 2.3 cm on the right. Kidneys and ureters: Normal. No hydronephrosis. Stomach and bowel: Unchanged thickening of the ascending and sigmoid colon wall. Persistent air containing complex fluid collection with areas of soft tissue density, which extends towards the left anterolateral wall of the rectum, measuring approximately 6.2 x 4.4 x 4.9 cm (previously 6.6 x 4.2 x 5.9 cm). The measurements of this collection probably includes the left ovary. In the left paracolic gutter, there is an elongated and flat rim enhancing fluid collection measuring 7.8 x 4.6 x 1.4 cm. Multiple other small interloop fluid collections are seen throughout the abdomen. In the right lower quadrant, there is a small amount of free fluid and tiny bubbles of air adjacent to the ovary and surgical drain. The there is diffuse mesenteric edema. Appendix: No evidence of appendicitis. Intraperitoneal space: See Stomach and bowel finding. Vasculature: Unremarkable. No abdominal aortic aneurysm. Lymph nodes: Unremarkable. No enlarged lymph nodes. Urinary bladder: Unremarkable as visualized. Reproductive: Interval decrease in size of complex right ovarian cyst, measuring 4.5 x 3.6 x 5.2 cm (previously 5.3 x 4.6 x 6.5 cm). Bones/joints: Unremarkable. No acute fracture. Soft tissues: There is stranding of the subcutaneous tissues, consistent with edema. Anterior abdominal wall surgical changes seen. CT/CT abdomen pelvis w con* [id number] IMPRESSION: 1. Unchanged thickening of the ascending and sigmoid colon wall. 2. In the left adnexal region and extending towards the left anterolateral rectal wall, there is a persistent air containing complex fluid collection with areas of soft tissue density, likely a combination of abscess and left ovary. 3. Multiple additional smaller, interloop, rim enhancing fluid collections throughout the abdomen. 4. Anasarca, manifested by small bilateral pleural effusions, mesenteric edema and subcutaneous edema. 5. Unchanged bilateral adrenal masses. Radiation Dose CTDIVOL = (mGy): DLP = 2287.44 (mGy-cm)
[2020-11-23 07:52] LABS: Alanine Aminotransferase 7 U/L (0-33); Alkaline Phosphatase 63 IU/L (35-105); Aspartate Amino Transferase 11 U/L (0-32); Blood Urea Nitrogen 5 mg/dL (6-20); Calcium 7.1 mg/dL (8.5-10.5); Carbon Dioxide 23 mmol/L (22-29); Chloride 104 mmol/L (98-107); Globulin 3.7 g/dL (1.3-4.6); Glomerular Filtration Rate 254.7 mL/min (90-130); Glucose 84 mg/dL (65-115); Osmolality Calculated 280 mOsm/kg (285-295); Sodium 137 mmol/L (136-145); Total Bilirubin 0.4 mg/dL (0.15-1.2); Total Protein 5.7 g/dL (6.6-8.7)
[2020-11-23] MEDS: guaiFENesin 600 mg Tablet PO ×2 (09:16→18:51)
[2020-11-23] MEDS: iohexol 300 mg/mL 100 mL Btl IV (09:44)
--- NOTE | 2020-11-23 12:18 | PC.NURSE ---
this nurse called dr mancini when the IV that the patient had went bad, the patient was refusing to have one in and was as she stated tired of being stuck . the physician decided to try oral ABX since the pt was drinking plenty of fluids, and said he would put the orders in, placing IV ABX on hold on the premises of seeing if she responded well enough to not need IV tx.
[2020-11-23] MEDS: ciprofloxacin 500 mg Tablet PO (13:30)
[2020-11-23] MEDS: metroNIDAZOLE 500 MG Tablet PO ×2 (15:37→23:42)
--- NOTE | 2020-11-23 19:21 | PM.PN ---
Subjective Subjective: Interval history: Overall she states she is doing okay. Little bit better today. No vomiting. Still tenderness in the abdomen. Has been afebrile, but noted again having low-grade fever this afternoon. Discussed with her worsening leukocytosis. Discussed preliminary result of CT scan, at the time report not yet available. Denies cough. Denies shortness of breath. Vitals/I&O/Wt Last Vital Signs Temp 100 F H 11/23/20 15:41 Pulse 88 11/23/20 15:41 Resp 18 11/23/20 15:41 BP 146/81 11/23/20 15:41 Pulse Ox 99 11/23/20 15:41 11/23/20 11/23/20 11/23/20 06:59 14:59 22:59 Intake Total 1960 / 4295 1091.667 / 1091.667 Output Total 1200 / 1201 Balance 760 / 3094 1091.667 / 1091.667 Physical Exam Const: COMMON NORMALS: no acute distress, patient oriented x3 and alert GENERAL APPEARANCE: cooperative ORIENTATION/CONSCIOUSNESS: Yes awake OTHER: Sitting upright HENMT: COMMON NORMALS: oropharynx normal Neck/C-Spine: COMMON NORMALS: no JVD Resp: COMMON NORMALS: normal respiratory effort and clear to auscultation bilaterally AUSCULTATION: clear to auscultation bilaterally Cardio: COMMON NORMALS: no JVD, regular rhythm, S1 normal heart sound present, S2 normal heart sound present and No murmurs present (Cardio) RHYTHM: regular rhythm HEART SOUNDS: S1 normal heart sound present and S2 normal heart sound present GI: INSPECTION: Yes abdominal distension AUSCULTATION: Yes Hypoactive bowel sounds present PALPATION: Yes Tenderness to palpation present (GI) OTHER: Small amount of purulence noted in one of the drains. Extremity: COMMON NORMALS: no joint enlargement and no pedal edema Neuro: COMMON NORMALS: patient oriented x3 and moves all extremities SENSORIUM/ORIENTATION: Yes alert Skin: COMMON NORMALS: no rashes or lesions noted GENERAL SKIN EXAM: no rashes or lesions noted Urinary Catheter Management^: [place]: Cath Placed During This Visit: yes, but has since been removed by the nurse Reason for Continuing Indwelling Catheter: Accurate Measurement of Urinary Output in Critically Ill Patients Urinary Catheter Date of Insertion: 11/17/20 Urinary Catheter Time of Insertion: 07:30 Date Urinary Catheter Removed: 11/19/20 Time Urinary Catheter Discontinued: 17:15 Data : 11/23/20 07:08 11/23/20 07:08 Micro: Microbiology 11/17/20 08:27 Anaerobic Culture - Preliminary Peritoneal Cavity Bacteroides distasonis Bacteroides thetaiotaomicron A&P Assessment and plan (1) Fever: Had been afebrile, but this afternoon again low-grade temp 100 Fahrenheit. Leukocytosis worse today. Surgery head repeated the CT scan. Noted unchanged thickening of ascending colon. On radiology report noted persistent air-containing complex fluid collection and left adnexal region with areas of soft tissue density likely combination of abscess and the left ovary. Noted additional smaller interloop rim-enhancing fluid collections through the abdomen. Anasarca. Unchanged bilateral adrenal masses. Earlier today she has lost IV access, and was very difficult stick. Antibiotic had been changed to oral with Cipro, Flagyl. With CT findings, surgery will be additionally discussing with radiology whether collection may be accessed percutaneously. Will request to try obtain IV access again, if not possible, PICC line may need to be requested once available tomorrow. With adnexal collection will request chlamydia, gonorrhea. Given colonic findings TOA probably less likely, although depending on course can consider in the differential. Respiratory symptoms have resolved. Central line removed 11/22, requested to be sent for culture. Continue Zosyn. Continue to monitor drain output. Leukocytosis persistent, currently stayed at 15,000. Clinically overall he is doing slightly better. Status: Acute (2) Perforated viscus: Continue to biotics, currently Cipro, Flagyl due to loss of IV access. Attempt to reestablish, consider PICC line tomorrow if unable to. As above. Diet advancement per surgery. Encourage to mobilize. Continue incentive spirometer. Pain control. Peritoneal fluid with 2 different pansensitive E. coli. Bacteroides. Perforated sigmoid diverticular abscess. Purulent peritonitis. With intra-abdominal abscess. Status post laparoscopic abscess drainage, pericardial lavage, drain placement. Suboxone discontinued as she states she is not been taking it, also is not going to be able to continue after discharge. States she will be able to follow-up with her prior director of pediatric rehabilitation. Perhaps may consider following with pain clinic in [facility]. Status: Acute (3) Diverticulitis of colon with perforation: With plans for staged colectomy by surgery. Status: Resolved Qualifiers: Diverticulitis bleeding: unspecified bleeding status Qualified Code(s): K57.20 - Diverticulitis of large intestine with perforation and abscess without bleeding (4) Intra-abdominal abscess: Status: Acute (5) Gastric distention: Status: Acute (6) Sepsis: Overall improved, but persistent leukocytosis with worsening today, remained afebrile until this afternoon again low-grade temp 100 Fahrenheit. Blood cultures so far without growth. Additional management of underlying etiologies as above. Status: Acute Additional A&P Information Smoking addiction: Encourage cessation. Nicotine replacement in case of craving. Hypokalemia: Replace. Hypomagnesemia: Replace, recheck. Attestations Medical Necessity Statement*: Continue admission for management of fever, abdominal abscess, colitis. Coding Level of Care Code Acute Territory Manager for [facility] Fwd Diagnoses Fever R50.9 Perforated viscus R19.8 Diverticulitis of colon with perforation K57.20 Diverticulitis bleeding: unspecified bleeding status Intra-abdominal abscess K65.1 Gastric distention K31.89 Sepsis A41.9
--- NOTE | 2020-11-23 19:23 | PC.NURSE ---
this nurse rounded with dr perez at pt bedside,verbal orders received for pt to be placed NPO for possible procedure in the morning.
[2020-11-23 20:52] LABS: Glucose Point of Care 115 mg/dL (70-110)
[2020-11-23] MEDS: potassium chloride oral liq 20 mEq/15 mL UDC 40 MEQ PO (23:41)
[2020-11-23] MEDS: magnesium oxide 400 mg tablet PO (23:41)
[2020-11-24] VITALS (8 sets, daily range): BP systolic 127–150; BP diastolic 79–87; PULSE 72–98; RESP 14–20; TEMP 36.8–38.3; O2SAT 90–95
[2020-11-24] MEDS: HYDROcodone-acetaminophen 5-325 mg Tablet 1 TAB PO ×4 (01:52→21:11)
[2020-11-24] MEDS: ciprofloxacin 500 mg Tablet PO (01:52)
[2020-11-24 02:00] LABS: Basophils # 0.1 10^3/uL (0.0-0.1); Basophils % 0.4 %; Eosinophils % 0.2 %; Hematocrit 28.6 % (37.0-47.0); Hemoglobin 8.7 g/dL (11.5-15.3); Lymphocytes % 9.1 %; Mean Corpuscular HGB Conc 30.4 g/dL (30.0-36.0); Mean Corpuscular Hemoglobin 23.4 pg (28.0-34.0); Mean Corpuscular Volume 76.9 fL (81-99); Mean Platelet Volume 10.4 fL (7.4-10.4); Monocytes % 4.4 %; Neutrophils # 18.64 10^3/uL (1.8-7.7); Neutrophils % 83.3 %; Nucleated Red Blood Cells % 0.1 %; Platelet Count 382 10^3/cmm (130-400); Red Blood Count 3.72 10^6/uL (4.1-5.3); Red Cell Distribution Width 18.6 % (12.1-15.1); White Blood Count 22.4 10^3/uL (4.0-10.0)
[2020-11-24 02:13] LABS: Alanine Aminotransferase < 5 U/L (0-33); Albumin Level 2.3 g/dL (3.5-5.2); Alkaline Phosphatase 73 IU/L (35-105); Anion Gap 12.7 (5-19); Aspartate Amino Transferase 12 U/L (0-32); Blood Urea Nitrogen 3 mg/dL (6-20); Calcium 7.4 mg/dL (8.5-10.5); Carbon Dioxide 25 mmol/L (22-29); Chloride 102 mmol/L (98-107); Globulin 3.9 g/dL (1.3-4.6); Glomerular Filtration Rate 254.7 mL/min (90-130); Glucose 84 mg/dL (65-115); Magnesium 1.6 mg/dL (1.7-2.3); Osmolality Calculated 278 mOsm/kg (285-295); Potassium 3.7 mmol/L (3.5-5.1); Sodium 136 mmol/L (136-145); Total Bilirubin 0.4 mg/dL (0.15-1.2); Total Protein 6.2 g/dL (6.6-8.7)
--- NOTE | 2020-11-24 05:40 | PM.PN ---
Subjective Subjective: Interval history: Patient shows worsening leukocytosis and running low-grade temperature 100.4, purulent discharge appreciated from both drains, patient continues to tolerate p.o. intake and passing gas and having bowel movements. Medications: Reviewed: Yes Vitals/I&O/Wt Last Vital Signs Temp 100.4 F H 11/24/20 04:00 Pulse 93 11/24/20 04:00 Resp 20 H 11/24/20 04:00 BP 139/85 11/24/20 04:00 Pulse Ox 90 11/24/20 04:00 11/23/20 11/23/20 11/24/20 14:59 22:59 06:59 Intake Total 1091.667 / 1091.667 480 / 1571.667 240 / 1811.667 Output Total 315 / 315 520 / 835 Balance 1091.667 / 1091.667 165 / 1256.667 -280 / 976.667 Physical Exam Narrative: EXAM NARRATIVE: Patient is conscious alert oriented X3, anxious BMI 34 Head and neck examination PERRLA no masses no cervical lymphadenopathy no jaundice. Abdomen nontender except mildly at the incision sites,mildly distended soft no organomegaly guarding or rigidity/no signs of peritonitis. B Incisions are clean dry and intact and skin jluis in place and the dressing was removed by me bedside Drains in place showing purulent discharge, some is appreciated around the left lower abdominal drain Extremities no cyanosis no clubbing no edema Urinary Catheter Management^: [place]: Cath Placed During This Visit: yes, but has since been removed by the nurse Reason for Continuing Indwelling Catheter: Accurate Measurement of Urinary Output in Critically Ill Patients Urinary Catheter Date of Insertion: 11/17/20 Urinary Catheter Time of Insertion: 07:30 Date Urinary Catheter Removed: 11/19/20 Time Urinary Catheter Discontinued: 17:15 Data : 11/24/20 01:48 11/24/20 01:48 Micro: Microbiology 11/17/20 08:27 Anaerobic Culture - Preliminary Peritoneal Cavity Bacteroides distasonis Bacteroides thetaiotaomicron A&P Assessment and plan (1) Diverticulitis of colon with perforation: Patient undergone diagnostic laparoscopy with peritoneal lavage and drainage of intra-abdominal abscesses with drain placements 11/17/2020 We will plan to send the patient for CT guided drainage of the intra-abdominal fluid collection towards the left lower abdominal compartment Continue ambulation IS every hour We will order PICC line as patient have difficult IV access Drain care and teaching. At 9:00 AM I discussed the CT scan images with Dr. Garcia our interventional radiologist and he believes at this point that there is nothing to be drained percutaneous and likely if patient continues to have fevers and worsening leukocytosis in few days we can repeat the CT scan for a potential fluid collection that can be amenable for drainage but as of now her scan in comparison to the admission scan on the looks much better. I also updated Dr. Huerta the hospitalist on the case and will maximize her broad-spectrum IV antibiotics and will continue to follow on the patient clinical progress. Assurance and education All questions have been answered and all concerns have been addressed to patient's satisfaction. Status: Resolved Qualifiers: Diverticulitis bleeding: unspecified bleeding status Qualified Code(s): K57.20 - Diverticulitis of large intestine with perforation and abscess without bleeding Attestations Medical Necessity Statement*: Continue inpatient hospitalization passing 2 midnights for perioperative care status post drainage of intra-abdominal abscesses Time Spent in Patient Care: (>than 50% of time spent in counselling and/or direct pt care on unit). Coding Level of Care Code Acute Photo Tube Assembler for g Fwd Diagnoses Diverticulitis of colon with perforation K57.20 Diverticulitis bleeding: unspecified bleeding status
[2020-11-24 06:49] LABS: Glucose Point of Care 85 mg/dL (70-110)
[2020-11-24] MEDS: pantoprazole DR 40 mg Tablet 20 MG PO (08:20)
[2020-11-24] MEDS: metroNIDAZOLE 500 MG Tablet PO ×3 (08:20→20:03)
--- NOTE | 2020-11-24 10:41 | PC.NURSE ---
AM UPDATED NOTE UPDATED PT PLAN OF CARE - PT VERBALIZES UNDERSTANDING
--- NOTE | 2020-11-24 11:15 | PC.NURSE ---
Patient refused for me to take vital signs. Reported to nurse.
--- NOTE | 2020-11-24 11:59 | PM.PN ---
Subjective Subjective: Interval history: Hospital course, labs appreciated. On examination patient lying in bed, seems drowsy at first but arousable and is able to have complete conversation with me. Denies any nausea, vomiting, headache. Complaining of abdominal pain. Drains draining purulent discharge. T-max since last night 101 Fahrenheit earlier today morning. Patient has remained hemodynamically stable. Medications: Reviewed: Yes Vitals/I&O/Wt Last Vital Signs Temp 100.1 F H 11/24/20 11:36 Pulse 92 11/24/20 11:36 Resp 16 11/24/20 11:36 BP 143/87 11/24/20 11:36 Pulse Ox 92 11/24/20 11:36 11/23/20 11/24/20 11/24/20 22:59 06:59 14:59 Intake Total 480 / 1571.667 240 / 1811.667 Output Total 315 / 315 520 / 835 635 / 635 Balance 165 / 1256.667 -280 / 976.667 -635 / -635 Physical Exam Const: COMMON NORMALS: no acute distress, patient oriented x3 and alert GENERAL APPEARANCE: cooperative ORIENTATION/CONSCIOUSNESS: Yes awake OTHER: Sitting upright HENMT: COMMON NORMALS: oropharynx normal Neck/C-Spine: COMMON NORMALS: no JVD Resp: COMMON NORMALS: normal respiratory effort and clear to auscultation bilaterally AUSCULTATION: clear to auscultation bilaterally Cardio: COMMON NORMALS: no JVD, regular rhythm, S1 normal heart sound present, S2 normal heart sound present and No murmurs present (Cardio) RHYTHM: regular rhythm HEART SOUNDS: S1 normal heart sound present and S2 normal heart sound present GI: INSPECTION: Yes abdominal distension AUSCULTATION: Yes Hypoactive bowel sounds present PALPATION: Yes Tenderness to palpation present (GI) OTHER: Small amount of purulence noted in one of the drains. Extremity: COMMON NORMALS: no joint enlargement and no pedal edema Neuro: COMMON NORMALS: patient oriented x3 and moves all extremities SENSORIUM/ORIENTATION: Yes alert Skin: COMMON NORMALS: no rashes or lesions noted GENERAL SKIN EXAM: no rashes or lesions noted Urinary Catheter Management^: [place]: Cath Placed During This Visit: yes, but has since been removed by the nurse Reason for Continuing Indwelling Catheter: Accurate Measurement of Urinary Output in Critically Ill Patients Urinary Catheter Date of Insertion: 11/17/20 Urinary Catheter Time of Insertion: 07:30 Date Urinary Catheter Removed: 11/19/20 Time Urinary Catheter Discontinued: 17:15 Data : 11/24/20 01:48 11/24/20 01:48 Micro: Microbiology 11/24/20 11:30 Blood Culture - Preliminary Blood SPECIMEN COLLECTED 11/24/20 11:30 Blood Culture - Preliminary Blood SPECIMEN COLLECTED 11/17/20 08:27 Anaerobic Culture - Final Peritoneal Cavity Bacteroides distasonis Bacteroides thetaiotaomicron 11/22/20 13:15 Catheter Tip Culture - Preliminary Central Line A&P Assessment and plan (1) Sepsis: Status: Acute (2) Fever: Status: Acute (3) Perforated viscus: Perforated sigmoid diverticular abscess. Purulent peritonitis. With intra-abdominal abscess. Status post laparoscopic abscess drainage, pericardial lavage, drain placement. Suboxone discontinued as she states she is not been taking it, also is not going to be able to continue after discharge. 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 Perhaps may consider following with pain clinic in [facility]. Status: Acute (4) Diverticulitis of colon with perforation: With plans for staged colectomy by surgery. Status: Resolved Qualifiers: Diverticulitis bleeding: unspecified bleeding status Qualified Code(s): K57.20 - Diverticulitis of large intestine with perforation and abscess without bleeding (5) Intra-abdominal abscess: Status: Acute (6) Gastric distention: Status: Acute Additional A&P Information Sepsis secondary intra-abdominal abscess/infection from perforated viscus: Post abdominal wash day 6. Patient's white count trending up again, febrile last 24 hours. No respiratory symptoms. Central line removed on 11/22. Tip sent for culture. Benign preliminary. CT abdomen done yesterday appreciated. As per conversation between surgery and Dr. Garcia from radiology patient does not have a clear collection of abscess at present and is quite possible that patient had multiple micro abscesses. Culture results OR growing Bacteroides and peritoneal fluid growing E. coli. On review of cultures from August there is a strep atelectases in urine. However cultures also showing gram-positive cocci in chains. We will Antibiotics to ceftriaxone IV 1 g daily. Stop ciprofloxacin. Continue oral Flagyl. Check blood cultures again, stool for C. difficile., MRSA swab. For now we will continue same antibiotics. If patient's white count continues to trend up, but becomes hemodynamically unstable or continues to have high spikes of fever will have to scan abdomen again in next 2 to 3 days for proper definition of collection versus possible intra-abdominal process. Will confirm with surgery. Keep mean arterial pressure over 65. Patient eating well for now. Continue to hold off on IV fluids. Smoking addiction: Encourage cessation. Nicotine replacement in case of craving. Hypokalemia: Replace. Hypomagnesemia: Replace, recheck. Full code. GI soft diet. Heparin for DVT prophylaxis. Attestations Medical Necessity Statement*: Patient requires further hospitalization for management of sepsis secondary to intra-abdominal abscess in setting of perforated viscus Time Spent in Patient Care: Greater than 35 minutes (>than 50% of time spent in counselling and/or direct pt care on unit). Coding Level of Care Code Acute Public Administration Professor for g Fwd Diagnoses Sepsis A41.9 Fever R50.9 Perforated viscus R19.8 Diverticulitis of colon with perforation K57.20 Diverticulitis bleeding: unspecified bleeding status Intra-abdominal abscess K65.1 Gastric distention K31.89
[2020-11-24] MEDS: cefTRIAXone 1,000 MG in sodium chloride 0.9% (plus) 50 ML 100 MG IV (12:00)
[2020-11-24 13:13] LABS: Iron 9 ug/dL (37-145); Percent Saturation 5.2 % (20-50); Total Iron Binding Capacity 171 mcg/dl; Unsaturated Iron Binding 162 ug/dL (112-347)
[2020-11-24 13:25] LABS: Thyroid Stimulating Hormone 1.37 uIU/mL (0.27-4.20)
[2020-11-24] MEDS: magnesium sulfate premix 2 GM/50 ML PIGGYBACK IV (13:49)
[2020-11-24] MEDS: guaiFENesin 600 mg Tablet PO (16:28)
[2020-11-24] MEDS: magnesium oxide 400 mg tablet PO (16:28)
--- NOTE | 2020-11-24 18:36 | PC.NURSE ---
DR LAUREANO TINSLEY PREVIOUSLY ON FLOOR - NOTIFIED DR OF CONTINUED PURLENT DRAINAGE FROM LEFT DRAIN SITE, BULB DRAINAGE - FOUL SMELLING WELL
[2020-11-24] MEDS: heparin 5,000 unit/mL INJ 1 mL 5000 UNIT SUBCUT (20:03)
[2020-11-25] MEDS: iron sucrose 200 MG in sodium chloride 0.9% (100 ml) 100 ML 220 MG IV (00:50)
[2020-11-25 02:46] LABS: Basophils # 0.1 10^3/uL (0.0-0.1); Basophils % 0.3 %; Eosinophils # 0.1 10^3/uL (0.0-0.8); Eosinophils % 0.5 %; Hematocrit 27.9 % (37.0-47.0); Lymphocytes # 1.6 10^3/uL (0.8-4.8); Lymphocytes % 7.7 %; Mean Corpuscular HGB Conc 32.3 g/dL (30.0-36.0); Mean Corpuscular Hemoglobin 24.1 pg (28.0-34.0); Mean Corpuscular Volume 74.8 fL (81-99); Monocytes # 0.7 10^3/uL (0.2-0.9); Monocytes % 3.5 %; Neutrophils # 17.98 10^3/uL (1.8-7.7); Neutrophils % 86.5 %; Nucleated Red Blood Cells % 0 %; Platelet Count 454 10^3/cmm (130-400); Red Blood Count 3.73 10^6/uL (4.1-5.3); Red Cell Distribution Width 18.6 % (12.1-15.1); White Blood Count 20.8 10^3/uL (4.0-10.0)
[2020-11-25 03:08] LABS: Alanine Aminotransferase < 5 U/L (0-33); Albumin Level 2.3 g/dL (3.5-5.2); Alkaline Phosphatase 80 IU/L (35-105); Aspartate Amino Transferase 12 U/L (0-32); Blood Urea Nitrogen 5 mg/dL (6-20); Calcium 7.5 mg/dL (8.5-10.5); Carbon Dioxide 28 mmol/L (22-29); Chloride 100 mmol/L (98-107); Globulin 3.8 g/dL (1.3-4.6); Glomerular Filtration Rate 254.7 mL/min (90-130); Glucose 110 mg/dL (65-115); Osmolality Calculated 278 mOsm/kg (285-295); Sodium 135 mmol/L (136-145); Total Bilirubin 0.4 mg/dL (0.15-1.2); Total Protein 6.1 g/dL (6.6-8.7)
[2020-11-25 03:28] LABS: Estmated Average Glucose 91; Hemoglobin A1C 4.8 % (4.0-6.0)
[2020-11-25 04:00] VITALS: BP 126/81; PULSE 75; RESP 20; TEMP 37.3; O2SAT 92
[2020-11-25] MEDS: HYDROcodone-acetaminophen 5-325 mg Tablet 1 TAB PO ×3 (04:02→23:44)
[2020-11-25] MEDS: heparin 5,000 unit/mL INJ 1 mL 5000 UNIT SUBCUT ×2 (06:01→17:07)
--- NOTE | 2020-11-25 06:20 | P.PN_ITS ---
Subjective Subjective: Interval history: Patient reports that she is overall feeling better, has been ambulating and working on the incentive spirometer and tolerating p.o. intake, she reports that her urine was concentrated. Slight trending down and leukocytosis to 20.8 Medications: Reviewed: Yes Vitals/I&O/Wt Last Vital Signs Temp 99.2 F 11/25/20 04:00 Pulse 75 11/25/20 04:00 Resp 20 H 11/25/20 04:00 BP 126/81 11/25/20 04:00 Pulse Ox 92 11/25/20 04:00 11/24/20 11/24/20 11/25/20 14:59 22:59 06:59 Intake Total 120 / 120 1478.333 / 1598.333 930 / 2528.333 Output Total 635 / 635 480 / 1115 800 / 1915 Balance -515 / -515 998.333 / 483.333 130 / 613.333 Physical Exam Narrative: EXAM NARRATIVE: Patient is conscious alert oriented X3, anxious BMI 34 Head and neck examination PERRLA no masses no cervical lymphadenopathy no jaundice. Abdomen nontender except mildly at the incision sites,not distended soft no organomegaly guarding or rigidity/no signs of peritonitis. Incisions are clean dry and intact and skin jluis in place Drains in place showing purulent discharge of the left lower drain and serous output from the right upper drain. Extremities no cyanosis no clubbing no edema Urinary Catheter Management^: [place]: Cath Placed During This Visit: yes, but has since been removed by the nurse Reason for Continuing Indwelling Catheter: Accurate Measurement of Urinary Outp ut in Critically Ill Patients Urinary Catheter Date of Insertion: 11/17/20 Urinary Catheter Time of Insertion: 07:30 Date Urinary Catheter Removed: 11/19/20 Time Urinary Catheter Discontinued: 17:15 Data : 11/25/20 02:02 11/25/20 02:02 Micro: Microbiology 11/24/20 11:30 Blood Culture - Preliminary Blood SPECIMEN COLLECTED 11/24/20 11:30 Blood Culture - Preliminary Blood SPECIMEN COLLECTED 11/17/20 08:27 Anaerobic Culture - Final Peritoneal Cavity Bacteroides distasonis Bacteroides thetaiotaomicron 11/22/20 13:15 Catheter Tip Culture - Preliminary Central Line A&P Assessment and plan (1) Diverticulitis of colon with perforation: Patient undergone diagnostic laparoscopy with peritoneal lavage and drainage of intra-abdominal abscesses with drain placements 11/17/2020 Patient seems to be turning the corner with response to antibiotics yet continue to have concern about potential pending intra-abdominal fluid collection that may require further drainage. We will continue to follow clinically and consider sending for urinalysis and cultures based on patient's complaints. We will DC skin jluis and apply Steri-Strips Continue drain teaching and education Continue pharmacologic DVT prophylaxis Encourage ambulation Incentive spirometer every hour Assurance and education All questions have been answered and all concerns have been addressed to patient's satisfaction. Status: Resolved Qualifiers: Diverticulitis bleeding: unspecified bleeding status Qualified Code(s): K57.20 - Diverticulitis of large intestine with perforation and abscess without bleeding Attestations Medical Necessity Statement*: Continue inpatient hospitalization passing 2 midnights for perioperative care status post drainage of intra-abdominal abscess es Time Spent in Patient Care: (>than 50% of time spent in counselling and/or direct pt care on unit) . Coding Level of Care Code [facility]ool [facility] Diagnoses Diverticulitis of colon with perforation K57.20 Diverticulitis bleeding: unspecified bleeding status
[2020-11-25 07:28] VITALS: BP 139/86; PULSE 79; RESP 18; TEMP 37.4; O2SAT 91
[2020-11-25] MEDS: pantoprazole DR 40 mg Tablet PO (08:22)
[2020-11-25] MEDS: magnesium oxide 400 mg tablet PO ×2 (08:23→17:07)
[2020-11-25] MEDS: guaiFENesin 600 mg Tablet PO ×2 (08:23→17:07)
[2020-11-25] MEDS: metroNIDAZOLE 500 MG Tablet PO ×3 (08:23→21:37)
--- NOTE | 2020-11-25 10:44 | P.PN_ITS ---
Subjective Subjective: Interval history: No acute events overnight. Patient states she is feeling better than before. T-max in last 24 hours 99.3 Fahrenheit. Patient denies any nausea, vomiting, headache. Drainage from the FACUNDO drain seems to be decreasing. Patient complaining of occasional episodes of dysuria. Denies any vaginal itching, vaginal discharge, diarrhea. Medications: Reviewed: Yes Vitals/I&O/Wt Last Vital Signs Temp 99.3 F 11/25/20 07:28 Pulse 79 11/25/20 07:28 Resp 18 11/25/20 07:28 BP 139/86 11/25/20 07:28 Pulse Ox 91 11/25/20 07:28 11/24/20 11/25/20 11/25/20 22:59 06:59 14:59 Intake Total 1478.333 / 1598.333 930 / 2528.333 240 / 240 Output Total 480 / 1115 820 / 1935 300 / 300 Balance 998.333 / 483.333 110 / 593.333 -60 / -60 Physical Exam Const: COMMON NORMALS: no acute distress, patient oriented x3 and alert GENERAL APPEARANCE: cooperative ORIENTATION/CONSCIOUSNESS: Yes awake OTHER: Sitting upright HENMT: COMMON NORMALS: oropharynx normal Neck/C-Spine: COMMON NORMALS: no JVD Resp: COMMON NORMALS: normal respiratory effort and clear to auscultation bilaterally AUSCULTATION: clear to auscultation bilaterally Cardio: COMMON NORMALS: no JVD, regular rhythm, S1 normal heart sound present, S2 normal heart sound present and No murmurs present (Cardio) RHYTHM: regular rhythm HEART SOUNDS: S1 normal heart sound present and S2 normal heart sound present GI: INSPECTION: Yes abdominal distension AUSCULTATION: Yes Hypoactive bowel sounds present PALPATION: Yes Tenderness to palpation present (GI) OTHER: Small amount of purulence noted in one of the drains. Extremity: COMMON NORMALS: no joint enlargement and no pedal edema Neuro: COMMON NORMALS: patient oriented x3 and moves all extremities SENSORIUM/ORIENTATION: Yes alert Skin: COMMON NORMALS: no rashes or lesions noted GENERAL SKIN EXAM: no rashes or lesions noted Urinary Catheter Management^: [place]: Cath Placed During This Visit: yes, but has since been removed by the nurse Reason for Continuing Indwelling Catheter: Accurate Measurement of Urinary Output in Critically Ill Patients Urinary Catheter Date of Insertion: 11/17/20 Urinary Catheter Time of Insertion: 07:30 Date Urinary Catheter Removed: 11/19/20 Time Urinary Catheter Discontinued: 17:15 Data : 11/25/20 02:02 11/25/20 02:02 Micro: Microbiology 11/24/20 11:30 Blood Culture - Preliminary Blood SPECIMEN COLLECTED 11/24/20 11:30 Blood Culture - Preliminary Blood SPECIMEN COLLECTED 11/17/20 08:27 Anaerobic Culture - Final Peritoneal Cavity Bacteroides distasonis Bacteroides thetaiotaomicron 11/22/20 13:15 Catheter Tip Culture - Preliminary Central Line Microbiology 11/25/20 06:00 Urine Random Chlamydia trachomatis (MICHAEL) - Final 11/25/20 06:00 Urine Random Neisseria gonorrhoeae (MICHAEL) - Final 11/24/20 14:00 Nose MRSA Culture - Final 11/24/20 11:30 Blood Blood Culture - Preliminary NEGATIVE TO DATE 11/24/20 11:30 Blood Blood Culture - Preliminary NEGATIVE TO DATE 11/22/20 13:15 Central Line Catheter Tip Culture - Final 11/17/20 08:27 Peritoneal Cavity Anaerobic Culture - Final Bacteroides distasonis Bacteroides thetaiotaomicron 11/17/20 12:13 Blood Blood Culture - Final NO GROWTH AFTER 5 DAYS 11/17/20 12:00 Blood Blood Culture - Final NO GROWTH AFTER 5 DAYS 11/17/20 08:27 Peritoneal Fluid Gram Stain - Final 11/17/20 08:27 Peritoneal Fluid Body Fluid Culture - Final Escherichia coli A&P Assessment and plan (1) Sepsis: Status: Acute (2) Fever: Status: Acute (3) Perforated viscus: Perforated sigmoid diverticular abscess. Purulent peritonitis. With intra-abdominal abscess. Status post laparoscopic abscess drainage, pericardial lavage, drain placement. Suboxone discontinued as she states she is not been taking it, also is not going to be able to continue after discharge. 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 Perhaps may consider following with pain clinic in [facility]. Status: Acute (4) Diverticulitis of colon with perforation: With plans for staged colectomy by surgery. Status: Resolved Qualifiers: Diverticulitis bleeding: unspecified bleeding status Qualified Code(s): K57.20 - Diverticulitis of large intestine with perforation and abscess without bleeding (5) Intra-abdominal abscess: Status: Acute (6) Gastric distention: Status: Acute Additional A&P Information Sepsis secondary intra-abdominal abscess from perforated viscus: Post abdominal wash day 7. Patient's white count trending up again, febrile last 24 hours. No respiratory symptoms. Central line removed on 11/22. Tip sent for culture. Preliminary negative. CT abdomen done November 23. As per conversation between surgery and Dr. Garcia from radiology patient does not have a clear collection of abscess at present and is quite possible that patient had multiple micro abscesses. Culture results OR growing Bacteroides and peritoneal fluid growing E. coli. On review of cultures from August there is a strep atelectases in urine. However cultures also showing gram-positive cocci in chains. Continue with IV ceftriaxone 1 g daily and oral Flagyl 500 3 times daily. Patient would most likely require ceftriaxone and Flagyl as an outpatient. Patient would need ceftriaxone once daily for next 4 weeks while being followed up as an outpatient with surgery. Repeat blood cultures have remained negative, MRSA in the nares positive. Stool studies awaited. For now we will continue the ceftriaxone 1 mg IV daily. Patient seems to be clinically improving with very slow decline in leukocytosis. We will continue to monitor. If patient leukocytosis worsens or patient becomes hemodynamically unstable or continues to have high spikes of fever will have to scan abdomen again in next 2 to 3 days for proper definition of collection versus possible intra-abdominal process. Will confirm with surgery. Keep mean arterial pressure over 65. Patient eating well for now. Continue to hold off on IV fluids. Patient complaining of mild dysuria though urinalysis done negative for any si gns of infection and patient is already on ceftriaxone which would cover for strep and pansensitive E. coli from the cultures before. Continue with [place] 5 every 6 hours as needed for pain. Stop IV Dilaudid. Smoking addiction: Encourage cessation. Nicotine replacement in case of craving. Hypokalemia: Replace. Hypomagnesemia: Replace, recheck. Iron deficiency anemia: Hemoglobin stable. Start patient on iron supplementation. Discharge planning: If patient leukocytosis continue to trend down and has been afebrile. Of around 48 hours with blood cultures remaining negative can plan to discharge patient on IV ceftriaxone and oral Flagyl. Patient would need to come as an outpatient infusion center daily for IV ceftriaxone and follow-up with Dr. Metcalf as an outpatient. Case management involved for the same. Patient is agreeable to the above plan of care. Full code. GI soft diet. Heparin for DVT prophylaxis. Attestations Medical Necessity Statement*: Patient requires further hospitalization for management of sepsis secondary intra-abdominal abscess due to perforated viscus. Time Spent in Patient Care: Greater than 35 minutes (>than 50% of time spent in counselling and/or direct pt care on unit) . Coding Level of Care Code Acute Housekeeping Lead for Chg Fwd Exam Comprehensive Diagnoses Sepsis A41.9 Fever R50.9 Perforated viscus R19.8 Diverticulitis of colon with perforation K57.20 Diverticulitis bleeding: unspecified bleeding status Intra-abdominal abscess K65.1 Gastric distention K31.89
[2020-11-25] MEDS: potassium chloride ER 20 mEq Tablet 80 MEQ PO (11:34)
[2020-11-25] MEDS: cefTRIAXone 1,000 MG in sodium chloride 0.9% (plus) 50 ML 100 MG IV (11:35)
[2020-11-25 12:00] VITALS: BP 120/79; PULSE 84; RESP 16; TEMP 37.8; O2SAT 89
[2020-11-25 15:35] VITALS: O2SAT 92
[2020-11-25 16:00] VITALS: BP 146/83; PULSE 90; RESP 16; TEMP 36.6; O2SAT 90
--- NOTE | 2020-11-25 17:15 | PC.NURSE ---
AMBULATED PT UP AMBULATING IN [place] -
[2020-11-25 20:00] VITALS: BP 129/80; PULSE 82; RESP 16; TEMP 37.6; O2SAT 93
[2020-11-26] VITALS: BP 130/75; PULSE 88; RESP 20; TEMP 38.1; O2SAT 93
[2020-11-26 00:03] LABS: Bacteria Urine TRACE /hpf; Bilirubin Urine Neg (Negative); Blood Urine Neg (Negative); Glucose Urine UA Norm (Normal); Ketones Urine Negative (Negative); Leukocyte Esterase Urine Negative (Negative); Mucus Urine 1+ /hpf; Nitrate Urine Negative (Negative); Protein Urine Neg (Negative); RBC Urine 0-4 /hpf (0-2); Specific Gravity, Urine 1.015 (1.005-1.030); Sulfosalicylic Acid Urine Negative (Negative); Urine Appearance Clear (CLEAR); Urine Color Yellow (Yellow); Urobilinogen Urine Norm (Negative); WBC Urine 0-4 /hpf (0-5); pH Urine 9 (5-7)
[2020-11-26] MEDS: iron sucrose 200 MG in sodium chloride 0.9% (100 ml) 100 ML 220 MG IV (00:22)
[2020-11-26 03:28] LABS: Basophils # 0.1 10^3/uL (0.0-0.1); Basophils % 0.3 %; Eosinophils # 0.2 10^3/uL (0.0-0.8); Eosinophils % 0.7 %; Hematocrit 28.2 % (37.0-47.0); Hemoglobin 8.5 g/dL (11.5-15.3); Lymphocytes # 2.3 10^3/uL (0.8-4.8); Lymphocytes % 10.1 %; Mean Corpuscular HGB Conc 30.1 g/dL (30.0-36.0); Mean Corpuscular Hemoglobin 23.3 pg (28.0-34.0); Mean Corpuscular Volume 77.3 fL (81-99); Mean Platelet Volume 9.6 fL (7.4-10.4); Monocytes # 1.3 10^3/uL (0.2-0.9); Monocytes % 5.9 %; Neutrophils # 18.39 10^3/uL (1.8-7.7); Neutrophils % 81.7 %; Nucleated Red Blood Cells % 0 %; Platelet Count 576 10^3/cmm (130-400); Red Blood Count 3.65 10^6/uL (4.1-5.3); White Blood Count 22.5 10^3/uL (4.0-10.0)
[2020-11-26 03:45] VITALS: BP 137/84; PULSE 74; RESP 18; TEMP 38.1; O2SAT 93
[2020-11-26 03:49] LABS: Alanine Aminotransferase < 5 U/L (0-33); Albumin Level 2.2 g/dL (3.5-5.2); Alkaline Phosphatase 65 IU/L (35-105); Aspartate Amino Transferase 10 U/L (0-32); Blood Urea Nitrogen 3 mg/dL (6-20); Calcium 7.6 mg/dL (8.5-10.5); Carbon Dioxide 25 mmol/L (22-29); Chloride 99 mmol/L (98-107); Globulin 4.3 g/dL (1.3-4.6); Glomerular Filtration Rate 254.7 mL/min (90-130); Glucose 74 mg/dL (65-115); Osmolality Calculated 269 mOsm/kg (285-295); Sodium 132 mmol/L (136-145); Total Bilirubin 0.4 mg/dL (0.15-1.2); Total Protein 6.5 g/dL (6.6-8.7)
[2020-11-26] MEDS: heparin 5,000 unit/mL INJ 1 mL 5000 UNIT SUBCUT ×2 (06:01→18:14)
--- NOTE | 2020-11-26 06:29 | PC.NURSE ---
pt called this nurse into room after speaking with Dr. Zaman, whom had asked pt if she had been having any problems urinating pt had replied no . pt informed this nurse that she had just voided and when she wiped, she had a pink mucous streak on the toilet paper. this nurse observed what pt was describing, which was a light pink, purulent mucous streak on the toilet paper. pt continued to state she was not having any trouble urinating
--- NOTE | 2020-11-26 06:33 | P.PN_ITS ---
Subjective Subjective: Interval history: Overall patient feels well, yet continues to have purulent drainage from the left lower abdominal drain, tolerates p.o. intake and vital signs are appropriate except for a temperature of 100.6 and increase in leukocytic count up to 22.5 again. Medications: Reviewed: Yes Vitals/I&O/Wt Last Vital Signs Temp 100.6 F H 11/26/20 03:45 Pulse 74 11/26/20 03:45 Resp 18 11/26/20 03:45 BP 137/84 11/26/20 03:45 Pulse Ox 93 11/26/20 03:45 11/25/20 11/25/20 11/26/20 14:59 22:59 06:59 Intake Total 240 / 240 50 / 290 110 / 400 Output Total 315 / 315 210 / 525 420 / 945 Balance -75 / -75 -160 / -235 -310 / -545 Physical Exam Narrative: EXAM NARRATIVE: Patient is conscious alert oriented X3, anxious BMI 34 Head and neck examination PERRLA no masses no cervical lymphadenopathy no jaundice. Abdomen nontender,not distended soft no organomegaly guarding or rigidity/no signs of peritonitis. Incisions are clean dry and intact and skin jluis in place, Steri-Strips in place Drains in place showing purulent discharge of the left lower drain and serous output from the right upper drain. Extremities no cyanosis no clubbing no edema Urinary Catheter Management^: [place]: Cath Placed During This Visit: yes, but has since been removed by the nurse Reason for Continuing Indwelling Catheter: Accurate Measurement of Urinary Output in Critically Ill Patients Urinary Catheter Date of Insertion: 11/17/20 Urinary Catheter Time of Insertion: 07:30 Date Urinary Catheter Removed: 11/19/20 Time Urinary Catheter Discontinued: 17:15 Data : 11/26/20 03:15 11/26/20 03:15 Micro: Microbiology 11/25/20 06:00 Chlamydia trachomatis (MICHAEL) - Final Urine Random Neisseria gonorrhoeae (MICHAEL) - Final 11/24/20 14:00 MRSA Culture - Final Nose 11/24/20 11:30 Blood Culture - Preliminary Blood NEGATIVE TO DATE 11/24/20 11:30 Blood Culture - Preliminary Blood NEGATIVE TO DATE 11/22/20 13:15 Catheter Tip Culture - Final Central Line A&P Assessment and plan (1) Diverticulitis of colon with perforation: Patient undergone diagnostic laparoscopy with peritoneal lavage and drainage of intra-abdominal abscesses with drain placements 11/17/2020 Continue nutrition and focus on protein shakes Continue drain teaching and education Continue pharmacologic DVT prophylaxis Encourage ambulation Incentive spirometer every hour We will follow on a.m. labs tomorrow if patient continues to have worsening leukocytosis we will plan to rescan her in the form CT scan of the abdomen pelvis with oral and IV contrast. We will continue coordinating with Dr. Longo Assurance and education All questions have been answered and all concerns have been addressed to patient's satisfaction. Status: Resolved Qualifiers: Diverticulitis bleeding: unspecified bleeding status Qualified Code(s): K57.20 - Diverticulitis of large intestine with perforation and abscess without bleeding Attestations Medical Necessity Statement*: Continue inpatient hospitalization passing 2 midnights for perioperative care status post drainage of intra-abdominal abscesses Time Spent in Patient Care: (>than 50% of time spent in counselling and/or direct pt care on unit) . Coding Level of Care Code Acute Economic Development Director for [facility] Fwd Diagnoses Diverticulitis of colon with perforation K57.20 Diverticulitis bleeding: unspecified bleeding status
[2020-11-26 08:00] VITALS: BP 136/83; PULSE 83; RESP 20; TEMP 38.8; O2SAT 94
[2020-11-26] MEDS: metroNIDAZOLE 500 MG Tablet PO ×3 (08:26→22:24)
[2020-11-26] MEDS: HYDROcodone-acetaminophen 5-325 mg Tablet 1 TAB PO ×2 (08:26→16:35)
[2020-11-26] MEDS: acetaminophen 325 mg Tablet PO (08:26)
[2020-11-26] MEDS: magnesium oxide 400 mg tablet PO ×2 (08:26→18:14)
[2020-11-26] MEDS: pantoprazole DR 40 mg Tablet PO (08:27)
[2020-11-26] MEDS: guaiFENesin 600 mg Tablet PO ×2 (08:27→18:14)
[2020-11-26] MEDS: cefTRIAXone 1,000 MG in sodium chloride 0.9% (plus) 50 ML 100 MG IV (11:45)
[2020-11-26 12:00] VITALS: BP 128/84; PULSE 78; RESP 18; TEMP 36.9; O2SAT 94
[2020-11-26 14:08] LABS: Reticulocyte % 2.7 % (0.5-2.0)
[2020-11-26 14:28] LABS: Folate Level 6.1 ng/mL (4.8-37.3)
--- NOTE | 2020-11-26 17:33 | P.PN_ITS ---
Subjective Subjective: Interval history: Overnight patient had fever up going up to 102 Fahrenheit. On examination patient uncomfortable in bed. She states she is feeling the same. Denies any nausea, vomiting, headache. States pain is well controlled. Patient has remained hemodynamically stable. Passing flatus. Had bowel movement earlier in the day today. Medications: Reviewed: Yes Vitals/I&O/Wt Last Vital Signs Temp 98.4 F 11/26/20 12:00 Pulse 78 11/26/20 12:00 Resp 18 11/26/20 12:00 BP 128/84 11/26/20 12:00 Pulse Ox 94 11/26/20 12:00 11/26/20 11/26/20 11/26/20 06:59 14:59 22:59 Intake Total 110 / 400 600 / 600 50 / 650 Output Total 1120 / 1645 900 / 900 Balance -1010 / -1245 -300 / -300 50 / -250 Physical Exam Const: COMMON NORMALS: no acute distress, patient oriented x3 and alert GENERAL APPEARANCE: cooperative ORIENTATION/CONSCIOUSNESS: Yes awake OTHER: Sitting upright HENMT: COMMON NORMALS: oropharynx normal Neck/C-Spine: COMMON NORMALS: no JVD Resp: COMMON NORMALS: normal respiratory effort and clear to auscultation bilaterally AUSCULTATION: clear to auscultation bilaterally Cardio: COMMON NORMALS: no JVD, regular rhythm, S1 normal heart sound present, S2 normal heart sound present and No murmurs present (Cardio) RHYTHM: regular rhythm HEART SOUNDS: S1 normal heart sound present and S2 normal heart sound present GI: INSPECTION: Yes abdominal distension AUSCULTATION: Yes Hypoactive bowel sounds present PALPATION: Yes Tenderness to palpation present (GI) OTHER: Small amount of purulence noted in one of the drains. Extremity: COMMON NORMALS: no joint enlargement and no pedal edema Neuro: COMMON NORMALS: patient oriented x3 and moves all extremities SENSORIUM/ORIENTATION: Yes alert Skin: COMMON NORMALS: no rashes or lesions noted GENERAL SKIN EXAM: no ra shes or lesions noted Urinary Catheter Management^: [place]: Cath Placed During This Visit: yes, but has since been removed by the nurse Reason for Continuing Indwelling Catheter: Accurate Measurement of Urinary Output in Critically Ill Patients Urinary Catheter Date of Insertion: 11/17/20 Urinary Catheter Time of Insertion: 07:30 Date Urinary Catheter Removed: 11/19/20 Time Urinary Catheter Discontinued: 17:15 Data : 11/26/20 03:15 11/26/20 03:15 Micro: Microbiology 11/24/20 09:20 Stool Lactoferrin - Final Stool C.difficile Toxin B Gene (PCR) - Final Occult Blood (FIT) - Final 11/25/20 06:00 Chlamydia trachomatis (MICHAEL) - Final Urine Random Neisseria gonorrhoeae (MICHAEL) - Final 11/24/20 14:00 MRSA Culture - Final Nose A&P Assessment and plan (1) Sepsis: Status: Acute (2) Fever: Status: Acute (3) Perforated viscus: Perforated sigmoid diverticular abscess. Purulent peritonitis. With intra-abdominal abscess. Status post laparoscopic abscess drainage, pericardial lavage, drain placement. Suboxone discontinued as she states she is not been taking it, also is not going to be able to continue after discharge. States she will be able to follow-up with her prior rehabilitation assistant. Perhaps may consider following with pain clinic in [facility]. Status: Acute (4) Diverticulitis of colon with perforation: With plans for staged colectomy by surgery. Status: Resolved Qualifiers: Diverticulitis bleeding: unspecified bleeding status Qualified Code(s): K57.20 - Diverticulitis of large intestine with perforation and abscess without bleeding (5) Intra-abdominal abscess: Status: Acute (6) Gastric distention: Status: Acute Additional A&P Information Sepsis secondary intra-abdominal abscess from perforated viscus: Post abdominal wash. Patient's white count trending up again, febrile last 24 hours. No respiratory symptoms. Central line removed on 11/22. Tip sent for culture. Preliminary negative. CT abdomen done November 23. As per conversation between surgery and Dr. Garcia from radiology patient does not have a clear collection of abscess at present and is quite possible that patient had multiple micro abscesses. Culture results OR growing Bacteroides and peritoneal fluid growing E. coli. On review of cultures from August there is a strep atelectases in urine. However cultures also showing gram-positive cocci in chains. Given the fact that patient continues to remain febrile with white count trending up again we will switch from ceftriaxone to imipenem 500 every 6. If patient continues to spike fever will need to rescan tomorrow with IV and oral contrast. If patient response to imipenem can plan to send patient on ertapenem. Repeat blood cultures have remained negative, MRSA in the nares positive. Stool studies awaited. Keep mean arterial pressure over 65. Patient eating well for now. Patient complaining of mild dysuria though urinalysis done negative for any signs of infection and patient is already on ceftriaxone which would cover for strep and pansensitive E. coli from the cultures before. Repeat UA negative for any signs of infection. Continue with [employer] 5 every 6 hours as needed for pain. Stop IV Dilaudid. Smoking addiction: Encourage cessation. Nicotine replacement in case of craving. Hyponatremia: Sodium trending down. 132 today. Check urine lites. Start patient on normal saline 75 cc/h. We will continue to monitor sodium daily for now. Iron deficiency anemia: Hemoglobin stable. Start patient on iron supplementation. Discharge planning: If patient leukocytosis continue to trend down and has been afebrile for around 48 hours with blood cultures remaining negative can plan to discharge patient on IV ertapenem. Patient would need to come as an outpatient infusion center daily for IV antibiotics. And follow-up with Dr. Metcalf as an outpatient. Case management involved for the same. Patient is agreeable to the above plan of care. Full code. GI soft diet. Heparin for DVT prophylaxis. Attestations Medical Necessity Statement*: Patient requires further hospitalization for management of sepsis secondary to intra-abdominal abscess from perforated viscus Time Spent in Patient Care: Greater than 35 minutes (>than 50% of time spent in counselling and/or direct pt care on unit) . Coding Level of Care Code [facility] Im[facility] Diagn[facility] Sepsis A41.9 Fever R50.9 Perforated viscus R19.8 Diverticulitis of colon with perforation K57.20 Diverticulitis bleeding: unspecified bleeding status Intra-abdominal abscess K65.1 Gastric distention K31.89
[2020-11-26 18:07] LABS: Vitamin B12 > 2000 pg/mL (232-1245)
[2020-11-26] MEDS: sodium chloride 0.9% 1,000 ML 75 ML IV (18:13)
[2020-11-26 18:55] LABS: Potassium, Radom Urine 13 mmol/L; Urine Random Chloride 193 mmol/L; Urine Random Sodium 239 mmol/L
[2020-11-26 20:00] VITALS: BP 113/73; PULSE 73; RESP 17; TEMP 36.8; O2SAT 94
[2020-11-27] VITALS (25 sets, daily range): BP systolic 115–153; BP diastolic 73–95; PULSE 72–95; RESP 12–33; TEMP 36.2–37.7; O2SAT 92–100
[2020-11-27] MEDS: iron sucrose 200 MG in sodium chloride 0.9% (100 ml) 100 ML 220 MG IV (00:39)
[2020-11-27] MEDS: HYDROcodone-acetaminophen 5-325 mg Tablet 1 TAB PO ×3 (00:54→16:54)
[2020-11-27 02:54] LABS: Basophils # 0.1 10^3/uL (0.0-0.1); Basophils % 0.3 %; Eosinophils # 0.1 10^3/uL (0.0-0.8); Eosinophils % 0.2 %; Hematocrit 26.2 % (37.0-47.0); Lymphocytes # 1.8 10^3/uL (0.8-4.8); Lymphocytes % 8.3 %; Mean Corpuscular HGB Conc 30.5 g/dL (30.0-36.0); Mean Corpuscular Hemoglobin 23.3 pg (28.0-34.0); Mean Corpuscular Volume 76.4 fL (81-99); Mean Platelet Volume 9.8 fL (7.4-10.4); Monocytes # 1.3 10^3/uL (0.2-0.9); Monocytes % 6.2 %; Neutrophils # 17.65 10^3/uL (1.8-7.7); Nucleated Red Blood Cells % 0 %; Platelet Count 680 10^3/cmm (130-400); Red Blood Count 3.43 10^6/uL (4.1-5.3); Red Cell Distribution Width 18.9 % (12.1-15.1)
--- NOTE | 2020-11-27 06:14 | CT_ITS ---
WS: [id number] CT ABDOMEN PELVIS TECHNIQUE: Contrast-enhanced CT of the abdomen and pelvis with coronal and sagittal reformatted image s. CLINICAL INFORMATION: Persistnet Leucocytosis s/p Dignostic lap COMPARISON: CT November 23, 2020, November 17, 2020 October 17, 2020 DLP: 2005.[address] scans at [facility] use at least one of these dose optimization techniques: automat ed exposure control; mA and/or kV adjustment per patient size (includes targeted exams where dose is matched to clinical indication); or iterative reconstruction. FINDINGS: Recent postoperative changes laparotomy with drain placements. Drainage catheters are unchanged. Pers istent diffuse body wall anasarca with mesenteric edema. No free air. No significant change in the le ft lower quadrant peripheral enhancing fluid collection/abscess measuring 5.4 x 1.8 cm. Additional r ight adnexal collection with peripheral enhancement measuring 3.8 x 3.8 cm is also stable in size. No new collections. Scattered areas of interloop fluid have improved compared to the prior examination. No evidence of small or large bowel obstruction. Air-fluid level in the rectum. Persistent bowel wal l edema consistent with postoperative changes improved from previous. Interval increase of the small left pleural effusion which appears slightly loculated. Compressive at electasis left lower lobe. Compressive atelectasis right lower lobe with slight airspace consolidatio n. Recommend correlation for pneumonia. Stable right adrenal nodule measuring 2.1 x 1.7 cm. Left adrenal gland is normal. Normal renal parenc hymal enhancement. No hydronephrosis. Normal caliber abdominal aorta. No other significant changes fr om previous. CT/CT abdomen pelvis w con* [id number] IMPRESSION: 1. Left lower quadrant and right adnexal peripheral enhancing fluid collection s are unchanged since November 24, 2019. These are Improved since November 17, 2020. 2. Persistent diffuse body wall anasarca and mesenteric edema. Improved interl oop fluid. Overall improved small bowel edema compared to previous. 3. Small left pleural effusion appears partially loculated. This is new from p revious. Persistent compressive atelectasis in both lower lobes. Recommend jame elation for pneumonia. 4. Stable postoperative changes laparotomy with stable intra-abdominal drains.
[2020-11-27] MEDS: heparin 5,000 unit/mL INJ 1 mL 5000 UNIT SUBCUT ×2 (06:36→18:35)
[2020-11-27] MEDS: pantoprazole DR 40 mg Tablet PO (08:09)
[2020-11-27] MEDS: magnesium oxide 400 mg tablet PO ×2 (08:09→17:43)
[2020-11-27] MEDS: metroNIDAZOLE 500 MG Tablet PO (08:09)
[2020-11-27] MEDS: guaiFENesin 600 mg Tablet PO ×2 (08:09→17:43)
[2020-11-27] MEDS: sodium chloride 0.9% 1,000 ML 75 ML IV (08:11)
--- NOTE | 2020-11-27 09:12 | PC.NURSE ---
Patient being taken to CT viz wheelchair.
[2020-11-27] MEDS: iohexol 300 mg/mL 50 mL Btl PO (09:18)
[2020-11-27] MEDS: iohexol 300 mg/mL 100 mL Btl IV (09:19)
--- NOTE | 2020-11-27 11:45 | CT_ITS ---
WS: [id number] CT-guided DRAIN PLACEMENT AND ASPIRATION. DLP: [id number] mgy/cm INDICATION: Pelvic abscess TECHNIQUE: The procedure including risks benefits and complications were discussed the patient agreed to proceed. Conscious sedation was initially utilized with anesthesia following. Timeout was perform ed. Using sterile technique patient was prepped and draped in usual sterile fashion. After 1% lidocai ne using fluoroscopic guidance the left pelvic fluid collection was localized and aspirated. Approxim ately 30 cc of purulent fluid was aspirated and sent for cultures. Next the right pelvic/adnexal fluid collection was localized. Approximately 10 cc of bloody purulent fluid was aspirated. Guidewire was advanced into the fluid collection. Tract was dilated with 8 and 1 0 Vincentian dilator sheaths. Next a 10 Vincentian pigtail catheter was placed using Seldinger technique. No immediate complications. CT/CT drain peritoneum [id number] IMPRESSION: 1. Aspiration of the left pelvic fluid collection. 30 cc of purulent material was obtained. 2. 10 Vincentian pigtail catheter was placed into the right pelvic fluid collectio n.
--- NOTE | 2020-11-27 13:08 | PC.NURSE ---
Patient being taken to CT via [place] for CT guided aspiration of abdominal abscess.
[2020-11-27] MEDS: sodium chloride 0.9% 1,000 ML 30 ML IV (13:28)
[2020-11-27] MEDS: midazolam 1 mg/mL INJ 2 mL IVP ×4 (13:31→13:48)
[2020-11-27] MEDS: fentaNYL 50 mcg/mL INJ 2mL 25 MCG IVP ×2 (13:42→14:01)
[2020-11-27] MEDS: HYDROmorphone 1 mg/mL INJ 1 mL IVP (15:30)
--- NOTE | 2020-11-27 15:53 | PC.NURSE ---
Procedure note: Pt taken to CT suite for CT guided drain of abscess and placement of drain. Dilcia HAND MSN charge nurse and Lupe RN assisting with prep for procedure. Pt placed on telemetry, vitals taken, O2 applied, suction at bedside. IV placement confirmed with NS flush. Dr Garcia arrived and time out performed. The following verbal orders from Dr Garcia were given for IV sedation: At 1331 2 mg versed, 25 mcg fentanyl given IVP by Liana HAND per Dr Garcia's verbal order. At 1337 another 2 mg versed, 25 mcg fentanyl given IVP by Liana HAND per Dr Garcia's verbal order. At 1342 another 2 mg versed, and now 50 mcg fentanyl given IVP by Liana HAND per Dr Garcia's verbal order. At 1348 1 mg versed, 25 mcg fentanyl given IVP by Liana HAND per Dr Garcia's verbal order. At 1401 1 mg versed, 25 mcg fentanyl given IVP by Liana HAND per Dr Garcia's verbal order. At this point, the patient was not able to be sedated by nurse and Dr Garcia requested anesthesia to perform MAC. Pt voicing pain at site where Dr Garcia attempting to drain. Verbal order by Dr Garcia received to give patient 25 mcg of fentanyl while awaiting anesthesia. Pt received 8 mg of versed and 175 mcg fentanyl total during procedure. Remaining 25 mcg fentanyl wasted with Lupe HAND and Dilcia HAND. BRIGID Burks arrived and performed MAC sedation. The procedure was successfully completed and patient tolerated well while vitals remaining stable. Specimens sent to lab and pt taken to [facility] after recovery. Bedside report given to Aditi Nolan RN. Pt reports pain and floor nurse was taking care of that. Call light within reach.
--- NOTE | 2020-11-27 16:37 | P.PN_ITS ---
Subjective Subjective: Interval history: Patient seen multiple times during today. T-max in last 24 hours 99.8 Fahrenheit. Patient denies any nausea vomiting, headache. Patient underwent CT-guided abdominal drain today and 30 cc of purulent discharge was aspirated and sent for culture. Patient receiving pain medication for pain. Patient denies any nausea, vomiting, headache. Patient states she feels depressed and was on medications for anxiety and depression will be a 3 couple of years ago but he stopped taking them. She would want to retry taking those medications. Medications: Reviewed: Yes Vitals/I&O/Wt Last Vital Signs Temp 99.2 F 11/27/20 15:03 Pulse 85 11/27/20 15:03 Resp 20 H 11/27/20 15:30 BP 131/77 11/27/20 15:03 Pulse Ox 93 11/27/20 15:03 11/27/20 11/27/20 11/27/20 06:59 14:59 22:59 Intake Total 2056.4 / 3106.4 433.6 / 433.6 400 / 833.6 Output Total 2570 / 3770 1315 / 1315 Balance -513.6 / -663.6 -881.4 / -881.4 400 / -481.4 Physical Exam Const: COMMON NORMALS: no acute distress, patient oriented x3 and alert GENERAL APPEARANCE: cooperative ORIENTATION/CONSCIOUSNESS: Yes awake OTHER: Sitting upright HENMT: COMMON NORMALS: oropharynx normal Neck/C-Spine: COMMON NORMALS: no JVD Resp: COMMON NORMALS: normal respiratory effort and clear to auscultation bilaterally AUSCULTATION: clear to auscultation bilaterally Cardio: COMMON NORMALS: no JVD, regular rhythm, S1 normal heart sound present, S2 normal heart sound present and No murmurs present (Cardio) RHYTHM: regular rhythm HEART SOUNDS: S1 normal heart sound present and S2 normal heart sound present GI: INSPECTION: Yes abdominal distension AUSCULTATION: Yes Hypoactive bowel sounds present PALPATION: Yes Tenderness to palpation present (GI) OTHER: Small amount of purulence noted in one of the drains. Extremity: COMMON NORMALS: no joint enlargement and no pedal edema Neuro: COMMON NORMALS: patient oriented x3 and moves all extremities SENSORIUM/ORIENTATION: Yes alert Skin: COMMON NORMALS: no rashes or lesions noted GENERAL SKIN EXAM: no rashes or lesions noted Urinary Catheter Management^: [place]: Cath Placed During This Visit: yes, but has since been removed by the nurse Reason for Continuing Indwelling Catheter: Accurate Measurement of Urinary Output in Critically Ill Patients Urinary Catheter Date of Insertion: 11/17/20 Urinary Catheter Time of Insertion: 07:30 Date Urinary Catheter Removed: 11/19/20 Time Urinary Catheter Discontinued: 17:15 Data : 11/27/20 02:15 11/26/20 03:15 Micro: Microbiology 11/24/20 09:20 Stool Lactoferrin - Final Stool Enteric Pathogens (PCR) - Final Parasite Antigen Panel - Final C.difficile Toxin B Gene (PCR) - Final Occult Blood (FIT) - Final A&P Assessment and plan (1) Sepsis: Status: Acute (2) Fever: Status: Acute (3) Perforated viscus: Perforated sigmoid diverticular abscess. Purulent peritonitis. With intra-abdominal abscess. Status post laparoscopic abscess drainage, pericardial lavage, drain placement. Suboxone discontinued as she states she is not been taking it, also is not going to be able to continue after discharge. States she will be able to follow-up with her prior rehabilitation program coordinator. Perhaps may consider following with pain clinic in [facility]. Status: Acute (4) Diverticulitis of colon with perforation: With plans for staged colectomy by surgery. Status: Resolved Qualifiers: Diverticulitis bleeding: unspecified bleeding status Qualified Code(s): K57.20 - Diverticulitis of large intestine with perforation and abscess without bleeding (5) Intra-abdominal abscess: Status: Acute (6) Gastric distention: Status: Acute Additional A&P Information Sepsis secondary intra-abdominal abscess from perforated viscus: Post abdominal wash. Patient's white count trending up again, febrile last 24 hours. No respiratory symptoms. Central line removed on 11/22. Tip sent for culture. Preliminary negative. Patient continues to spike fever with white count still elevated. Repeat CT scan done today after which patient underwent CT guided aspiration. Repeat cultures have been sent from CT-guided aspiration. Culture results OR growing Bacteroides and peritoneal fluid growing E. coli. On review of cultures from August there is a strep atelectases in urine. However cultures also showing gram-positive cocci in chains. Continue imipenem 500 mg every 6 hours for now. Will change antibiotics as per the fresh culture results from CT-guided aspiration today if needed. If patient response to imipenem can plan to send patient on ertapenem. Repeat blood cultures have remained negative, MRSA in the nares positive. Stool studies awaited. Keep mean arterial pressure over 65. Patient eating well for now. Continue with [place] 5 every 6 hours as needed for pain. Stop IV Dilaudid. Depression: Start patient on fluoxetine for now. Will consult Dr. Banks from psychiatry for further recommendations. Patient wants to be seen by in-house psychiatrist if possible. Patient will follow up with [facility] as an outpatient. Smoking addiction: Encourage cessation. Nicotine replacement in case of craving. Iron deficiency anemia: Hemoglobin stable. Continue with IV iron supplementation for 5 days. After that start patient on oral iron supplementation. Discharge planning: If patient leukocytosis continue to trend down and has been afebrile for around 48 hours with blood cultures remaining negative can plan to discharge patient on IV ertapenem. Patient would need to come as an outpatient infusion center daily for IV antibiotics. And follow-up with Dr. Metcalf as an outpatient. Case management involved for the same. Patient is agreeable to the above plan of care. Full code. GI soft diet. Heparin for DVT prophylaxis. Attestations Medical Necessity Statement*: Patient requires further hospitalization for management of sepsis secondary to intra-abdominal abscess from perforated viscus with while she continues to spike fever with leukocytosis. Time Spent in Patient Care: Greater than 35 minutes (>than 50% of time spent in counselling and/or direct pt care on unit) . Coding Level of Care Code Acute Lead Burner Apprentice for [facility] Fwd Diagnoses Sepsis A41.9 Fever R50.9 Perforated viscus R19.8 Diverticulitis of colon with perforation K57.20 Diverticulitis bleeding: unspecified bleeding status Intra-abdominal abscess K65.1 Gastric distention K31.89
[2020-11-27 17:05] LABS: Procalcitonin 0.36 ng/mL (0-0.5)
[2020-11-27] MEDS: fluoxetine 20 mg Capsule PO (17:43)
[2020-11-28] VITALS: BP 140/79; PULSE 90; RESP 20; TEMP 37.6; O2SAT 95
[2020-11-28] MEDS: HYDROcodone-acetaminophen 5-325 mg Tablet 1 TAB PO ×4 (00:09→20:19)
[2020-11-28] MEDS: iron sucrose 200 MG in sodium chloride 0.9% (100 ml) 100 ML 220 MG IV (00:34)
[2020-11-28 03:40] VITALS: BP 112/73; PULSE 89; RESP 19; TEMP 36.7; O2SAT 93
[2020-11-28 04:31] LABS: Basophils # 0.1 10^3/uL (0.0-0.1); Basophils % 0.3 %; Eosinophils # 0.1 10^3/uL (0.0-0.8); Eosinophils % 0.3 %; Hematocrit 26.1 % (37.0-47.0); Hemoglobin 7.9 g/dL (11.5-15.3); Lymphocytes # 1.7 10^3/uL (0.8-4.8); Mean Corpuscular HGB Conc 30.3 g/dL (30.0-36.0); Mean Corpuscular Hemoglobin 23.4 pg (28.0-34.0); Mean Corpuscular Volume 77.2 fL (81-99); Mean Platelet Volume 9.1 fL (7.4-10.4); Monocytes # 1.2 10^3/uL (0.2-0.9); Monocytes % 6.7 %; Neutrophils # 14.02 10^3/uL (1.8-7.7); Neutrophils % 81.7 %; Nucleated Red Blood Cells % 0 %; Platelet Count 666 10^3/cmm (130-400); Red Blood Count 3.38 10^6/uL (4.1-5.3); Red Cell Distribution Width 19.9 % (12.1-15.1); White Blood Count 17.2 10^3/uL (4.0-10.0)
[2020-11-28 04:51] LABS: Alanine Aminotransferase < 5 U/L (0-33); Albumin Level 2.6 g/dL (3.5-5.2); Alkaline Phosphatase 60 IU/L (35-105); Anion Gap 10.8 (5-19); Aspartate Amino Transferase 8 U/L (0-32); Blood Urea Nitrogen 2 mg/dL (6-20); Calcium 7.5 mg/dL (8.5-10.5); Carbon Dioxide 25 mmol/L (22-29); Chloride 99 mmol/L (98-107); Globulin 4.1 g/dL (1.3-4.6); Glomerular Filtration Rate 254.7 mL/min (90-130); Glucose 119 mg/dL (65-115); Osmolality Calculated 269 mOsm/kg (285-295); Potassium 3.8 mmol/L (3.5-5.1); Sodium 131 mmol/L (136-145); Total Bilirubin 0.3 mg/dL (0.15-1.2); Total Protein 6.7 g/dL (6.6-8.7)
[2020-11-28] MEDS: heparin 5,000 unit/mL INJ 1 mL 5000 UNIT SUBCUT ×2 (06:05→18:25)
--- NOTE | 2020-11-28 07:12 | P.PN_ITS ---
Subjective Subjective: Interval history: Patient overall feels better and undergone aspiration of left lower pelvic fluid collection and a pigtail placement of right lateral pelvic fluid collection, purulent discharge from the left lower drain and serous discharge from the right upper drain. Trending down of leukocytosis to 17.2 Medications: Reviewed: Yes Vitals/I&O/Wt Last Vital Signs Temp 98.1 F 11/28/20 03:40 Pulse 89 11/28/20 03:40 Resp 19 H 11/28/20 03:40 BP 112/73 11/28/20 03:40 Pulse Ox 93 11/28/20 03:40 11/27/20 11/28/20 11/28/20 22:59 06:59 14:59 Intake Total 840 / 1273.6 550 / 1823.6 Output Total 815 / 2130 39 / 2169 Balance 25 / -856.4 511 / -345.4 Physical Exam Narrative: EXAM NARRATIVE: Patient is conscious alert oriented X3, anxious BMI 34 Head and neck examination PERRLA no masses no cervical lymphadenopathy no jaundice. Abdomen nontender,not distended soft no organomegaly guarding or rigidity/no signs of peritonitis. Incisions are clean dry and intact and skin jluis in place, Steri-Strips in place Drains in place showing purulent discharge of the left lower drain and serous output from the right upper drain. Right lower pigtail catheter shows sanguinous output Urinary Catheter Management^: Montgomery: Cath Placed During This Visit: yes, but has since been removed by the nurse Reason for Continuing Indwelling Catheter: Accurate Measurement of Urinary Output in Critically Ill Patients Urinary Catheter Date of Insertion: 11/17/20 Urinary Catheter Time of Insertion: 07:30 Date Urinary Catheter Removed: 11/19/20 Time Urinary Catheter Discontinued: 17:15 Data : 11/28/20 04:25 11/28/20 04:25 Micro: Microbiology 11/27/20 14:32 Gram Stain - Final Other Source 11/27/20 14:20 Gram Stain - Final Other Source 11/24/20 09:20 Stool Lactoferrin - Final Stool Enteric Pathogens (PCR) - Final Parasite Antigen Panel - Final C.difficile Toxin B Gene (PCR) - Final Occult Blood (FIT) - Final A&P Assessment and plan (1) Diverticulitis of colon with perforation: Patient undergone diagnostic laparoscopy with peritoneal lavage and drainage of intra-abdominal abscesses with drain placements 11/17/[address]-guided drainage 11/27/2020 1. Aspiration of the left pelvic fluid collection. 30 cc of purulent material was obtained.2. 10 Citizen [place] pigtail catheter was placed into the right pelvic fluid collection. Continue nutrition and focus on protein shakes Continue drain teaching and education, will plan to DC right upper quadrant drain Encourage ambulation Incentive spirometer every hour Follow on a.m. labs We will check out for Dr. Hernandez for continuity of care as I will be out of town. We will continue coordinating with Dr. Longo Assurance and education All questions have been answered and all concerns have been addressed to patient's satisfaction. Status: Resolved Qualifiers: Diverticulitis bleeding: unspecified bleeding status Qualified Code(s): K57.20 - Diverticulitis of large intestine with perforation and abscess without bleeding Attestations Medical Necessity Statement*: Continue inpatient hospitalization passing 2 midnights for post-operative care status post drainage of intra-abdominal abscesses Time Spent in Patient Care: (>than 50% of time spent in counselling and/or direct pt care on unit) . Coding Level of Care Code Acute Auto Fleet Maintenance Manager for Chg Fwd Diagnoses Diverticulitis of colon with perforation K57.20 Diverticulitis bleeding: unspecified bleeding status
[2020-11-28 07:23] VITALS: BP 125/78; PULSE 85; RESP 18; TEMP 37.6; O2SAT 94
--- NOTE | 2020-11-28 09:02 | P.CONIM_ITS ---
Providers/Reason for Consult Consulting Physican/Specialty*: Anthony Banks DO Reason for Consult*: Depression, off medication for couple years Attending Physician: Omari Perez MD Psych Consult HPI History of Present Illness Victoria Ramirez is a 35 year old female with past history of depression, substance abuse with past treatment with Suboxone but states that she has not been taking it and does not plan resuming it presented to the hospital with abdominal discomfort and currently being managed for diverticulitis with p erforation of the colon. Patient currently denying any depressive symptoms although reports intermittent transient low mood states, denies any sustained low mood although reports multiple stressors to include medical stressors. Denies any impairment secondary to low mood, denies any past suicide attempts or self-harm behavior and denies any current suicidal ideation. Patient reports intermittent episodes of anxiety which are exacerbated by pain, life and medical stressors, denies any recent panic attacks but does report intermittent panic symptoms. Psychiatric review of systems is otherwise negative. Patient reports past outpatient medication management by [facility] and reports interest in resuming outpatient follow-up. Review of Systems General: Reports: 10 or more systems reviewed and unremarkable except in HPI and below Meds Current Medications: Current Medications Generic Name Dose Route Start Last Admin Trade Name Freq PRN Reason Stop Dose Admin Acetaminophen 325 - 650 mg 11/24/20 02:07 11/26/20 08:26 Acetaminophen 32 5 Mg Tablet PO 325 mg Q4H PRN Administration MILD PAIN OR INCR EASE TEMP Hydrocodone Bitart /Acetaminophen 1 tab 11/21/20 17:10 11/28/20 06:14 Hydrocodone-Acet aminophen 5-325 Mg Tablet PO 1 tab Q6H PRN Administration MODERATE PAIN Fluoxetine HCl 20 mg 11/27/20 16:40 11/27/20 17:43 Fluoxetine 20 Mg Capsule PO 20 mg DAILY ROMELIA Administration Guaifenesin 600 mg 11/21/20 12:20 11/27/20 17:43 Guaifenesin 600 Mg Tablet PO 600 mg BID ROMELIA Administration Heparin Sodium (Be ef Lung) 5,000 unit 11/24/20 19:00 11/28/20 06:05 Heparin 5,000 Un it/Ml Inj 1 Ml SUBCUT 5,000 unit Q12H ROMELIA Administration Hydromorphone HCl 1 mg 11/20/20 11:28 11/27/20 15:30 Hydromorphone 1 Mg/Ml Inj 1 Ml IVP 1 mg ONCE PRN Administration PAIN Iron Sucrose 200 m g/ Sodium 110 mls @ 220 mls /hr 11/25/20 00:30 11/28/20 03:00 Chloride IV 11/29/20 00:59 Infused Q24H ROMELIA Infusion Imipenem/Cilastati n Sodium 500 100 mls @ 200 mls /hr 11/26/20 13:00 11/28/20 06:02 mg/ Sodium Chlor zaki IV Infused Q6H ROMELIA Infusion Protocol Albumin Human 25 gm in 100 mls @ 60 mls/hr 11/27/20 17:00 11/28/20 05:27 Albumin IV 11/28/20 10:39 Infused Q8H ROMELIA Infusion Lanolin 1 applic 11/17/20 12:19 11/19/20 13:26 Lanolin Oint 7 G m TOPICAL 1 applic PRN PRN Administration DRYNESS Magnesium Oxide 400 mg 11/23/20 22:05 11/27/20 17:43 Magnesium Oxide 400 Mg Tablet PO 400 mg BID ROMELIA Administration Ondansetron HCl 4 mg 11/20/20 17:21 11/21/20 20:50 Ondansetron 2 Mg /Ml Sdv 2 Ml IVP 4 mg Q6H PRN Administration NAUSEA AND VOMITI NG Pantoprazole Sodiu m 40 mg 11/25/20 09:00 11/27/20 08:[address] 40 Mg Tablet PO 40 mg DAILY ROMELIA Administration Trazodone HCl 150 mg 11/21/20 21:00 11/27/20 21:42 Trazodone 150 Mg Tablet PO Not Given BEDTIME ROMELIA PFSH NPU PFSH: Medical History Opiate abuse, episodic Perforation of sigmoid colon due to diverticulitis Surgical History S/P laparoscopic procedure (09/24/20) Drainage of perisigmoid abscess Family History Father Cancer Father was diagnosed with colon cancer at age 49 Social History Smoking and tobacco status: current every day smoker Alcohol intake: never Housing: House Other Psychiatric History: Other Psychiatric History: Patient does not provide clear details but states last seen by [facility] a couple of years ago, states that she believes that she was last taking Effexor with minimal effect Denies any history of psychiatric hospitalizations Denies any history of suicide attempt or self-harm behavior Mental Status Exam MSE Comments: Appears older than stated age, obese, wearing hospital gown, tired appearing, good eye contact Psychomotor activity is somewhat decreased, no agitation Speech is normal rate and volume, spontaneous, clear reticulation, not pressured I feel okay, full range of affect, not labile Alert and oriented to person, place, time, situation Memory and concentration appear to be intact per interview Intellectual functioning appears to be average at best based on vocabulary, interview Thought process, linear Thought content, no delusions, no hallucinations, no suicidal or homicidal ideation Insight and judgment appear to be intact Vitals/I&O/Wt Last Vital Signs Temp 99.7 F H 11/28/20 07:23 Pulse 85 11/28/20 07:23 Resp 18 11/28/20 07:23 BP 125/78 11/28/20 07:23 Pulse Ox 94 11/28/20 07:23 11/27/20 11/28/20 11/28/20 22:59 06:59 14:59 Intake Total 840 / 1273.6 550 / 1823.6 Output Total 815 / 2130 39 / 2169 150 / 150 Balance 25 / -856.4 511 / -345.4 -150 / -150 Physical Exam Urinary Catheter Management^: Montgomery: Cath Placed During This Visit: yes, but has since been removed by the nurse Reason for Continuing Indwelling Catheter: Accurate Measurement of Urinary Output in Critically Ill Patients Urinary Catheter Date of Insertion: 11/17/20 Urinary Catheter Time of Insertion: 07:30 Date Urinary Catheter Removed: 11/19/20 Time Urinary Catheter Discontinued: 17:15 Data NPU Micro: Micro: Microbiology 11/27/20 14:32 Gram Stain - Final Other Source 11/27/20 14:20 Gram Stain - Final Other Source 11/24/20 09:20 Stool Lactoferrin - Final Stool Enteric Pathogens (PCR) - Final Parasite Antigen P paradise - Final C.difficile Toxin B Gene (PCR) - Fin al Occult Blood (FIT) - Final Microbiology 11/27/20 14:32 Other Source Gram Stain - Final 11/27/20 14:20 Other Source Gram Stain - Final 11/24/20 09:20 Stool Stool Lactoferrin - Final 11/24/20 09:20 Stool Enteric Pathogens (PCR) - Final 11/24/20 09:20 Stool Parasite Antigen Panel - Final 11/24/20 09:20 Stool C.difficile Toxin B Gene (PCR) - Final 11/24/20 09:20 Stool Occult Blood (FIT) - Final A&P Assessment and plan (1) Depressive disorder: Status: Acute (2) Diverticulitis of colon with perforation: Status: Resolved Qualifiers: Diverticulitis bleeding: unspecified bleeding status Qualified Code(s): K57.20 - Diverticulitis of large intestine with perforation and abscess without bleeding Additional A&P Information Patient with history of depression reports being off of medication for a couple of years with transient depressive symptoms and anxiety symptoms and would likely benefit from resuming low-dose antidepressant with outpatient follow-up. Reports any recent or past suicide attempts or suicidal ideation or self-harm behavior. Psychiatric hospitalization is not indicated; outpatient medication management, therapy targeting development of more adaptive coping strategies given ongoing life and medical stressors is the least restrictive and appropriate level of care at this time after medical stabilization. CONTINUE fluoxetine 20 mg daily RECOMMEND outpatient medication management post discharge at [facility] Psychiatry will sign off at this time Attestations NPU Medical Necessity Statement*: Managed by hospitalist for medical stabilization Coding Level of Care Code Acute Pattern Checker for Tamela Marsh Diagnoses Depressive disorder F32.9 Diverticulitis of colon with perforation K57.20 Diverticulitis bleeding: unspecified bleeding status
[2020-11-28] MEDS: pantoprazole DR 40 mg Tablet PO (10:02)
[2020-11-28] MEDS: magnesium oxide 400 mg tablet PO ×2 (10:02→18:25)
[2020-11-28] MEDS: fluoxetine 20 mg Capsule PO (10:02)
[2020-11-28] MEDS: guaiFENesin 600 mg Tablet PO ×2 (10:02→18:25)
[2020-11-28 11:45] VITALS: BP 127/80; PULSE 87; RESP 18; TEMP 37.7; O2SAT 93
--- NOTE | 2020-11-28 12:07 | PM.PN ---
Subjective Subjective: Interval history: No acute events overnight. Patient on examination states she is feeling little better today. She is a lot more awake today a lot more conversant. States she is having diarrhea today FACUNDO drain on the right side removed with surgery today. T-max in last 24 hours 99.8 today today morning. Medications: Reviewed: Yes Vitals/I&O/Wt Last Vital Signs Temp 99.8 F H 11/28/20 11:45 Pulse 87 11/28/20 11:45 Resp 18 11/28/20 11:45 BP 127/80 11/28/20 11:45 Pulse Ox 93 11/28/20 11:45 11/27/20 11/28/20 11/28/20 22:59 06:59 14:59 Intake Total 840 / 1273.6 550 / 1823.6 1340 / 1340 Output Total 815 / 2130 39 / 2169 150 / 150 Balance 25 / -856.4 511 / -345.4 1190 / 1190 Physical Exam Const: COMMON NORMALS: no acute distress, patient oriented x3 and alert GENERAL APPEARANCE: cooperative ORIENTATION/CONSCIOUSNESS: Yes awake OTHER: Sitting upright HENMT: COMMON NORMALS: oropharynx normal Neck/C-Spine: COMMON NORMALS: no JVD Resp: COMMON NORMALS: normal respiratory effort and clear to auscultation bilaterally AUSCULTATION: clear to auscultation bilaterally Cardio: COMMON NORMALS: no JVD, regular rhythm, S1 normal heart sound present, S2 normal heart sound present and No murmurs present (Cardio) RHYTHM: regular rhythm HEART SOUNDS: S1 normal heart sound present and S2 normal heart sound present GI: INSPECTION: Yes abdominal distension AUSCULTATION: Yes Hypoactive bowel sounds present PALPATION: Yes Tenderness to palpation present (GI) OTHER: Small amount of purulence noted in one of the drains. Extremity: COMMON NORMALS: no joint enlargement and no pedal edema Neuro: COMMON NORMALS: patient oriented x3 and moves all extremities SENSORIUM/ORIENTATION: Yes alert Skin: COMMON NORMALS: no rashes or lesions noted GENERAL SKIN EXAM: no rashes or lesions noted Urinary Catheter Management^: Montgomery: Cath Placed During This Visit: yes, but has since been removed by the nurse Reason for Continuing Indwelling Catheter: Accurate Measurement of Urinary Output in Critically Ill Patients Urinary Catheter Date of Insertion: 11/17/20 Urinary Catheter Time of Insertion: 07:30 Date Urinary Catheter Removed: 11/19/20 Time Urinary Catheter Discontinued: 17:15 Data : 11/28/20 04:25 11/28/20 04:25 Micro: Microbiology 11/27/20 14:32 Gram Stain - Final Other Source Body Fluid Culture - Preliminary Gram Negative Rods Enterococcus species 11/27/20 14:20 Gram Stain - Final Other Source Body Fluid Culture - Preliminary Gram Negative Rods Enterococcus species 11/24/20 09:20 Stool Lactoferrin - Final Stool Enteric Pathogens (PCR) - Final Parasite Antigen Panel - Final C.difficile Toxin B Gene (PCR) - Final Occult Blood (FIT) - Final A&P Assessment and plan (1) Sepsis: Status: Acute (2) Fever: Status: Acute (3) Perforated viscus: Perforated sigmoid diverticular abscess. Purulent peritonitis. With intra-abdominal abscess. Status post laparoscopic abscess drainage, pericardial lavage, drain placement. Suboxone discontinued as she states she is not been taking it, also is not going to be able to continue after discharge. States she will be able to follow-up with her prior rehabilitation manager. Perhaps may consider following with pain clinic in the [facility]. Status: Acute (4) Diverticulitis of colon with perforation: With plans for staged colectomy by surgery. Status: Resolved Qualifiers: Diverticulitis bleeding: unspecified bleeding status Qualified Code(s): K57.20 - Diverticulitis of large intestine with perforation and abscess without bleeding (5) Intra-abdominal abscess: Status: Acute (6) Gastric distention: Status: Acute Additional A&P Information Sepsis secondary intra-abdominal abscess from perforated viscus: Post abdominal wash. Continues to have a spike of fever. White count mildly better today but still elevated to 17,000 coming down from 21,000 yesterday. Patient has remained hemodynamically stable. Post CT-guided drainage hospital material from left pelvic region and 10 Pashto pigtail catheter placement in right pelvic region. OR cultures from before growing bacteroids and peritoneal fluid growing E. coli. Patient had a concern of strep in the fluid as well. Repeat cultures from pelvic collection growing gram-negative rods and possible Enterococcus. MRSA positive. Continue with imipenem. Start patient on vancomycin. Repeat stool studies to rule out C. difficile as patient has been continued on antibiotics till now. Continue with Dixon 5 every 6 hours as needed for pain. Stop IV Dilaudid. Patient will need to follow-up with surgery as an outpatient for possible endoscopy and colonoscopy to rule out malignancy. Patient has a strong family history of colon cancer. Check [facility] JOANNA panel to rule out ulcerative colitis. Depression: Patient feels better today. Continue with fluoxetine [address] Banks's recommendations. Patient would need follow-up as an outpatient with [facility]. Smoking addiction: Encourage cessation. Nicotine replacement in case of craving. Iron deficiency anemia: Hemoglobin stable. Continue with IV iron supplementation for 5 days. Last dose on Monday. After that start patient on oral iron supplementation. Discharge planning: If patient leukocytosis continue to trend down and has been afebrile for around 48 hours with blood cultures remaining negative can plan to discharge patient on IV ertapenem. Patient would need to come as an outpatient infusion center daily for IV antibiotics. And follow-up with Dr. Metcalf as an outpatient. Case management involved for the same. Patient is agreeable to the above plan of care. Full code. GI soft diet. Heparin for DVT prophylaxis. Attestations Medical Necessity Statement*: Patient requires further hospitalization for management of sepsis because of intra-abdominal abscesses from perforated viscus Time Spent in Patient Care: Greater than 35 minutes (>than 50% of time spent in counselling and/or direct pt care on unit). Coding Level of Care Code Acute Seismograph Recorder for Chg Fwd Exam Comprehensive Diagnoses Sepsis A41.9 Fever R50.9 Perforated viscus R19.8 Diverticulitis of colon with perforation K57.20 Diverticulitis bleeding: unspecified bleeding status Intra-abdominal abscess K65.1 Gastric distention K31.89
[2020-11-28] MEDS: vancomycin 1,250 MG/250 ML PIGGYBACK 200 MG IV (14:09)
[2020-11-28 16:00] VITALS: BP 116/71; PULSE 81; RESP 18; TEMP 37.4; O2SAT 93
[2020-11-28 20:00] VITALS: BP 129/80; PULSE 85; RESP 21; TEMP 37.3; O2SAT 91
[2020-11-28] MEDS: vancomycin 1,250 MG/250 ML PIGGYBACK 250 MG IV (20:19)
[2020-11-28 21:00] LABS: Glucose Point of Care 94 mg/dL (70-110)
[2020-11-29] VITALS (7 sets, daily range): BP systolic 120–148; BP diastolic 72–93; PULSE 75–94; RESP 16–22; TEMP 36.7–37.9; O2SAT 92–95
[2020-11-29] MEDS: iron sucrose 200 MG in sodium chloride 0.9% (100 ml) 100 ML 220 MG IV (00:36)
[2020-11-29] MEDS: HYDROcodone-acetaminophen 5-325 mg Tablet 1 TAB PO ×4 (03:18→21:22)
[2020-11-29 04:36] LABS: Basophils % 0.2 %; Eosinophils # 0.1 10^3/uL (0.0-0.8); Eosinophils % 0.6 %; Hematocrit 25.7 % (37.0-47.0); Lymphocytes # 2.5 10^3/uL (0.8-4.8); Mean Corpuscular HGB Conc 31.1 g/dL (30.0-36.0); Mean Corpuscular Hemoglobin 23.9 pg (28.0-34.0); Mean Corpuscular Volume 76.7 fL (81-99); Mean Platelet Volume 9.2 fL (7.4-10.4); Monocytes # 1.2 10^3/uL (0.2-0.9); Neutrophils # 11.44 10^3/uL (1.8-7.7); Neutrophils % 74.1 %; Nucleated Red Blood Cells % 0 %; Platelet Count 756 10^3/cmm (130-400); Red Blood Count 3.35 10^6/uL (4.1-5.3); Red Cell Distribution Width 20.6 % (12.1-15.1); White Blood Count 15.4 10^3/uL (4.0-10.0)
[2020-11-29 04:57] LABS: Alanine Aminotransferase < 5 U/L (0-33); Albumin Level 3.1 g/dL (3.5-5.2); Alkaline Phosphatase 60 IU/L (35-105); Anion Gap 12.7 (5-19); Aspartate Amino Transferase 7 U/L (0-32); Blood Urea Nitrogen 2 mg/dL (6-20); Calcium 7.8 mg/dL (8.5-10.5); Carbon Dioxide 24 mmol/L (22-29); Chloride 98 mmol/L (98-107); Globulin 3.8 g/dL (1.3-4.6); Glomerular Filtration Rate 254.7 mL/min (90-130); Glucose 85 mg/dL (65-115); Osmolality Calculated 267 mOsm/kg (285-295); Potassium 3.7 mmol/L (3.5-5.1); Sodium 131 mmol/L (136-145); Total Bilirubin 0.5 mg/dL (0.15-1.2); Total Protein 6.9 g/dL (6.6-8.7)
[2020-11-29 05:00] LABS: Vancomycin Trough 10.9 ug/mL (10-15)
[2020-11-29] MEDS: vancomycin 1,250 MG/250 ML PIGGYBACK 200 MG IV (05:20)
--- NOTE | 2020-11-29 05:33 | PC.NURSE ---
SHIFT SUMMARY Has rested for intervals. Awake often for starting and stopping IV antibiotics. Received po Hydrocodone X2 for c/o abd pain. FACUNDO drain with 5 ml drainage this shift and accordian drain with 10ml purulent drainage. No BM's tonight. Taking po fluids well and denies nausea. Vanc trough done tonight WNL
[2020-11-29] MEDS: heparin 5,000 unit/mL INJ 1 mL 5000 UNIT SUBCUT (06:37)
[2020-11-29] MEDS: pantoprazole DR 40 mg Tablet PO (08:29)
[2020-11-29] MEDS: fluoxetine 20 mg Capsule PO (08:29)
[2020-11-29] MEDS: guaiFENesin 600 mg Tablet PO ×2 (08:29→18:25)
[2020-11-29] MEDS: magnesium oxide 400 mg tablet PO ×2 (08:29→18:25)
--- NOTE | 2020-11-29 11:03 | PM.PN ---
Subjective Subjective: Interval history: No acute events overnight. Patient denies any nausea vomiting, headache. She states she is feeling little better today. Of sitting up in bed. Has been walking up and down in the [place]. T-max in last 24 hours 100.4 Fahrenheit which is earlier today morning. Has remained hemodynamically stable. Medications: Reviewed: Yes Vitals/I&O/Wt Last Vital Signs Temp 100.1 F H 11/29/20 07:52 Pulse 93 11/29/20 07:52 Resp 16 11/29/20 07:52 BP 139/86 11/29/20 07:52 Pulse Ox 93 11/29/20 07:52 11/28/20 11/29/20 11/29/20 22:59 06:59 14:59 Intake Total 940 / 2380 860 / 3240 100 / 100 Output Total 535 / 785 865 / 1650 800 / 800 Balance 405 / 1595 -5 / 1590 -700 / -700 Physical Exam Const: COMMON NORMALS: no acute distress, patient oriented x3 and alert GENERAL APPEARANCE: cooperative ORIENTATION/CONSCIOUSNESS: Yes awake OTHER: Sitting upright HENMT: COMMON NORMALS: oropharynx normal Neck/C-Spine: COMMON NORMALS: no JVD Resp: COMMON NORMALS: normal respiratory effort and clear to auscultation bilaterally AUSCULTATION: clear to auscultation bilaterally Cardio: COMMON NORMALS: no JVD, regular rhythm, S1 normal heart sound present, S2 normal heart sound present and No murmurs present (Cardio) RHYTHM: regular rhythm HEART SOUNDS: S1 normal heart sound present and S2 normal heart sound present GI: INSPECTION: Yes abdominal distension AUSCULTATION: Yes Hypoactive bowel sounds present PALPATION: Yes Tenderness to palpation present (GI) OTHER: Small amount of purulence noted in one of the drains. Extremity: COMMON NORMALS: no joint enlargement and no pedal edema Neuro: COMMON NORMALS: patient oriented x3 and moves all extremities SENSORIUM/ORIENTATION: Yes alert Skin: COMMON NORMALS: no rashes or lesions noted GENERAL SKIN EXAM: no rashes or lesions noted Urinary Catheter Management^: [place]: Cath Placed During This Visit: yes, but has since been removed by the nurse Reason for Continuing Indwelling Catheter: Accurate Measurement of Urinary Output in Critically Ill Patients Urinary Catheter Date of Insertion: 11/17/20 Urinary Catheter Time of Insertion: 07:30 Date Urinary Catheter Removed: 11/19/20 Time Urinary Catheter Discontinued: 17:15 Data : 11/29/20 04:23 11/29/20 04:23 Micro: Microbiology 11/27/20 14:20 Gram Stain - Final Other Source Body Fluid Culture - Preliminary Enterobacter cloacae Enterococcus faecalis 11/27/20 14:32 Gram Stain - Final Other Source Body Fluid Culture - Preliminary Enterobacter cloacae Enterococcus faecalis 11/27/20 14:32 Anaerobic Culture - Preliminary Body Fluids - Abscess A&P Assessment and plan (1) Sepsis: Status: Acute (2) Fever: Status: Acute (3) Perforated viscus: Perforated sigmoid diverticular abscess. Purulent peritonitis. With intra-abdominal abscess. Status post laparoscopic abscess drainage, pericardial lavage, drain placement. Suboxone discontinued as she states she is not been taking it, also is not going to be able to continue after discharge. States she will be able to follow-up with her prior account review specialist. Perhaps may consider following with pain clinic in [facility]. Status: Acute (4) Diverticulitis of colon with perforation: With plans for staged colectomy by surgery. Status: Resolved Qualifiers: Diverticulitis bleeding: unspecified bleeding status Qualified Code(s): K57.20 - Diverticulitis of large intestine with perforation and abscess without bleeding (5) Intra-abdominal abscess: Status: Acute (6) Gastric distention: Status: Acute Additional A&P Information Sepsis secondary intra-abdominal abscess from perforated viscus: Post abdominal wash. Continues to have spiking fever. White count trending down today. Post CT-guided drainage hospital material from left pelvic region and 10 Frisian pigtail catheter placement in right pelvic region. OR cultures from before growing bacteroids and peritoneal fluid growing E. coli. Patient had a concern of strep in the fluid as well. Repeat cultures from pelvic collection growing Enterobacter and Enterococcus. MRSA positive. For now continue vancomycin and imipenem. Will de-escalate antibiotics as per the culture results. Repeat stool studies to rule out C. difficile as patient has been continued on antibiotics till now. Continue with [place] 5 every 6 hours as needed for pain. Stop IV Dilaudid. Patient will need to follow-up with surgery as an outpatient for possible endoscopy and colonoscopy to rule out malignancy. Patient has a strong family history of colon cancer. Check [facility] JOANNA panel to rule out ulcerative colitis. Depression: Patient feels better today. Continue with fluoxetine 20 mg daily[address]rec[address]. Banks's recommendations. Patient would need follow-up as an outpatient with [facility] [place]. Smoking addiction: Encourage cessation. Nicotine replacement in case of craving. Iron deficiency anemia: Hemoglobin stable. Continue with IV iron supplementation for 5 days. Last dose on Monday. After that start patient on oral iron supplementation. Discharge planning: If patient leukocytosis continue to trend down and has been afebrile for around 48 hours with blood cultures remaining negative can plan to discharge patient on IV ertapenem. Patient would need to come as an outpatient infusion center daily for IV antibiotics. And follow-up with Dr. Metcalf as an outpatient. Case management involved for the same. Patient is agreeable to the above plan of care. Full code. GI soft diet. Heparin for DVT prophylaxis. Attestations Medical Necessity Statement*: Requires further hospitalization for management of sepsis due to intra-abdominal abscess and perforated viscus while she continues to have spike of fever and leukocytosis possibly requiring further abdominal drainage Time Spent in Patient Care: Greater than 35 minutes (>than 50% of time spent in counselling and/or direct pt care on unit). Coding Level of Care Code Acute Coordinator Integrated Marketing for g Fwd Exam Comprehensive Diagnoses Sepsis A41.9 Fever R50.9 Perforated viscus R19.8 Diverticulitis of colon with perforation K57.20 Diverticulitis bleeding: unspecified bleeding status Intra-abdominal abscess K65.1 Gastric distention K31.89
[2020-11-29] MEDS: vancomycin 1,500 MG/300 ML PIGGYBACK 200 MG IV ×2 (12:17→21:21)
--- NOTE | 2020-11-29 15:16 | PM.PN ---
Subjective Subjective: Interval history: Patient states that she is feeling better no significant appetite but no nausea or vomiting. Her abdominal pain is controlled, she had bowel movements today. Her drain output has been bloody Vitals/I&O/Wt Last Vital Signs Temp 100.2 F H 11/29/20 11:48 Pulse 92 11/29/20 11:48 Resp 18 11/29/20 11:48 BP 120/72 11/29/20 11:48 Pulse Ox 94 11/29/20 11:48 11/29/20 11/29/20 11/29/20 06:59 14:59 22:59 Intake Total 860 / 3240 400 / 400 Output Total 865 / 1650 1400 / 1400 Balance -5 / 1590 -1000 / -1000 Physical Exam Narrative: EXAM NARRATIVE: Abdomen: Soft, tender around the drains, no guarding or rigidity, FACUNDO drain output is sanguinous in left lower quadrant and serosanguineous in the right lower quadrant Urinary Catheter Management^: [place]: Cath Placed During This Visit: yes, but has since been removed by the nurse Reason for Continuing Indwelling Catheter: Accurate Measurement of Urinary Output in Critically Ill Patients Urinary Catheter Date of Insertion: 11/17/20 Urinary Catheter Time of Insertion: 07:30 Date Urinary Catheter Removed: 11/19/20 Time Urinary Catheter Discontinued: 17:15 Data : 11/29/20 04:23 11/29/20 04:23 Micro: Microbiology 11/27/20 14:20 Gram Stain - Final Other Source Body Fluid Culture - Preliminary Enterobacter cloacae Enterococcus faecalis 11/24/20 11:30 Blood Culture - Final Blood NO GROWTH AFTER 5 DAYS 11/24/20 11:30 Blood Culture - Final Blood NO GROWTH AFTER 5 DAYS 11/27/20 14:32 Gram Stain - Final Other Source Body Fluid Culture - Preliminary Enterobacter cloacae Enterococcus faecalis 11/27/20 14:32 Anaerobic Culture - Preliminary Body Fluids - Abscess A&P Assessment and plan (1) Diverticulitis of colon with perforation: Patient undergone diagnostic laparoscopy with peritoneal lavage and drainage of intra-abdominal abscesses with drain placements 11/17/[address]-guided drainage 11/27/2020 1. Aspiration of the left pelvic fluid collection. 30 cc of purulent material was obtained.2. 10 Latvian pigtail catheter was placed into the right pelvic fluid collection. Continue nutrition and focus on protein shakes Continue drain teaching and education, will plan to DC right upper quadrant drain Encourage ambulation Incentive spirometer every hour Patient's white count is trending down to 15.4 today but she continues to spike fevers up to 100.2. We will therefore continue with IV antibiotics and recheck labs tomorrow Status: Resolved Qualifiers: Diverticulitis bleeding: unspecified bleeding status Qualified Code(s): K57.20 - Diverticulitis of large intestine with perforation and abscess without bleeding Attestations Medical Necessity Statement*: Sigmoid perforation with abscess requiring continued inpatient stay since patient is febrile and requires IV antibiotics Coding Level of Care Code Acute Research Center Director for [facility] Diagnoses Diverticulitis of colon with perforation K57.20 Diverticulitis bleeding: unspecified bleeding status
[2020-11-30 04:00] VITALS: BP 130/82; PULSE 83; RESP 18; TEMP 37.6; O2SAT 94
[2020-11-30 04:19] LABS: Basophils % 0.3 %; Eosinophils % 0.3 %; Hemoglobin 8.3 g/dL (11.5-15.3); Lymphocytes % 13.6 %; Mean Corpuscular HGB Conc 28.6 g/dL (30.0-36.0); Mean Corpuscular Volume 83.8 fL (81-99); Monocytes # 1.1 10^3/uL (0.2-0.9); Monocytes % 7.6 %; Neutrophils # 11.27 10^3/uL (1.8-7.7); Neutrophils % 77.4 %; Nucleated Red Blood Cells % 0 %; Platelet Count 694 10^3/cmm (130-400); Red Blood Count 3.46 10^6/uL (4.1-5.3); Red Cell Distribution Width 22.5 % (12.1-15.1); White Blood Count 14.5 10^3/uL (4.0-10.0)
[2020-11-30 04:39] LABS: Anion Gap 13.7 (5-19); Blood Urea Nitrogen 4 mg/dL (6-20); Calcium 7.6 mg/dL (8.5-10.5); Carbon Dioxide 23 mmol/L (22-29); Chloride 100 mmol/L (98-107); Glomerular Filtration Rate 406.6 mL/min (90-130); Glucose 100 mg/dL (65-115); Osmolality Calculated 273 mOsm/kg (285-295); Potassium 3.7 mmol/L (3.5-5.1); Sodium 133 mmol/L (136-145)
[2020-11-30 04:40] LABS: Vancomycin Trough 14.6 ug/mL (10-15)
[2020-11-30] MEDS: vancomycin 1,500 MG/300 ML PIGGYBACK 200 MG IV ×3 (05:36→22:02)
[2020-11-30 08:00] VITALS: BP 156/83; PULSE 97; RESP 18; TEMP 36.8; O2SAT 94
[2020-11-30] MEDS: HYDROcodone-acetaminophen 5-325 mg Tablet 1 TAB PO ×2 (08:30→23:58)
[2020-11-30] MEDS: guaiFENesin 600 mg Tablet PO ×2 (08:31→17:00)
[2020-11-30] MEDS: pantoprazole DR 40 mg Tablet PO (08:31)
[2020-11-30] MEDS: magnesium oxide 400 mg tablet PO ×2 (08:31→17:00)
[2020-11-30] MEDS: fluoxetine 20 mg Capsule PO (08:31)
[2020-11-30 12:00] VITALS: BP 153/88; PULSE 90; RESP 18; TEMP 37.6; O2SAT 96
--- NOTE | 2020-11-30 12:53 | PM.PN ---
Subjective Subjective: Interval history: Patient feels tired since she was up all night, denies any nausea or vomiting, abdominal pain is minimal Vitals/I&O/Wt Last Vital Signs Temp 99.7 F H 11/30/20 12:00 Pulse 90 11/30/20 12:00 Resp 18 11/30/20 12:00 BP 153/88 11/30/20 12:00 Pulse Ox 96 11/30/20 12:00 11/29/20 11/30/20 11/30/20 22:59 06:59 14:59 Intake Total 6.033 / 1193.050 787.017 / 1193.050 980 / 980 Output Total 425 / 2630 805 / 2630 Balance -418.967 / -1436.950 -17.983 / -1436.950 980 / 980 Physical Exam Narrative: EXAM NARRATIVE: Abdomen: Soft, minimally tender, nondistended, FACUNDO drain output is serosanguineous Urinary Catheter Management^: [place]: Cath Placed During This Visit: yes, but has since been removed by the nurse Reason for Continuing Indwelling Catheter: Accurate Measurement of Urinary Output in Critically Ill Patients Urinary Catheter Date of Insertion: 11/17/20 Urinary Catheter Time of Insertion: 07:30 Date Urinary Catheter Removed: 11/19/20 Time Urinary Catheter Discontinued: 17:15 Data : 11/30/20 04:13 11/30/20 04:13 Micro: Microbiology 11/27/20 14:32 Gram Stain - Final Other Source Body Fluid Culture - Preliminary Enterobacter cloacae Enterococcus faecalis 11/27/20 14:20 Gram Stain - Final Other Source Body Fluid Culture - Final Escherichia coli Enterococcus faecalis 11/29/20 16:25 C.difficile Toxin B Gene (PCR) - Final Stool - Stool Aspirate 11/24/20 11:30 Blood Culture - Final Blood NO GROWTH AFTER 5 DAYS 11/24/20 11:30 Blood Culture - Final Blood NO GROWTH AFTER 5 DAYS A&P Assessment and plan (1) Diverticulitis of colon with perforation: Patient undergone diagnostic laparoscopy with peritoneal lavage and drainage of intra-abdominal abscesses with drain placements 11/17/[address]-guided drainage 11/27/2020 1. Aspiration of the left pelvic fluid collection. 30 cc of purulent material was obtained.2. 10 Luxembourgish pigtail catheter was placed into the right pelvic fluid collection. Continue nutrition and focus on protein shakes Continue drain teaching and education, will plan to DC right upper quadrant drain Encourage ambulation Incentive spirometer every hour Patient's white count is trending down to 14.5 today and her Tmax was 99.7. Hopefully she will not spike any fevers in the next 24 hours and can be discharged home Status: Resolved Qualifiers: Diverticulitis bleeding: unspecified bleeding status Qualified Code(s): K57.20 - Diverticulitis of large intestine with perforation and abscess without bleeding Attestations Medical Necessity Statement*: As per primary Coding Level of Care Code Acute Advisory Services Associate for [facility] Fwd Diagnoses Diverticulitis of colon with perforation K57.20 Diverticulitis bleeding: unspecified bleeding status
[2020-11-30 16:00] VITALS: BP 132/79; PULSE 84; RESP 17; TEMP 36.9; O2SAT 96
[2020-11-30 16:06] LABS: Anti-Double Strand DNA AB 1 IU/mL; Jo-1 Antibody <1.0 NEG AI (<1.0 NEG); SM/RNP Antibodies <1.0 NEG AI (<1.0 NEG); SS-B/LA IGG <1.0 NEG AI (<1.0 NEG); Scleroderma Ab(Scl-70) Ab <1.0 NEG AI (<1.0 NEG); Ss-A/Ro Igg <1.0 NEG AI (<1.0 NEG)
--- NOTE | 2020-11-30 19:52 | PM.PN ---
Subjective Subjective: Interval history: Overall she is doing a bit better. Passing gas. Having bowel movements. So far tolerating GI soft diet. Abdomen tender. So far no further fever. Vitals/I&O/Wt Last Vital Signs Temp 98.4 F 11/30/20 16:00 Pulse 84 11/30/20 16:00 Resp 17 11/30/20 16:00 BP 132/79 11/30/20 16:00 Pulse Ox 96 11/30/20 16:00 11/30/20 11/30/20 11/30/20 06:59 14:59 22:59 Intake Total 787.017 / 1193.050 980 / 980 400 / 1380 Output Total 805 / 2630 1000 / 1000 Balance -17.983 / -1436.950 980 / 980 -600 / 380 Physical Exam Const: COMMON NORMALS: no acute distress, patient oriented x3 and alert GENERAL APPEARANCE: cooperative ORIENTATION/CONSCIOUSNESS: Yes awake OTHER: Sitting up HENMT: COMMON NORMALS: oropharynx normal Neck/C-Spine: COMMON NORMALS: no JVD Resp: COMMON NORMALS: normal respiratory effort and clear to auscultation bilaterally AUSCULTATION: clear to auscultation bilaterally Cardio: COMMON NORMALS: no JVD, regular rhythm, S1 normal heart sound present, S2 normal heart sound present and No murmurs present (Cardio) RHYTHM: regular rhythm HEART SOUNDS: S1 normal heart sound present and S2 normal heart sound present GI: INSPECTION: Yes abdominal distension AUSCULTATION: Yes normoactive bowel sounds PALPATION: Yes Tenderness to palpation present (GI) OTHER: Serosanguineous fluid in the drain, turbid. Extremity: COMMON NORMALS: no joint enlargement and no pedal edema Neuro: COMMON NORMALS: patient oriented x3 and moves all extremities SENSORIUM/ORIENTATION: Yes alert Skin: COMMON NORMALS: no rashes or lesions noted GENERAL SKIN EXAM: no rashes or lesions noted Urinary Catheter Management^: [place]: Cath Placed During This Visit: yes, but has since been removed by the nurse Reason for Continuing Indwelling Catheter: Accurate Measurement of Urinary Output in Critically Ill Patients Urinary Catheter Date of Insertion: 11/17/20 Urinary Catheter Time of Insertion: 07:30 Date Urinary Catheter Removed: 11/19/20 Time Urinary Catheter Discontinued: 17:15 Data : 11/30/20 04:13 11/30/20 04:13 Micro: Microbiology 11/27/20 14:32 Anaerobic Culture - Preliminary Body Fluids - Abscess 11/27/20 14:32 Gram Stain - Final Other Source Body Fluid Culture - Preliminary Enterobacter cloacae Enterococcus faecalis 11/27/20 14:20 Gram Stain - Final Other Source Body Fluid Culture - Final Escherichia coli Enterococcus faecalis 11/29/20 16:25 C.difficile Toxin B Gene (PCR) - Final Stool - Stool Aspirate A&P Assessment and plan (1) Sepsis: C. difficile negative. Peritoneal fluid culture with Enterobacter cloacae, Enterococcus faecalis. So far no additional fever. Leukocytosis appears to be gradually improving. At this time continue current antibiotics. Follow-up culture susceptibilities. If afebrile for 48 hours, no growth on blood culture, plan has been for follow-up with outpatient antibiotic infusions for which she has been agreeable, possibly with ertapenem to allow for once daily dosing,, with outpatient follow-up with surgery. Status: Acute (2) Fever: Today so far without recurrence of fever, highest temp 99.7. Status: Acute (3) Perforated viscus: Perforated sigmoid diverticular abscess. Purulent peritonitis. With intra-abdominal abscess. Status post laparoscopic abscess drainage, pericardial lavage, drain placement. Suboxone discontinued as she states she is not been taking it, also is not going to be able to continue after discharge. States she will be able to follow-up with her prior health education specialist. Perhaps may consider following with pain clinic in [facility]. Status: Acute (4) Diverticulitis of colon with perforation: Follow-up with surgery regarding recurrent peritoneal abscess with suspected diverticular perforation. JOANNA panel negative. Status: Resolved Qualifiers: Diverticulitis bleeding: unspecified bleeding status Qualified Code(s): K57.20 - Diverticulitis of large intestine with perforation and abscess without bleeding (5) Intra-abdominal abscess: Status: Acute (6) Gastric distention: Status: Acute Attestations Medical Necessity Statement*: Continue admission for assessment management of improving sepsis following persistent intra-abdominal abscess and drainage. Coding Level of Care Code Acute Real Estate Paralegal for [facility] Fwd Diagnoses Sepsis A41.9 Fever R50.9 Perforated viscus R19.8 Diverticulitis of colon with perforation K57.20 Diverticulitis bleeding: unspecified bleeding status Intra-abdominal abscess K65.1 Gastric distention K31.89
[2020-12-01 02:42] LABS: Basophils % 0.3 %; Eosinophils % 0.2 %; Hematocrit 29.1 % (37.0-47.0); Hemoglobin 8.6 g/dL (11.5-15.3); Lymphocytes # 1.9 10^3/uL (0.8-4.8); Lymphocytes % 15.4 %; Mean Corpuscular HGB Conc 29.6 g/dL (30.0-36.0); Mean Corpuscular Hemoglobin 23.6 pg (28.0-34.0); Mean Corpuscular Volume 79.7 fL (81-99); Mean Platelet Volume 8.9 fL (7.4-10.4); Monocytes # 0.8 10^3/uL (0.2-0.9); Monocytes % 6.7 %; Neutrophils # 9.52 10^3/uL (1.8-7.7); Neutrophils % 76.5 %; Nucleated Red Blood Cells % 0 %; Platelet Count 730 10^3/cmm (130-400); Red Blood Count 3.65 10^6/uL (4.1-5.3); White Blood Count 12.4 10^3/uL (4.0-10.0)
[2020-12-01 03:00] LABS: Anion Gap 11.7 (5-19); Blood Urea Nitrogen 5 mg/dL (6-20); Calcium 7.8 mg/dL (8.5-10.5); Carbon Dioxide 24 mmol/L (22-29); Chloride 103 mmol/L (98-107); Glomerular Filtration Rate 254.7 mL/min (90-130); Glucose 98 mg/dL (65-115); Osmolality Calculated 277 mOsm/kg (285-295); Potassium 3.7 mmol/L (3.5-5.1); Sodium 135 mmol/L (136-145)
[2020-12-01] MEDS: vancomycin 1,500 MG/300 ML PIGGYBACK 200 MG IV ×2 (04:11→12:04)
--- NOTE | 2020-12-01 06:12 | PC.NURSE ---
shift summary Patient has been awake most of the night. Has refused to have vitals done during this shift, but was will to take IV antibiotics. Did complain of abdomen pain and received hydrocodone x1. Has has good output. FACUNDO drain with 5ml of drainage and accordian drain with 5ml of drainage this shift.
[2020-12-01 08:00] VITALS: BP 143/78; PULSE 74; RESP 18; TEMP 37.2; O2SAT 96
[2020-12-01] MEDS: HYDROcodone-acetaminophen 5-325 mg Tablet 1 TAB PO ×2 (08:15→14:21)
[2020-12-01] MEDS: magnesium oxide 400 mg tablet PO (08:16)
[2020-12-01] MEDS: pantoprazole DR 40 mg Tablet PO (08:16)
[2020-12-01] MEDS: fluoxetine 20 mg Capsule PO (08:16)
[2020-12-01] MEDS: guaiFENesin 600 mg Tablet PO (08:16)
[2020-12-01 12:00] VITALS: BP 136/83; PULSE 78; RESP 18; TEMP 37.1; O2SAT 96
--- NOTE | 2020-12-01 12:21 | PC.NURSE ---
DRAIN EDUCATION DRAIN EDUCATION GIVEN PER THIS NURSE TO PT - PT VERBALIZES UNDERSTANDING IN CARE FOR DRAIN AND EMPTYING
--- NOTE | 2020-12-01 12:50 | PM.PN ---
Subjective Subjective: Interval history: She denies significant pain, has been tolerating regular diet, had bowel movements Vitals/I&O/Wt Last Vital Signs Temp 98.8 F 12/01/20 12:00 Pulse 78 12/01/20 12:00 Resp 18 12/01/20 12:00 BP 136/83 12/01/20 12:00 Pulse Ox 96 12/01/20 12:00 11/30/20 12/01/20 12/01/20 22:59 06:59 14:59 Intake Total 1080 / 2985 925 / 2985 Output Total 1700 / 2135 435 / 2135 260 / 260 Balance -620 / 850 490 / 850 -260 / -260 Physical Exam Narrative: EXAM NARRATIVE: Abdomen: Soft, minimally tender, nondistended, FACUNDO drain output is serosanguineous Urinary Catheter Management^: [place]: Cath Placed During This Visit: yes, but has since been removed by the nurse Reason for Continuing Indwelling Catheter: Accurate Measurement of Urinary Output in Critically Ill Patients Urinary Catheter Date of Insertion: 11/17/20 Urinary Catheter Time of Insertion: 07:30 Date Urinary Catheter Removed: 11/19/20 Time Urinary Catheter Discontinued: 17:15 Data : 12/01/20 02:30 12/01/20 02:30 Micro: Microbiology 11/27/20 14:32 Gram Stain - Final Other Source Body Fluid Culture - Final Escherichia coli Enterococcus faecalis 11/27/20 14:32 Anaerobic Culture - Preliminary Body Fluids - Abscess 11/27/20 14:20 Gram Stain - Final Other Source Body Fluid Culture - Final Escherichia coli Enterococcus faecalis A&P Assessment and plan (1) Diverticulitis of colon with perforation: Patient undergone diagnostic laparoscopy with peritoneal lavage and drainage of intra-abdominal abscesses with drain placements 11/17/[address]-guided drainage 11/27/2020 1. Aspiration of the left pelvic fluid collection. 30 cc of purulent material was obtained.2. 10 Polish pigtail catheter was placed into the right pelvic fluid collection. Continue nutrition and focus on protein shakes Continue drain teaching and education, will plan to DC right upper quadrant drain Encourage ambulation Incentive spirometer every hour Patient's white count is trending down to 12.4 today and her Tmax was 99.7. Hopefully she can go home today or tomorrow Status: Resolved Qualifiers: Diverticulitis bleeding: unspecified bleeding status Qualified Code(s): K57.20 - Diverticulitis of large intestine with perforation and abscess without bleeding Attestations Medical Necessity Statement*: Perforated sigmoid diverticulitis requiring continued inpatient stay Coding Level of Care Code Acute Cap Blocker for [facility] Diagnoses Diverticulitis of colon with perforation K57.20 Diverticulitis bleeding: unspecified bleeding status
[2020-12-01] MEDS: ertapenem 1,000 MG in sodium chloride 0.9% (plus) 100 ML 200 MG IV (14:16)
[2020-12-01 16:00] VITALS: BP 130/82; PULSE 94; RESP 18; TEMP 37.5; O2SAT 96
--- NOTE | 2020-12-01 16:42 | PC.NURSE ---
DISCHARGE INSTRUCTIONS DISCHARGE INSTRUCTIONS WELL DRAIN EDUCATION GIVEN TO PT AND S/O - BOTH VERBALIZE UNDERSTANDING - MEDS PREVIOUSLY DELIVERED PER [facility] - PT VERBALIZES UNDERSTANDING TO ALL
[2020-12-01 17:14] VITALS: BP 130/82; PULSE 94; RESP 18; TEMP 37.5; O2SAT 96
--- NOTE | 2020-12-01 22:01 | PM.DCS ---
Discharge Providers Date of Admission: 11/17/20 10:04 Date of Discharge: December 01, 2020 Attending Provider at Admission: Artemio Metcalf MD Attending Provider at Discharge: Tung Ibrahim Diagnoses at Discharge Discharge Diagnosis (1) Diverticulitis of colon with perforation: Status: Resolved Qualifiers: Diverticulitis bleeding: unspecified bleeding status Qualified Code(s): K57.20 - Diverticulitis of large intestine with perforation and abscess without bleeding (2) Sepsis: Status: Acute (3) Intra-abdominal abscess: Status: Acute (4) S/P laparoscopic procedure: Status: Acute Permanent problem details: Drainage of perisigmoid abscess (5) Depressive disorder: Status: Acute Reason for Visit Reason for Visit: ABD pain Hospital Course Hospital Course Pleasant 35-year-old lady with past history of opiate abuse, recently on Suboxone treatment, history of depression, perforated sigmoid colon diverticulitis was admitted on 11/17 due to abdominal pain, with noted recurrence of complicated colitis with suspected diverticular perforation, with intra-abdominal abscess, sepsis, and presentation with incidentally noted other findings on imaging including persistent adrenal masses, complex cyst of right adnexa which will need additional follow-up end of which she is aware. She was treated with IV antibiotics, underwent laparoscopic peritoneal lavage on 11/17 with drainage of intra-abdominal abscess, drain placement eventually growing E. coli, Bacteroides, group B strep in urine, although without any findings of bacteremia subsequently with protracted hospital course, with persistent sepsis, noted recurrence/persistence of intra-abdominal collection which was additionally drained by CT-guided abscess drainage with drain placement. Her course subsequently continued to gradually improve, also after adjustment of antibiotics to Primaxin, vancomycin. Cultures from IR drainage growing E. coli and Enterococcus. She has so far tolerated oral diet. Bowel function resumed. Leukocytosis slowly decreasing. Still with abdominal pain, but gradually improving. Mobilizing in her room. Given continued improvement she is cleared for discharge by surgery with follow-up in office. Given slow protracted course, recurrence of loculated intra-abdominal abscesses she will continue for at least additional 7 days with ertapenem intramuscularly. Drains are maintained. She is asked to follow-up with surgery in office at which point consideration may be given to whether extend the course or if any other interventions as needed. She is aware that additional plans with surgery going forward will be made for colon resection given recurrence of complicated diverticular disease with perforation. During hospitalization she was treated with opioids for pain. This is gradually tapered down and she is given short course of hydrocodone for pain control at discharge. She had indicated she would not be able to continue Suboxone as she is unable to follow-up with the same clinic. Please consider referral for resumption locally if possible. She is aware once she recovers from the acute illness to also follow-up regarding adrenal masses, complex right adnexal cyst to exclude possibility of malignancy. Please continue to encourage and assist her with smoking cessation. She was started on fluoxetine, and is encouraged to follow-up with behavioral health care regarding depression. Physical Exam Const: COMMON NORMALS: no acute distress, patient oriented x3 and alert GENERAL APPEARANCE: cooperative ORIENTATION/CONSCIOUSNESS: Yes awake OTHER: Sitting up Continues to gradually improve, tolerating oral intake, ambulating, feels ready to return home. Knows to make sure to follow-up and seek medical attention in case of any worsening condition. HENMT: COMMON NORMALS: oropharynx normal Neck/C-Spine: COMMON NORMALS: no JVD Resp: COMMON NORMALS: normal respiratory effort and clear to auscultation bilaterally AUSCULTATION: clear to auscultation bilaterally Cardio: COMMON NORMALS: no JVD, regular rhythm, S1 normal heart sound present, S2 normal heart sound present and No murmurs present (Cardio) RHYTHM: regular rhythm HEART SOUNDS: S1 normal heart sound present and S2 normal heart sound present GI: INSPECTION: Yes abdominal distension AUSCULTATION: Yes normoactive bowel sounds PALPATION: Yes Tenderness to palpation present (GI) OTHER: Serosanguineous fluid in the drain, turbid. Extremity: COMMON NORMALS: no joint enlargement and no pedal edema Neuro: COMMON NORMALS: patient oriented x3 and moves all extremities SENSORIUM/ORIENTATION: Yes alert Skin: COMMON NORMALS: no rashes or lesions noted GENERAL SKIN EXAM: no rashes or lesions noted Urinary Catheter Management^: [place]: Cath Placed During This Visit: yes, but has since been removed by the nurse Reason for Continuing Indwelling Catheter: Accurate Measurement of Urinary Output in Critically Ill Patients Urinary Catheter Date of Insertion: 11/17/20 Urinary Catheter Time of Insertion: 07:30 Date Urinary Catheter Removed: 11/19/20 Time Urinary Catheter Discontinued: 17:15 Discharge Data Data Completed and Pending: Completed Studies During Hospitalization Category Date Time Status CT abdomen pelvis w con* [id number] Stat Cat Scan 11/23/20 07:[address] abdomen pelvis w con* [id number] Urge nt Cat Scan 11/17/20 01:[address] abdomen pelvis w con* [id number] Urge nt Cat Scan 11/27/20 06:[address] [place] [id number] Urgent Cat Scan 11/27/20 11:45 Completed CXRP [XR chest 1V portable [id number]] R outine Exams 11/17/20 12:20 Completed XR chest 1V [place] ble [id number] Stat Exams 11/21/20 12:14 Completed Pending at discharge Category Date Time Status ES surgery / GI i mages Routine Exams 11/17/20 08:38 Taken Anaerobic Culture Routine Lab 11/27/20 14:32 Results Labs from last 24 hours 12/01/20 12/01/20 02:30 02:30 WBC 12.4 H RBC 3.65 L Hgb 8.6 L Hct 29.1 L MCV 79.7 L MCH 23.6 L MCHC 29.6 L RDW 23.0 H Plt Count 730 H MPV 8.9 Neut % (Auto) 76.5 Lymph % (Auto) 15.4 [place] % (Auto) 6.7 Eos % (Auto) 0.2 Baso % (Auto) 0.3 Neut # (Auto) 9.52 H Lymph # (Auto) 1.9 [place] # (Auto) 0.8 Eos # (Auto) 0.0 Baso # (Auto) 0.0 Nucleated RBC % (a uto) 0 Nucleated RBCs # 0.0 Sodium 135 L Potassium 3.7 Chloride 103 Carbon Dioxide 24 Anion Gap 11.7 BUN 5 L Creatinine 0.3 L GFR Calculation 254.7 H Glucose 98 Calculated Osmolal ity 277 L Calcium 7.8 L Vitals: Last Vital Signs Temp 99.5 F 12/01/20 17:14 Pulse 94 12/01/20 17:14 Resp 18 12/01/20 17:14 BP 130/82 12/01/20 17:14 Pulse Ox 96 12/01/20 17:14 Discharge Plan Discharge Patient Disposition: Home Condition: Stable Prescriptions: New ertapenem 1 gram recon soln 1 g IM DAILY 7 Days Qty: 7 RF: 0 hydrocodone-acetaminophen 5-325 mg Tablet 1 tab PO Q6H PRN (Reason: Moderate Pain) Qty: 14 RF: 0 nicotine 21 mg/24 hr Patch 24 Hour 1 patch transdermal DAILY PRN (Reason: Withdrawal) Qty: 30 RF: 0 fluoxetine 20 mg Capsule 20 mg PO DAILY Qty: 30 RF: 0 Continued ondansetron HCl [Zofran] 4 mg tablet 4 mg PO Q6H PRN (Reason: nausea and vomiting) Qty: 20 RF: 0 prazosin 1 mg capsule 1 mg PO BEDTIME PRN (Reason: Sleep) RF: 0 acetaminophen [Tylenol Extra Strength] 500 mg Tablet 1,000 mg PO Q6H PRN (Reason: Pain) RF: 0 trazodone 150 mg tablet 150 mg PO BEDTIME PRN (Reason: Sleep) RF: 0 docusate sodium [Colace] 100 mg Capsule 300 mg PO DAILY PRN (Reason: Constipation) RF: 0 polyethylene glycol 3350 [Miralax] 17 gram/dose Powder 17 g PO DAILY PRN (Reason: Constipation) RF: 0 Discontinued ibuprofen 200 mg Tablet 800 mg PO Q6H PRN (Reason: Pain) RF: 0 Discharge Orders: Discharge Order (Routine); Ordered 12/01/20 Ordered By: Tung Ibrahim Referrals: [facility] [Other] (You will have ertapenem given IM for the next 7 days at Outpatient Surgery. Please come through the ER entrance. Your daily appointment time is 08:00, and your first dose is tomorrow, 12/02/20 at 0800. You will need to check in at 0745. ) [facility] [Provider Group] - 2 weeks ([facility] [phone] PLEASE GO TO [facility] FOR APPOINTMENT ) Delroy Oshea MD [Physician] - 12/08/20 10:30 am Artemio Metcalf MD [Physician] - 12/14/20 10:40 am Discharge Diet: Advance as tolerated and GI Soft Discharge Activity: Increase activity as tolerated Patient Instructions: Fluoxetine (By mouth), Ertapenem (Injection), How to Stop Smoking (GEN), Diverticulitis (GEN), Cigarette Smoking and Your Health (GEN), Depression (GEN), Perforated Bowel (GEN), Opioid Safety Activity Restrictions/Additional Instructions: Please continue with antibiotic injections daily for the next 7 days to complete the course of therapy. Follow-up with surgery in office as well as with primary care provider for consideration whether this needs to be extended. Please follow-up subsequently surgery as well regarding resection of colon to prevent additional episodes of recurrence. In case experience worsening abdominal pain, any high fever, inability to tolerate food or drink, seek medical attention without delay. Please follow-up with behavioral health care with regards to depression. Continue medication. In case you note worsening depression, any thoughts of self-harm, seek medical attention immediately. Discussed with your primary doctor referral to pain clinic with regards to chronic pain management. Please stop smoking. Please discuss with your primary doctor follow-up regarding adrenal masses, requiring additional follow-up with possibly MRI or CT with contrast set for adrenal protocol to rule out possibility of malignancy as the cause. After you recover also please discuss with your primary doctor regarding referral for pelvic ultrasound to closer assess the large cystic lesion near your right ovary. Discharge Attestations Time Spent in Discharge Care*: greater than 30 min Quality Metrics Clinical Quality Measures During this hospital stay, did patient experience: None Coding Level of Care Code Acute g [facility] note Diagnoses Diverticulitis of colon with perforation K57.20 Diverticulitis bleeding: unspecified bleeding status Sepsis A41.9 Intra-abdominal abscess K65.1 S/P laparoscopic procedure Z98.890 Depressive disorder F32.9
== END 2020-12-01 17:16 | disposition home or self-care (01) | DRG 853 ==
LOC: ER 11-17 04:57 → OR 11-17 06:19 → ICU 11-17 10:06 → MEDSURG 11-19 21:23
PROVIDERS: Internal Medicine; Radiology Neuroradiology; Student in an Organized Health Care Education/Training Program; Surgery; Admitting Provider Surgery; Emergency Provider Physician Assistant; Visit Provider Internal Medicine
PROC: 0W9G40Z Drainage of Peritoneal Cavity with Drainage Device, Percutaneous Endoscopic Approach (ICD-10-PCS; CPT 49320; principal; 2020-11-17 07:00)
PROC: 0W9J40Z Drainage of Pelvic Cavity with Drainage Device, Percutaneous Endoscopic Approach (ICD-10-PCS; CPT 75989; principal; 2020-11-27 13:00)
DX: A41.9 Sepsis, unspecified organism (principal); K65.9 Peritonitis, unspecified; K57.20 Diverticulitis of large intestine with perforation and abscess without bleeding; F11.20 Opioid dependence, uncomplicated; E27.9 Disorder of adrenal gland, unspecified; F17.210 Nicotine dependence, cigarettes, uncomplicated; Z80.0 Family history of malignant neoplasm of digestive organs; F32.9 Major depressive disorder, single episode, unspecified; B96.20 Unspecified Escherichia coli [E. coli] as the cause of diseases classified elsewhere; E87.6 Hypokalemia; E83.42 Hypomagnesemia; B95.62 Methicillin resistant Staphylococcus aureus infection as the cause of diseases classified elsewhere; R30.0 Dysuria; D50.9 Iron deficiency anemia, unspecified; F41.9 Anxiety disorder, unspecified; N83.201 Unspecified ovarian cyst, right side; B95.2 Enterococcus as the cause of diseases classified elsewhere; B95.1 Streptococcus, group B, as the cause of diseases classified elsewhere
CPT/HCPCS: 36415; 36416; 36592; 36600; 49406; 51798; 71045; 74177; 80048; 80051; 80053; 80202; 81001; 82274; 82330; 82436; 82607; 82746; 82805; 82962; 83036; 83540; 83550; 83605; 83630; 83690; 83735; 84133; 84145; 84300; 84443; 84703; 85007; 85025; 85045; 86225; 86235; 87040; 87070; 87075; 87077; 87186; 87205; 87491; 87493; 87506; 87591; 87641; 93005; 94664; 96365; 96367; 96372; 96374; 96375; 96376; 99285; J0330; J0696; J0743; J1100; J1170; J1335; J1644; J1756; J2060; J2250; J2270; J2370; J2405; J2543; J2704; J2710; J3010; J3370; J3475; J3480; J3490; J7030; P9041; P9047; Q0162; Q4081; Q9967; S0030

== ENCOUNTER 2020-12-08 08:11 | Outpatient (RCR) | payer SELFPAY ==
[2020-12-02 08:09] VITALS: BMI 33.6
[2020-12-02 08:14] VITALS: BP 139/96; PULSE 91; RESP 18; TEMP 36.6; O2SAT 97
[2020-12-03 07:57] VITALS: BP 156/86; PULSE 101; RESP 18; TEMP 37.7; O2SAT 95
[2020-12-04 08:05] VITALS: BP 137/88; PULSE 86; RESP 18; TEMP 36.6; O2SAT 96
[2020-12-05 08:05] VITALS: BP 143/91; PULSE 90; RESP 18; TEMP 36.1; O2SAT 94
[2020-12-06 08:00] VITALS: BP 129/74; PULSE 80; RESP 16; TEMP 36.5; O2SAT 96
[2020-12-07 08:11] VITALS: BP 129/75; PULSE 83; RESP 18; TEMP 36.1; O2SAT 96
[2020-12-08 08:21] VITALS: BP 155/86; PULSE 86; RESP 18; TEMP 36.2; O2SAT 93
== END 2020-12-23 23:59 | disposition home or self-care (01) ==
LOC: GILAB 08:11
PROVIDERS: PCP Family Medicine Adult Medicine; Visit Provider Internal Medicine
DX: K57.20 Diverticulitis of large intestine with perforation and abscess without bleeding (principal)
CPT/HCPCS: 96372; J1335

== ENCOUNTER 2020-12-12 04:18 | Inpatient (IN) | payer SELFPAY ==
[2020-12-12] VITALS (12 sets, daily range): BP systolic 110–148; BP diastolic 75–94; PULSE 89–116; RESP 15–22; TEMP 36.5–37.2; O2SAT 93–96; BMI 30.9
--- NOTE | 2020-12-12 04:47 | CTR_ITS ---
PROCEDURE INFORMATION: Exam: CT Abdomen And Pelvis With Contrast Exam date and time: 12/12/2020 4:47 AM Age: 35 years old Clinical indication: Abdominal pain; Generalized; Prior surgery; Surgery date: <1 month; Surgery type: Perforated bowel surgery x 2wks ago; Patient HX: Increased pain x 2 days; Additional info: Abd pain TECHNIQUE: Imaging protocol: Computed tomography of the abdomen and pelvis with contrast. Radiation optimization: All CT scans at this facility use at least one of these dose optimization techniques: automated exposure control; mA and/or kV adjustment per patient size (includes targeted exams where dose is matched to clinical indication); or iterative reconstruction. Contrast material: OMNI 300; Contrast volume: 95 ml; Contrast route: INTRAVENOUS (IV); COMPARISON: CT abdomen pelvis w con* [id number] 11/27/2020 9:15 AM RADIATION DOSE METRICS: Total DLP (mGy-cm): 1512.81 FINDINGS: Tubes, catheters and devices: There is a right-sided is percutaneous drain coiled adjacent to a 2.8 x 2.5 cm residual abscess. There is an additional drain adjacent to the percutaneous drain. There is a residual abscess in the left side of the abdomen measuring 4.9 by 4 cm. Lungs: The lung bases are clear. No effusion Pleural spaces: Stable small left pleural effusion. Liver: Normal. No mass. Gallbladder and bile ducts: No wall thickening, pericholecystic fluid or stones. Pancreas: Normal. No ductal dilation. Spleen: Normal. No splenomegaly. Adrenal glands: 2.4 cm indeterminate right adrenal nodule. 2.6 cm indeterminate left adrenal nodule. Kidneys and ureters: Normal. No hydronephrosis. Stomach and bowel: There are few loops of gas and fluid-filled small bowel with a balanced amount of gas and fluid in the colon. Appendix: No evidence of appendicitis. Intraperitoneal space: See Tubes, catheters and devices finding. Vasculature: Unremarkable. No abdominal aortic aneurysm. Lymph nodes: Unremarkable. No enlarged lymph nodes. Urinary bladder: Unremarkable as visualized. Reproductive: Unremarkable as visualized. Bones/joints: Unremarkable. No acute fracture. Soft tissues: Unremarkable. CT/CT abdomen pelvis w con* [id number] IMPRESSION: 1. There is a right-sided percutaneous drain coiled adjacent to a 2.8 x 2.5 cm residual abscess, not within the fluid. 2. Ileus. 3. There is a residual abscess in the left side of the abdomen measuring 4.9 by 4 cm. 4. Stable small left pleural effusion. 5. Indeterminate bilateral adrenal nodules. Consider further evaluation with outpatient pre and postcontrast dedicated adrenal CT or MRI. Radiation Dose CTDIVOL = (mGy): DLP = 1512.81 (mGy-cm)
--- NOTE | 2020-12-12 05:23 | ED_ITS ---
Documented by User: Kosta Duff DO 12/12/20 06:12 HPI - Abdominal Pain General: Chief Complaint: Abdominal Pain Stated Complaint: Drain From Surgury Pain Time Seen by Provider: 12/12/20 04:45 History of Present Illness: HPI narrative: 35-year-old female who had surgery for perforated bowel at this facility on 11/17. She has [address]. She presents with drainage from the left surgical drain site associated with increasing abdominal pain, mainly on the left side. She denies any fever. She denies vomiting. She denies blood in the stool. She is quite nauseated at times her last bowel movement was 24 hours ago. MD elicited complaint: abdominal pain Pertinent past history: other Onset (ago): hour(s) Pain Consistency: constant Location: LLQ Severity: severe Quality: cramping and stabbing Radiation: none Migration to: no migration Exacerbating factors: movement Relieving factors: nothing Context: other Associated Symptoms: Reports nausea; Denies bloating, change in bowel habits, constipation, diarrhea, fever(s), hematochezia, melena and vomiting Related Data: Date of Last Menstrual Period: 11/11/20 Review of Systems Const: Denies: fever(s) ENMT: Denies: throat pain or nasal congestion Card: Denies: chest pain or palpitations Resp: Denies: dyspnea or productive cough GI: Reports: nausea; Denies: vomiting, diarrhea, constipation, bloating, change in bowel habits, hematochezia or melena Neuro: Reports: dizziness PFSH ED PFSH: Medical History Opiate abuse, episodic Perforation of sigmoid colon due to diverticulitis Surgical History S/P laparoscopic procedure (09/24/20) Drainage of perisigmoid abscess Family History Father Cancer Father was diagnosed with colon cancer at age 49 Social History Smoking and tobacco status: current every day smoker Alcohol intake: never Housing: House Female Reproductive History: Date of last menstrual period: 11/11/20 Physical Exam Const: GENERAL APPEARANCE: cooperative, disheveled, ill appearing and diaphoretic ORIENTATION/CONSCIOUSNESS: Yes oriented to person, Yes oriented to place and Yes oriented to time HENMT: COMMON NORMALS: normocephalic HEAD & SCALP: normocephalic Eye: COMMON NORMALS: Equal, round and reactive pupils present, EOMs intact bilaterally and conjunctivae normal EYELID: eyelids normal CONJUNCTIVA: Yes conjunctivae normal PUPIL: Yes Equal, round and reactive pupils present Neck/C-Spine: COMMON NORMALS: full ROM GENERAL: No tracheal deviation CERVICAL SPINE: Yes normal cervical lordosis and No Cervical spine tenderness Chest: COMMONS NORMALS: normal inspection of the chest CHEST: No tenderness Resp: COMMON NORMALS: clear to auscultation bilaterally EFFORT & INSPECTION: No tachypneic, No respiratory distress, No retractions, No uses accessory muscles and No tracheal deviation AUSCULTATION: clear to auscultation bilaterally, no rhonchi, no wheezes and lung sounds not diminished Cardio: COMMON NORMALS: regular rate and regular rhythm RATE: regular rate RHYTHM: regular rhythm HEART SOUNDS: no murmurs PERIPHERAL PULSES: radial pulses present GI: INSPECTION: No abdominal distension AUSCULTATION: No Hyperactive bowel sounds present and No Hypoactive bowel sounds present PALPATION: Yes Tenderness to palpation present (GI) Details: LLQ, Yes Guarding due to palpation present (GI) and No Rigid due to palpation PERCUSSION: no dullness to percussion and no tympanic to percussion Neuro: SENSORIUM/ORIENTATION: Yes oriented to person, Yes oriented to place and Yes oriented to time Psych: COMMON NORMALS: mental status grossly normal Skin: COMMON NORMALS: no rashes or lesions noted GENERAL SKIN EXAM: no rashes or lesions noted Course Vital Signs: Vital signs: Vital Signs Temperature 99.0 F 12/12/20 04:38 Pulse Rate 116 H 12/12/20 04:38 Respiratory Rate 18 12/12/20 05:37 Blood Pressure 129/84 12/12/20 04:38 Pulse Oximetry 96 12/12/20 04:38 MDM - Abdominal Pain MDM Narrative: Medical decision making narrative: 35-year-old female. Nearly 1 months. She presents with a 99 degree temp, white blood cell count of 17, belly pain and apparently drainage from her left lower quadrant drain site. CT is pending. Her CRP is significantly elevated. She is checked out to Dr. Lane at shift change to follow-up CT findings. Lab Data: Labs: Lab Results 12/12/20 12/12/20 12/12/20 Range/Units 05:30 05:30 05:30 WBC 16.9 H (4.0-10.0) 10^3/ uL RBC 4.30 (4.1-5.3) 10^6/u L Hgb 10.3 L (11.5-15.3) g/dL Hct 33.4 L (37.0-47.0) % MCV 77.7 L (81-99) fL MCH 24.0 L (28.0-34.0) pg MCHC 30.8 (30.0-36.0) g/dL RDW 21.7 H (12.1-15.1) % Plt Count 561 H (130-400) 10^3/c mm MPV 9.1 (7.4-10.4) fL Neut % (Auto) 84.8 % Lymph % (Auto) 8.5 % [place] % (Auto) 5.4 % Eos % (Auto) 0.4 % Baso % (Auto) 0.3 % Neut # (Auto) 14.33 H (1.8-7.7) 10^3/u L Lymph # (Auto) 1.4 (0.8-4.8) 10^3/u L [place] # (Auto) 0.9 (0.2-0.9) 10^3/u L Eos # (Auto) 0.1 (0.0-0.8) 10^3/u L Baso # (Auto) 0.1 (0.0-0.1) 10^3/u L Nucleated RBC % (a uto) 0 % Nucleated RBCs # 0.0 /100WBC Sodium 133 L (136-145) mmol/L Potassium 4.1 (3.5-5.1) mmol/L Chloride 98 (98-107) mmol/L Carbon Dioxide 24 (22-29) mmol/L Anion Gap 15.1 (5-19) BUN 7 (6-20) mg/dL Creatinine 0.4 L (0.5-0.9) mg/dL GFR Calculation 182.7 H (90-130) mL/min Glucose 122 H (65-115) mg/dL Calculated Osmolal ity 275 L (285-295) mOsm/k g Lactate 0.8 (0.5-2.2) mmol/L Calcium 8.1 L (8.5-10.5) mg/dL Total Bilirubin 0.4 (0.15-1.2) mg/dL AST 15 (0-32) U/L ALT 7 (0-33) U/L Alkaline Phosphata se 106 H (35-105) IU/L C-Reactive Protein 81.5 H (0.0-4.9) mg/L Total Protein 8.0 (6.6-8.7) g/dL Albumin 2.7 L (3.5-5.2) g/dL Globulin 5.3 H (1.3-4.6) g/dL Lipase 16 (13-60) U/L Urine Color (Yellow) Urine Appearance (CLEAR) Urine pH (5-7) Ur Specific Gravit y (1.005-1.030) Urine Protein (Negative) Urine Glucose (UA) (Normal) Urine Ketones (Negative) Urine Blood (Negative) Urine Nitrate (Negative) Urine Bilirubin (Negative) Urine Urobilinogen (Negative) mg/dL Ur Leukocyte Enedina ase (Negative) Urine RBC (0-2) /hpf Urine WBC (0-5) /hpf Ur Squamous Epith Cells (0-5) /hpf Amorphous Sediment Urine Bacteria (NONE) /hpf Urine Mucus /hpf 12/12/20 Range/Units 06:03 WBC (4.0-10.0) 10^3/ uL RBC (4.1-5.3) 10^6/u L Hgb (11.5-15.3) g/dL Hct (37.0-47.0) % MCV (81-99) fL MCH (28.0-34.0) pg MCHC (30.0-36.0) g/dL RDW (12.1-15.1) % Plt Count (130-400) 10^3/c mm MPV (7.4-10.4) fL Neut % (Auto) % Lymph % (Auto) % [place] % (Auto) % Eos % (Auto) % Baso % (Auto) % Neut # (Auto) (1.8-7.7) 10^3/u L Lymph # (Auto) (0.8-4.8) 10^3/u L [place] # (Auto) (0.2-0.9) 10^3/u L Eos # (Auto) (0.0-0.8) 10^3/u L Baso # (Auto) (0.0-0.1) 10^3/u L Nucleated RBC % (a uto) % Nucleated RBCs # /100WBC Sodium (136-145) mmol/L Potassium (3.5-5.1) mmol/L Chloride (98-107) mmol/L Carbon Dioxide (22-29) mmol/L Anion Gap (5-19) BUN (6-20) mg/dL Creatinine (0.5-0.9) mg/dL GFR Calculation (90-130) mL/min Glucose (65-115) mg/dL Calculated Osmolal ity (285-295) mOsm/k g Lactate (0.5-2.2) mmol/L Calcium (8.5-10.5) mg/dL Total Bilirubin (0.15-1.2) mg/dL AST (0-32) U/L ALT (0-33) U/L Alkaline Phosphata se (35-105) IU/L C-Reactive Protein (0.0-4.9) mg/L Total Protein (6.6-8.7) g/dL Albumin (3.5-5.2) g/dL Globulin (1.3-4.6) g/dL Lipase (13-60) U/L Urine Color Yellow (Yellow) Urine Appearance Clear (CLEAR) Urine pH 7 (5-7) Ur Specific Gravit y 1.005 (1.005-1.030) Urine Protein Trace (Negative) Urine Glucose (UA) Norm (Normal) Urine Ketones Negative (Negative) Urine Blood Neg (Negative) Urine Nitrate Negative (Negative) Urine Bilirubin 1+ H (Negative) Urine Urobilinogen 1 H (Negative) mg/dL Ur Leukocyte Enedina ase 1+ H (Negative) Urine RBC None (0-2) /hpf Urine WBC 15-25 H (0-5) /hpf Ur Squamous Epith Cells 10-15 H (0-5) /hpf Amorphous Sediment Not Reportable Urine Bacteria Trace (NONE) /hpf Urine Mucus 1+ /hpf Discharge Plan Discharge Prescriptions: No Action polyethylene glycol 3350 [Miralax] 17 gram/dose Powder 17 g PO DAILY PRN (Reason: Constipation) RF: 0 hydrocodone-acetaminophen 5-325 mg Tablet 1 tab PO Q6H PRN (Reason: Moderate Pain) Qty: 14 RF: 0 Coding Level of Care Code ED Director Of [facility] [employer] for Chg Fwd Exam Comprehensive Documented by User: Vira Lane DO 12/12/20 07:47 HPI - Abdominal Pain General: Chief Complaint: Abdominal Pain Stated Complaint: Drain From Surgury Pain Time Seen by Provider: 12/12/20 04:45 PFSH ED PFSH: Medical History Opiate abuse, episodic Perforation of sigmoid colon due to diverticulitis Surgical History S/P laparoscopic procedure (09/24/20) Drainage of perisigmoid abscess Family History Father Cancer Father was diagnosed with colon cancer at age 49 Social History Smoking and tobacco status: current every day smoker Alcohol intake: never Housing: House Course Vital Signs: Vital signs: Vital Signs Temperature 99.0 F 12/12/20 04:38 Pulse Rate 116 H 12/12/20 04:38 Respiratory Rate 18 12/12/20 05:37 Blood Pressure 129/84 12/12/20 04:38 Pulse Oximetry 96 12/12/20 04:38 MDM - Abdominal Pain MDM Narrative: Medical decision making narrative: Assumed care of the patient at [address] scan shows that the right drain is not properly positioned inside the fluid collection patient does admit she has noticed decreased drainage in this area. That abscess however has improved a little bit in size from previous CT scan on 11/27 the left-sided abscess now measures 4.8 x 4 cm and previously it had been documented at 5.4 x 1.8 cm patient does have an elevated white count her cultures were reviewed and had E. coli and Enterococcus that were both sensitive to Cipro I spoke to general surgery Dr. Metcalf who wants to give IV Cipro right now have her n.p.o. IV fluids give her some Dulcolax or mag citrate and that patient needs to be admitted to the hospitalist due to her chronic issues and multiple medical problems as well as history of opiate abuse and dependency. Dr. Adams was notified at 8 AM for admission. Consult was placed for general surgery patient already had IV fluids started an order for n.p.o. and Cipro were placed as well as Dulcolax Differential Diagnosis: Differential diagnosis abdominal pain: Likely pancreatitis Lab Data: Labs: Lab Results 12/12/20 12/12/20 12/12/20 Range/Units 05:30 05:30 05:30 WBC 16.9 H (4.0-10.0) 10^3/ uL RBC 4.30 (4.1-5.3) 10^6/u L Hgb 10.3 L (11.5-15.3) g/dL Hct 33.4 L (37.0-47.0) % MCV 77.7 L (81-99) fL MCH 24.0 L (28.0-34.0) pg MCHC 30.8 (30.0-36.0) g/dL RDW 21.7 H (12.1-15.1) % Plt Count 561 H (130-400) 10^3/c mm MPV 9.1 (7.4-10.4) fL Neut % (Auto) 84.8 % Lymph % (Auto) 8.5 % [place] % (Auto) 5.4 % Eos % (Auto) 0.4 % Baso % (Auto) 0.3 % Neut # (Auto) 14.33 H (1.8-7.7) 10^3/u L Lymph # (Auto) 1.4 (0.8-4.8) 10^3/u L [place] # (Auto) 0.9 (0.2-0.9) 10^3/u L Eos # (Auto) 0.1 (0.0-0.8) 10^3/u L Baso # (Auto) 0.1 (0.0-0.1) 10^3/u L Nucleated RBC % (a uto) 0 % Nucleated RBCs # 0.0 /100WBC Sodium 133 L (136-145) mmol/L Potassium 4.1 (3.5-5.1) mmol/L Chloride 98 (98-107) mmol/L Carbon Dioxide 24 (22-29) mmol/L Anion Gap 15.1 (5-19) BUN 7 (6-20) mg/dL Creatinine 0.4 L (0.5-0.9) mg/dL GFR Calculation 182.7 H (90-130) mL/min Glucose 122 H (65-115) mg/dL Calculated Osmolal ity 275 L (285-295) mOsm/k g Lactate 0.8 (0.5-2.2) mmol/L Calcium 8.1 L (8.5-10.5) mg/dL Total Bilirubin 0.4 (0.15-1.2) mg/dL AST 15 (0-32) U/L ALT 7 (0-33) U/L Alkaline Phosphata se 106 H (35-105) IU/L C-Reactive Protein 81.5 H (0.0-4.9) mg/L Total Protein 8.0 (6.6-8.7) g/dL Albumin 2.7 L (3.5-5.2) g/dL Globulin 5.3 H (1.3-4.6) g/dL Lipase 16 (13-60) U/L Urine Color (Yellow) Urine Appearance (CLEAR) Urine pH (5-7) Ur Specific Gravit y (1.005-1.030) Urine Protein (Negative) Urine Glucose (UA) (Normal) Urine Ketones (Negative) Urine Blood (Negative) Urine Nitrate (Negative) Urine Bilirubin (Negative) Urine Urobilinogen (Negative) mg/dL Ur Leukocyte Enedina ase (Negative) Urine RBC (0-2) /hpf Urine WBC (0-5) /hpf Ur Squamous Epith Cells (0-5) /hpf Amorphous Sediment Urine Bacteria (NONE) /hpf Urine Mucus /hpf 12/12/20 Range/Units 06:03 WBC (4.0-10.0) 10^3/ uL RBC (4.1-5.3) 10^6/u L Hgb (11.5-15.3) g/dL Hct (37.0-47.0) % MCV (81-99) fL MCH (28.0-34.0) pg MCHC (30.0-36.0) g/dL RDW (12.1-15.1) % Plt Count (130-400) 10^3/c mm MPV (7.4-10.4) fL Neut % (Auto) % Lymph % (Auto) % [place] % (Auto) % Eos % (Auto) % Baso % (Auto) % Neut # (Auto) (1.8-7.7) 10^3/u L Lymph # (Auto) (0.8-4.8) 10^3/u L [place] # (Auto) (0.2-0.9) 10^3/u L Eos # (Auto) (0.0-0.8) 10^3/u L Baso # (Auto) (0.0-0.1) 10^3/u L Nucleated RBC % (a uto) % Nucleated RBCs # /100WBC Sodium (136-145) mmol/L Potassium (3.5-5.1) mmol/L Chloride (98-107) mmol/L Carbon Dioxide (22-29) mmol/L Anion Gap (5-19) BUN (6-20) mg/dL Creatinine (0.5-0.9) mg/dL GFR Calculation (90-130) mL/min Glucose (65-115) mg/dL Calculated Osmolal ity (285-295) mOsm/k g Lactate (0.5-2.2) mmol/L Calcium (8.5-10.5) mg/dL Total Bilirubin (0.15-1.2) mg/dL AST (0-32) U/L ALT (0-33) U/L Alkaline Phosphata se (35-105) IU/L C-Reactive Protein (0.0-4.9) mg/L Total Protein (6.6-8.7) g/dL Albumin (3.5-5.2) g/dL Globulin (1.3-4.6) g/dL Lipase (13-60) U/L Urine Color Yellow (Yellow) Urine Appearance Clear (CLEAR) Urine pH 7 (5-7) Ur Specific Gravit y 1.005 (1.005-1.030) Urine Protein Trace (Negative) Urine Glucose (UA) Norm (Normal) Urine Ketones Negative (Negative) Urine Blood Neg (Negative) Urine Nitrate Negative (Negative) Urine Bilirubin 1+ H (Negative) Urine Urobilinogen 1 H (Negative) mg/dL Ur Leukocyte Enedina ase 1+ H (Negative) Urine RBC None (0-2) /hpf Urine WBC 15-25 H (0-5) /hpf Ur Squamous Epith Cells 10-15 H (0-5) /hpf Amorphous Sediment Not Reportable Urine Bacteria Trace (NONE) /hpf Urine Mucus 1+ /hpf Discharge Plan Discharge Prescriptions: No Action polyethylene glycol 3350 [Miralax] 17 gram/dose Powder 17 g PO DAILY PRN (Reason: Constipation) RF: 0 hydrocodone-acetaminophen 5-325 mg Tablet 1 tab PO Q6H PRN (Reason: Moderate Pain) Qty: 14 RF: 0 Coding Level of Care Code ED Director Of [facility] [employer] for Chg Fwd Exam Comprehensive
[2020-12-12] MEDS: HYDROmorphone 1 mg/mL INJ 1 mL IVP ×4 (05:37→20:29)
[2020-12-12] MEDS: ondansetron 2 mg/ML SDV 2 mL 4 MG IVP ×2 (05:38→11:24)
[2020-12-12 05:46] LABS: Basophils # 0.1 10^3/uL (0.0-0.1); Basophils % 0.3 %; Eosinophils # 0.1 10^3/uL (0.0-0.8); Eosinophils % 0.4 %; Hematocrit 33.4 % (37.0-47.0); Hemoglobin 10.3 g/dL (11.5-15.3); Lymphocytes # 1.4 10^3/uL (0.8-4.8); Lymphocytes % 8.5 %; Mean Corpuscular HGB Conc 30.8 g/dL (30.0-36.0); Mean Corpuscular Volume 77.7 fL (81-99); Mean Platelet Volume 9.1 fL (7.4-10.4); Monocytes # 0.9 10^3/uL (0.2-0.9); Monocytes % 5.4 %; Neutrophils # 14.33 10^3/uL (1.8-7.7); Neutrophils % 84.8 %; Nucleated Red Blood Cells % 0 %; Platelet Count 561 10^3/cmm (130-400); Red Cell Distribution Width 21.7 % (12.1-15.1); White Blood Count 16.9 10^3/uL (4.0-10.0)
[2020-12-12] MEDS: sodium chloride 0.9% 1,000 ML 999 ML IV (05:46)
[2020-12-12] MEDS: iohexol 300 mg/mL 100 mL Btl IV (05:50)
[2020-12-12 05:58] LABS: Lactate (Lactic Acid level) 0.8 mmol/L (0.5-2.2)
[2020-12-12 05:59] LABS: Alanine Aminotransferase 7 U/L (0-33); Albumin Level 2.7 g/dL (3.5-5.2); Alkaline Phosphatase 106 IU/L (35-105); Anion Gap 15.1 (5-19); Aspartate Amino Transferase 15 U/L (0-32); Blood Urea Nitrogen 7 mg/dL (6-20); C Reactive Protein 81.5 mg/L (0.0-4.9); Calcium 8.1 mg/dL (8.5-10.5); Carbon Dioxide 24 mmol/L (22-29); Chloride 98 mmol/L (98-107); Globulin 5.3 g/dL (1.3-4.6); Glomerular Filtration Rate 182.7 mL/min (90-130); Glucose 122 mg/dL (65-115); Lipase 16 U/L (13-60); Osmolality Calculated 275 mOsm/kg (285-295); Potassium 4.1 mmol/L (3.5-5.1); Sodium 133 mmol/L (136-145); Total Bilirubin 0.4 mg/dL (0.15-1.2)
[2020-12-12 06:36] LABS: Add Urine Microscopic? YES; Bilirubin Urine 1+ (Negative); Blood Urine Neg (Negative); Glucose Urine UA Norm (Normal); Ketones Urine Negative (Negative); Leukocyte Esterase Urine 1+ (Negative); Nitrate Urine Negative (Negative); Protein Urine Trace (Negative); Specific Gravity, Urine 1.005 (1.005-1.030); Urine Appearance Clear (CLEAR); Urine Color Yellow (Yellow); Urobilinogen Urine 1 mg/dL (Negative); WBC Urine 15-25 /hpf (0-5); pH Urine 7 (5-7)
[2020-12-12 06:37] LABS: Add Urine Culture? No; Bacteria Urine TRACE /hpf; Mucus Urine 1+ /hpf
--- NOTE | 2020-12-12 07:34 | PM.CONSULT ---
Providers/Reason For Consult Consulting Physician/Specialty*: Artemio Metcalf MD Reason for Consult*: Intra-abdominal abscess Requesting Physician: Dr. Lane Primary Care Provider: Delroy Oshea MD History of Present Illness History of Present Illness Chief Complaint: I am hurting History of present illness: Ms Victoria Ramirez is a 35 year old female with history of opioid dependence, currently on Suboxone, is well-known to me from previous clinical encounters as recently undergone diagnostic laparoscopy by me for intra-abdominal drainage of fluid collections that coincided with peritonitis and free air. Patient presented to the emergency department today with worsening abdominal pain particularly towards the left lower quadrant and purulent drainage appreciated around the left lower abdominal drain, patient has been flushing the right lower pigtail catheter on daily basis at least once or twice a day, on presentation to the ER blood work showed WBC count of 16.9, hemoglobin 10.3, platelets of 561. Patient reports that the pain mostly located at the left lower quadrant abdominal drain site. Patient reports no fevers or chills and she has been having bowel movements and passing gas, general surgery was consulted for further evaluation. Patient denies any nausea or vomiting.Patient reports to me that she lost about 15 to 20 pounds when I asked her in the presence of her partner. Patient was seen and evaluated in the emergency department room #[address] scan of the abdomen and pelvis 12/11/20 showed: 1. There is a right-sided percutaneous drain coiled adjacent to a 2.8 x 2.5 cm residual abscess, not within the fluid. 2. Ileus. 3. There is a residual abscess in the left side of the abdomen measuring 4.9 by 4 cm. 4. Stable small left pleural effusion. 5. Indeterminate bilateral adrenal nodules. Consider further evaluation with outpatient pre and postcontrast dedicated adrenal CT or MRI. A CT scan of the abdomen and pelvis was done 11/17/2020 1. Pneumoperitoneum consistent with a perforated viscus possibly due to perforated sigmoid diverticulitis with a small irregular air containing fluid collection in the left pelvis measuring up to 4.2 x 3.7 cm probably representing an abscess. 2. Diffuse small and large bowel wall thickening which may be seen with enterocolitis . 3. 4.9 x 6.1 cm right adnexal cystic lesion probably representing an ovarian Patient was taken urgently to the OR October 28, 2020 1-Diagnostic laparoscopy with peritoneal lavage 2-Laparoscopic drainage of intra-abdominal abscess with drain placement right upper quadrant drain left lower quadrant drain. Prior to that the patient undergone Laparoscopic drainage of perisigmoid intra-abdominal abscesses on 09/24/[address] Hernandez my partner. Patient had a long hospitalization admitted on 11/17/20 and was discharged on 12/01/2020 postoperatively she maintained to have leukocytosis and fevers and CT-guided drainage was done on 11/27/2020. 1. Aspiration of the left pelvic fluid collection. 30 cc of purulent material was obtained. 2. 10 Khmer pigtail catheter was placed into the right pelvic fluid collection. And patient was discharged safely with the plan to follow-up with general surgery. Review of Systems General: Reports: 10 or more systems reviewed and unremarkable except in HPI and below Meds/Allergies Home Medications and Allergies Home Medications Medication Instructions Recorded Confirmed Last Taken Type polyethylene glycol 3350 [Miralax] 17 g PO DAILY PRN 09/19/20 12/07/20 12/06/20 History hydrocodone-acetaminophen 1 tab PO Q6H PRN #14 tab 12/01/20 12/07/20 12/06/20 Rx Allergies Allergy/AdvReac Type Severity Reaction Status Date / Time No Known Allergies Allergy Verified 12/12/20 08:03 PFSH Acute PFSH: Medical History Diverticulitis of colon with perforation Gastric distention Opiate abuse, episodic Perforated viscus Perforation of sigmoid colon due to diverticulitis Surgical History S/P laparoscopic procedure (09/24/20) Drainage of perisigmoid abscess Family History Father Cancer Father was diagnosed with colon cancer at age 49 Social History Smoking and tobacco status: current every day smoker Alcohol intake: never Housing: House Female Reproductive History: Date of last menstrual period: 11/11/20 Vitals/I&O/Wt Last Vital Signs Temp 99.0 F 12/12/20 04:38 Pulse 116 H 12/12/20 04:38 Resp 18 12/12/20 05:37 BP 129/84 12/12/20 04:38 Pulse Ox 96 12/12/20 04:38 Weight last 48 hrs Weight 175 lb Physical Exam Narrative: EXAM NARRATIVE: Patient is conscious alert oriented X3, in mild to moderate distress BMI 31 Head and neck examination PERRLA no masses no cervical lymphadenopathy no jaundice Cardiac examination audible S1-S2 no murmurs no gallops no arrhythmias Chest is clear bilateral,abscence of Rhonchi or wheezes,no surgical emphysema Abdomen nontender except around the left lower quadrant at the site of the drain insertion nondistended soft no organomegaly guarding or rigidity/no signs of peritonitis. Right lower quadrant pigtail catheter in place with purulent discharge Extremities no cyanosis no clubbing no edema A&P Assessment and plan (1) Intra-abdominal abscess: After thorough history physical exam with my personal interpretation of the CT scan of the abdomen and pelvis; From surgical standpoint of view; 1-interventional radiology consultation for intra-abdominal drain placement of the left sided abdominal abscess 2-patient can have clear liquid diet and emphasis on mag citrate and stool softeners 3-protein shakes to optimize nutrition 4-repeated physical examination 5-incentive spirometer every hour 6-encourage ambulation 7-pain control 8-pharmacologic DVT prophylaxis 9-ciprofloxacin 400 mg IV twice daily based on cultures and sensitivities 10-IV fluid resuscitation 11-drain care and teaching We will continue to follow on the patient's clinical progress, as of now I do not see an indication for surgical intervention, I did discuss with the patient and her partner the plan of care and both are in agreement. Thank you for consulting general surgery to participate taking care Ashley Status: Acute Consult Attestations Medical Necessity Statement: Patient requiring inpatient hospital patient requiring inpatient hospitalization passing 2 midnights for medical and potential interventional radiology for drain placement. Time Spent in Patient Care: (>than 50% of time spent in counselling and/or direct pt care on unit). Coding Level of Care Code Acute Orientation And Mobility Specialist for Tamela Marsh Diagnoses Intra-abdominal abscess K65.1
[2020-12-12] MEDS: ciprofloxacin 400 MG/200 ML PREMIX 200 MG IV ×2 (08:27→20:29)
[2020-12-12] MEDS: bisacodyl 5 mg Tablet 20 MG PO (09:51)
[2020-12-12] MEDS: HYDROmorphone 1 mg/mL INJ 1 mL 0.5 MG IVP (09:51)
[2020-12-12] MEDS: sodium chloride 0.9% 1,000 ML 100 ML IV ×2 (09:52→20:29)
[2020-12-12] MEDS: enoxaparin 40 mg/0.4 mL Syringe SUBCUT (11:25)
[2020-12-12] MEDS: pantoprazole 40 mg SDV IVP (11:26)
--- NOTE | 2020-12-12 13:05 | P.HP_ITS ---
Providers/Chief Complaint Admitting Physician: Nam Mandujano MD Primary Care Provider: Delroy Oshea MD Chief Complaint: Drain From Surgury Pain History of Present Illness Victoria Ramirez is a 35 year old female with past medical history of opiate dependence, currently on Suboxone, history of depression, has history of complicated diverticulitis, status post CT drainage 11/27/2020, has a 10 [place] pigtail catheter in the right pelvic fluid collection, also previously had a laparoscopic drainage of perisigmoid intra-abdominal abscess on 09/24/[address] Hernandez who presents to [facility] due to abdominal pain. Currently patient severe pain, she becomes very agitated on why I asked her why she is in the hospital. She points to her abdomen and tells me it is hurting. She tells me that she has diverticulitis she has had many surgeries, and she has 2 drains, she tells me that this drain on the right has been draining more, she is had more abdominal pain, not very specific where, more generalized she tells me that she has irregular bowel movements, no bloody bowel movements, no fevers, no chills, no chest pain. Does report nausea, no vomiting, no hematemesis. No sick contacts, no known exposure to COVID-19. Patient was found to have an intra-abdominal abscess left-sided abdomen, on CT scan, general surgery was consulted. Currently patient is on 253 bed 1, in severe pain, after being given 0.5 of Dilaudid she continues to have pain, that she was given 1 mg of Dilaudid. Review of Systems Const: Denies: fever(s), fatigue or malaise Card: Denies: chest pain Resp: Denies: dyspnea or non-productive cough GI: Reports: abdominal pain, nausea and vomiting; Denies: hematemesis, diarrhea, constipation, hematochezia or melena : Denies: flank pain, dysuria or urinary frequency Medications/Allergies Home Medications Medication Instructions Recorded Confirmed Last Taken Type polyethylene glycol 3350 [Miralax] 17 g PO DAILY PRN 09/19/20 12/07/20 12/06/20 History hydrocodone-acetaminophen 1 tab PO Q6H PRN #14 tab 12/01/20 12/07/20 12/06/20 Rx Allergies Allergy/AdvReac Type Severity Reaction Status Date / Time No Known Allergies Allergy Verified 12/12/20 08:03 PFSH Acute PFSH: Medical History Diverticulitis of colon with perforation Gastric distention Opiate abuse, episodic Perforated viscus Perforation of sigmoid colon due to diverticulitis Surgical History S/P laparoscopic procedure (09/24/20) Drainage of perisigmoid abscess Family History Father Cancer Father was diagnosed with colon cancer at age 49 Social History Smoking and tobacco status: current every day smoker Alcohol intake: never Housing: House Female Reproductive History: Date of last menstrual period: 11/11/20 Vitals/I&O/Wt Last Vital Signs Temp 98.0 F 12/12/20 09:11 Pulse 89 12/12/20 10:59 Resp 17 12/12/20 12:10 BP 110/75 12/12/20 09:11 Pulse Ox 95 12/12/20 10:59 12/11/20 12/12/20 12/12/20 22:59 06:59 14:59 Intake Total 1000 / 1000 200 / 200 Balance 1000 / 1000 200 / 200 Weight last 48 hrs Weight 79.379 kg Physical Exam Const: COMMON NORMALS: no acute distress and patient oriented x3 Eye: COMMON NORMALS: Equal, round and reactive pupils present and EOMs intact bilaterally GENERAL EYE: appearance normal, both eyes and all related structures Lymph: LYMPHATIC: no lymphadenopathy noted Resp: COMMON NORMALS: normal respiratory effort, No retractions, No use of accessory muscles and clear to auscultation bilaterally AUSCULTATION: clear to auscultation bilaterally Cardio: COMMON NORMALS: regular rate, regular rhythm, S1 normal heart sound present, S2 normal heart sound present, No gallops present (Cardio), No clicks present (Cardio) and No murmurs present (Cardio) RATE: regular rate RHYTHM: regular rhythm HEART SOUNDS: S1 normal heart sound present and S2 normal heart sound present GI: COMMON NORMALS: Normal to inspection, nondistended, normoactive bowel s ounds present and Soft to palpation PALPATION: Yes Tenderness to palpation present (GI) (Generalized tenderness), No Guarding due to palpation present (GI) and No Rigid due to palpation OTHER: Right lower quadrant pigtail catheter in place, Extremity: COMMON NORMALS: no pedal edema Neuro: COMMON NORMALS: patient oriented x3 and moves all extremities Data : 12/12/20 05:30 12/12/20 05:30 A&P Assessment and plan (1) Intra-abdominal abscess: -WBC 16.9, hemoglobin 10.3 -CT scan of the abdomen pelvis shows -1. There is a right-sided percutaneous drain coiled adjacent to a 2.8 x 2.5 cm residual abscess, not within the fluid. 2. Ileus. 3. There is a residual abscess in the left side of the abdomen measuring 4.9 by 4 cm. 4. Stable small left pleural effusion. 5. Indeterminate bilateral adrenal nodules. Consider further evaluation with outpatient pre and postcontrast dedicated adrenal CT or MRI. -Will require an IR guided drainage for left abdominal abscess -Serial abdominal exam, monitor for fevers -Continue ciprofloxacin, previous culture sensitive -Incentive spirometer, flutter valve -PT OT, encouraged to get up out of bed -Lovenox for DVT prophylaxis -Zofran for nausea, reglan for second line -Dilaudid 1 mg every 4 hours for pain, will try my best to manage her pain given her history of opioid abuse in the past -NPO -IV fluids -protonix for gi prophylaxis -Full code -General surgery on consult Status: Acute Attestations Medical Necessity Statement*: Patient requires hospitalization for left intra-abdominal abscess requiring IR drainage placement, requires inpatient mission, greater than 2 midnights Coding Level of Care Code Acute Fast Food Supervisor for Tamela Marsh Diagnoses Intra-abdominal abscess K65.1
[2020-12-12] MEDS: metoclopramide 5 mg/mL SDV 2 mL IVP ×2 (16:34→20:30)
[2020-12-13] VITALS (14 sets, daily range): BP systolic 141–162; BP diastolic 81–97; PULSE 80–108; RESP 16–20; TEMP 36.6–36.9; O2SAT 94–97
[2020-12-13] MEDS: HYDROmorphone 1 mg/mL INJ 1 mL IVP ×8 (00:36→22:26)
[2020-12-13] MEDS: ondansetron 2 mg/ML SDV 2 mL 4 MG IVP ×3 (00:36→11:17)
[2020-12-13 06:07] LABS: Basophils # 0.1 10^3/uL (0.0-0.1); Basophils % 0.3 %; Eosinophils % 0.2 %; Hematocrit 32.3 % (37.0-47.0); Hemoglobin 9.5 g/dL (11.5-15.3); Lymphocytes # 1.3 10^3/uL (0.8-4.8); Lymphocytes % 8.2 %; Mean Corpuscular HGB Conc 29.4 g/dL (30.0-36.0); Mean Corpuscular Hemoglobin 24.1 pg (28.0-34.0); Mean Corpuscular Volume 81.8 fL (81-99); Mean Platelet Volume 9.3 fL (7.4-10.4); Monocytes # 0.8 10^3/uL (0.2-0.9); Monocytes % 4.7 %; Neutrophils # 13.71 10^3/uL (1.8-7.7); Neutrophils % 86.1 %; Nucleated Red Blood Cells % 0 %; Platelet Count 490 10^3/cmm (130-400); Red Blood Count 3.95 10^6/uL (4.1-5.3); Red Cell Distribution Width 21.9 % (12.1-15.1); White Blood Count 15.9 10^3/uL (4.0-10.0)
[2020-12-13 06:33] LABS: Lactic Sepsis W/Reflex 0.8 mmol/L (0.5-2.2); Procalcitonin 0.09 ng/mL (0-0.5); Thyroid Stimulating Hormone 1.25 uIU/mL (0.27-4.20)
[2020-12-13 06:45] LABS: Alanine Aminotransferase < 5 U/L (0-33); Albumin Level 2.2 g/dL (3.5-5.2); Alkaline Phosphatase 90 IU/L (35-105); Aspartate Amino Transferase 10 U/L (0-32); Blood Urea Nitrogen 12 mg/dL (6-20); C Reactive Protein 92.6 mg/L (0.0-4.9); Calcium 7.9 mg/dL (8.5-10.5); Carbon Dioxide 20 mmol/L (22-29); Chloride 101 mmol/L (98-107); Globulin 4.8 g/dL (1.3-4.6); Glomerular Filtration Rate 182.7 mL/min (90-130); Glucose 89 mg/dL (65-115); Magnesium 1.7 mg/dL (1.7-2.3); Osmolality Calculated 277 mOsm/kg (285-295); Phosphorus 3.7 mg/dL (2.5-4.5); Sodium 134 mmol/L (136-145); Total Bilirubin 0.4 mg/dL (0.15-1.2)
--- NOTE | 2020-12-13 06:53 | P.PN_ITS ---
Subjective Subjective: Interval history: Patient continues to complain of abdominal pain particularly towards left lower side drain which had about 15 mL of purulent discharge without feculent odor, minimal is coming from the right lower drain. Medications: Reviewed: Yes Vitals/I&O/Wt Last Vital Signs Temp 98.3 F 12/13/20 04:00 Pulse 99 12/13/20 04:00 Resp 20 H 12/13/20 04:28 BP 153/81 12/13/20 04:00 Pulse Ox 96 12/13/20 04:00 12/12/20 12/12/20 12/13/20 14:59 22:59 06:59 Intake Total 200 / 200 1200 / 1400 100 / 1500 Output Total 0 / 0 15 / 15 Balance 200 / 200 1200 / 1400 85 / 1485 Weight last 48 hrs Weight 175 lb Physical Exam Narrative: EXAM NARRATIVE: Patient is conscious alert oriented X3, continues to be anxious BMI 31 Head and neck examination PERRLA no masses no cervical lymphadenopathy no jaundice Abdomen nontender except around the left lower quadrant at the site of the drain insertion nondistended soft no organomegaly guarding or rigidity/no signs of peritonitis. Right lower quadrant pigtail catheter in place with purulent discharge Left lower drain in place with purulent discharge(no fecal odor) Extremities no cyanosis no clubbing no edema Clinical encounter took place in the presence of nursing staff Abraham Data : 12/13/20 05:43 12/13/20 05:43 Micro: Microbiology 12/12/20 13:48 Blood Culture - Preliminary Blood SPECIMEN COLLECTED 12/12/20 13:32 Blood Culture - Preliminary Blood SPECIMEN COLLECTED A&P Assessment and plan (1) Intra-abdominal abscess: Patient can have clear liquid diet We will order mag citrate to help her have a bowel movement and will schedule Metamucil twice a day Continue ciprofloxacin IV IV fluid resuscitation and pain management per hospitalist service Drain care and teaching Encourage ambulation We will place an order for CT-guided drainage for interventional radiology We will continue coordinating care with the Dr. Ibrahim Please call for questions or concerns Thank you for consulting general surgery to participate taking care Ms. Ramirez Status: Acute Attestations Medical Necessity Statement*: Patient will require inpatient hospitalization passing [address]-guided drainage of intra-abdominal abscess Time Spent in Patient Care: (>than 50% of time spent in counselling and/or direct pt care on unit) . 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
[2020-12-13 06:56] LABS: Anion Gap 16.7 (5-19); Potassium 3.7 mmol/L (3.5-5.1)
[2020-12-13] MEDS: ciprofloxacin 400 MG/200 ML PREMIX 200 MG IV ×2 (07:50→20:09)
[2020-12-13] MEDS: magnesium citrate Btl 296 mL 150 ML PO (07:50)
[2020-12-13] MEDS: sodium chloride 0.9% 1,000 ML 100 ML IV ×2 (07:51→17:41)
[2020-12-13] MEDS: psyllium powder Pkt 1 PACKET PO (08:24)
[2020-12-13] MEDS: metoclopramide 5 mg/mL SDV 2 mL IVP ×2 (08:25→15:31)
[2020-12-13] MEDS: enoxaparin 40 mg/0.4 mL Syringe SUBCUT (11:17)
[2020-12-13] MEDS: pantoprazole 40 mg SDV IVP (11:17)
--- NOTE | 2020-12-13 12:09 | PC.CHAP ---
Pastoral Care Encounter/Spiritual Assessment Type of Contact [] Declined oven dauber visit [] Patient/Family/Request visit [] Outpatient visit [] Follow-up visit [] Physician referral [] Code/Alert [XX] Routine visit [] Staff referral [] Actively dying [xx] Patient sleeping [] Family support [] [] Out of room [] Palliative care [] [] Receiving care in room [] Pre-surgical visit [] Trauma [] Long length of stay [] ICU visit [] Other: Relational/Emotional Strength [] Patient feels connected with others/family/visitors/staff [] Distress [] Loneliness/isolation [] Abandonment Spirituality of Patient [] Person of Masha [] Attends Latter Day of their Masha [] Believes in Prayer [] Reads Bible or Gnosticist materials [] There are Spiritual issues to be addressed Aircraft Refueler Interventions [] Prayer [] Active listening [] Non-anxious presence [] Spiritual/emotional support [] Crisis/trauma care [] Spiritual counseling [] Bereavement support [] Provided bereavement packet [] Provided Bible/devotional materials [] Provided toy/stuffed animal, coloring book to patient or family member [] Provided Communion [] Anointing/Ola [] Salvation [] Completed spiritual assessment [] Other: Impact on Illness or Injury [] Angry [] Fearful [] Anxious [] Often cries [] Exhaustion [] Unable to work [] Unable to attend yazidism [] Unable to walk/stand [] Unable to read [] Unable to drive [] Unable to eat/drink [] Unable to sleep [] Unable to be with family [] Patient intubated [] Other: Summary Time spent with patient
--- NOTE | 2020-12-13 14:09 | P.PN_ITS ---
Subjective Subjective: Interval history: Abdomen hurts. Denies bowel movement. Occasionally some dry heaves with mucus. Vitals/I&O/Wt Last Vital Signs Temp 97.9 F 12/13/20 12:00 Pulse 97 12/13/20 12:00 Resp 18 12/13/20 12:30 BP 141/92 12/13/20 12:00 Pulse Ox 95 12/13/20 12:30 12/12/20 12/13/20 12/13/20 22:59 06:59 14:59 Intake Total 1200 / 1400 1100 / 2500 560 / 560 Output Total 0 / 0 15 / 15 Balance 1200 / 1400 1085 / 2485 560 / 560 Weight last 48 hrs Weight 79.379 kg Physical Exam Const: COMMON NORMALS: no acute distress and patient oriented x3 HENMT: COMMON NORMALS: oropharynx normal Neck/C-Spine: COMMON NORMALS: no JVD Resp: COMMON NORMALS: normal respiratory effort and clear to auscultation bilaterally AUSCULTATION: clear to auscultation bilaterally Cardio: COMMON NORMALS: no JVD, regular rhythm, S1 normal heart sound present, S2 normal heart sound present and No murmurs present (Cardio) RHYTHM: regular rhythm HEART SOUNDS: S1 normal heart sound present and S2 normal heart sound present GI: COMMON NORMALS: Normal to inspection, nondistended, normoactive bowel sounds present, Soft to palpation and non-tender PALPATION: Yes Soft to palpation Extremity: COMMON NORMALS: no joint enlargement and no pedal edema Neuro: COMMON NORMALS: patient oriented x3 and moves all extremities Skin: COMMON NORMALS: no rashes or lesions noted GENERAL SKIN EXAM: no r ashes or lesions noted Data : 12/13/20 05:43 12/13/20 05:43 Micro: Microbiology 12/12/20 13:48 Blood Culture - Preliminary Blood NEGATIVE TO DATE 12/12/20 13:32 Blood Culture - Preliminary Blood NEGATIVE TO DATE A&P Assessment and plan (1) Intra-abdominal abscess: Discussed with surgery, patient. IR drainage is planned for tomorrow. At this time continue Cipro. Add Flagyl every 6 hours for anaerobic coverage. Follow-up blood cultures. Pain control. -CT scan of the abdomen pelvis shows -1. There is a right-sided percutaneous drain coiled adjacent to a 2.8 x 2.5 cm residual abscess, not within the fluid. 2. Ileus. 3. There is a residual abscess in the left side of the abdomen measuring 4.9 by 4 cm. 4. Stable small left pleural effusion. 5. Indeterminate bilateral adrenal nodules. Consider further evaluation with outpatient pre and postcontrast dedicated adrenal CT or MRI. Diet trial per surgery today of CLD. -NPO midnight -IV fluids -protonix for gi prophylaxis Status: Acute Additional A&P Information Adrenal nodules: Will need contrast CT follow-up of which she is aware. Attestations Medical Necessity Statement*: Continue admission for assessment management of intra-abdominal abscess. Coding Level of Care Code Acute Ward Maid for [facility] Fwd Diagnoses Intra-abdominal abscess K65.1
[2020-12-13] MEDS: metroNIDAZOLE IV 500 MG/100 ML PREMIX 100 MG IV ×2 (15:29→21:36)
[2020-12-14] VITALS (17 sets, daily range): BP systolic 151–163; BP diastolic 75–98; PULSE 80–98; RESP 16–20; TEMP 36.8–37.3; O2SAT 93–98
[2020-12-14] MEDS: HYDROmorphone 1 mg/mL INJ 1 mL IVP ×11 (00:56→22:52)
[2020-12-14] MEDS: metroNIDAZOLE IV 500 MG/100 ML PREMIX 100 MG IV ×4 (02:58→21:40)
[2020-12-14] MEDS: sodium chloride 0.9% 1,000 ML 100 ML IV ×2 (05:02→15:01)
[2020-12-14 06:11] LABS: Basophils % 0.2 %; Hematocrit 30.3 % (37.0-47.0); Hemoglobin 8.9 g/dL (11.5-15.3); Lymphocytes # 1.4 10^3/uL (0.8-4.8); Lymphocytes % 12.1 %; Mean Corpuscular HGB Conc 29.4 g/dL (30.0-36.0); Mean Corpuscular Hemoglobin 23.5 pg (28.0-34.0); Mean Corpuscular Volume 80.2 fL (81-99); Mean Platelet Volume 9.9 fL (7.4-10.4); Monocytes # 0.8 10^3/uL (0.2-0.9); Monocytes % 6.8 %; Neutrophils # 9.53 10^3/uL (1.8-7.7); Neutrophils % 80.3 %; Nucleated Red Blood Cells % 0 %; Platelet Count 460 10^3/cmm (130-400); Red Blood Count 3.78 10^6/uL (4.1-5.3); Red Cell Distribution Width 21.6 % (12.1-15.1); White Blood Count 11.9 10^3/uL (4.0-10.0)
[2020-12-14 06:43] LABS: Procalcitonin 0.03 ng/mL (0-0.5)
[2020-12-14 06:46] LABS: Alanine Aminotransferase < 5 U/L (0-33); Albumin Level 2.3 g/dL (3.5-5.2); Alkaline Phosphatase 89 IU/L (35-105); Blood Urea Nitrogen 9 mg/dL (6-20); C Reactive Protein 63.1 mg/L (0.0-4.9); Calcium 8.2 mg/dL (8.5-10.5); Carbon Dioxide 23 mmol/L (22-29); Chloride 103 mmol/L (98-107); Globulin 4.6 g/dL (1.3-4.6); Glomerular Filtration Rate 254.7 mL/min (90-130); Glucose 80 mg/dL (65-115); Magnesium 2.1 mg/dL (1.7-2.3); Osmolality Calculated 282 mOsm/kg (285-295); Sodium 137 mmol/L (136-145); Total Bilirubin 0.3 mg/dL (0.15-1.2); Total Protein 6.9 g/dL (6.6-8.7)
[2020-12-14 06:52] LABS: Aspartate Amino Transferase 15 U/L (0-32)
--- NOTE | 2020-12-14 07:09 | P.PN_ITS ---
Subjective Subjective: Interval history: Patient overall is about the same complaining of constant left lower abdominal pain, no acute events overnight and continued to have stable vital signs. Medications: Reviewed: Yes Vitals/I&O/Wt Last Vital Signs Temp 98.4 F 12/14/20 03:42 Pulse 83 12/14/20 03:42 Resp 16 12/14/20 05:02 BP 151/93 12/14/20 03:42 Pulse Ox 95 12/14/20 03:42 12/13/20 12/14/20 12/14/20 22:59 06:59 14:59 Intake Total 1503.333 / 2063.333 1000 / 3063.333 Output Total 0 / 0 40 / 40 Balance 1503.333 / 2063.333 960 / 3023.333 Physical Exam Narrative: EXAM NARRATIVE: Patient is conscious alert oriented X3, continues to be anxious BMI 31 Head and neck examination PERRLA no masses no cervical lymphadenopathy no jaundice Abdomen nontender except around the left lower quadrant at the site of the drain insertion nondistended soft no organomegaly guarding or rigidity/no signs of peritonitis. Right lower quadrant pigtail catheter in place with purulent discharge Left lower drain in place with purulent discharge(no fecal odor) Extremities no cyanosis no clubbing no edema Clinical encounter took place in the presence of nursing staff Lanny Data : 12/14/20 05:14 12/14/20 05:14 Micro: Microbiology 12/12/20 13:48 Blood Culture - Preliminary Blood NEGATIVE TO DATE 12/12/20 13:32 Blood Culture - Preliminary Blood NEGATIVE TO DATE A&P Assessment and plan (1) Intra-abdominal abscess: N.p.o. for now except for Bowel regimen Continue ciprofloxacin IV IV fluid resuscitation and pain management per hospitalist service Drain care and teaching Encourage ambulation We will follow on CT-guided drainage today per interventional radiology We will continue coordinating care with the Dr. Ibrahim 0830 am Through the day I did discuss with Dr. Tonwsend our interventional radiologist the images of the patient and she does not feel comfortable performing percutaneous drainage due to to the nearby viscera and she recommended that patient would get the benefit from interventional radiology at an institution of a higher level of care,where more resources are available. 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 Please call for questions or concerns Thank you for consulting general surgery to participate taking care Ashley Status: Acute Attestations Medical Necessity Statement*: Inpatient hospitalization requiring crossing 2 midnights for IV antimicrobial therapy and IR for intra-abdominal drain placement Time Spent in Patient Care: (>than 50% of time spent in counselling and/or direct pt care on unit) . 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
[2020-12-14] MEDS: magnesium citrate Btl 296 mL PO (08:21)
[2020-12-14] MEDS: ciprofloxacin 400 MG/200 ML PREMIX 200 MG IV ×2 (08:23→20:16)
[2020-12-14] MEDS: pantoprazole 40 mg SDV IVP (09:53)
[2020-12-14] MEDS: enoxaparin 40 mg/0.4 mL Syringe SUBCUT (09:53)
--- NOTE | 2020-12-14 11:16 | PC.NURSE ---
I reported the pain and high bp to the nurse 151/90
[2020-12-14 14:38] LABS: SARS Covid-2 Antigen Negative (Negative)
--- NOTE | 2020-12-14 14:53 | PC.NURSE ---
Called [facility] [phone], spoke with Dawit and let her know that patient's covid test was negative.
--- NOTE | 2020-12-14 15:05 | P.TS_ITS ---
Transfer Summary Providers Date of Admission: 12/12/20 07:57 Date of Discharge: 12/14/20 Attending Provider at Admission: Nam Mandujano MD Attending Provider at Transfer: Tung Ibrahim Primary Care Provider: Delroy Oshea MD Anticipated Date of Transfer: Anticipated date of transfer: 12/14/20 Receiving Facility & Provider: Receiving Provider: [] Receiving facility: [] Diagnoses at Discharge Discharge Diagnosis (1) Intra-abdominal abscess: Status: Acute Other Information Additional DC diagnoses/information: Adrenal nodules Reason for Visit Reason for Visit: Drain From [facility] Hospital Course Hospital Course Pleasant 35-year-old lady with past history of opiate dependence, recently on [place] boxone, but was unable to maintain follow-up and continue the medication (was following in [place]), history of depression, complicated diverticulitis, came back for third admission within several months, initially admitted on 09/24/2020, underwent laparoscopic drainage of perisigmoid intra-abdominal abscess, was discharged, but returned with recurrence of abscess, with appearance of perforated viscus, likely complicated diverticulitis on 11/17, at which point underwent laparoscopic washout, growing E. coli, Enterococcus faecalis, Bacteroides, with negative blood cultures. During the second mission was gradually improving, subsequently progress stool, with noted persistence of fluid collections with stable postoperative drains, and so on 11/27 underwent additional aspiration of purulent material and placement of pigtail catheter into right pelvic fluid collection. With progressive improvement subsequently was continued on intramuscular ertapenem antibiotic at discharge on 12/01 with divya n for follow-up with surgery for endoscopic evaluation given also history of colon cancer in the family, as well as colon resection given recurrent episodes of complicated diverticulitis. Returned due to worsening symptoms, worsening abdominal pain, irregular bowel movements, with noted leukocytosis 16.9 on presentation, with CT abdomen pelvis showing right-sided percutaneous drain: Adjacent to a 2.8 x 2.5 cm residual abscess, drain out within the fluid. Noted ileus. Noted 4.9 x 4 cm left side abdominal collection. Antibiotic therapy this admission was continued with ciprofloxin and flagyl was seen by surgery who recommended additional IR drainage of the noted collections, although interventional radiologist here did not feel comfortable to try and achieve this. On discussion with surgery, patient, she had agreed for additional assessment at higher level of care, and was kindly accepted for additional assessment of management of the recurrent intra-abdominal abscess over at [facility] after discussion with Dr. Everett. She said no COVID-19 symptoms. Rapid COVID-19 test is being obtained to help regarding disposition on transfer. She and her partner are agreeable to transfer. She understands that alternative options to IR drainage may include surgical intervention, with possibility of including colostomy. Of note imaging findings have also included incidental adrenal nodules which need additional follow-up with contrast study or MRI, of which she is aware. During prior admission CT imaging also had noted one of the collections which probably included left ovary for which additional follow-up was planned with pelvic ultrasound. Chlamydia, gonorrhea panels were negative. Physical Exam Const: COMMON NORMALS: no acute distress and patient oriented x3 HENMT: COMMON NORMALS: oropharynx normal Neck/C-Spine: COMMON NORMALS: no JVD Resp: COMMON NORMALS: normal respiratory effort and clear to auscultation bilaterally AUSCULTATION: clear to auscultation bilaterally Cardio: COMMON NORMALS: no JVD, regular rhythm, S1 normal heart sound present, S2 normal heart sound present and No murmurs present (Cardio) RHYTHM: regular rhythm HEART SOUNDS: S1 normal heart sound present and S2 normal heart sound present GI: COMMON NORMALS: Soft to palpation INSPECTION: Yes abdominal distension AUSCULTATION: Yes normoactive bowel sounds PALPATION: Yes Soft to palpation and Yes Tenderness to palpation present (GI) Extremity: COMMON NORMALS: no joint enlargement and no pedal edema Neuro: COMMON NORMALS: patient oriented x3 and moves all extremities Skin: COMMON NORMALS: no rashes or lesions noted GENERAL SKIN EXAM: no rashes or lesions noted TS Data Data Completed and Pending: Completed Studies During Hospitalization Category Date Time Status CT abdomen pelvis w con* [id number] Urge nt Cat Scan 12/12/20 04:47 Completed Pending at discharge Category Date Time Status Blood Culture Sta t Lab 12/12/20 13:48 Results Body Fluid Cultur e & GS Routine Lab 12/13/20 07:12 Uncollected C Reactive Protei n AM LABS Lab 12/15/20 04:00 Ordered Complete Blood Co unt w/Auto AM LABS Lab 12/15/20 04:00 Ordered Comprehensive Met abolic Panel AM LA BS Lab 12/15/20 04:00 Ordered Magnesium AM LABS Lab 12/15/20 04:00 Ordered Phosphorus AM LAB S Lab 12/15/20 04:00 Ordered Procalcitonin AM LABS Lab 12/15/20 04:00 Ordered Labs from last 24 hours 12/14/20 12/14/20 12/14/20 14:02 05:14 05:14 WBC 11.9 H RBC 3.78 L Hgb 8.9 L Hct 30.3 L MCV 80.2 L MCH 23.5 L MCHC 29.4 L RDW 21.6 H Plt Count 460 H MPV 9.9 Neut % (Auto) 80.3 Lymph % (Auto) 12.1 Granite % (Auto) 6.8 Eos % (Auto) 0.0 Baso % (Auto) 0.2 Neut # (Auto) 9.53 H Lymph # (Auto) 1.4 Granite # (Auto) 0.8 Eos # (Auto) 0.0 Baso # (Auto) 0.0 Nucleated RBC % (a uto) 0 Nucleated RBCs # 0.0 Sodium 137 Potassium 4.0 Chloride 103 Carbon Dioxide 23 Anion Gap 15.0 BUN 9 Creatinine 0.3 L GFR Calculation 254.7 H Glucose 80 Calculated Osmolal ity 282 L Calcium 8.2 L Phosphorus 3.0 Magnesium 2.1 Total Bilirubin 0.3 AST 15 ALT < 5 Alkaline Phosphata se 89 C-Reactive Protein 63.1 H Total Protein 6.9 Albumin 2.3 L Globulin 4.6 Procalcitonin 0.03 SARS-CoV-2 Ag (Rap id) Negative Vitals: Last Vital Signs Temp 98.4 F 12/14/20 11:16 Pulse 84 12/14/20 11:16 Resp 18 12/14/20 15:00 BP 151/90 12/14/20 11:16 Pulse Ox 96 12/14/20 15:00 TS Medications Medications Home Medications No Known Home Medications 12/12/20 [History Confirmed 12/12/20] Active Medications Acetaminophen (Acetaminophen 325 Mg Tablet) 650 mg PO Q6H PRN PRN Reason: Mild/Mod Pain Or Temp >/= 101 Docusate Sodium (Docusate Sodium 100 Mg Capsule) 200 mg PO BID PRN PRN Reason: CONSTIPATION Enoxaparin Sodium (Enoxaparin 40 Mg/0.4 Ml Syringe) 40 mg SUBCUT Q24H [facility] Last Admin: 12/14/20 09:53 Dose: 40 mg Documented by: Hydromorphone HCl (Hydromorphone 1 Mg/Ml Inj 1 Ml) 1 mg IVP Q2H PRN PRN Reason: SEVERE PAIN Last Admin: 12/14/20 15:00 Dose: 1 mg Documented by: Sodium Chloride (Sodium Chloride 0.9%) 1,000 mls @ 100 mls/hr IV .Q10H [facility] Last Admin: 12/14/20 15:01 Dose: 100 mls/hr Documented by: Ciprofloxacin/Dextrose (Cipro) 400 mg in 200 mls @ 200 mls/hr IV Q12H [facility]; Protocol Last Infusion: 12/14/20 10:29 Dose: Infused Documented by: Metronidazole (Flagyl Iv) 500 mg in 100 mls @ 100 mls/hr IV Q6H [facility]; Protocol Last Admin: 12/14/20 15:00 Dose: 100 mls/hr Documented by: Metoclopramide HCl (Metoclopramide 5 Mg/Ml Sdv 2 Ml) 5 mg IVP Q4H PRN PRN Reason: NAUSEA AND VOMITING Last Admin: 12/13/20 15:31 Dose: 5 mg Documented by: Naloxone HCl (Naloxone 0.4 Mg/Ml Sdv) 0.4 mg IVP PRN PRN PRN Reason: RESPIRATORY RATE < 8/MIN Ondansetron HCl (Ondansetron 2 Mg/Ml Sdv 2 Ml) 4 mg IVP Q4H PRN PRN Reason: NAUSEA AND VOMITING Last Admin: 12/13/20 11:17 Dose: 4 mg Documented by: Pantoprazole Sodium (Pantoprazole Dr 40 Mg Tablet) 40 mg PO Q24H [facility] Psyllium Hydrophilic Mucilloid (Psyllium Powder Pkt) 1 packet PO BID [facility] Last Admin: 12/14/20 09:17 Dose: Not Given Documented by: Discharge Plan Discharge Patient Disposition: Xfer Short-Term Hosp Condition: Stable Prescriptions: No Action No Known Home Medications RF: 0 Referrals: Delroy Oshea MD [Primary Care Provider] - Patient Instructions: Opioid Safety Transfer Attestations Time Spent in Transfer Care*: greater than 30 min Quality Metrics Clinical Quality Measures: During this hospital stay, did patient experience: None Coding Level of Care Code Acute Student Support Advisor for Chg Fwd Exam Comprehensive Diagnoses Intra-abdominal abscess K65.1
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
[2020-12-14] MEDS: docusate sodium 100 mg Capsule 200 MG PO (22:59)
[2020-12-15] VITALS (13 sets, daily range): BP systolic 151–169; BP diastolic 89–105; PULSE 75–79; RESP 18–24; TEMP 36.9–37.1; O2SAT 95–97
[2020-12-15] MEDS: HYDROmorphone 1 mg/mL INJ 1 mL IVP ×8 (00:58→18:41)
[2020-12-15] MEDS: metroNIDAZOLE IV 500 MG/100 ML PREMIX 100 MG IV ×3 (02:05→16:08)
[2020-12-15 02:33] LABS: Basophils % 0.1 %; Eosinophils % 0.2 %; Hematocrit 27.4 % (37.0-47.0); Hemoglobin 8.4 g/dL (11.5-15.3); Lymphocytes # 1.3 10^3/uL (0.8-4.8); Lymphocytes % 12.3 %; Mean Corpuscular HGB Conc 30.7 g/dL (30.0-36.0); Mean Corpuscular Hemoglobin 24.1 pg (28.0-34.0); Mean Corpuscular Volume 78.5 fL (81-99); Mean Platelet Volume 9.2 fL (7.4-10.4); Monocytes # 0.8 10^3/uL (0.2-0.9); Monocytes % 7.4 %; Neutrophils # 8.35 10^3/uL (1.8-7.7); Neutrophils % 79.3 %; Nucleated Red Blood Cells % 0 %; Platelet Count 419 10^3/cmm (130-400); Red Blood Count 3.49 10^6/uL (4.1-5.3); Red Cell Distribution Width 21.3 % (12.1-15.1); White Blood Count 10.5 10^3/uL (4.0-10.0)
[2020-12-15 02:56] LABS: Alanine Aminotransferase < 5 U/L (0-33); Albumin Level 2.5 g/dL (3.5-5.2); Alkaline Phosphatase 76 IU/L (35-105); Anion Gap 10.7 (5-19); Aspartate Amino Transferase 6 U/L (0-32); Blood Urea Nitrogen 7 mg/dL (6-20); C Reactive Protein 45.6 mg/L (0.0-4.9); Calcium 8.1 mg/dL (8.5-10.5); Carbon Dioxide 28 mmol/L (22-29); Chloride 98 mmol/L (98-107); Glomerular Filtration Rate 254.7 mL/min (90-130); Glucose 78 mg/dL (65-115); Magnesium 1.9 mg/dL (1.7-2.3); Osmolality Calculated 273 mOsm/kg (285-295); Phosphorus 2.5 mg/dL (2.5-4.5); Potassium 3.7 mmol/L (3.5-5.1); Sodium 133 mmol/L (136-145); Total Bilirubin 0.2 mg/dL (0.15-1.2); Total Protein 6.5 g/dL (6.6-8.7)
[2020-12-15 03:02] LABS: Procalcitonin 0.06 ng/mL (0-0.5)
--- NOTE | 2020-12-15 03:35 | PC.NURSE ---
PM SHIFT UPDATE PT HAS CONTINUED TO REQUEST IVP DILAUDID EVERY 2 HOURS - PT HAS BECAME TEARFUL MULTIPLE TIMES THROUGHOUT THE NIGHT AND STATES I JUST NEED TO GO TO THE BATHROOM - EDUCATED PT TO THE FACT THAT IV NARCOTICS WILL SLOW GI SYSTEM - PT VERBALIZES UNDERSTANDING AND STATES I CAN'T HELP IT- I NEED PAIN MEDICATION
[2020-12-15] MEDS: sodium chloride 0.9% 1,000 ML 100 ML IV (04:59)
[2020-12-15] MEDS: ciprofloxacin 400 MG/200 ML PREMIX 200 MG IV (07:41)
[2020-12-15] MEDS: pantoprazole DR 40 mg Tablet PO (10:19)
[2020-12-15] MEDS: methylnaltrexone 12 /0.6 mL INJ 12 MG SUBCUT (10:19)
[2020-12-15] MEDS: lactulose oral liq 20 gm/30 mL UDC PO ×2 (10:19→12:54)
[2020-12-15] MEDS: enoxaparin 40 mg/0.4 mL Syringe SUBCUT (10:20)
--- NOTE | 2020-12-15 10:33 | PC.CHAP ---
Pastoral Care Encounter/Spiritual Assessment Type of Contact [x] Declined grievance and appeals coordinator visit [] Patient/Family/Request visit [] Outpatient visit [] Follow-up visit [] Physician referral [] Code/Alert [x] Routine visit [] Staff referral [] Actively dying [] Patient sleeping [] Family support [] [] Out of room [] Palliative care [] [] Receiving care in room [] Pre-surgical visit [] Trauma [] Long length of stay [] ICU visit [] Other: Relational/Emotional Strength [] Patient feels connected with others/family/visitors/staff [] Distress [] Loneliness/isolation [] Abandonment Spirituality of Patient [] Person of Masha [] Attends [employer] of their Masha [] Believes in Prayer [] Reads Bible or Lutheran materials [] There are Spiritual issues to be addressed Umbrella Cutter Interventions [] Prayer [] Active listening [] Non-anxious presence [] Spiritual/emotional support [] Crisis/trauma care [] Spiritual counseling [] Bereavement support [] Provided bereavement packet [] Provided Bible/devotional materials [] Provided toy/stuffed animal, coloring book to patient or family member [] Provided Communion [] Anointing/[place] [] Salvation [] Completed spiritual assessment [] Other: Impact on Illness or Injury [] Angry [] Fearful [] Anxious [] Often cries [] Exhaustion [] Unable to work [] Unable to attend yarsani [] Unable to walk/stand [] Unable to read [] Unable to drive [] Unable to eat/drink [] Unable to sleep [] Unable to be with family [] Patient intubated [] Other: Summary Time spent with patient
--- NOTE | 2020-12-15 11:40 | PC.NURSE ---
rcvd verbal orders to discontinue isolation precautions.
--- NOTE | 2020-12-15 14:01 | P.PN_ITS ---
Subjective Subjective: Interval history: Denies any changes, feels she is doing about the same as yesterday. Bothered by abdominal pain/discomfort. Dry heaving. Denies trouble urinating. Vitals/I&O/Wt Last Vital Signs Temp 98.8 F 12/15/20 11:41 Pulse 77 12/15/20 11:41 Resp 18 12/15/20 12:53 BP 168/105 12/15/20 11:41 Pulse Ox 96 12/15/20 12:53 12/14/20 12/15/20 12/15/20 22:59 06:59 14:59 Intake Total 1398.333 / 0789.820 8613 / 2898.333 651.667 / 651.667 Output Total Balance 1398.333 / 4837.771 4622 / 2876.333 651.667 / 651.667 Physical Exam Const: COMMON NORMALS: no acute distress and patient oriented x3 GENERAL APPEARANCE: cooperative; not comfortable ORIENTATION/CONSCIOUSNESS: Yes awake HENMT: COMMON NORMALS: oropharynx normal Neck/C-Spine: COMMON NORMALS: no JVD Resp: COMMON NORMALS: normal respiratory effort and clear to auscultation bilaterally AUSCULTATION: clear to auscultation bilaterally Cardio: COMMON NORMALS: no JVD, regular rhythm, S1 normal heart sound present, S2 normal heart sound present and No murmurs present (Cardio) RHYTHM: regular rhythm HEART SOUNDS: S1 normal heart sound present and S2 normal heart sound present GI: COMMON NORMALS: Soft to palpation INSPECTION: Yes abdominal distension AUSCULTATION: Yes normoactive bowel sounds PALPATION: Yes Soft to palpation and Yes Tenderness to palpation present (GI) Extremity: COMMON NORMALS: no joint enlargement and no pedal edema Neuro: COMMON NORMALS: patient oriented x3 and moves all extremities Skin: COMMON NORMALS: no rashes or lesions noted GENERAL SKIN EXAM: no rashes or lesions noted Data : 12/15/20 02:18 12/15/20 02:18 A&P Assessment and plan (1) Intra-abdominal abscess: Recurrent intra-abdominal abscesses. Abdominal pain. Ileus. Continue IV antibiotic. Accepted for additional assessment of management at higher level facility with assessment for IR drainage of recurrent intra-abdominal abscesses/fluid collections, versus operative management. Pending bed opening. Continue gentle IV hydration support. Bowel rest. Consider parenteral nutrition if remains further in the hospital. Pain control. -CT scan of the abdomen pelvis shows -1. There is a right-sided percutaneous drain coiled adjacent to a 2.8 x 2.5 cm residual abscess, not within the fluid. 2. Ileus. 3. There is a residual abscess in the left side of the abdomen measuring 4.9 by 4 cm. 4. Stable small left pleural effusion. 5. Indeterminate bilateral adrenal nodules. Consider further evaluation with outpatient pre and postcontrast dedicated adrenal CT or MRI. -protonix for gi prophylaxis Status: Acute Additional A&P Information Adrenal nodules: Will need contrast CT follow-up of which she is aware. Attestations Medical Necessity Statement*: Continue admission for assessment and management of recurrent intra-abdominal abscesses requiring IV antibiotics and additional definitive therapy in the form of IR drainage and/or surgery. Pending transfer to higher level facility. Coding Level of Care Code Acute Placement Coordinator for Tamela Marsh Diagnoses Intra-abdominal abscess K65.1
[2020-12-15] MEDS: sodium chloride 0.9% 1,000 ML 75 ML IV (16:08)
--- NOTE | 2020-12-15 18:32 | PC.NURSE ---
called report to [facility] and gave report to Li Knox RN
--- NOTE | 2020-12-15 18:43 | PC.NURSE ---
Called 911 and set up transport to [place]
== END 2020-12-15 19:00 | disposition short-term general hospital (02) | DRG 372 ==
LOC: ER 04:45 → MEDSURG 08:06
PROVIDERS: Admitting Provider Family Medicine; Emergency Provider Emergency Medicine; PCP Family Medicine Adult Medicine; Visit Provider Internal Medicine
DX: K65.1 Peritoneal abscess (principal); F11.20 Opioid dependence, uncomplicated; K56.7 Ileus, unspecified; J90 Pleural effusion, not elsewhere classified; F32.9 Major depressive disorder, single episode, unspecified; F17.210 Nicotine dependence, cigarettes, uncomplicated; E27.9 Disorder of adrenal gland, unspecified; Z80.0 Family history of malignant neoplasm of digestive organs
CPT/HCPCS: 36415; 74177; 80053; 81001; 83605; 83690; 83735; 84100; 84145; 84443; 85025; 86140; 87040; 87426; 94664; 96365; 96372; 96375; 99285; C9113; J0744; J1170; J1650; J2212; J2405; J2765; J7030; Q9967; S0030